=== PATIENT | male | born 1935 | race Caucasian/White ===

== ENCOUNTER 2019-09-24 08:30 | Outpatient (RCR) | payer MEDICARE, SELFPAY | END 2020-03-29 23:59 | disposition home or self-care (01) | LOC: ANHHMGTCPR 08:30 | PROVIDERS: PCP Internal Medicine; Visit Provider Internal Medicine Pulmonary Disease | DX: J44.9 Chronic obstructive pulmonary disease, unspecified (principal) | CPT/HCPCS: 97150; G0424 ==

== ENCOUNTER 2019-10-29 08:30 | Outpatient (RCR) | payer MEDICARE, SELFPAY | END 2019-10-29 12:00 | disposition home or self-care (01) | LOC: ANHCPREHAB 08:30 | PROVIDERS: PCP Internal Medicine; Visit Provider Internal Medicine Pulmonary Disease | DX: J44.9 Chronic obstructive pulmonary disease, unspecified (principal) | CPT/HCPCS: 36415; 82728; 83540; 83550; 85025; 97150; G0424 ==

== ENCOUNTER 2019-12-01 10:49 | Outpatient (RCR) | payer MEDICARE, SELFPAY ==
[2019-10-28 11:18] LABS: Basophils Absolute Auto 0.1 K/mm3 (0.0-0.1); Basophils Percent Auto 0.8 % (0.2-1.2); Eosinophils Absolute Auto 0.3 K/mm3 (0-0.3); Eosinophils Percent Auto 2.8 % (0-4.4); Hematocrit 32.3 % (42.0-52.0); Hemoglobin 10.1 g/dL (14.0-18.0); Immature Granulocyte Absolute 0.04 K/mm3 (0.00-0.031); Immature Granulocyte Percent A 0.4 % (0-0.5); Lymphocytes Absolute Auto 1.22 K/mm3 (0.9-3.2); Lymphocytes Percent Auto 13.5 % (18.3-44.2); Mean Corpuscular HGB Conc 31.3 g/dl (32-36); Mean Corpuscular Hemoglobin 26.4 pg (26-34); Mean Corpuscular Volume 84.6 fl (80-100); Mean Platelet Volume 10.1 fl (7.4-10.4); Monocytes Absolute Auto 0.8 K/mm3 (0.1-0.6); Monocytes Percent Auto 9.2 % (2.6-8.5); Neutrophils Absolute Auto 6.7 K/mm3 (1.3-6.7); Neutrophils Percent Auto 73.3 % (45.5-73.1); Platelet Count Result 229 k/mm3 (150-375); Red Blood Count 3.82 M/mm3 (4.6-6.20); Red Cell Distribution Width 14.6 % (11.5-14.5); White Blood Count 9.1 K/mm3 (4.5-10.0)
[2019-10-28 12:04] LABS: Iron 66 ug/dL (49-181)
[2019-10-28 12:13] LABS: Percent Iron Saturation 19 % (20-50)
[2019-12-01 11:06] LABS: Basophils Absolute Auto 0.1 K/mm3 (0.0-0.1); Basophils Percent Auto 1.2 % (0.2-1.2); Eosinophils Absolute Auto 0.3 K/mm3 (0-0.3); Eosinophils Percent Auto 3.3 % (0-4.4); Hematocrit 31.9 % (42.0-52.0); Hemoglobin 10.2 g/dL (14.0-18.0); Immature Granulocyte Absolute 0.03 K/mm3 (0.00-0.031); Immature Granulocyte Percent A 0.3 % (0-0.5); Lymphocytes Absolute Auto 1.18 K/mm3 (0.9-3.2); Lymphocytes Percent Auto 13.2 % (18.3-44.2); Mean Corpuscular Hemoglobin 26.8 pg (26-34); Mean Corpuscular Volume 83.9 fl (80-100); Mean Platelet Volume 10.4 fl (7.4-10.4); Monocytes Absolute Auto 0.8 K/mm3 (0.1-0.6); Monocytes Percent Auto 8.9 % (2.6-8.5); Neutrophils Absolute Auto 6.5 K/mm3 (1.3-6.7); Neutrophils Percent Auto 73.1 % (45.5-73.1); Platelet Count Result 221 k/mm3 (150-375); Red Cell Distribution Width 13.6 % (11.5-14.5); White Blood Count 8.9 K/mm3 (4.5-10.0)
[2019-12-01 11:30] LABS: Iron 68 ug/dL (49-181)
[2019-12-01 11:39] LABS: Percent Iron Saturation 19 % (20-50)
== END 2020-01-26 23:59 | disposition home or self-care (01) ==
LOC: ANHLAB 10:49
PROVIDERS: PCP Internal Medicine; Visit Provider Internal Medicine Medical Oncology
DX: D50.9 Iron deficiency anemia, unspecified (principal)
CPT/HCPCS: 36415; 82728; 83540; 83550; 85025

== ENCOUNTER → 2020-01-15 12:37 | Outpatient (CLI) | payer MEDICARE, SELFPAY ==
--- NOTE | ~2020-01-15 | CT_ITS ---
EXAMINATION: CT abdomen pelvis w con DATE: 01/15/2020 13:17 INDICATION: Iron deficiency anemia TECHNIQUE: Computed tomography (CT) of the abdomen and pelvis was performed with 100 cc Omnipaque 350 intravenous contrast. Patient had minor allergic reaction with hives in the upper abdomen. Patient e xamined by Dr. Munoz and monitored for 30 minutes and then released. The dose-length product was 833.5 7 mGy-cm. Automated exposure control and iterative reconstruction technique were employed. COMPARISON: CT dated 07/23/2019 FINDINGS: There is chronic scarring/atelectasis involving the lower lungs bilaterally without signifi cant change. Areas of tree-in-bud nodular configuration are seen in the lower lungs, most likely infe ctious/inflammatory. No significant pleural or pericardial effusion. Moderate cardiomegaly. There is diffuse atherosclerosis of the aorta without aneurysm. No lymphadenopathy. The liver, adrenal glands and right kidney are unremarkable. Small subcentimeter hypodensity left kid kianna, most likely benign cysts. Calcified granulomas in the spleen. There are pancreatic calcification s, compatible with chronic pancreatitis. There is stable mesenteric stranding, nonspecific. Nonobstru ctive bowel gas pattern. Moderate colonic fecal loading. No significant small bowel dilation. No abno rmal free air or free fluid in the pelvis. There is a right hip arthroplasty. Generalized osteopenia. There are are shotty nonenlarged retroperitoneal lymph nodes, likely reactive. There is mild-moderat e lumbar spondylosis. No acute osseous abnormality. IMPRESSION: 1. Chronic bibasilar scarring/atelectasis with rounded atelectasis right lower lobe. Tree-in-bud nodu lar configuration scattered in the lower lungs, most likely infectious/inflammatory. No significant c hange. 2: Cardiomegaly. 3: Chronic pancreatitis. Reviewed, dictated and finalized at location A. [employer] IMPRESSION: 1. Chronic bibasilar scarring/atelectasis with rounded atelectasis right lower lobe. Tree-in-bud nodular configuration scattered in the lower lungs, most like ly infectious/inflammatory. No significant change. 2: Cardiomegaly. 3: Chronic pancreatitis.
[2020-01-15 12:55] LABS: Blood Urea Nitrogen 9 mg/dL (8-26); Estimated Glomerular Filt Rate > 60
== END ==
PROVIDERS: PCP Internal Medicine; Visit Provider Internal Medicine Medical Oncology
DX: J98.11 Atelectasis (principal); I51.7 Cardiomegaly; K86.1 Other chronic pancreatitis
CPT/HCPCS: 74177; Q9967

== ENCOUNTER 2020-02-01 14:19 | Outpatient (CLI) | payer MEDICARE, SELFPAY ==
[2020-02-01 15:22] LABS: Basophils Absolute Auto 0.1 K/mm3 (0.0-0.1); Basophils Percent Auto 0.8 % (0.2-1.2); Eosinophils Absolute Auto 0.3 K/mm3 (0-0.3); Eosinophils Percent Auto 3.2 % (0-4.4); Hematocrit 30.3 % (42.0-52.0); Hemoglobin 9.4 g/dL (14.0-18.0); Immature Granulocyte Absolute 0.04 K/mm3 (0.00-0.031); Immature Granulocyte Percent A 0.4 % (0-0.5); Immature Reticulocyte Fraction 9.3 % (3.0-15.9); Lymphocytes Absolute Auto 1.09 K/mm3 (0.9-3.2); Mean Corpuscular Hemoglobin 25.7 pg (26-34); Mean Corpuscular Volume 82.8 fl (80-100); Mean Platelet Volume 10.5 fl (7.4-10.4); Monocytes Absolute Auto 0.8 K/mm3 (0.1-0.6); Monocytes Percent Auto 8.4 % (2.6-8.5); Neutrophils Absolute Auto 6.9 K/mm3 (1.3-6.7); Neutrophils Percent Auto 75.2 % (45.5-73.1); Platelet Count Result 245 k/mm3 (150-375); Red Blood Count 3.66 M/mm3 (4.6-6.20); Red Cell Distribution Width 13.6 % (11.5-14.5); Reticulocyte Hemoglobin Conten 28.8 pg (28.2-35.7); Reticulocyte Percent 1.85 % (0.7-4.3); Reticulocytes Absolute 0.07 B/L (32.2-175.7); White Blood Count 9.1 K/mm3 (4.5-10.0)
[2020-02-01 15:36] LABS: Lactate Dehydrogenase 324 U/L (313-618)
[2020-02-01 15:51] LABS: Erythrocyte Sedimentation Rate 73 mm/hr (0-20)
[2020-02-01 16:58] LABS: Folic Acid > 20.0 ng/mL (2.76->20)
[2020-02-04 11:30] LABS: ANA Titer 1:40 (Negative); Anti Nuclear Antibody Pattern Nuclear, Nucleolar
[2020-02-04 23:15] LABS: Albumin 4.1 g/dL (3.8-4.8); Alpha 1 Globulin 0.3 g/dL (0.2-0.3); Beta 1 Globulin 0.5 g/dL (0.4-0.6); Gamma Globulin 1.1 g/dL (0.8-1.7); Protein, Total 7.4 g/dL (6.1-8.1)
[2020-02-05 22:52] LABS: Haptoglobin 245 mg/dL (43-212)
== END 2020-02-01 14:20 | disposition home or self-care (01) ==
PROVIDERS: PCP Internal Medicine; Visit Provider Internal Medicine Medical Oncology
DX: D64.9 Anemia, unspecified (principal)
CPT/HCPCS: 36415; 82607; 82746; 83010; 83615; 84155; 84165; 85025; 85046; 85652; 86038; 86039

== ENCOUNTER 2020-04-19 12:50 | Outpatient (CLI) | payer MEDICARE, SELFPAY ==
[2020-04-19 13:23] LABS: Basophils Absolute Auto 0.1 K/mm3 (0.0-0.1); Basophils Percent Auto 0.6 % (0.2-1.2); Eosinophils Absolute Auto 0.3 K/mm3 (0-0.3); Eosinophils Percent Auto 3.1 % (0-4.4); Immature Granulocyte Absolute 0.04 K/mm3 (0.00-0.031); Immature Granulocyte Percent A 0.4 % (0-0.5); Immature Reticulocyte Fraction 23.7 % (3.0-15.9); Lymphocytes Absolute Auto 1.43 K/mm3 (0.9-3.2); Lymphocytes Percent Auto 15.1 % (18.3-44.2); Mean Corpuscular HGB Conc 31.4 g/dl (32-36); Mean Corpuscular Volume 79.5 fl (80-100); Mean Platelet Volume 9.8 fl (7.4-10.4); Monocytes Absolute Auto 0.9 K/mm3 (0.1-0.6); Monocytes Percent Auto 9.7 % (2.6-8.5); Neutrophils Absolute Auto 6.8 K/mm3 (1.3-6.7); Neutrophils Percent Auto 71.1 % (45.5-73.1); Platelet Count Result 235 k/mm3 (150-375); Red Blood Count 2.64 M/mm3 (4.6-6.20); Red Cell Distribution Width 14.2 % (11.5-14.5); Reticulocyte Hemoglobin Conten 27.7 pg (28.2-35.7); Reticulocyte Percent 3.28 % (0.7-4.3); Reticulocytes Absolute 0.09 B/L (32.2-175.7); White Blood Count 9.5 K/mm3 (4.5-10.0)
[2020-04-19 13:35] LABS: Hemoglobin 6.6 g/dL (14.0-18.0)
[2020-04-21 15:10] LABS: Alanine Aminotransferase 12 U/L (4-50); Albumin Level 4.1 g/dL (3.5-5.1); Alkaline Phosphatase 109 U/L (38-126); Aspartate Amino Transferase 18 U/L (17-59); Bilirubin,Total 0.2 mg/dL (0.2-1.3); Blood Urea Nitrogen 12 mg/dL (9-20); Calcium 9.4 mg/dL (8.4-10.2); Carbon Dioxide 22 mmol/L (22-30); Chloride 105 mmol/L (98-107); Estimated Glomerular Filt Rate > 60; Glucose 88 mg/dL (75-110); Potassium 4.5 mmol/L (3.4-5.0); Sodium 137 mmol/L (137-145)
== END 2020-04-19 12:51 | disposition home or self-care (01) ==
PROVIDERS: PCP Internal Medicine; Visit Provider Internal Medicine Medical Oncology
DX: D50.9 Iron deficiency anemia, unspecified (principal)
CPT/HCPCS: 36415; 80053; 82728; 85025; 85046

== ENCOUNTER 2020-04-20 10:56 | Outpatient (RCR) | payer MEDICARE, SELFPAY ==
[2020-04-20] VITALS (9 sets, daily range): BP systolic 133–155; BP diastolic 41–85; PULSE 45–100; RESP 14–20; TEMP 36.3–36.9; O2SAT 97–100
== END 2020-07-19 23:59 | disposition home or self-care (01) ==
LOC: ANHCPCTRAN 10:56
PROVIDERS: PCP Internal Medicine; Visit Provider Internal Medicine Medical Oncology
DX: D50.9 Iron deficiency anemia, unspecified (principal)
CPT/HCPCS: 36415; 36430; 86850; 86900; 86901; 86920; P9016

== ENCOUNTER 2020-05-06 10:03 | Outpatient (CLI) | payer MEDICARE, SELFPAY ==
[2020-05-06 10:30] LABS: Basophils Absolute Auto 0.1 K/mm3 (0.0-0.1); Basophils Percent Auto 0.9 % (0.2-1.2); Eosinophils Absolute Auto 0.2 K/mm3 (0-0.3); Eosinophils Percent Auto 2.8 % (0-4.4); Hematocrit 27.5 % (42.0-52.0); Hemoglobin 8.8 g/dL (14.0-18.0); Immature Granulocyte Absolute 0.03 K/mm3 (0.00-0.031); Immature Granulocyte Percent A 0.3 % (0-0.5); Lymphocytes Absolute Auto 1.25 K/mm3 (0.9-3.2); Lymphocytes Percent Auto 14.5 % (18.3-44.2); Mean Corpuscular Hemoglobin 25.8 pg (26-34); Mean Corpuscular Volume 80.6 fl (80-100); Monocytes Absolute Auto 0.8 K/mm3 (0.1-0.6); Monocytes Percent Auto 9.4 % (2.6-8.5); Neutrophils Absolute Auto 6.2 K/mm3 (1.3-6.7); Neutrophils Percent Auto 72.1 % (45.5-73.1); Platelet Count Result 222 k/mm3 (150-375); Red Blood Count 3.41 M/mm3 (4.6-6.20); Red Cell Distribution Width 14.7 % (11.5-14.5); Reticulocyte Hemoglobin Conten 29.4 pg (28.2-35.7); Reticulocyte Percent 1.47 % (0.7-4.3); Reticulocytes Absolute 0.05 B/L (32.2-175.7); White Blood Count 8.6 K/mm3 (4.5-10.0)
[2020-05-06 10:59] LABS: Iron 86 ug/dL (49-181)
[2020-05-06 11:08] LABS: Percent Iron Saturation 21 % (20-50)
== END 2020-05-06 10:04 | disposition home or self-care (01) ==
PROVIDERS: PCP Internal Medicine; Visit Provider Internal Medicine Medical Oncology
DX: D64.9 Anemia, unspecified (principal)
CPT/HCPCS: 36415; 82728; 83540; 83550; 85025; 85046

== ENCOUNTER 2020-05-13 07:27 | Outpatient (CLI) | payer MEDICARE, SELFPAY ==
--- NOTE | ~2020-05-13 | CT_ITS ---
EXAMINATION: CT brain wo con DATE: 05/13/2020 07:57 INDICATION: Headache. TECHNIQUE: Computed tomography (CT) of the head was performed without intravenous contrast. The mA wa s adjusted according to patient size. Iterative reconstruction technique was employed. The dose-lengt h product was 605.33 mGy-cm. COMPARISON: Head CT 07/17/2015 FINDINGS: There are scattered areas of low attenuation in the cerebral white matter, which is within normal limits for the patient's age. There is a prominent perivascular space in the left basal gangli a. There is no intracranial hemorrhage, acute infarction, or abnormal intracranial mass lesion. The v entricles are normal in size. There is mild mucosal thickening in the paranasal sinuses. There are li elise changes of ocular lens replacement surgeries. The mastoid air cells are normal. IMPRESSION: 1. Normal aging brain. Reviewed, dictated and finalized at location A. IMPRESSION: 1. Normal aging brain.
--- NOTE | ~2020-05-13 | XR_ITS ---
EXAMINATION: XR UGI w small bowel DATE: 05/13/2020 10:08 INDICATION: Iron deficiency anemia. TECHNIQUE: The patient drank thin barium. Fluoroscopy of the esophagus, stomach, and small bowel was performed. Fluoroscopy exposure time was 0.9 minutes. Radiographs of the abdomen were obtained. The t ota number of images was 279. COMPARISON: CT abdomen and pelvis 01/15/2020 FINDINGS: UPPER GASTROINTESTINAL SERIES: There is no mass or stricture of the esophagus. There is decreased primary and secondary esophageal p eristalsis. There was no gastroesophageal reflux with provocative maneuvers. The stomach and duodenum demonstrate a normal folding pattern. Median sternotomy wires are noted. SMALL BOWEL SERIES: The small bowel shows a normal folding pattern. Specifically, the terminal ileum is normal. Transit t mason to the colon was 1 hour. There is gaseous distention of the colon. There is a total right hip art hroplasty. IMPRESSION: 1. Moderate esophageal dysmotility. 2. Normal small bowel. 3. Gaseous distention of the colon, consistent with adynamic ileus. Reviewed, dictated and finalized at location A.
== END 2020-05-13 07:28 | disposition home or self-care (01) ==
LOC: ANHIMG 07:31
PROVIDERS: PCP Internal Medicine; Visit Provider Internal Medicine Medical Oncology
DX: K59.00 Constipation, unspecified (principal); D64.9 Anemia, unspecified; K22.8 Other specified diseases of esophagus; K63.89 Other specified diseases of intestine; R51 Headache
CPT/HCPCS: 70450; 74240; 74248

== ENCOUNTER 2020-05-19 16:54 | Inpatient (IN) | payer MEDICARE, SELFPAY ==
[2020-05-19] VITALS (19 sets, daily range): BP systolic 138–164; BP diastolic 49–64; PULSE 60–74; RESP 18–27; TEMP 36.6–36.9; O2SAT 96–100
--- NOTE | ~2020-05-19 | XR_ITS ---
EXAMINATION: XR chest 1V portable INDICATION: Cough TECHNIQUE: Portable AP chest at 1823 hours COMPARISON: 09/05/2019 FINDINGS: There is a chronic small right pleural effusion. Cardiomegaly is noted. There are minimal a irspace opacities of the mid and lower lung zones. No pneumothorax is identified. Median sternotomy w ires and mediastinal surgical clips are seen, likely from prior coronary artery bypass grafting. IMPRESSION: 1. Minimal airspace opacities of the mid and lower lung zones, consistent with atelectasis versus pne umonia. 2. Stable cardiomegaly. 3. Small right pleural effusion, chronic. Reviewed, dictated and finalized at location A. IMPRESSION: 1. Minimal airspace opacities of the mid and lower lung zones, consistent with atelectasis versus pneumonia. 2. Stable cardiomegaly. 3. Small right pleural effusion, chronic.
[2020-05-19 18:34] LABS: Basophils Absolute Auto 0.1 K/mm3 (0.0-0.1); Basophils Percent Auto 0.7 % (0.2-1.2); Eosinophils Absolute Auto 0.3 K/mm3 (0-0.3); Eosinophils Percent Auto 2.9 % (0-4.4); Immature Granulocyte Absolute 0.04 K/mm3 (0.00-0.031); Immature Granulocyte Percent A 0.4 % (0-0.5); Lymphocytes Absolute Auto 1.34 K/mm3 (0.9-3.2); Lymphocytes Percent Auto 13.9 % (18.3-44.2); Mean Corpuscular HGB Conc 31.6 g/dl (32-36); Mean Corpuscular Hemoglobin 26.1 pg (26-34); Mean Corpuscular Volume 82.4 fl (80-100); Mean Platelet Volume 10.3 fl (7.4-10.4); Monocytes Percent Auto 10.4 % (2.6-8.5); Neutrophils Absolute Auto 6.9 K/mm3 (1.3-6.7); Neutrophils Percent Auto 71.7 % (45.5-73.1); Platelet Count Result 288 k/mm3 (150-375); Red Blood Count 2.38 M/mm3 (4.6-6.20); Red Cell Distribution Width 15.9 % (11.5-14.5); White Blood Count 9.7 K/mm3 (4.5-10.0)
[2020-05-19 18:36] LABS: Hemoglobin 6.2 g/dL (14.0-18.0)
[2020-05-19 18:37] LABS: Hematocrit 19.6 % (42.0-52.0)
[2020-05-19 18:43] LABS: INR 1.1; Prothrombin Time 13.5 Seconds (11.1-14.7)
[2020-05-19 18:44] LABS: Partial Thromboplastin Time 36.2 SECONDS (22.3-36.8)
[2020-05-19 18:48] LABS: Alanine Aminotransferase 13 U/L (4-50); Albumin Level 4.3 g/dL (3.5-5.1); Alkaline Phosphatase 113 U/L (38-126); Aspartate Amino Transferase 20 U/L (17-59); Bilirubin,Total 0.1 mg/dL (0.2-1.3); Blood Urea Nitrogen 12 mg/dL (9-20); Carbon Dioxide 23 mmol/L (22-30); Chloride 102 mmol/L (98-107); Estimated CRCL calculation 81 ml/min; Estimated Glomerular Filt Rate > 60; Glucose 106 mg/dL (75-110); Potassium 4.1 mmol/L (3.4-5.0); Sodium 134 mmol/L (137-145)
--- NOTE | 2020-05-19 19:24 | ED.GENADULT ---
HPI - General Adult General Chief complaint: Recheck/Abnormal Lab/Rx Stated complaint: abn labs Time Seen by Provider: 05/19/20 17:47 Related Data Home Medications Medication Instructions Recorded Confirmed albuterol sulfate [Ventolin HFA] 2 puff INHALATION QID PRN 09/29/19 09/29/19 amlodipine 5 mg PO DAILY 09/29/19 09/29/19 aspirin [Aspir-81] 81 mg PO DAILY 09/29/19 09/29/19 cyanocobalamin (vitamin B-12) 1,000 mcg PO DAILY 09/29/19 09/29/19 cyclosporine [Restasis] 1 drp OPHTHALMIC (EYE) Q12H 09/29/19 09/29/19 ferrous sulfate See Rx Instructions .ROUTE .COMPLEX 09/29/19 09/29/19 [id number]-oltdclpzb-rcdwozam 1 inh INHALATION BID 09/30/19 09/30/19 [Trelegy Ellipta] hydralazine 50 mg PO TID 09/30/19 09/30/19 metformin 500 mg PO TID 09/30/19 09/30/19 olopatadine 1 drp OPHTHALMIC (EYE) DAILY 09/30/19 09/30/19 roflumilast [Daliresp] 500 mcg PO DAILY 09/30/19 09/30/19 Allergies Allergy/AdvReac Type Severity Reaction Status Date / Time amiodarone Allergy Unknown Other Unverified 05/19/20 17:46 [facility] Past Medical History Medical History (Updated 05/19/20 @ 20:00 by Maycol Nguyen PA-C) Anemia COPD (chronic obstructive pulmonary disease) Diabetes mellitus Social History Social History Gender identity (if verbalized by the patient): Male Exam Narrative: Exam Narrative: GENERAL: Well-appearing, well-nourished, and in no acute distress. HEAD: Normocephalic, atraumatic. EYES: PERRLA and EOMI. ENT: Nares clear, no rhinorrhea or epistaxis. Mucous membranes moist. CHEST: Clear to auscultation. No respiratory distress. No wheezes rales or rhonchi HEART: Regular rate and rhythm. No murmur heard. Normal peripheral pulses. ABDOMEN: Soft, nontender, nondistended EXTREMITIES: Normal range of motion. No edema. SKIN: Warm, dry, no rash. NEURO: No focal deficits. Alert and oriented x3. Cranial nerves II through XII grossly intact PSYCH: Normal mood and affect. Course Course Emergency Course: Patient in the room at this time resting comfortably denying any pain resting comfortably in the room Consultations Consultation #1: Discussed case heme-onc gastroenterology and hospitalist services who have agreed to accept the patient and consult on the patient with planned reevaluation in the morning will be transfused 1 unit Date: 05/19/20 Time: 19:59 Vital Signs Vital signs: Vital Signs Temperature 98.2 F 05/19/20 17:43 Pulse Rate 70 05/19/20 17:43 Respiratory Rate 18 05/19/20 17:43 Blood Pressure 138/53 L 05/19/20 17:43 Pulse Oximetry 99 05/19/20 17:43 Temperature 98.5 F 05/19/20 17:46 Pulse Rate 65 05/19/20 19:15 Respiratory Rate 22 H 05/19/20 19:15 Blood Pressure 146/59 H 05/19/20 18:46 Pulse Oximetry 99 05/19/20 19:15 Medical Decision Making MDM Narrative Medical decision making narrative: Patient in the room in no distress hemodynamically stable will be transfused 1 unit patient aware of discussions with oncology gastroenterology and hospitalist services patient transfused is noted resting comfortably in the room in no distress nontender abdominal exam no other complaints. Patient agreeing to plan Vital Signs Vital Signs: Vital Signs Temperature 98.2 F 05/19/20 17:43 Pulse Rate 70 05/19/20 17:43 Respiratory Rate 18 05/19/20 17:43 Blood Pressure 138/53 L 05/19/20 17:43 Pulse Oximetry 99 05/19/20 17:43 Temperature 98.5 F 05/19/20 17:46 Pulse Rate 65 05/19/20 19:15 Respiratory Rate 22 H 05/19/20 19:15 Blood Pressure 146/59 H 05/19/20 18:46 Pulse Oximetry 99 05/19/20 19:15 Lab Data Result diagrams: 05/19/20 18:22 05/19/20 18:22 Labs: Lab Results 05/19/20 05/19/20 05/19/20 Range/Units 18:22 18:22 18:22 WBC 9.7 (4.5-10.0) K/mm3 RBC 2.38 L (4.6-6.20) M/mm3 Hgb 6.2 L* (14.0-18.0) g/dL Hct 19.6 L* (42.0-52.0) % MCV 82.4 (80-100)
[2020-05-19] MEDS: SODIUM CHLORIDE 0.9% IV 250 ML 30 ML IV CONT (20:11)
[2020-05-19] MEDS: TUBING, BLOOD PLUM PUMP TUBING 1 EACH XX (20:15)
[2020-05-19] MEDS: LACTATED RINGERS 1,000 ML 75 ML IV CONT (20:45)
[2020-05-19 21:18] LABS: Add Urine Microscopic? YES; Appearance Urine Clear (Clear); Bilirubin Urine Negative (Negative); Blood Urine Negative (Negative); Color Urine Yellow (Yellow); Glucose Urine UA Negative (Negative); Ketones Urine Negative (Negative); Leukocyte Esterase Ur Negative LEU/UL (Negative); Nitrate Urine Negative (Negative); Protein Urine 1+ mg/dL (Negative); RBC Urine 0-2 /hpf (0-2); Specific Grav Ur 1.012 (1.001-1.035); Urobilinogen Urine Negative mg/dL (<2.0); WBC Urine 0-3 /hpf
--- NOTE | 2020-05-19 23:02 | ADMGEN ---
This patient, Steven Greene, was admitted to 2 Medical Room 243-01. Patient/family oriented to hospital policies and general routines including ID bracelet, bed and alarms, visiting hours, pain management, procedures, bathroom and other care routines, personal items, smoking policy, room service/diet, and visiting hours. Valuables list has been completed. Information on how to activate the Rapid Response Team has been discussed. Patient/Family are encouraged to report perceived risks to care and to ask questions if they do not understand what they are told or what they should do.
[2020-05-20] VITALS (12 sets, daily range): BP systolic 135–159; BP diastolic 42–58; PULSE 59–89; RESP 16–20; TEMP 36.4–37.2; O2SAT 97–99; BMI 24.7
[2020-05-20] MEDS: PANTOPRAZOLE SODIUM IV 40 MG VIAL IV PUSH ×3 (01:21→20:30)
[2020-05-20] MEDS: FAMOTIDINE 20 MG/2 ML VIAL IV PUSH ×3 (01:21→20:30)
[2020-05-20 03:16] LABS: Hemoglobin 6.6 g/dL (14.0-18.0)
--- NOTE | 2020-05-20 03:24 | PCRCNOTE ---
Pt declined to wear hospital CPAP during this stay.
[2020-05-20] MEDS: FERROUS SULFATE 324 MG TABLET PO ×3 (08:51→16:31)
[2020-05-20] MEDS: CYANOCOBALAMIN 1,000 MCG TABLET 1000 MCG PO (08:51)
[2020-05-20] MEDS: hydrALAZINE HCL 50 MG TABLET PO ×3 (08:51→16:32)
[2020-05-20] MEDS: METOCLOPRAMIDE HCL 5 MG TABLET PO ×3 (08:51→16:31)
[2020-05-20] MEDS: AMLODIPINE BESYLATE 5 MG TABLET PO (08:51)
[2020-05-20 09:04] LABS: Hematocrit 25.2 % (42.0-52.0); Hemoglobin 8.1 g/dL (14.0-18.0); Mean Corpuscular HGB Conc 32.1 g/dl (32-36); Mean Corpuscular Hemoglobin 26.6 pg (26-34); Mean Corpuscular Volume 82.6 fl (80-100); Mean Platelet Volume 10.3 fl (7.4-10.4); Platelet Count Result 267 k/mm3 (150-375); Red Blood Count 3.05 M/mm3 (4.6-6.20); Red Cell Distribution Width 16.1 % (11.5-14.5); White Blood Count 9.2 K/mm3 (4.5-10.0)
[2020-05-20 09:05] LABS: Hematocrit 25.1 % (42.0-52.0); Hemoglobin 8.1 g/dL (14.0-18.0)
[2020-05-20 09:11] LABS: Glucose Point of Care 108 (65-105)
[2020-05-20 09:17] LABS: Blood Urea Nitrogen 8 mg/dL (9-20); Calcium 8.7 mg/dL (8.4-10.2); Carbon Dioxide 24 mmol/L (22-30); Chloride 106 mmol/L (98-107); Estimated CRCL calculation 95 ml/min; Estimated Glomerular Filt Rate > 60; Glucose 106 mg/dL (75-110); Magnesium 1.9 mg/dL (1.6-2.3); Potassium 3.6 mmol/L (3.4-5.0); Sodium 135 mmol/L (137-145)
[2020-05-20 09:19] LABS: Hemoglobin A1C 5.8 % (<5.7)
[2020-05-20] MEDS: polyethylene glycoL 3350 17 GM POWD.PACK PO (12:30)
--- NOTE | 2020-05-20 12:59 | WPDGICN ---
Assessment and Plan Assessment and plan (1) Anemia: Code(s): D64.9 - Anemia, unspecified Status: Acute Assessment and Plan: Anemia identified. Etiology unclear. I suspect he has iron deficiency anemia given his intermittent use of iron in the past. Plan is to transfuse to a stable hemoglobin. Stool for occult blood advised. Folate B12 levels also check period as patient is on B12 supplementation. GI endoscopy is encouraged with colonoscopy an EGD to be planned. However as patient is not bleeding actively would plan to check the studies on an outpatient basis. Patient is instructed to call Dr. villar is office to arrange colonoscopy an EGD electively as an outpatient. Hopefully over the next 1-2 weeks. (2) COPD (chronic obstructive pulmonary disease): Code(s): J44.9 - Chronic obstructive pulmonary disease, unspecified Status: Acute (3) Diabetes mellitus: Code(s): E11.9 - Type 2 diabetes mellitus without complications Status: Acute GI Consult Note Consult date/time: 05/20/20 12:59 HPI: Steven Greene is a 84 year old male seen in evaluation at the request of the emergency room. Patient followed by Dr. Wilson, hematology. Patient followed by Hematology because of anemia. He is a very poor historian but apparently has had workup for anemia as an outpatient. And referred to the emergency room for transfusion. Patient denies any obvious signs of GI blood loss. He does have a history of a CT scan earlier in the year which revealed pancreatic calcifications suggesting chronic pancreatitis although he denies any significant alcohol intake. He also has a history upper GI small-bowel follow-through that was essentially unremarkable. Review of lab tests reveal he has had some fluctuation in his iron studies he gives a history of having been on iron this was discontinued and recently re-implemented. No other obvious GI workup is available for review patient denies any prior endoscopy. His family history is noncontributory. Old records reflect a history of COPD and diabetes mellitus. Review of Systems Review of Systems: All systems reviewed & are unremarkable except as noted in HPI and below PMFSH Past Medical History Medical History Anemia COPD (chronic obstructive pulmonary disease) Diabetes mellitus Family History Family History Father Cancer Social History Social History Smoking packs per day: 1 Smoking cigarettes per day: 20.0 Smoking status: Former smoker Tobacco type: cigarettes Alcohol intake: current Drinks per week: 10 Substance use: never Gender identity (if verbalized by the patient): Male Spiritual care concerns: No Meds Home Medications and Allergies Home Medications Medication Instructions Recorded Confirmed Type albuterol sulfate [Ventolin HFA] 2 puff INHALATION TID PRN 09/29/19 05/19/20 History amlodipine 5 mg PO DAILY 09/29/19 05/19/20 History aspirin [Aspir-81] 81 mg PO DAILY 09/29/19 05/19/20 History cyanocobalamin (vitamin B-12) 1,000 mcg PO DAILY 09/29/19 05/19/20 History cyclosporine [Restasis] 1 drp OPHTHALMIC (EYE) Q12H 09/29/19 05/19/20 History ferrous sulfate 324 mg PO TID 09/29/19 05/19/20 History lkmtenlejvr-awklcvxwf-fvtbtvqx 1 inh INHALATION BID 09/30/19 05/19/20 History [Trelegy Ellipta] hydralazine 50 mg PO TID 09/30/19 05/19/20 History metformin 500 mg PO TID 09/30/19 05/19/20 History olopatadine 1 drp OPHTHALMIC (EYE) DAILY 09/30/19 05/19/20 History roflumilast [Daliresp] 500 mcg PO DAILY 09/30/19 05/19/20 History metoclopramide HCl 5 mg PO TID 05/19/20 05/19/20 History Allergies Allergy/AdvReac Type Severity Reaction Status Date / Time amiodarone Allergy Unknown Other Verified 05/19/20 20:15 Vital Signs Vital Signs - 24 hr 05/19/20 17:43 0
[2020-05-20 13:27] LABS: Glucose Point of Care 97 (65-105)
--- NOTE | 2020-05-20 14:49 | PM.IMHP ---
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 The patient states for the last few days he has been having more dyspnea on exertion when walking around his house. He reports similar symptoms in the past when he has had a anemia needed blood transfusions. The patient sees Dr. Wilson (Heme) and just had labs done recently and his blood counts were normal. He was recently started back on iron supplementation 3 times a day. He states since then his stools have become darker in color and he has been having some constipation issues. Patient denies any other types of abnormal bleeding, bruising, or blood loss. The patient states over the last 6 months or so he has noticed a decrease in his appetite and about 18 lb weight loss. He states food does not look good her taste good anymore like it used to and he is only eating cereal most days. The patient denies any dysphagia contributing to his weight loss. He recently had an upper GI and small-bowel x-ray completed on 05/13/[address] Wilson which showed moderate esophageal dysmotility and gas distention of the colon, consistent with an adynamic ileus. He was recently started on metoclopramide 5 mg t.i.d. to help with this. He denies any lightheadedness, dizziness, syncope, leg swelling, calf pain, dysuria, frequent urination, chest pain, cough, fever, chills, nausea, vomiting, abdominal pain or any other symptoms at this time. Initial vitals showed, temp 98.2F, BP 138/53, HR 70, RR 18, O2 99% on RA. Initial labs showed, severe normocytic anemia Hgb 5.8, Hct 18.4, normal coag panel, hyponatremia at 134, and normal urinalysis. CXR showed Minimal airspace opacities of the mid and lower lung zones, consistent with atelectasis versus pneumonia. He was admitted into the hospital for severe anemia with a consult to his superintendent system operation and GI specialist for further evaluation and workup. CODE: Full Code POA: , Denise Greene PCP: Dr. Paris Review of Systems Review of Systems: All systems reviewed & are unremarkable except as noted in HPI and below PMFSH Past Medical History Medical History Anemia Arthritis Atrial fibrillation CAD (coronary artery disease) Hx of CABG COPD (chronic obstructive pulmonary disease) Diabetes mellitus Esophageal dysmotility On imaging 05/13/2020 on Metoclopramide Essential hypertension Vitamin B12 deficiency Surgical History Surgical History Hx of CABG Hx of total hip arthroplasty Right Family History Family History Father Lung cancer Mother TIA (transient ischemic attack) Hypertension CHF (congestive heart failure) Sibling CHF (congestive heart failure) Hypertension Social History Social History Smoking packs per day: 1 Smoking cigarettes per day: 20.0 Years smoked: 50 Smoking pack-years: 50.00 Smoking status: Former smoker Tobacco type: cigarettes Smoking end date: 11/25/03 Alcohol intake: current Drinks per week: 12 Alcohol use details: He has not been drinking much alcohol in the last few months, but prior to COVID he was drinking about 12 beers per week, a few beers per day. 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
--- NOTE | 2020-05-20 15:38 | WPDONCCN ---
Assessment and Plan Assessment and plan (1) Iron deficiency anemia: Code(s): D50.9 - Iron deficiency anemia, unspecified Status: Acute Assessment and Plan: 1. Since 2019, pt has undergone extensive testing for his chronic anemia. I have ruled out bone marrow disorders such as leukemia or lymphoma or mds with BMB 2. No evidence of hemolysis 3. 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 4. I agree with panendoscopy 5. His H/H have improved after PRBC 6. I would monitor him overnight and re-eval in AM before discharging him HPI Data of Consult Date/Time: 05/20/20 15:38 Requesting Physician: Gia Alvarenga PA-C Primary Care Provider: Delroy Paris, Consult Narrative Narrative: Steven Greene is a 84 year old male with h/o recurrent iron deficiency anemia who presents to ED last night with symptomatic anemia He contacted my office yesterday c/o progressive HERNANDEZ and weakness and fatigue. CBC was ordered and results showed Hb = 5.8. He was directed to ED at [place] for eval. He was admitted and transfused with 2 units of PRBC. Today, feeling better. He denies any melena or hematochezia or hematuria. He is c/o constipation. He did receive IV FE last month in my office. BMBX in fall of 2018 was normal Review of Systems Review of Systems: All systems reviewed & are unremarkable except as noted in HPI and below Constitutional: Constitutional: Denies anorexia, Reports fatigue, Denies fever(s), Reports malaise, Denies night sweats, Reports snoring, Reports weakness and Denies weight loss Eyes: Eyes: Denies blurry vision ENT: Denies dysphagia, Denies epistaxis, Denies mouth lesions, Denies mouth pain, Denies odynophagia, Denies disequilibrium and Denies sore throat Cardiovascular: Cardiovascular: Denies chest pain, Denies leg edema and Reports dyspnea Respiratory: Respiratory: Denies cough, Reports dyspnea, Reports dyspnea on exertion and Reports snoring Gastrointestinal: Gastrointestinal: Denies abdominal pain, Denies constipation, Denies dysphagia, Denies diarrhea, Denies nausea, Denies odynophagia and Denies vomiting Genitourinary: Genitourinary: Denies hematuria and Denies dysuria Musculoskeletal: Musculoskeletal: Denies myalgias, Denies arthralgias and Reports muscle weakness Integumentary/Breasts: Skin/Breast: Denies rash and Reports unusual bruising Neurologic: Denies confusion, Denies disequilibrium and Reports weakness Psychiatric: Psychiatric: Denies anxiety, Denies confusion and Denies depression Endocrine: Endocrine: Reports fatigue Hematologic/Lymphatic: Hematologic/Lymphatic: Denies easy bleeding, Reports easy bruising and Denies lymphadenopathy PMFSH Past Medical History Medical History Anemia Arthritis Atrial fibrillation CAD (coronary artery disease) Hx of CABG COPD (chronic obstructive pulmonary disease) Diabetes mellitus Esophageal dysmotility On imaging 05/13/2020 on Metoclopramide Essential hypertension Vitamin B12 deficiency Surgical History Surgical History Hx of CABG Hx of total hip arthroplasty Right Family History Family History Father Lung cancer Mother TIA (transient ischemic attack) Hypertension CHF (congestive heart failure) Sibling CHF (congestive heart failure) Hypertension Social History Social History Smoking packs per day: 1 Smoking cigarettes per day: 20.0 Years smoked: 50 Smoking pack-years: 50.00 Smoking status: Former smoker Tobacco type: cigarettes Smoking end date: 11/25/03 Alcohol intake: current Drinks per week: 12 Alcohol use details: He has not been drinking much alcohol in the last few months, but prior to COVID he was drinking about 12 be
[2020-05-20 16:39] LABS: Hematocrit 27.4 % (42.0-52.0); Hemoglobin 8.9 g/dL (14.0-18.0)
[2020-05-20 16:43] LABS: Glucose Point of Care 110 (65-105)
--- NOTE | 2020-05-20 17:52 | PCRCNOTE ---
The patient wears CPAP at home. I spoke with him about it. He said that he wears it most of the time, but he does not plan on wearing it while he is here. -Pooja Buchanan, ELEMENTARY TUTOR
[2020-05-20] MEDS: DOCUSATE SODIUM 100 MG CAPSULE PO (20:31)
[2020-05-20 21:10] LABS: Hematocrit 24.2 % (42.0-52.0); Hemoglobin 7.9 g/dL (14.0-18.0)
[2020-05-20 21:16] LABS: Glucose Point of Care 197 (65-105)
[2020-05-21 02:43] VITALS: BP 141/56; PULSE 56; RESP 16; TEMP 36.4; O2SAT 96
[2020-05-21 03:33] LABS: Hematocrit 25.2 % (42.0-52.0); Hemoglobin 8.2 g/dL (14.0-18.0); Mean Corpuscular HGB Conc 32.5 g/dl (32-36); Mean Corpuscular Hemoglobin 26.6 pg (26-34); Mean Corpuscular Volume 81.8 fl (80-100); Mean Platelet Volume 9.7 fl (7.4-10.4); Platelet Count Result 273 k/mm3 (150-375); Red Blood Count 3.08 M/mm3 (4.6-6.20); Red Cell Distribution Width 15.7 % (11.5-14.5); White Blood Count 9.4 K/mm3 (4.5-10.0)
[2020-05-21 03:34] LABS: Immature Reticulocyte Fraction 26.9 % (3.0-15.9); Reticulocytes Absolute 0.12 B/L (32.2-175.7)
[2020-05-21 03:46] LABS: Blood Urea Nitrogen 9 mg/dL (9-20); Calcium 8.5 mg/dL (8.4-10.2); Carbon Dioxide 23 mmol/L (22-30); Chloride 104 mmol/L (98-107); Estimated CRCL calculation 81 ml/min; Estimated Glomerular Filt Rate > 60; Glucose 102 mg/dL (75-110); Potassium 3.7 mmol/L (3.4-5.0); Sodium 133 mmol/L (137-145)
[2020-05-21 04:14] LABS: Erythrocyte Sedimentation Rate 74 mm/hr (0-20)
[2020-05-21 06:00] VITALS: BP 148/62; PULSE 74; RESP 16; TEMP 36.4; O2SAT 96
[2020-05-21] MEDS: METOCLOPRAMIDE HCL 5 MG TABLET PO ×2 (06:02→11:20)
--- NOTE | 2020-05-21 08:41 | WPDGIPROGNO ---
Progress Note: A&P Additional Plan Patient more comfortable this morning. After transfusion yesterday. He feels less short of breath. Initial dyspnea on exertion has improved. Patient receive transfusion yesterday. Physical exam reveals patient to be alert. Vital signs stable. Lungs are clear. Heart without murmur. Abdomen is soft and nontender. Labs reveal hemoglobin 8.2 , Hct 25.2 MCV 81.8 after transfusion. Impression iron deficiency anemia. Etiology remains somewhat unclear. Upper GI small-bowel follow-through recently was unremarkable. Plan is for colonoscopy an EGD to be performed as an outpatient subsequent small bowel capsule endoscopy if necessary. Continue iron replacement for now. Hopefully discharge today. Subjective Date/time seen: 05/21/20 08:41 Objective Data Vital Signs Vital Signs: Vital Signs - 24 hr 05/20/20 10:00 05/20/20 14:00 05/20/20 18:00 Temperature 37.1 C 36.7 C 36.4 C Pulse Rate 64 63 74 Respiratory Rate 16 18 18 Blood Pressure 149/50 H 153/52 H 149/48 H Pulse Oximetry 97 97 99 05/20/20 20:00 05/21/20 02:43 05/21/20 06:00 Temperature 36.6 C 36.4 C 36.4 C Pulse Rate 89 56 L 74 Respiratory Rate 20 16 16 Blood Pressure 135/42 L 141/56 H 148/62 H Pulse Oximetry 98 96 96 Intake/Output Intake/Output: Intake & Output 05/18/20 05/19/20 05/20/20 05/21/20 23:59 23:59 23:59 23:59 Intake Total 350 1540 200 Output Total 3375 250 Balance 350 -1835 -50 Meds/Results Medications: Active Medications Generic Name Dose Route Start Last Admin Trade Name Freq PRN Reason Stop Dose Admin Albuterol 2 puff 05/20/20 07:21 Proventil Hfa INHALATION TID PRN Shortness Of Breath Or Wheezing Amlodipine Besylate 5 mg 05/20/20 09:00 05/20/20 08:51 Norvasc PO 5 mg DAILY CLARE Administration Cyanocobalamin 1,000 mcg 05/20/20 09:00 05/20/20 08:51 Vitamin B-12 Tab PO 1,000 mcg DAILY CLARE Administration Cyclosporine 1 drop 05/20/20 09:00 05/20/20 20:30 Restasis EACH EYE 1 drop Q12HR CLARE Administration Dextrose 12.5 gm 05/20/20 07:23 Dextrose 50% Syringe IV PUSH PRN PRN Hypoglycemia Protocol Docusate Sodium 100 mg 05/20/20 11:20 05/20/20 20:31 Colace Capsule PO 100 mg Q12H PRN Administration Constipation Famotidine 20 mg 05/19/20 21:00 05/20/20 20:30 Pepcid Iv IV PUSH 20 mg Q12HR CLARE Administration Ferrous Sulfate 324 mg 05/20/20 08:00 05/20/20 16:31 Ferrous Sulfate PO 324 mg TIDWM CLARE Administration Glucagon 1 mg 05/20/20 07:23 Glucagon For Inj IM PRN PRN Hypoglycemia Protocol Glucose 15 gm 05/20/20 07:23 Glutose 15 PO PRN PRN Hypoglycemia Protocol Hydralazine HCl 50 mg 05/20/20 09:00 05/20/20 16:32 Apresoline Tablet PO 50 mg TID CLARE Administration Dextrose 1,000 mls @ 100 mls/hr 05/20/20 07:23 Dextrose 5% 1,000 Ml IVPB PRN PRN Hypoglycemia Protocol Insulin Aspart 2 - 5 units 05/20/20 08:00 05/20/20 16:39 Novolog SUB-Q Not Given TIDWM [facility] Protocol Metoclopramide HCl 5 mg 05/20/20 07:45 05/21/20 06:02 Reglan PO 5 mg TIDAC CLARE Administration Ondansetron HCl 4 mg 05/19/20 20:03 Zofran Inj IV PUSH Q4H PRN Nausea Pantoprazole Sodium 40 mg 05/19/20 21:00 05/20/20 20:30 Protonix Iv IV PUSH 40 mg Q12HR CLARE Administration Polyethylene Glycol 17 gm 05/20/20 09:00 05/20/20 12:30 Miralax PO 17 gm QAM CLARE Administration Radiology Results: ITS Impressions Chest X-Ray 05/19/20 18:38 IMPRESSION: 1. Minimal airspace opacities of the mid and lower lung zones, consistent with atelectasis versus pneumonia. 2. Stable cardiomegaly. 3. Small right pleural effusion, chronic. Labs Labs: Laboratory Results - last 24 hr 05/20/20 05/20/20 05/20/20 08:05 08:05 08:05 WBC 9.2 RBC 3.05 L Hgb 8.1 L Hct 25.2 L MCV
[2020-05-21 09:19] LABS: Hematocrit 27.9 % (42.0-52.0)
[2020-05-21] MEDS: AMLODIPINE BESYLATE 5 MG TABLET PO (09:30)
[2020-05-21] MEDS: FAMOTIDINE 20 MG/2 ML VIAL IV PUSH (09:30)
[2020-05-21] MEDS: hydrALAZINE HCL 50 MG TABLET PO ×2 (09:30→12:17)
[2020-05-21] MEDS: FERROUS SULFATE 324 MG TABLET PO ×2 (09:30→12:17)
[2020-05-21] MEDS: PANTOPRAZOLE SODIUM IV 40 MG VIAL IV PUSH (09:30)
[2020-05-21] MEDS: polyethylene glycoL 3350 17 GM POWD.PACK PO (09:31)
[2020-05-21] MEDS: CYANOCOBALAMIN 1,000 MCG TABLET 1000 MCG PO (09:31)
[2020-05-21 09:51] LABS: Glucose Point of Care 116 (65-105)
[2020-05-21 10:00] LABS: Folic Acid > 20.0 ng/mL (2.76->20)
--- NOTE | 2020-05-21 12:01 | PM.DS ---
DS: Admitting Diagnosis Admitting Diagnosis Admitting Diagnosis: Anemia, unspecified DS: Discharge Diagnosis Discharge Diagnosis (1) Anemia: Code(s): D64.9 - Anemia, unspecified Status: Acute Assessment and Plan: Acute on chronic anemia. He follows up with a [employer] mainframe systems programmer, Dr. Wilson He recently had labs drawn on 05/06/2020 and his hemoglobin was 8.0 and hematocrit was 27.5%. Patient states at this time Dr. Wilson restarted him back on iron supplementation which he has been taking 3 times a day and since then he has noticed darkened color to his stools. H&H on arrival was 5.8/18.4%. He was given 2 units of PRBCs transfused H&H improved to 9.0/27.9% today. I Called Dr. Wilson who feels comfortable the patient being discharged at this time and would like for him to have a CBC completed later this week. He states his office staff will call him with the order to be completed. Dr. Jiménez evaluated the patient and would like to have him follow-up as an outpatient for potential EGD/colonoscopy in the future. Patient's vitamin B12 and folic acid were both normal. Patient will discharge home and check CBC on . (2) COPD (chronic obstructive pulmonary disease): Code(s): J44.9 - Chronic obstructive pulmonary disease, unspecified Status: Acute Assessment and Plan: Will continue his albuterol inhaler as needed. (3) Diabetes mellitus: Code(s): E11.9 - Type 2 diabetes mellitus without complications Status: Acute Assessment and Plan: Glucose has been well controlled here in the hospital. Will start him back on his home medications. Will have him check his glucose regularly to ensure is not have any hypoglycemia. (4) Atrial fibrillation: Code(s): I48.91 - Unspecified atrial fibrillation Status: Acute Assessment and Plan: Patient is in atrial fibrillation at this time but is rate controlled. He is not on any anticoagulation secondary to anemia. (5) CAD (coronary artery disease): Code(s): I25.10 - Atherosclerotic heart disease of [place] coronary artery without angina pectoris Status: Acute Assessment and Plan: Continue baby aspirin during admission. Patient having any signs of chest pain. (6) Essential hypertension: Code(s): I10 - Essential (primary) hypertension Status: Acute Assessment and Plan: Patient's blood pressure has been stable during admission. This morning it was 148/62. Continue monitoring continue his home medications. DS: Summary Hospital Course Reason for hospitalization: Steven Greene is a 84 year old male with a history of anemia requiring multiple blood transfusions and follows up with [employer] mainframe systems programmer, diabetes, COPD, atrial fibrillation not on anticoagulation secondary to anemia, who presented to the emergency department after being found to have abnormal labs showing severe anemia. Initial vitals showed, temp 98.2F, BP 138/53, HR 70, RR 18, O2 99% on RA. Initial labs showed, severe normocytic anemia Hgb 5.8, Hct 18.4, normal coag panel, hyponatremia at 134, and normal urinalysis. CXR showed Minimal airspace opacities of the mid and lower lung zones, consistent with atelectasis versus pneumonia. He was admitted into the hospital for severe anemia with a consult to his ib[employer] mainframe systems programmer and GI specialist for further evaluation and workup. Please see above under each diagnosis as to what transpired during his admission. Status at Discharge Cognitive/behavioral status at discharge: Stable, improved. Time Spent with Patient Time attestation: Total time spent providing and/or
[2020-05-21 12:10] LABS: IFOB Positive Control Positive; Immunochemical Fecal Occult Bl Negative (N)
[2020-05-21 12:25] LABS: Glucose Point of Care 135 (65-105)
== END 2020-05-21 14:10 | disposition home or self-care (01) | DRG 812 ==
LOC: ANHED 20:14 → ANH2MED 20:48
PROVIDERS: Emergency Medicine Emergency Medical Services; Internal Medicine Medical Oncology; Physician Assistant; Admitting Provider Internal Medicine; Emergency Provider Emergency Medicine; PCP Internal Medicine; Visit Provider Internal Medicine
DX: D50.9 Iron deficiency anemia, unspecified (principal); J44.9 Chronic obstructive pulmonary disease, unspecified; E11.9 Type 2 diabetes mellitus without complications; I48.91 Unspecified atrial fibrillation; M19.90 Unspecified osteoarthritis, unspecified site; I25.10 Atherosclerotic heart disease of native coronary artery without angina pectoris; I10 Essential (primary) hypertension; E53.8 Deficiency of other specified B group vitamins; Z96.641 Presence of right artificial hip joint; Z95.1 Presence of aortocoronary bypass graft; Z87.891 Personal history of nicotine dependence; Z79.82 Long term (current) use of aspirin
CPT/HCPCS: 36415; 36430; 71045; 80048; 80053; 81001; 82274; 82607; 82728; 82746; 83036; 83735; 85014; 85018; 85025; 85027; 85046; 85610; 85652; 85730; 86850; 86900; 86901; 86923; 96360; 96361; 99285; A9270; C9113; J7050; J7120; P9016

== ENCOUNTER 2020-05-30 00:56 | Outpatient (CLI) | payer MEDICARE, SELFPAY ==
[2020-05-30 20:03] LABS: SARS-CoV-2 RNA PCR Negative
== END 2020-05-30 00:57 | disposition home or self-care (01) ==
LOC: ANHCOVIDDT 00:58
PROVIDERS: PCP Internal Medicine; Visit Provider Internal Medicine Gastroenterology
DX: Z01.818 Encounter for other preprocedural examination (principal); Z11.59 Encounter for screening for other viral diseases
CPT/HCPCS: 87635; C9803; U0003

== ENCOUNTER 2020-06-01 02:20 | Day surgery (SDC) | payer MEDICARE, SELFPAY ==
[2020-05-23 13:48] VITALS: BMI 24.7
[2020-06-01 08:15] VITALS: BP 150/54; PULSE 73; RESP 18; TEMP 36.9; O2SAT 98; BMI 24.8
--- NOTE | 2020-06-01 08:30 | WPDGICN ---
Assessment and Plan Assessment and plan (1) Iron deficiency anemia: Code(s): D50.9 - Iron deficiency anemia, unspecified Status: Acute Assessment and Plan: Plan is for colonoscopy an EGD because rather profound anemia. Recurrent iron deficiency. If this is not fruitful then small bowel capsule endoscopy may be required. Patient is to continue follow-up with hematology. He is being treated with B12 supplementation raising the question of possible other etiologies for his anemia. (2) Atrial fibrillation: Code(s): I48.91 - Unspecified atrial fibrillation Status: Acute (3) Diabetes mellitus: Code(s): E11.9 - Type 2 diabetes mellitus without complications Status: Acute (4) COPD (chronic obstructive pulmonary disease): Code(s): J44.9 - Chronic obstructive pulmonary disease, unspecified Status: Acute (5) CAD (coronary artery disease): Code(s): I25.10 - Atherosclerotic heart disease of [place] coronary artery without angina pectoris Status: Acute (6) Essential hypertension: Code(s): I10 - Essential (primary) hypertension Status: Acute GI Consult Note Consult date/time: 06/01/20 08:30 HPI: Steven Greene is a 84 year old male seen at the request of Dr Paris, followed by Dr white. Patient recently hospitalized with iron deficiency anemia. Patient presents today for GI endoscopy to search for possible etiology of his anemia. There is some concern over chronic GI blood loss. Patient has been followed by Hematology for some time. No obvious GI bleeding has been described. Patient denies any abdominal pain. His weight appetite bowel movements are described as normal. Previous GI endoscopy was unremarkable as recently as 2019. Past medical history is significant for COPD and diabetes. Review of Systems Review of Systems: All systems reviewed & are unremarkable except as noted in HPI and below PMFSH Past Medical History Medical History Anemia Arthritis Atrial fibrillation CAD (coronary artery disease) Hx of CABG COPD (chronic obstructive pulmonary disease) Diabetes mellitus Esophageal dysmotility On imaging 05/13/2020 on Metoclopramide Essential hypertension Vitamin B12 deficiency Surgical History Surgical History Hx of CABG Hx of total hip arthroplasty Right Family History Family History Father Lung cancer Mother TIA (transient ischemic attack) Hypertension CHF (congestive heart failure) Sibling CHF (congestive heart failure) Hypertension Social History Social History Smoking packs per day: 1 Smoking cigarettes per day: 20.0 Years smoked: 50 Smoking pack-years: 50.00 Smoking status: Former smoker Tobacco type: cigarettes Smoking end date: 11/25/03 Alcohol intake: current Drinks per week: 12 Substance use: never Additional living arrangements comments: He lives with his in [place], [place] 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 Gender identity (if verbalized by the patient): Male Spiritual care concerns: No Meds Home Medications and Allergies Home Medications Medication Instructions Recorded Confirmed Type Restasis 1 drp OPHTHALMIC (EYE) Q12H 09/29/19 05/23/20 History albuterol sulfate [Ventolin HFA] 2 puff INHALATION TID PRN 09/29/19 05/23/20 History amlodipine 5 mg PO DAILY 09/29/19 05/23/20 History aspirin [Aspir-81] 81 mg PO DAILY 09/29/19 05/23/20 History cyanocobalamin (vitamin B-12) 1,000 mcg PO DAILY 09/29/19 05/23/20 History ferrous sulfate 324 mg PO TID 09/29/19 05/23/20 History Daliresp 500 mcg PO DAILY 09/30/19 05/23/20 History Trelegy Ellipta 1 inh INHALATION DAILY 09/30/19 05/23/20 History hydralazine 50 mg PO TID 09/30/19
[2020-06-01] MEDS: LACTATED RINGERS 1,000 ML 150 ML IV CONT (08:44)
[2020-06-01 08:50] LABS: Glucose Point of Care 137 (65-105)
--- NOTE | 2020-06-01 08:54 | WPDANESEPPF ---
Anes - Initial Pre Proc Eval Procedure: Operation Date: 06/01/20 09:30 Proposed Procedures p Esophagogastroduodenoscopy & Colonoscopy - Rodriguez Jiménez MD Date/Time: 06/01/20 08:54 Surgeon: Rodriguez Jiménez MD Pre Op Diagnosis: Iron Deficiency Anemia Patient Data Age: 84 Gender: M Height: 5 ft 9 in Weight: 76.4 kg Last Vital Signs Temp 98.4 F 06/01/20 08:15 Pulse 73 06/01/20 08:15 Resp 18 06/01/20 08:15 BP 150/54 H 06/01/20 08:15 Pulse Ox 98 06/01/20 08:15 Allergies Allergy/AdvReac Type Severity Reaction Status Date / Time amiodarone Allergy Unknown Other Verified 06/01/20 08:14 Home Medications Medication Instructions Recorded Confirmed Type Restasis 1 drp OPHTHALMIC (EYE) Q12H 09/29/19 06/01/20 History albuterol sulfate [Ventolin HFA] 2 puff INHALATION TID PRN 09/29/19 06/01/20 History amlodipine 5 mg PO DAILY 09/29/19 06/01/20 History aspirin [Aspir-81] 81 mg PO DAILY 09/29/19 06/01/20 History cyanocobalamin (vitamin B-12) 1,000 mcg PO DAILY 09/29/19 06/01/20 History ferrous sulfate 324 mg PO TID 09/29/19 05/23/20 History Daliresp 500 mcg PO DAILY 09/30/19 06/01/20 History Trelegy Ellipta 1 inh INHALATION DAILY 09/30/19 06/01/20 History hydralazine 50 mg PO TID 09/30/19 06/01/20 History metformin 500 mg PO TID 09/30/19 06/01/20 History olopatadine 1 drp OPHTHALMIC (EYE) DAILY 09/30/19 06/01/20 History metoclopramide HCl 5 mg PO TID 05/19/20 06/01/20 History pantoprazole 40 mg PO QAM 30 Days #30 tablet 05/21/20 06/01/20 Rx Laboratory Tests 06/01/20 08:47 POC Capillary Glucose 137 mg/dl H mg/dl (65-105) Patient hx anesthesia problems: none Family hx anesthesia problems: none PMFSH Past Medical History Medical History Anemia Arthritis Atrial fibrillation CAD (coronary artery disease) Hx of CABG COPD (chronic obstructive pulmonary disease) Diabetes mellitus Esophageal dysmotility On imaging 05/13/2020 on Metoclopramide Essential hypertension Vitamin B12 deficiency Surgical History Surgical History Hx of CABG Hx of total hip arthroplasty Right Family History Family History Father Lung cancer Mother TIA (transient ischemic attack) Hypertension CHF (congestive heart failure) Sibling CHF (congestive heart failure) Hypertension Social History Social History Smoking packs per day: 1 Smoking cigarettes per day: 20.0 Years smoked: 50 Smoking pack-years: 50.00 Smoking status: Former smoker Tobacco type: cigarettes Smoking end date: 11/25/03 Alcohol intake: current Drinks per week: 12 Substance use: never Additional living arrangements comments: He lives with his in [place], [place] 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 Questions were solicited and answers provided to the satisfaction of the patient/family/POA.
[2020-06-01] MEDS: BENZOCAINE (*SP) 60 ML SPRAY CAN (HURRICAINE) 1 SPRAY MUCOUS MEM (09:32)
[2020-06-01 09:47] VITALS: BP 118/53; PULSE 68; RESP 28; O2SAT 97
[2020-06-01 09:51] VITALS: BP 124/52; PULSE 64; RESP 28; O2SAT 98
[2020-06-01 10:02] VITALS: BP 128/52; PULSE 62; RESP 28; O2SAT 99
== END 2020-06-01 10:25 | disposition home or self-care (01) ==
PROVIDERS: PCP Internal Medicine; Visit Provider Internal Medicine Gastroenterology
PROC: 0DJ08ZZ Inspection of Upper Intestinal Tract, Via Natural or Artificial Opening Endoscopic (ICD-10-PCS; CPT 43235; principal; 2020-06-01 09:30)
DX: D50.9 Iron deficiency anemia, unspecified (principal); I48.91 Unspecified atrial fibrillation; E11.9 Type 2 diabetes mellitus without complications; J44.9 Chronic obstructive pulmonary disease, unspecified; I25.10 Atherosclerotic heart disease of native coronary artery without angina pectoris; I10 Essential (primary) hypertension; Z87.891 Personal history of nicotine dependence; Z79.82 Long term (current) use of aspirin; Z95.1 Presence of aortocoronary bypass graft
CPT/HCPCS: 43235; 45378; J2704; J7120

== ENCOUNTER 2020-06-02 11:48 | Outpatient (CLI) | payer MEDICARE, SELFPAY ==
[2020-06-02 12:20] LABS: Mean Corpuscular HGB Conc 30.6 g/dl (32-36); Mean Corpuscular Hemoglobin 25.5 pg (26-34); Mean Corpuscular Volume 83.4 fl (80-100); Mean Platelet Volume 10.1 fl (7.4-10.4); Platelet Count Result 260 k/mm3 (150-375); Red Blood Count 2.35 M/mm3 (4.6-6.20); Red Cell Distribution Width 15.5 % (11.5-14.5); White Blood Count 8.7 K/mm3 (4.5-10.0)
[2020-06-02 13:03] LABS: Hematocrit 19.6 % (42.0-52.0)
== END 2020-06-02 11:49 | disposition home or self-care (01) ==
LOC: ANHLAB 11:56
PROVIDERS: Visit Provider Physician Assistant
DX: D64.9 Anemia, unspecified (principal); D50.9 Iron deficiency anemia, unspecified
CPT/HCPCS: 36415; 85027

== ENCOUNTER 2020-06-03 07:28 | Outpatient (RCR) | payer MEDICARE, SELFPAY ==
[2020-06-03] VITALS (8 sets, daily range): BP systolic 131–147; BP diastolic 37–58; PULSE 56–86; RESP 16–18; TEMP 36.7–36.9; O2SAT 100
[2020-06-03 07:56] LABS: Hematocrit 18.5 % (42.0-52.0); Hemoglobin 5.7 g/dL (14.0-18.0)
[2020-06-03] MEDS: SODIUM CHLORIDE 0.9% IV 250 ML 30 ML (10:35)
== END 2020-09-01 23:59 | disposition home or self-care (01) ==
LOC: ANHCPCTRAN 07:28
PROVIDERS: Visit Provider Internal Medicine Gastroenterology
DX: D50.9 Iron deficiency anemia, unspecified (principal)
CPT/HCPCS: 36415; 36430; 85014; 85018; 86850; 86900; 86901; 86923; J7050; P9016

== ENCOUNTER 2020-06-08 01:26 | Outpatient (CLI) | payer MEDICARE, SELFPAY ==
[2020-06-08 22:08] LABS: SARS-CoV-2 RNA PCR Negative
== END 2020-06-08 01:27 | disposition home or self-care (01) ==
LOC: ANHCOVIDDT 01:26
PROVIDERS: PCP Internal Medicine; Visit Provider Internal Medicine Gastroenterology
DX: Z01.818 Encounter for other preprocedural examination (principal); Z11.59 Encounter for screening for other viral diseases
CPT/HCPCS: 87635; C9803; U0003

== ENCOUNTER → 2020-06-10 03:09 | Day surgery (SDC) | payer MEDICARE, SELFPAY ==
[2020-06-02 14:30] VITALS: BMI 24.8
== END | disposition home or self-care (01) ==
PROVIDERS: PCP Internal Medicine; Visit Provider Internal Medicine Gastroenterology
DX: K59.00 Constipation, unspecified (principal); Z53.9 Procedure and treatment not carried out, unspecified reason
CPT/HCPCS: J7120

== ENCOUNTER 2020-06-20 11:22 | Outpatient (RCR) | payer MEDICARE, SELFPAY ==
[2020-05-19 16:04] LABS: Basophils Absolute Auto 0.1 K/mm3 (0.0-0.1); Basophils Percent Auto 0.6 % (0.2-1.2); Eosinophils Absolute Auto 0.3 K/mm3 (0-0.3); Eosinophils Percent Auto 2.9 % (0-4.4); Immature Granulocyte Absolute 0.03 K/mm3 (0.00-0.031); Immature Granulocyte Percent A 0.3 % (0-0.5); Immature Reticulocyte Fraction 27.4 % (3.0-15.9); Lymphocytes Absolute Auto 1.23 K/mm3 (0.9-3.2); Mean Corpuscular HGB Conc 31.5 g/dl (32-36); Mean Corpuscular Hemoglobin 25.7 pg (26-34); Mean Corpuscular Volume 81.4 fl (80-100); Monocytes Absolute Auto 0.9 K/mm3 (0.1-0.6); Monocytes Percent Auto 9.7 % (2.6-8.5); Neutrophils Absolute Auto 6.9 K/mm3 (1.3-6.7); Neutrophils Percent Auto 73.5 % (45.5-73.1); Platelet Count Result 254 k/mm3 (150-375); Red Blood Count 2.26 M/mm3 (4.6-6.20); Red Cell Distribution Width 15.8 % (11.5-14.5); Reticulocyte Hemoglobin Conten 23.8 pg (28.2-35.7); Reticulocyte Percent 5.18 % (0.7-4.3); Reticulocytes Absolute 0.12 B/L (32.2-175.7); White Blood Count 9.4 K/mm3 (4.5-10.0)
[2020-05-19 16:17] LABS: Hemoglobin 5.8 g/dL (14.0-18.0)
[2020-05-19 16:18] LABS: Hematocrit 18.4 % (42.0-52.0)
[2020-06-20 12:00] LABS: Basophils Absolute Auto 0.1 K/mm3 (0.0-0.1); Basophils Percent Auto 0.6 % (0.2-1.2); Eosinophils Absolute Auto 0.2 K/mm3 (0-0.3); Eosinophils Percent Auto 1.9 % (0-4.4); Immature Granulocyte Absolute 0.04 K/mm3 (0.00-0.031); Immature Granulocyte Percent A 0.5 % (0-0.5); Immature Reticulocyte Fraction 28.5 % (3.0-15.9); Lymphocytes Absolute Auto 1.07 K/mm3 (0.9-3.2); Lymphocytes Percent Auto 13.8 % (18.3-44.2); Mean Corpuscular HGB Conc 30.3 g/dl (32-36); Mean Corpuscular Hemoglobin 24.2 pg (26-34); Mean Corpuscular Volume 79.7 fl (80-100); Mean Platelet Volume 9.9 fl (7.4-10.4); Monocytes Percent Auto 12.9 % (2.6-8.5); Neutrophils Absolute Auto 5.5 K/mm3 (1.3-6.7); Neutrophils Percent Auto 70.3 % (45.5-73.1); Platelet Count Result 257 k/mm3 (150-375); Red Blood Count 2.07 M/mm3 (4.6-6.20); Red Cell Distribution Width 16.3 % (11.5-14.5); Reticulocyte Hemoglobin Conten 21.2 pg (28.2-35.7); Reticulocyte Percent 3.78 % (0.7-4.3); Reticulocytes Absolute 0.08 B/L (32.2-175.7); White Blood Count 7.8 K/mm3 (4.5-10.0)
[2020-06-20 12:09] LABS: Hematocrit 16.5 % (42.0-52.0)
[2020-06-20 13:14] LABS: Ferritin 8.48 ng/mL (11.1-264)
== END 2020-08-17 23:59 | disposition home or self-care (01) ==
LOC: ANHLAB 11:22
PROVIDERS: PCP Internal Medicine; Visit Provider Internal Medicine Medical Oncology
DX: D64.9 Anemia, unspecified (principal)
CPT/HCPCS: 36415; 82728; 85025; 85046

== ENCOUNTER 2020-06-20 12:31 | Observation (INO) | payer MEDICARE, SELFPAY ==
[2020-06-20] VITALS (18 sets, daily range): BP systolic 131–162; BP diastolic 42–98; PULSE 59–83; RESP 12–24; TEMP 36.3–37; O2SAT 94–100; BMI 24.3
--- NOTE | ~2020-06-20 | CT_ITS ---
EXAMINATION: CT abdomen pelvis w con EXAM DATE: 06/20/2020 14:08 INDICATION: Anemia, has had multiple blood transfusions. TECHNIQUE: Spiral CT of the abdomen and pelvis was performed following intravenous injection of 100 m L Omnipaque 350. Axial, coronal and sagittal images were reviewed. The dose-length product (DLP) fo r this examination was 588.86 mGy-cm. The exposure was tailored according to patient size (auto mA e xposure control), and iterative reconstruction (ASIR) was used as additional dose reduction technique . Comparison is made to prior examination from 01/15/2020. FINDINGS: The liver, spleen, adrenal glands and pancreas are unremarkable. The gallbladder is contra cted but otherwise unremarkable. Portal and splenic veins are patent. Kidneys enhance symmetrically . There is no hydronephrosis. The prostate is unremarkable. The bladder is unremarkable. There i s no retroperitoneal or pelvic lymphadenopathy. There is moderate scattered arteriosclerotic diseas e. There is large amount of gas within the sigmoid colon which extends all the way up to the diaphragm, with sigmoid colonic redundancy. No twisting of the mesentery to suggest volvulus, and this position is unchanged compared to previous examination although the amount of distention has increased. There is moderate amount of stool proximal to the sigmoid colon. The appendix is normal. The stomach and small bowel are unremarkable. No free intraperitoneal gas . There is cardiomegaly. There is some right lower lobe round atelectasis, and left lower lobe sub segmental atelectasis both unchanged compared to prior study. Again there are numerous small right ba silar reticulonodular opacities, appearance most consistent with endobronchial spread of chronic infe ctious process or chronic inflammatory process. There are no osteoblastic or osteolytic lesions iden tified. Right hip arthroplasty hardware. IMPRESSION: 1. Distended air-filled redundant sigmoid extending to diaphragm, without mesenteric twisting. Moder ate amount of colonic stool and gas proximal to this. 2. Persistent lung base findings including right basilar round atelectasis and tree-in-bud distribut ion reticular nodular opacities suggesting chronic infectious or inflammatory process. 3. Cardiomegaly. Reviewed, dictated and finalized at location A. IMPRESSION: 1. Distended air-filled redundant sigmoid extending to diaphragm, without mese nteric twisting. Moderate amount of colonic stool and gas proximal to this. 2. Persistent lung base findings including right basilar round atelectasis and tree-in-bud distribution reticular nodular opacities suggesting chronic infect ious or inflammatory process. 3. Cardiomegaly.
--- NOTE | ~2020-06-20 | XR_ITS ---
EXAMINATION: XR chest 1V portable INDICATION: Shortness of breath TECHNIQUE: Portable AP chest at 1304 hours COMPARISON: 05/19/2020 FINDINGS: There is a chronic and unchanged small right pleural effusion. Stable cardiomegaly is noted . No acute airspace opacities are identified. There is no pneumothorax. Median sternotomy wires and m ediastinal surgical clips are seen, likely from prior coronary artery bypass grafting. IMPRESSION: 1. No acute cardiopulmonary abnormality. 2. Stable cardiomegaly. 3. Chronic small right pleural effusion. Reviewed, dictated and finalized at location B.
--- NOTE | 2020-06-20 12:36 | ECG_ITS ---
Measurements Intervals [place] Rate: 79 P: SC: 0 QRS: -43 QRSD: 106 T: 116 QT: 391 QTc: 449 Interpretive Statements ATRIAL FIBRILLATION LEFT AXIS DEVIATION DELAYED PRECORDIAL R/S TRANSITION ST-T WAVE ABNORMALITY IN HIGH LATERAL LEADS- CONSIDER ISCHEMIA BASELINE ARTIFACT- I, III, AVR, AVL, AVF ABNORMAL ECG Electronically Signed On 06-20-2020 13:32:10 CDT by Curt Avila D.O.
--- NOTE | 2020-06-20 12:53 | ED.RECABL ---
HPI - Recheck/Abnormal Lab/Rx General Chief Complaint: Recheck/Abnormal Lab/Rx <MARCY Milian Last Filed: 06/20/20 14:37> Stated Complaint: low hgb <MARCY Milian Last Filed: 06/20/20 14:37> Time Seen by Provider: 06/20/20 12:40 <MARCY Milian Last Filed: 06/20/20 14:37> Source: patient <MARCY Milian Last Filed: 06/20/20 14:37> Mode of arrival: ambulatory <MARCY Milian Last Filed: 06/20/20 14:37> Limitations: no limitations <MARCY Milian Last Filed: 06/20/20 14:37> Related Data Home Medications: Home Medications Medication Instructions Recorded Confirmed Restasis 1 drp OPHTHALMIC (EYE) Q12H 09/29/19 06/02/20 albuterol sulfate [Ventolin HFA] 2 puff INHALATION TID PRN 09/29/19 06/02/20 amlodipine 5 mg PO DAILY 09/29/19 06/02/20 aspirin [Aspir-81] 81 mg PO DAILY 09/29/19 06/02/20 cyanocobalamin (vitamin B-12) 1,000 mcg PO DAILY 09/29/19 06/02/20 ferrous sulfate 324 mg PO TID 09/29/19 06/02/20 Daliresp 500 mcg PO DAILY 09/30/19 06/02/20 Trelegy Ellipta 1 inh INHALATION DAILY 09/30/19 06/02/20 hydralazine 50 mg PO TID 09/30/19 06/02/20 metformin 500 mg PO TID 09/30/19 06/02/20 olopatadine 1 drp OPHTHALMIC (EYE) DAILY 09/30/19 06/02/20 metoclopramide HCl 5 mg PO TID 05/19/20 06/02/20 simvastatin 20 mg PO DAILY 06/02/20 06/02/20 <MARCY Milian Last Filed: 06/20/20 14:37> Allergies/Adverse Reactions: Allergies Allergy/AdvReac Type Severity Reaction Status Date / Time amiodarone Allergy Unknown Other Verified 06/20/20 12:35 <Maycol Nguyen PA-C - Last Filed: 06/20/20 14:37> [facility] Social History Social History: Social History Smoking packs per day: 1 Smoking cigarettes per day: 20.0 Years smoked: 50 Smoking pack-years: 50.00 Smoking status: Former smoker Tobacco type: cigarettes Smoking end date: 11/25/03 Alcohol intake: current Drinks per week: 12 Substance use: never Additional living arrangements comments: He lives with his in [place], [place] 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 [id number] with the patient and his for 15 minutes. He has no chest pain or shortness of breath with his anemia. His said is both poor production of blood and possible loss. He has been unable to get his colonoscopy because the prep was not efficient. He will be admitted for blood transfusion. <Vivian Early MD - Last Filed: 06/20/20 14:45> Consultations Consultation #1: Discussions were made with hospitalist GI hematology was contacted but does not return call patient will be placed in hospital is been accepted to be transfused <Maycol Nguyen PA-C - Last Filed: 06/20/20 14:37> Call Dr. Gold and he would like a consult and try to do the colonoscopy again tomorrow. <Vivian Early MD - Last Filed: 06/20/20 14:45> Date: 06/20/20 <Maycol Nguyen PA-C - Last Filed: 06/20/20 14:37> 06/20/20 <Vivian Early MD - Last Filed: 06/20/20 14:45> Time: 14:36 <Maycol Nguyen PA-C - Last Filed: 06/20/20 14:37> 13:16 <Vivian Early MD - Last Filed: 06/20/20 14:45> Vital Signs Vital signs: Vital Signs Temperature 97.6 F 06/20/20 12:32 Pulse Rate 69 06/20/20 12:32 Respiratory Rate 17 06/20/20 12:32 Blood Pressure 139/45 L 06/20/20 12:32 Pulse Oximetry 100 07
[2020-06-20 12:59] LABS: Basophils Absolute Auto 0.1 K/mm3 (0.0-0.1); Basophils Percent Auto 0.9 % (0.2-1.2); Eosinophils Absolute Auto 0.2 K/mm3 (0-0.3); Eosinophils Percent Auto 2.5 % (0-4.4); Immature Granulocyte Absolute 0.04 K/mm3 (0.00-0.031); Immature Granulocyte Percent A 0.5 % (0-0.5); Lymphocytes Absolute Auto 1.25 K/mm3 (0.9-3.2); Lymphocytes Percent Auto 14.1 % (18.3-44.2); Mean Corpuscular HGB Conc 30.6 g/dl (32-36); Mean Corpuscular Hemoglobin 24.6 pg (26-34); Mean Corpuscular Volume 80.3 fl (80-100); Mean Platelet Volume 9.9 fl (7.4-10.4); Monocytes Absolute Auto 1.1 K/mm3 (0.1-0.6); Neutrophils Absolute Auto 6.2 K/mm3 (1.3-6.7); Platelet Count Result 273 k/mm3 (150-375); Red Blood Count 2.28 M/mm3 (4.6-6.20); Red Cell Distribution Width 16.5 % (11.5-14.5); White Blood Count 8.9 K/mm3 (4.5-10.0)
[2020-06-20 13:10] LABS: Alanine Aminotransferase 14 U/L (4-50); Albumin Level 4.2 g/dL (3.5-5.1); Alkaline Phosphatase 91 U/L (38-126); Anion Gap 14.2 mmol/L (7-16); Aspartate Amino Transferase 19 U/L (17-59); Bilirubin,Total 0.2 mg/dL (0.2-1.3); Blood Urea Nitrogen 16 mg/dL (9-20); Calcium 9.2 mg/dL (8.4-10.2); Carbon Dioxide 23 mmol/L (22-30); Chloride 103 mmol/L (98-107); Estimated CRCL calculation 70 ml/min; Estimated Glomerular Filt Rate > 60; Glucose 98 mg/dL (75-110); Hematocrit 18.3 % (42.0-52.0); Hemoglobin 5.6 g/dL (14.0-18.0); Potassium 4.2 mmol/L (3.4-5.0); Sodium 136 mmol/L (137-145)
[2020-06-20 13:15] LABS: INR 1.2; Prothrombin Time 14.5 Seconds (11.1-14.7)
[2020-06-20] MEDS: SODIUM CHLORIDE 0.9% IV 250 ML 30 ML IV CONT (14:59)
--- NOTE | 2020-06-20 16:25 | WPDGICN ---
Assessment and Plan Assessment and plan (1) Iron deficiency anemia: Code(s): D50.9 - Iron deficiency anemia, unspecified Status: Acute Assessment and Plan: Patient has a history of profound microcytic iron deficiency anemia. No obvious signs of GI blood loss has been encountered. Recent EGD was unremarkable. Plan is for patient be transfused to a stable hemoglobin. Iron iron studies will be repeated. But previously if shown iron deficiency. Stool Hemoccult will be Prieb repeated previously was Hemoccult negative. Plan is for a colonoscopy ultimately after his hemoglobin is stable. He has previously had difficulty with constipation in several days to prepare the patient is likely. This can be performed as an outpatient if no active bleeding identified. And patient remained stable. We will re-evaluate patient in the morning. Patient has been followed by Hematology service who feels there is no underlying history of leukemia, etc. (2) Atrial fibrillation: Qualifiers: Atrial fibrillation type: unspecified Qualified Code(s): I48.91 - Unspecified atrial fibrillation Code(s): I48.91 - Unspecified atrial fibrillation Status: Acute Assessment and Plan: Anticoagulation on hold because of concern over possible GI blood loss. (3) Diabetes mellitus: Code(s): E11.9 - Type 2 diabetes mellitus without complications Status: Acute (4) Constipation: Code(s): K59.00 - Constipation, unspecified Status: Acute Assessment and Plan: Severe constipation is limited colonoscopy evaluation in this patient. Plan is to continue laxatives and ultimately proceed with colonoscopy after correction of his bowel habits. GI Consult Note Consult date/time: 06/20/20 16:25 HPI: Steven Greene is a 84 year old male Seen in evaluation at the request of the emergency room. Patient states he is feel weak and short of breath for several days. This prompted him to call as junior designer Dr. Hayes.. Who prompted him to go to the emergency room. In the emergency room patient was found to have rather low hemoglobin of approximately 5.6. Patient has a history of chronic microcytic anemia. Found to be iron deficient. Previous GI workup has been noncontributory recent stool Hemoccult was negative. A recent EGD was unremarkable. Repeat colonoscopy was attempted but unable to be accomplished because of poor preparation. Small-bowel follow-through recently was also found to be normal. Plan has been to repeat his GI endoscopy including colonoscopy with ultimately repeat small bowel capsule study. Patient currently feels very weak and fatigued in wishes to defer investigation until is hemoglobin is improved. He denies abdominal pain. He states he has had no recent change in his bowel habits. His current weight appetite bowel movements are normal. Bowel color has been normal to his appearance. He denies any bruising, he denies any nose bleeds. He denies any blood in his urine or elsewhere. Family history is reported be noncontributory. 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
[2020-06-20 17:34] LABS: Iron 39 ug/dL (49-181)
[2020-06-20 17:43] LABS: Percent Iron Saturation 9 % (20-50)
[2020-06-20 18:10] LABS: Ferritin 9.46 ng/mL (11.1-264)
--- NOTE | 2020-06-20 18:44 | ADMGEN ---
This patient, Steven Greene, was admitted to Medical Room 343-01. Patient/family oriented to hospital policies and general routines including ID bracelet, bed and alarms, visiting hours, pain management, procedures, bathroom and other care routines, personal items, smoking policy, room service/diet, and visiting hours. Valuables list has been completed. Information on how to activate the Rapid Response Team has been discussed. Patient/Family are encouraged to report perceived risks to care and to ask questions if they do not understand what they are told or what they should do.
[2020-06-20 19:03] LABS: Glucose Point of Care 123 (65-105)
--- NOTE | 2020-06-20 21:29 | PM.IMHP ---
H&P: HPI History of Present Illness Chief complaint: recurrent anemia Narrative: Date and time of patient contact: 06/20/2020 at 9:30 p.m. Steven Greene is a 84 year old male with a past medical history of coronary artery disease, atrial fibrillation, COPD and chronic iron deficiency anemia who presented to the ER with recurrent anemia. he has had recurrent anemia since 2019 requiring multiple blood transfusions. He reports a distant history iron infusions. He follows with Dr. Wilson as outpatient and has had prior bone marrow biopsies to rule out myelodysplastic process. He called the Oncology office this morning due to having shortness of breath. He reports he usually become short of breath around time he needs a blood transfusion. He had outpatient labs performed which demonstrated hemoglobin of 5 any was directed to come to the ER. He does have a history of intermittent dark stools. He has not had any dark stools recently and in fact has not had a bowel movement in a couple of days. He denies any abdominal pain. He had a normal EGD at the beginning May. He has had 2 recent bowel preps ( a 1 day prep and a 2 day prep) that were in adequate for colonoscopy. he denies any hematuria. He has not had any easy bruising or bleeding. He denies any lightheadedness, palpitations, orthopnea or paroxysmal nocturnal dyspnea. patient's abdomen is slightly distended but he denies any abdominal pain. He has not had any nausea or vomiting. The patient had been evaluated by Dr. Jiménez. The patient would prefer to have colonoscopy as outpatient if his hemoglobin remained stable. Review of Systems Review of Systems: Narrative: 12 systems were reviewed with pertinent positives and negatives per HPI. Except as documented in the HPI, all other systems were reviewed and are negative. [facility] Past Medical History Medical History (Updated 06/20/20 @ 21:36 by Clementine Hughes, DO) Anemia bone marrow disorder has been ruled out. Managed by Dr. Wilson - normal EGD 06/01/2020 - normal colonoscopy July 2019 -attempted a colonoscopy 06/01/2020 with poor prep Arthritis Atrial fibrillation CAD (coronary artery disease) Hx of CABG COPD (chronic obstructive pulmonary disease) Diabetes mellitus Esophageal dysmotility On imaging 05/13/2020 on Metoclopramide Essential hypertension Vitamin B12 deficiency with recent levels within normal limits in April Surgical History Surgical History (Updated 06/20/20 @ 21:36 by Clementine Hughes DO) History of maze procedure bilateral thoracenteses with Maze procedure History of right hip replacement History of shoulder surgery bilateral Hx of CABG 4 vessel CABG 2008 Status post cataract extraction of both eyes with insertion of intraocular lens Family History Family History Father Lung cancer Mother TIA (transient ischemic attack) Hypertension CHF (congestive heart failure) Sibling CHF (congestive heart failure) Hypertension Social History Social History (Updated 06/20/20 @ 22:47 by Clementine Hughes DO) Social History: Primary care physician: Dr. Delroy Paris Code status: Full code Smoking packs per day: 1 Smoking cigarettes per day: 20.0 Years smoked: 50 Smoking pack-years: 50.00 Smoking status: Former smoker Tobacco type: cigarettes Smoking end date: 11/25/03 Alcohol intake: current Alcohol use details: He drinks about a 12 pack of beer a week. Substance use: never Additional living arrangements comments: He lives with his , of 57 years, in [place], [place]. They have 3 children her reportedly healthy. He is independent in activities of daily living. 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 Gender identity (if verbalized by the patient): Male Spiritual care concerns: Yes (Michael
[2020-06-20] MEDS: LACTATED RINGERS 1,000 ML 60 ML IV CONT (22:11)
[2020-06-20] MEDS: FAMOTIDINE 20 MG/2 ML VIAL IV PUSH (22:15)
[2020-06-20 23:01] LABS: Hematocrit 21.9 % (42.0-52.0); Hemoglobin 7.2 g/dL (14.0-18.0)
[2020-06-21] VITALS (12 sets, daily range): BP systolic 143–162; BP diastolic 41–51; PULSE 64–77; RESP 16–18; TEMP 36.4–36.8; O2SAT 97–100; BMI 24.3
[2020-06-21] MEDS: cycloSPORINE 0.4 ML OPHTH SOLUTION 1 DROP EACH EYE ×3 (00:44→20:48)
[2020-06-21] MEDS: hydrALAZINE HCL 50 MG TABLET PO ×4 (00:45→16:31)
[2020-06-21 06:18] LABS: Basophils Absolute Auto 0.1 K/mm3 (0.0-0.1); Basophils Percent Auto 0.9 % (0.2-1.2); Eosinophils Absolute Auto 0.3 K/mm3 (0-0.3); Eosinophils Percent Auto 3.7 % (0-4.4); Hematocrit 23.4 % (42.0-52.0); Hemoglobin 7.6 g/dL (14.0-18.0); Immature Granulocyte Absolute 0.03 K/mm3 (0.00-0.031); Immature Granulocyte Percent A 0.4 % (0-0.5); Lymphocytes Absolute Auto 1.02 K/mm3 (0.9-3.2); Lymphocytes Percent Auto 12.5 % (18.3-44.2); Mean Corpuscular HGB Conc 32.5 g/dl (32-36); Mean Corpuscular Hemoglobin 26.6 pg (26-34); Mean Corpuscular Volume 81.8 fl (80-100); Mean Platelet Volume 10.3 fl (7.4-10.4); Monocytes Absolute Auto 0.8 K/mm3 (0.1-0.6); Monocytes Percent Auto 10.3 % (2.6-8.5); Neutrophils Absolute Auto 5.9 K/mm3 (1.3-6.7); Neutrophils Percent Auto 72.2 % (45.5-73.1); Platelet Count Result 274 k/mm3 (150-375); Red Blood Count 2.86 M/mm3 (4.6-6.20); Red Cell Distribution Width 15.9 % (11.5-14.5); White Blood Count 8.1 K/mm3 (4.5-10.0)
[2020-06-21 06:48] LABS: Alanine Aminotransferase 13 U/L (4-50); Albumin Level 3.8 g/dL (3.5-5.1); Alkaline Phosphatase 82 U/L (38-126); Aspartate Amino Transferase 27 U/L (17-59); Bilirubin,Total 0.6 mg/dL (0.2-1.3); Blood Urea Nitrogen 11 mg/dL (9-20); Calcium 8.6 mg/dL (8.4-10.2); Carbon Dioxide 22 mmol/L (22-30); Chloride 103 mmol/L (98-107); Estimated CRCL calculation 95 ml/min; Estimated Glomerular Filt Rate > 60; Glucose 106 mg/dL (75-110); Sodium 134 mmol/L (137-145)
[2020-06-21 07:53] LABS: Glucose Point of Care 121 (65-105)
[2020-06-21 09:07] LABS: IFOB Positive Control Positive; Immunochemical Fecal Occult Bl Negative (N)
[2020-06-21] MEDS: ASPIRIN 81 MG ENTERIC TABLET PO (09:30)
[2020-06-21] MEDS: amLODIPine BESYLATE 5 MG TABLET PO (09:30)
[2020-06-21] MEDS: CYANOCOBALAMIN 1,000 MCG TABLET 1000 MCG PO (09:30)
[2020-06-21] MEDS: METOCLOPRAMIDE HCL 5 MG TABLET PO ×3 (09:31→16:31)
[2020-06-21] MEDS: PANTOPRAZOLE 40 MG TABLET PO (09:31)
[2020-06-21] MEDS: ROFLUMILAST 500 MCG TABLET PO (09:31)
[2020-06-21] MEDS: FERROUS SULFATE 324 MG TABLET PO ×3 (09:31→16:31)
[2020-06-21] MEDS: FAMOTIDINE 20 MG/2 ML VIAL IV PUSH ×2 (09:31→20:48)
[2020-06-21] MEDS: polyethylene glycoL 3350 17 GM POWD.PACK PO (09:31)
[2020-06-21] MEDS: metFORMIN HCL 500 MG TABLET PO ×2 (09:31→12:34)
[2020-06-21 11:40] LABS: Glucose Point of Care 105 (65-105)
[2020-06-21] MEDS: PEG (High)/E-LYTE SOLN 4,000 ML BTL 4000 ML PO (11:51)
--- NOTE | 2020-06-21 12:17 | WPDGIPROGNO ---
Progress Note: A&P Additional Plan Patient more comfortable this morning was transfuse 2units of blood yesterday. He denies any obvious signs of additional bleeding. Physical exam reveals him to be alert vital signs are stable. Comfortable at rest. Abdomen is soft and nontender. Stool Hemoccult negative. Labs reveal hemoglobin 7.6, hematocrit 23.4, MCV 81, iron indices are low. Impression 1. Iron deficiency anemia. recent EGD unremarkable. Plan is to proceed with colonoscopy tomorrow with preparation today. Subsequent small bowel capsule endoscopy if needed. Patient remains Hemoccult negative. Recent hematologic workup has also been negative. Plan is to continue iron replacement. Currently receiving oral iron. Subjective Date/time seen: 06/21/20 12:17 Objective Data Vital Signs Vital Signs: Vital Signs - 24 hr 06/20/20 12:32 06/20/20 13:38 06/20/20 15:08 Temperature 97.6 F 97.4 F L Pulse Rate 69 59 L 73 Respiratory Rate 17 19 24 H Blood Pressure 139/45 L 131/51 L 147/51 H Pulse Oximetry 100 98 96 06/20/20 15:24 06/20/20 15:34 06/20/20 15:55 Temperature 97.8 F 97.6 F Pulse Rate 69 70 66 Respiratory Rate 18 20 19 Blood Pressure 148/55 H 141/57 H 141/57 H Pulse Oximetry 96 96 95 06/20/20 15:56 06/20/20 16:14 06/20/20 16:24 Temperature 97.4 F L 97.7 F 97.7 F Pulse Rate 65 77 64 Respiratory Rate 19 19 22 H Blood Pressure 141/57 H 148/53 H 137/42 L Pulse Oximetry 95 95 94 06/20/20 17:24 06/20/20 18:12 06/20/20 18:37 Temperature 97.7 F 98.5 F 98.6 F Pulse Rate 73 64 67 Respiratory Rate 20 16 16 Blood Pressure 146/54 H 147/48 H 162/55 H Pulse Oximetry 94 96 100 06/20/20 18:57 06/20/20 19:15 06/20/20 20:00 Temperature 98.6 F 98.5 F Pulse Rate 83 64 67 Respiratory Rate 16 16 Blood Pressure 140/98 H 147/48 H Pulse Oximetry 98 96 06/20/20 20:15 06/20/20 21:15 06/20/20 22:00 Temperature 98.2 F 98.4 F 98.3 F Pulse Rate 83 78 62 Respiratory Rate 18 12 14 Blood Pressure 158/56 H 146/65 H 138/48 L Pulse Oximetry 99 97 99 06/21/20 00:00 06/21/20 04:00 06/21/20 04:05 Temperature 98.3 F Pulse Rate 71 72 73 Respiratory Rate 16 Blood Pressure 146/44 H Pulse Oximetry 98 Intake/Output Intake/Output: Intake & Output 06/18/20 06/19/20 06/20/20 06/21/20 23:59 23:59 23:59 23:59 Intake Total 700 610 Output Total 400 Balance 700 210 Meds/Results Medications: Active Medications Generic Name Dose Route Start Last Admin Trade Name Freq PRN Reason Stop Dose Admin Albuterol 2 puff 06/20/20 22:40 Proventil Hfa INHALATION TID PRN SOB/WHEEZING Amlodipine Besylate 5 mg 06/21/20 09:00 06/21/20 09:30 Norvasc PO 5 mg DAILY CLARE Administration Aspirin 81 mg 06/21/20 09:00 06/21/20 09:30 Aspirin Ec PO 81 mg DAILY CLARE Administration Cyanocobalamin 1,000 mcg 06/21/20 09:00 06/21/20 09:30 Vitamin B-12 Tab PO 1,000 mcg DAILY CLARE Administration Cyclosporine 1 drop 06/20/20 22:40 06/21/20 09:31 Restasis EACH EYE 1 drop Q12HR CLARE Administration Famotidine 20 mg 06/20/20 21:00 06/21/20 09:31 Pepcid Iv IV PUSH 20 mg Q12HR CLARE Administration Ferrous Sulfate 324 mg 06/21/20 09:00 06/21/20 09:31 Ferrous Sulfate PO 324 mg TID CLARE Administration Hydralazine HCl 50 mg 06/20/20 22:50 06/21/20 09:31 Apresoline Tablet PO 50 mg TID CLARE Administration Acetaminophen 1,000 mg in 100 mls @ 400 mls/hr 06/20/20 14:31 Ofirmev 1,000 Mg Ivpb IVPB 06/21/20 14:32 Q6H PRN Mild Pain (1-3) or Fever Lactated Ringer's 1,000 mls @ 60 mls/hr 06/20/20 14:35 06/20/20 22:11 Lr - Lactated Ringers Iv IV CONT 60 mls/hr .[id number] CLARE Administration Sodium Chloride 250 mls @ 30 mls/hr 06/21/20 08:28 Normal Saline Iv IV CONT 06/21/20 16:47 .Q8H20M STA Metformin HCl 500 mg 06/21/20 09:00 06/21/20 09:31 Glucophage PO 500 mg TID CLARE Administration Metoclop
--- NOTE | 2020-06-21 15:58 | PM.IMPN ---
Progress Note: A&P Assessment and Plan (1) Iron deficiency anemia: Code(s): D50.9 - Iron deficiency anemia, unspecified Status: Acute Assessment and Plan: ----- acute on chronic. Suspect occult blood loss but Ifob was negative. Patient is being prepped for colonoscopy tomorrow. He has had a normal EGD in the past. He would benefit from a capsule endoscopy outpatient. He has seen Hematology in the past and I believe he had a bone marrow biopsy. He is already on oral iron but may consider IV supplementation at discharge. (2) Essential hypertension: Code(s): I10 - Essential (primary) hypertension Status: Acute Assessment and Plan: -----Last bp 162/51. Continue amlodipine and hydralazine. Monitor and adjust if necessary. (3) CAD (coronary artery disease): Code(s): I25.10 - Atherosclerotic heart disease of [place] coronary artery without angina pectoris Status: Acute Assessment and Plan: -----No current CP. Since he has hx of heart disease, hgb should be closer to 8. 1 additional unit ordered today. (4) Diabetes mellitus: Code(s): E11.9 - Type 2 diabetes mellitus without complications Status: Acute Assessment and Plan: -----Last glucose 105. Metformin held and sliding scale insulin initiated (5) Atrial fibrillation: Qualifiers: Atrial fibrillation type: unspecified Qualified Code(s): I48.91 - Unspecified atrial fibrillation Code(s): I48.91 - Unspecified atrial fibrillation Status: Acute Assessment and Plan: ----- chronic and rate controlled. No current issues. No anticoagulation due to history of severe anemia. Time Spent With Patient Time with patient: 25 - 35 minutes Subjective Date/time seen: 06/21/20 15:58 Interval history: Pt is a 84-year-old male here for acute on chronic anemia. Patient was seen today and states he is feeling much better after the blood. He is no longer having shortness of breath which is usually his symptom when he is low on blood. He denies chest pain, palpitations, dizziness, lightheadedness, nausea, vomiting, fevers or chills. He is currently drinking his colonoscopy prep. Review of Systems Review of Systems: All systems reviewed & are unremarkable except as noted in HPI and below Exam Narrative: Exam Narrative: General: Well developed well nourished patient resting comfortably in bed in NAD HEENT: normocephalic Neck: supple Neuro: Alert and oriented x4 CV: irregularity noted. Telemetry shows occasional bigeminy and PACs. Abd: Soft, non distended. No pain to palpation. Positive bowel sounds Extremities: No swelling, erythema, or pain to palpation. Objective Data Vital Signs Vital Signs: Vital Signs - 24 hr 06/20/20 16:14 06/20/20 16:24 06/20/20 17:24 Temperature 97.7 F 97.7 F 97.7 F Pulse Rate 77 64 73 Respiratory Rate 19 22 H 20 Blood Pressure 148/53 H 137/42 L 146/54 H Pulse Oximetry 95 94 94 06/20/20 18:12 06/20/20 18:37 06/20/20 18:57 Temperature 98.5 F 98.6 F 98.6 F Pulse Rate 64 67 83 Respiratory Rate 16 16 16 Blood Pressure 147/48 H 162/55 H 140/98 H Pulse Oximetry 96 100 98 06/20/20 19:15 06/20/20 20:00 06/20/20 20:15 Temperature 98.5 F 98.2 F Pulse Rate 64 67 83 Respiratory Rate 16 18 Blood Pressure 147/48 H 158/56 H Pulse Oximetry 96 99 06/20/20 21:15 06/20/20 22:00 06/21/20 00:00 Temperature 98.4 F 98.3 F Pulse Rate 78 62 71 Respiratory Rate 12 14 Blood Pressure 146/65 H 138/48 L Pulse Oximetry 97 99 06/21/20 04:00 06/21/20 04:05 06/21/20 12:00 Temperature 98.3 F Pulse Rate 72 73 64 Respiratory Rate 16 Blood Pressure 146/44 H Pulse Oximetry 98 06/21/20 14:24 Temperature 97.6 F Pulse Rate 71 Respiratory Rate 18 Blood Pressure 162/51 H Pulse Oximetry 100 Intake/Output Intake/Output: Intake & Output 06/18/20 06/19/20 06/20/20 06/21/20 23:59 23:59 23:59 23:59
[2020-06-21] MEDS: SODIUM CHLORIDE 0.9% IV 250 ML 30 ML IV CONT (16:30)
[2020-06-21 16:36] LABS: Glucose Point of Care 131 (65-105)
[2020-06-21] MEDS: SIMVASTATIN 20 MG TABLET PO (16:36)
[2020-06-21] MEDS: LACTATED RINGERS 1,000 ML 60 ML IV CONT (16:37)
[2020-06-21] MEDS: OLOPATADINE 0.1% OPHTH SOLN 5 ML BTL 1 DROP EACH EYE (18:46)
--- NOTE | 2020-06-21 21:55 | WPDONCCN ---
Assessment and Plan Assessment and plan (1) Iron deficiency anemia: Code(s): D50.9 - Iron deficiency anemia, unspecified Status: Acute Assessment and Plan: 1. based on laboratory assessment at this admission, he has classic iron deficiency anemia with low ferritin, low serum iron and a low transferrin saturation. 2. 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 3. I do agree with Dr. Jiménez in pursuing a colonoscopy and at this is negative then pursue capsule endoscopy in the outpatient setting. 4. I will give him intravenous iron therapy starting tomorrow and until the end of his admission. 5. Again, bone marrow biopsy aspiration in the fall of 2019 did not show any signs of a bone marrow disorder or malignancy. HPI Data of Consult Date/Time: 06/21/20 21:55 Requesting Physician: Mehnaz Parrish PA-C Primary Care Provider: Delroy Paris, Consult Narrative Narrative: Steven Greene is a 84 year old male With recurrent history iron deficiency anemia, presenting with lightheadedness, dizziness and fatigue to the emergency department at [facility] yesterday. Patient contacted my office Consuelo morning with complaints of weakness, fatigue, heart palpitations upon exertion. Patient went to the local labs and had a CBC showing hemoglobin of 5.6. He was then directed to the emergency department at [facility] for evaluation and admission. Since mid 2018, patient has had recurrent anemia. Most the time his episodes are related to iron deficiency. In the past 3 months, he has been hospitalized for approximately 3 times with this problem. He did undergo an EGD last month which was unremarkable for bleeding pathology. He has received intravenous iron therapy on 2 separate occasions over the past 3 months. He denies melena or hematochezia or hematuria or hematemesis. His bowel habits have remained relatively normal and has had no weight loss or change in appetite. He denies any Pica or change in diet. He has been transfused with 2 units of packed red blood cells over the course of day. He is feeling much better in his symptoms. He did undergo extensive workup late 2019 that included multiple laboratory testing and also a bone marrow biopsy. Bone marrow biopsy and aspiration did not show any signs of leukemia, lymphoma, MDS, plasma cell dyscrasia or bone marrow disorder. It was completely normal. I have found no evidence of hemolysis or nutritional deficiencies outside of iron deficiency. Review of Systems Review of Systems: All systems reviewed & are unremarkable except as noted in HPI and below Constitutional: Constitutional: Denies anorexia, Reports fatigue, Denies fever(s), Denies malaise, Denies night sweats, Reports snoring, Reports weakness and Denies weight loss Eyes: Eyes: Denies blurry vision ENT: Denies dysphagia, Denies epistaxis, Denies mouth lesions, Denies mouth pain, Denies odynophagia, Denies disequilibrium and Denies sore throat Cardiovascular: Cardiovascular: Denies chest pain, Denies leg edema and Denies dyspnea Respiratory: Respiratory: Denies cough, Reports dyspnea on exertion and Reports snoring Gastrointestinal: Gastrointestinal: Denies abdominal pain, Denies constipation, Denies dysphagia, Denies diarrhea, Denies nausea, Denies odynophagia and Denies vomiting Genitourinary: Genitourinary: Denies hematuria and Denies dysuria Musculoskeletal: Musculoskeletal: Denies myalgias, Denies arthralgias and Denies muscle weakness Integumentary/Breasts: Skin/Breast: Denies rash and Denies unusual bruising Neurologic: Denies confusion, Denies disequilibrium and Reports weakness Psychiatric: Psychiatric: Denies anxiety, Denies confusion and Denies depression Endocrine: Endocrine: Reports fatigue Hematologic/Lymphatic: Hematologic/Lymphatic: Denies easy bleeding, Denies easy bruising and Denies lymphadenopathy PMFS
[2020-06-22] VITALS (11 sets, daily range): BP systolic 121–153; BP diastolic 45–65; PULSE 53–78; RESP 18–31; TEMP 36.4–36.8; O2SAT 96–100
[2020-06-22 05:50] LABS: Hematocrit 24.6 % (42.0-52.0); Hemoglobin 8.1 g/dL (14.0-18.0)
[2020-06-22 05:57] LABS: Anion Gap 11.2 mmol/L (7-16); Blood Urea Nitrogen 6 mg/dL (9-20); Calcium 8.3 mg/dL (8.4-10.2); Carbon Dioxide 24 mmol/L (22-30); Chloride 103 mmol/L (98-107); Estimated CRCL calculation 95 ml/min; Estimated Glomerular Filt Rate > 60; Glucose 115 mg/dL (75-110); Magnesium 1.7 mg/dL (1.6-2.3); Potassium 3.2 mmol/L (3.4-5.0); Sodium 135 mmol/L (137-145)
[2020-06-22 07:58] LABS: Glucose Point of Care 112 (65-105)
[2020-06-22] MEDS: FAMOTIDINE 20 MG/2 ML VIAL IV PUSH (08:28)
[2020-06-22] MEDS: cycloSPORINE 0.4 ML OPHTH SOLUTION 1 DROP EACH EYE (08:29)
[2020-06-22] MEDS: amLODIPine BESYLATE 5 MG TABLET PO (08:31)
[2020-06-22] MEDS: hydrALAZINE HCL 50 MG TABLET PO ×2 (08:33→13:29)
[2020-06-22] MEDS: OLOPATADINE 0.1% OPHTH SOLN 5 ML BTL 1 DROP EACH EYE (08:35)
--- NOTE | 2020-06-22 08:50 | PC.NURSE ---
To GI via stretcher. Voiding without difficulty.
[2020-06-22] MEDS: LACTATED RINGERS 1,000 ML 150 ML IV CONT (09:10)
[2020-06-22 09:16] LABS: Glucose Point of Care 108 (65-105)
--- NOTE | 2020-06-22 09:30 | WPDANESEPPF ---
Anes - Initial Pre Proc Eval Procedure: Operation Date: 06/22/20 10:00 Proposed Procedures p Colonoscopy - Rodriguez Jiménez MD Date/Time: 06/22/20 09:30 Surgeon: Mehnaz Parrish PA-C Pre Op Diagnosis: recurrent anemia Patient Data Age: 84 Gender: M Height: 5 ft 9 in Weight: 74.9 kg Last Vital Signs Temp 98.2 F 06/22/20 09:03 Pulse 66 06/22/20 09:03 Resp 21 H 06/22/20 09:03 BP 151/52 H 06/22/20 09:03 Pulse Ox 98 06/22/20 09:03 Allergies Allergy/AdvReac Type Severity Reaction Status Date / Time amiodarone Allergy Unknown Other Verified 06/22/20 09:01 Home Medications Medication Instructions Recorded Confirmed Type Restasis 1 drp OPHTHALMIC (EYE) Q12H 09/29/19 06/20/20 History albuterol sulfate [Ventolin HFA] 2 puff INHALATION TID PRN 09/29/19 06/20/20 History amlodipine 5 mg PO DAILY 09/29/19 06/20/20 History aspirin [Aspir-81] 81 mg PO DAILY 09/29/19 06/20/20 History cyanocobalamin (vitamin B-12) 1,000 mcg PO DAILY 09/29/19 06/20/20 History ferrous sulfate 324 mg PO TID 09/29/19 06/20/20 History Daliresp 500 mcg PO DAILY 09/30/19 06/20/20 History Trelegy Ellipta 1 inh INHALATION DAILY 09/30/19 06/20/20 History hydralazine 50 mg PO TID 09/30/19 06/20/20 History metformin 500 mg PO TID 09/30/19 06/20/20 History olopatadine 1 drp OPHTHALMIC (EYE) DAILY 09/30/19 06/20/20 History metoclopramide HCl 5 mg PO TID 05/19/20 06/20/20 History pantoprazole 40 mg PO QAM 30 Days #30 tablet 05/21/20 06/20/20 Rx simvastatin 20 mg PO DAILY 06/02/20 06/20/20 History Laboratory Tests 06/20/20 06/21/20 06/21/20 13:00 11:37 16:33 Hgb Hct Sodium Potassium Chloride Carbon Dioxide Anion Gap BUN Creatinine Estim Creat Clear Calc Estimated GFR Glucose POC Capillary Glucose 105 mg/dl mg/dl 131 mg/dl H mg/dl (65-105) (65-105) Calcium Magnesium Blood Type O Positive Antibody Screen Negative Crossmatch See Detail 06/22/20 06/22/20 06/22/20 05:31 05:31 07:56 Hgb 8.1 g/dL L g/dL (14.0-18.0) Hct 24.6 % L % (42.0-52.0) Sodium 135 mmol/L L mmol/L (137-145) Potassium 3.2 mmol/L L mmol/L (3.4-5.0) Chloride 103 mmol/L mmol/L (98-107) Carbon Dioxide 24 mmol/L mmol/L (22-30) Anion Gap 11.2 mmol/L mmol/L (7-16) BUN 6 mg/dL L D mg/dL (9-20) Creatinine 0.50 mg/dL L mg/dL (0.7-1.3) Estim Creat Clear Calc 95 ml/min ml/min Estimated GFR > 60 (59 - ) Glucose 115 mg/dL H mg/dL (75-110) POC Capillary Glucose 112 mg/dl H mg/dl (65-105) Calcium 8.3 mg/dL L mg/dL (8.4-10.2) Magnesium 1.7 mg/dL mg/dL (1.6-2.3) Blood Type Antibody Screen Crossmatch 06/22/20 09:14 Hgb Hct Sodium Potassium Chloride Carbon Dioxide Anion Gap BUN Creatinine Estim Creat Clear Calc Estimated GFR Glucose POC Capillary Glucose 108 mg/dl mg/dl (65-105) Calcium Magnesium Blood Type Antibody Screen Crossmatch Patient hx anesthesia problems: none Family hx anesthesia problems: none PMFSH Past Medical History Medical History (Updated 06/20/20 @ 21:36 by Clementine Hughes DO) Anemia bone marrow disorder has been ruled out. Managed by Dr. Wilson - normal EGD 06/01/2020 - normal colonoscopy July 2019 -attempted a colonoscopy 06/01/2020 with poor prep Arthritis Atrial fibrillation CAD (coronary artery disease) Hx of CABG COPD (chronic obstructive pulmonary disease) Diabetes mellitus Esophageal dysmotility On imaging 05/13/2020 on Metoclopramide Essential hypertension Vitamin B12 def
--- NOTE | 2020-06-22 11:10 | PC.NURSE ---
Returned from GI Lab via stretcher. Family at bedside.
[2020-06-22] MEDS: KCL 20 MEQ/SW 100 ML 100 ML 50 MEQ IVPB (11:22)
[2020-06-22] MEDS: PANTOPRAZOLE 40 MG TABLET PO (11:23)
[2020-06-22] MEDS: ROFLUMILAST 500 MCG TABLET PO (11:25)
[2020-06-22 11:51] LABS: Glucose Point of Care 119 (65-105)
--- NOTE | 2020-06-22 12:08 | PHAR ---
HOMEMED VERIFIED = TRELEGY ELLIPTA. NO RX LABEL SO NO OTHER INFORMATION.
[2020-06-22] MEDS: FERROUS SULFATE 324 MG TABLET PO (13:28)
[2020-06-22] MEDS: METOCLOPRAMIDE HCL 5 MG TABLET PO (13:29)
[2020-06-22] MEDS: IRON SUCROSE COMPLEX 100 MG in SODIUM CHLORIDE 0.9% IV 50 ML 220 MG IVPB (14:00)
--- NOTE | 2020-06-22 15:30 | PM.DS ---
DS: Admitting Diagnosis Admitting Diagnosis Admitting Diagnosis: Iron deficiency anemia, unspecified DS: Discharge Diagnosis Discharge Diagnosis (1) Iron deficiency anemia: Code(s): D50.9 - Iron deficiency anemia, unspecified Status: Acute Assessment and Plan: ----- acute on chronic iron deficiency. Suspect occult blood loss but Ifob was negative. Colonoscopy does not reveal an etiology for the pts symptoms. I do believe GI is planning for a capsule endoscopy outpt. I spoke with hematology and plan to do iron infusion x1 while here and she is going to f/u outpt for additional treatments. She is to have an H and H outpt as well. Pt can feels the symptoms when he becomes anemic and was instructed to come back to the ER if these present again. He has had a prior bone marrow bx. follow up with hematology outpt. (2) Essential hypertension: Code(s): I10 - Essential (primary) hypertension Status: Acute Assessment and Plan: -----Last bp 147/50. Continue amlodipine and hydralazine. (3) CAD (coronary artery disease): Code(s): I25.10 - Atherosclerotic heart disease of [place] coronary artery without angina pectoris Status: Acute Assessment and Plan: -----No current CP. (4) Diabetes mellitus: Code(s): E11.9 - Type 2 diabetes mellitus without complications Status: Acute Assessment and Plan: -----Last glucose 119. Continue Metformin (5) Atrial fibrillation: Qualifiers: Atrial fibrillation type: unspecified Qualified Code(s): I48.91 - Unspecified atrial fibrillation Code(s): I48.91 - Unspecified atrial fibrillation Status: Acute Assessment and Plan: ----- chronic and rate controlled. No current issues. No anticoagulation due to history of severe anemia. DS: Summary Hospital Course Reason for hospitalization: anemia Hospital Course: patient is an 84-year-old male who presented emergency room for shortness of breath associated with acute on chronic anemia. Vitals in the ER were temperature 97.6?, pulse 69, respiratory rate 17, blood pressure 139/45, pulse ox 100 on room air. Initial hemoglobin 5.6 and hematocrit 18.3. Abdominal pelvis CT showed distended air-fluid redundant sigmoid extending into the diaphragm without mesenteric twisting with moderate amount of colonic stool and persistent these findings. Patient was admitted to the hospitalist service and was given a total of 3 blood transfusions while he was admitted. He underwent a colonoscopy which did not find the etiology of the blood loss. Anemia labs consistent with iron deficiency. The patient follows hematology and has had a previous bone marrow biopsy. He was given 1 dose of IV iron. his hemoglobin remained stable throughout his hospitalization after his 3 units of blood. They have plans for a capsule endoscopy outpatient and he is going to follow-up with hematology. The patient felt back to baseline and was ready for discharge. He was educated about the worrisome signs and symptoms come back to the emergency room and was discharged stable condition. The patient had no abdominal pain shortness of breath the day discharge. Status at Discharge Functional status at discharge: independent ambulation Overall status at discharge: patient is back to baseline Time Spent with Patient Time attestation: Total time spent providing and/or coordinating discharge services:34 min Time spent: Greater than 30 minutes Exam Narrative: Exam Narrative: General: Well developed well nourished patient resting comfortably in bed in NAD HEENT: normocephalic Neck: supple Neuro: Alert and oriented x4 CV: irregularity noted. Telemetry shows occasional bigeminy and PACs. Abd: Soft, non distended. No pain to palpation. Positive bowel sounds Extremities: No swelling, erythema, or pain to palpation. DS: Data Data Completed and Pending Completed studies during hospi
== END 2020-06-22 15:40 | disposition home or self-care (01) ==
LOC: ANHED 13:18 → ANH3MED 17:48
PROVIDERS: Emergency Medicine Emergency Medical Services; Internal Medicine; Internal Medicine Gastroenterology; Physician Assistant; Admitting Provider Internal Medicine; Emergency Provider Emergency Medicine; PCP Internal Medicine; Visit Provider Internal Medicine
PROC: 0DJD8ZZ Inspection of Lower Intestinal Tract, Via Natural or Artificial Opening Endoscopic (ICD-10-PCS; CPT 45378; principal; 2020-06-22 10:00)
DX: D50.9 Iron deficiency anemia, unspecified (principal); R06.02 Shortness of breath; I48.91 Unspecified atrial fibrillation; D12.5 Benign neoplasm of sigmoid colon; K59.39 Other megacolon; E11.9 Type 2 diabetes mellitus without complications; J44.9 Chronic obstructive pulmonary disease, unspecified; I10 Essential (primary) hypertension; K59.00 Constipation, unspecified; Z87.891 Personal history of nicotine dependence; Z79.84 Long term (current) use of oral hypoglycemic drugs; Z79.82 Long term (current) use of aspirin; I25.10 Atherosclerotic heart disease of native coronary artery without angina pectoris; Z95.1 Presence of aortocoronary bypass graft
CPT/HCPCS: 45385; 36415; 36430; 71045; 74177; 80048; 80053; 82274; 82728; 83540; 83550; 83735; 85014; 85018; 85025; 85046; 85610; 85730; 86850; 86900; 86901; 86923; 88305; 93005; 96361; 96365; 96366; 96375; 96376; 99285; A9270; G0378; J1756; J2704; J3480; J7050; J7120; P9016; Q9967

== ENCOUNTER 2020-06-29 10:33 | Outpatient (CLI) | payer MEDICARE, SELFPAY ==
[2020-06-29 10:55] LABS: Hematocrit 22.4 % (42.0-52.0); Hemoglobin 7.1 g/dL (14.0-18.0)
== END 2020-06-29 10:34 | disposition home or self-care (01) ==
PROVIDERS: PCP Internal Medicine; Visit Provider Physician Assistant
DX: D50.9 Iron deficiency anemia, unspecified (principal)
CPT/HCPCS: 36415; 85014; 85018

== ENCOUNTER 2020-07-01 07:27 | Outpatient (RCR) | payer MEDICARE, SELFPAY ==
[2020-06-30 11:21] LABS: Hematocrit 22.9 % (42.0-52.0); Hemoglobin 7.2 g/dL (14.0-18.0)
[2020-07-01] VITALS (11 sets, daily range): BP systolic 135–158; BP diastolic 41–59; PULSE 48–64; RESP 18; TEMP 36.4–36.9; O2SAT 100
[2020-07-01] MEDS: ACETAMINOPHEN 325 MG TABLET 650 MG PO (07:54)
[2020-07-01] MEDS: diphenhydrAMINE HCl CAP 25 MG CAPSULE PO (07:54)
[2020-07-01] MEDS: SODIUM CHLORIDE 0.9% IV 250 ML 30 ML IV CONT (08:25)
== END 2020-09-28 23:59 | disposition home or self-care (01) ==
LOC: ANHCPCTRAN 07:27
PROVIDERS: PCP Internal Medicine; Visit Provider Internal Medicine Medical Oncology
DX: D50.0 Iron deficiency anemia secondary to blood loss (chronic) (principal)
CPT/HCPCS: 36415; 36430; 85014; 85018; 86850; 86900; 86901; 86923; A9270; J7050; P9016

== ENCOUNTER → 2020-07-06 02:15 | Day surgery (SDC) | payer MEDICARE, SELFPAY ==
--- NOTE | 2020-07-06 14:48 | SUR.OPER ---
Patient returned to the GI Lab at 1500 for recorder box removal. Patient voiced no complaints. States they have understanding of instructions. Patient left ambulatory. JOSE SINGLETON
== END | disposition home or self-care (01) ==
PROVIDERS: PCP Internal Medicine; Visit Provider Internal Medicine Gastroenterology
PROC: 0DJ07ZZ Inspection of Upper Intestinal Tract, Via Natural or Artificial Opening (ICD-10-PCS; CPT 91110; principal; 2020-07-06 07:00)
DX: D50.9 Iron deficiency anemia, unspecified (principal)
CPT/HCPCS: 91110

== ENCOUNTER 2020-07-08 08:08 | Outpatient (CLI) | payer MEDICARE, SELFPAY ==
--- NOTE | ~2020-07-08 | XR_ITS ---
XR abdomen/kub 1V DATE: 07/08/2020 08:27 INDICATION: Givens capsule study; capsule taken 07/06/2020 TECHNIQUE: AP projection, 2 views COMPARISON: 06/20/2020 CT abdomen pelvis FINDINGS: The orally ingested capsule device overlies the lateral aspect of the left mid abdomen, pre sumably in the descending colon. There is a prominent amount of gas and fecal material in the colon. There is no evidence of bowel obstruction. There is calcification of the abdominal aorta and iliac arteries. Degenerative changes of the thoracic and lumbar spine. Right total hip replacement IMPRESSION: Orally ingested capsule otherwise overlies mid descending colon Reviewed, dictated and finalized at [facility]. Reviewed, dictated and finalized at [facility].
== END 2020-07-08 08:09 | disposition home or self-care (01) ==
PROVIDERS: PCP Internal Medicine; Referring Provider Internal Medicine Medical Oncology; Visit Provider Internal Medicine Gastroenterology
DX: D64.9 Anemia, unspecified (principal)
CPT/HCPCS: 36415; 74018; 85025

== ENCOUNTER 2020-07-15 11:36 | Outpatient (RCR) | payer MEDICARE, SELFPAY ==
[2020-07-08 15:18] LABS: Basophils Absolute Auto 0.1 K/mm3 (0.0-0.1); Eosinophils Absolute Auto 0.4 K/mm3 (0-0.3); Eosinophils Percent Auto 4.8 % (0-4.4); Hematocrit 29.2 % (42.0-52.0); Hemoglobin 9.3 g/dL (14.0-18.0); Immature Granulocyte Absolute 0.02 K/mm3 (0.00-0.031); Immature Granulocyte Percent A 0.3 % (0-0.5); Mean Corpuscular HGB Conc 31.8 g/dl (32-36); Mean Corpuscular Hemoglobin 26.3 pg (26-34); Mean Corpuscular Volume 82.7 fl (80-100); Mean Platelet Volume 10.6 fl (7.4-10.4); Monocytes Absolute Auto 0.9 K/mm3 (0.1-0.6); Monocytes Percent Auto 11.6 % (2.6-8.5); Neutrophils Percent Auto 64.3 % (45.5-73.1); Platelet Count Result 247 k/mm3 (150-375); Red Blood Count 3.53 M/mm3 (4.6-6.20); Red Cell Distribution Width 16.4 % (11.5-14.5); White Blood Count 7.8 K/mm3 (4.5-10.0)
[2020-07-15 12:14] LABS: Basophils Absolute Auto 0.1 K/mm3 (0.0-0.1); Basophils Percent Auto 0.8 % (0.2-1.2); Eosinophils Absolute Auto 0.3 K/mm3 (0-0.3); Eosinophils Percent Auto 2.9 % (0-4.4); Hematocrit 29.2 % (42.0-52.0); Hemoglobin 9.4 g/dL (14.0-18.0); Immature Granulocyte Absolute 0.03 K/mm3 (0.00-0.031); Immature Granulocyte Percent A 0.3 % (0-0.5); Lymphocytes Absolute Auto 1.35 K/mm3 (0.9-3.2); Lymphocytes Percent Auto 15.5 % (18.3-44.2); Mean Corpuscular HGB Conc 32.2 g/dl (32-36); Mean Corpuscular Volume 80.7 fl (80-100); Mean Platelet Volume 10.4 fl (7.4-10.4); Monocytes Absolute Auto 0.9 K/mm3 (0.1-0.6); Monocytes Percent Auto 10.8 % (2.6-8.5); Neutrophils Absolute Auto 6.1 K/mm3 (1.3-6.7); Neutrophils Percent Auto 69.7 % (45.5-73.1); Platelet Count Result 235 k/mm3 (150-375); Red Blood Count 3.62 M/mm3 (4.6-6.20); Red Cell Distribution Width 16.2 % (11.5-14.5); White Blood Count 8.7 K/mm3 (4.5-10.0)
== END 2020-10-06 23:59 | disposition home or self-care (01) ==
LOC: ANHLAB 11:36
PROVIDERS: PCP Internal Medicine; Visit Provider Internal Medicine Medical Oncology
DX: D64.9 Anemia, unspecified (principal)
CPT/HCPCS: 36415; 85025

== ENCOUNTER 2020-07-22 11:10 | IRF | payer MEDICARE, SELFPAY ==
--- NOTE | ~2020-07-22 | XR_ITS ---
EXAMINATION: XR barium swallow modified DATE: 07/28/2020 14:24 INDICATION: Cough after speech therapy TECHNIQUE: Modified barium esophagram was performed by myself to administered fluoroscopy, in conjun ction with speech pathologist who administered barium in varying consistencies as per speech patholog ist documentation. This was recorded on tape. A single fluoroscopic spot image was recorded. The DAP for this procedure was 1.6 Gycm2. Fluoroscopy exposure time was 2.5 minutes. FINDINGS: Oral stage: Adequate function. Pharyngeal phase: Adequate function. Laryngeal penetration: Present with thin liquids. Aspiration: None. Laryngeal sensitivity: Present. IMPRESSION: Laryngeal penetration with thin liquids. Please refer to speech pathologist findings and specific feeding recommendations. Reviewed, dictated and finalized at location [facility]. IMPRESSION: Laryngeal penetration with thin liquids. Please refer to speech pat hologist findings and specific feeding recommendations.
--- NOTE | 2020-07-22 11:21 | ADMGEN ---
This patient, Steven Greene, was admitted to [facility] Room 220-01. Patient/family oriented to hospital policies and general routines including ID bracelet, bed and alarms, visiting hours, pain management, procedures, bathroom and other care routines, personal items, smoking policy, room service/diet, and visiting hours. Valuables list has been completed. Information on how to activate the Rapid Response Team has been discussed. Patient/Family are encouraged to report perceived risks to care and to ask questions if they do not understand what they are told or what they should do. arrived to [facility] at 1110, transported via [facility], no family is here at this time. He was reported to be alert and oriented x4 but thought he was at [facility]. V/S reported stable during transport. Settled in room, educated on use of call rodriguez. will continue with, admission process.
[2020-07-22 11:36] VITALS: BMI 23.8
[2020-07-22 11:38] VITALS: BP 144/47; PULSE 56; RESP 20; TEMP 36.5; O2SAT 100
[2020-07-22 11:58] LABS: Glucose Point of Care 183 (65-105)
[2020-07-22 12:24] LABS: Basophils Absolute Auto 0.1 K/mm3 (0.0-0.1); Basophils Percent Auto 0.6 % (0.2-1.2); Eosinophils Absolute Auto 0.2 K/mm3 (0-0.3); Eosinophils Percent Auto 3.1 % (0-4.4); Hematocrit 30.7 % (42.0-52.0); Hemoglobin 9.9 g/dL (14.0-18.0); Immature Granulocyte Absolute 0.03 K/mm3 (0.00-0.031); Immature Granulocyte Percent A 0.4 % (0-0.5); Lymphocytes Absolute Auto 1.14 K/mm3 (0.9-3.2); Lymphocytes Percent Auto 14.5 % (18.3-44.2); Mean Corpuscular HGB Conc 32.2 g/dl (32-36); Mean Corpuscular Hemoglobin 25.4 pg (26-34); Mean Corpuscular Volume 78.9 fl (80-100); Mean Platelet Volume 10.3 fl (7.4-10.4); Monocytes Absolute Auto 0.8 K/mm3 (0.1-0.6); Monocytes Percent Auto 10.3 % (2.6-8.5); Neutrophils Absolute Auto 5.6 K/mm3 (1.3-6.7); Neutrophils Percent Auto 71.1 % (45.5-73.1); Platelet Count Result 247 k/mm3 (150-375); Red Blood Count 3.89 M/mm3 (4.6-6.20); Red Cell Distribution Width 15.9 % (11.5-14.5); White Blood Count 7.8 K/mm3 (4.5-10.0)
[2020-07-22 12:36] LABS: Anion Gap 8 mmol/L (8-16); Blood Urea Nitrogen 13 mg/dL (9-20); Calcium 8.6 mg/dL (8.4-10.2); Carbon Dioxide 23 mmol/L (22-30); Chloride 102 mmol/L (98-107); Estimated CRCL calculation 78 ml/min; Estimated Glomerular Filt Rate > 60; Glucose 177 mg/dL (75-110); Potassium 4.4 mmol/L (3.4-5.0); Sodium 133 mmol/L (137-145)
[2020-07-22 13:17] VITALS: BMI 23.8
[2020-07-22] MEDS: ACETAMINOPHEN 500 MG TABLET 1000 MG PO (13:49)
[2020-07-22 14:00] VITALS: BP 144/47; PULSE 56; RESP 20; TEMP 36.3; O2SAT 100
[2020-07-22] MEDS: CLINDAMYCIN HCL 150 MG CAP 600 MG PO ×2 (18:23→20:56)
[2020-07-22] MEDS: hydrALAZINE HCL 50 MG TABLET PO ×2 (18:23→18:28)
[2020-07-22] MEDS: metFORMIN HCL XR 500 MG TAB.SR.24H PO (18:24)
[2020-07-22] MEDS: APIXABAN 5 MG TABLET PO (18:24)
[2020-07-22 20:38] VITALS: BP 134/59; PULSE 98; RESP 18; TEMP 36.4; O2SAT 97
[2020-07-22] MEDS: SIMVASTATIN 10 MG TABLET 30 MG PO (20:56)
[2020-07-22 21:23] LABS: Glucose Point of Care 107 (65-105)
[2020-07-23 05:32] LABS: Cholesterol 121 mg/dL (0-200); HDL Direct 41 mg/dL; Triglycerides 106 mg/dL (<150)
[2020-07-23 05:43] LABS: LDL Cholesterol Direct 51 mg/dL
[2020-07-23] MEDS: CLINDAMYCIN HCL 150 MG CAP 600 MG PO ×3 (05:43→20:32)
[2020-07-23 06:00] VITALS: BP 158/52; PULSE 57; RESP 12; TEMP 37.1; O2SAT 100
[2020-07-23 06:47] LABS: Hemoglobin A1C 5.3 % (<5.7)
[2020-07-23 06:52] LABS: Glucose Point of Care 127 (65-105)
[2020-07-23] MEDS: amLODIPine BESYLATE 5 MG TABLET 10 MG PO (10:02)
[2020-07-23] MEDS: APIXABAN 5 MG TABLET PO ×2 (10:03→17:31)
[2020-07-23] MEDS: hydrALAZINE HCL 50 MG TABLET PO ×3 (10:03→17:31)
[2020-07-23] MEDS: FERROUS SULFATE 324 MG TABLET PO (10:03)
[2020-07-23] MEDS: PANTOPRAZOLE 40 MG TABLET PO (10:03)
--- NOTE | 2020-07-23 10:18 | WPDREHABHP ---
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 [] The patient is a 84 years old right-handed male with past medical history of atrial fibrillation, hypertension, hyperlipidemia, and diabetes mellitus type 2 presented to [facility] on July 18, 2020 via EMS after waking up with severe dysarthria and right-sided upper and lower extremities weakness. On arrival, and IHS S was 5. CT of the head was negative for a bleed. CTA was negative for large vessel occlusion. Neurology was consulted. MRI of the brain showed an acute ischemic infarction in the left frontal lobe. TTE showed no intracardiac thrombus or PFO. The patient was continued on his home medications including antihypertensive, simvastatin, warm COPD medications and apixaban. Patient underwent a modified barium swallow on July 18, 2020 and was placed on a pureed diet with nectar thickened liquids. Chest x-ray on July 19, 2020 noted barium in the left lower bronchial tree, indicating of aspiration and patient was placed on IV clindamycin Q 8 hours and has been switched to oral for rehab. speech revaluated the patient and felt that the patient did well with swallowing and pureed and nectar thick as long as he is alert when eating. Of note, the patient is being followed by Dr. Kg Snider, hematology, on an outpatient basis for severe anemia requiring 9 blood transfusion over the last few months. Current hemoglobin level is stable at 9.9. Physical examination continues to reveal right-sided weakness, decreased gross motor control, dysarthria, and impaired balance. 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 He was discharged to rehab apixaban[] the patient has not traveled outside the [place] or had contact with someone who is ill that his travel outside the [place] in the past 21 days. The patient has not traveled to an area of the [place] there is experiencing known transmission of the Coronavirus and has not had close personal contact with anyone that as. The patient does not have a fever. The patient experienced poor possible aspiration pneumonia during his modified barium swallow, he completed antibiotics for this and was tested for COVID-19 on July 19, 2020 and the results were negative. Therapy was initiated at the acute care facility and the patient transferred to us from [facility] on July 22, 2020 FALLS OR SURGERIES: The patient has had [no] major surgeries in the 100 days prior to admission. patient had [no] falls in the past year. patient had [no] falls with injury in the past year. PAST MEDICAL HISTORY: hypertension, hyperlipidemia, diabetes mellitus type 2, atrial fibrillation, and blood disorder requiring transfusions PAST SURGICAL HISTORY: none listed SOCIAL HISTORY: the patient lives with his in 1 level home with the basement. There are 2 steps to enter. The patient was independent prior and use the reader to rule to put on socks. The patient's is available to assist him following rehab if necessary. Former smoker quit about 20 years ago, occasional alcohol use. No illicit drug use. FAMILY HISTORY: None on file PRIOR LEVEL OF FUNCTION: Eating was [INDEPENDENT] Oral Care was [INDEPENDENT] Toileting Hygiene was [INDEPENDENT] Shower/Bathing was [INDEPENDENT] Upper Body Dressing was [INDEPENDENT] Lower Body Dressing was [INDEPENDENT] Donning/[place] Footwear was [INDEPENDENT] Rolling Left and Right was [INDEPENDENT] Sit to Lying was [INDEPENDENT] Lying to Sitting was [INDEPENDENT] Sit to Stand was [INDEPENDENT] Bed to Chair Transfers
--- NOTE | 2020-07-23 13:02 | PCSTNOTE ---
Bedside Swallow Evaluation This pt was seen for a bedside swallow evaluation following a CVA. At a previous facility, a Modified Barium Swallow resulted in a pureed diet with mildly thick liquids. The pt was given trials of thin and mildly thick liquid, puree, pudding (extremely thick liquid), and solid food. The pt coughed and vocal quality was wet/gurgly following trials of thin liquid. All other trials were within normal limits. The pt reports no difficulty chewing any type of food, and has permanent dentures. It is recommended for the pt to continue receiving an oral diet. Food consistency should be regular with nildly thick liquids. The pt should eat independently. Position during intake should be upright. Speech therapy should focus on the following: laryngeal elevation exercises laryngeal adduction exercises tongue base retraction exercises
[2020-07-23 14:00] VITALS: BP 135/51; PULSE 50; RESP 16; TEMP 36.1; O2SAT 99
[2020-07-23 16:54] LABS: Glucose Point of Care 129 (65-105)
[2020-07-23] MEDS: metFORMIN HCL XR 500 MG TAB.SR.24H PO (17:32)
[2020-07-23] MEDS: SIMVASTATIN 10 MG TABLET 30 MG PO (20:29)
[2020-07-23 21:49] VITALS: BP 151/53; PULSE 53; RESP 16; TEMP 36.6; O2SAT 99
[2020-07-24] MEDS: CLINDAMYCIN HCL 150 MG CAP 600 MG PO (05:51)
[2020-07-24 06:00] VITALS: BP 151/53; PULSE 54; RESP 16; TEMP 36.4; O2SAT 100
[2020-07-24 06:47] LABS: Glucose Point of Care 118 (65-105)
[2020-07-24] MEDS: amLODIPine BESYLATE 5 MG TABLET 10 MG PO (09:40)
[2020-07-24] MEDS: APIXABAN 5 MG TABLET PO ×2 (09:40→17:37)
[2020-07-24] MEDS: FERROUS SULFATE 324 MG TABLET PO (09:40)
[2020-07-24] MEDS: hydrALAZINE HCL 50 MG TABLET PO ×3 (09:40→17:37)
[2020-07-24] MEDS: PANTOPRAZOLE 40 MG TABLET PO (09:41)
--- NOTE | 2020-07-24 12:25 | WPDNEURORHBP ---
Subjective Date/time seen: 07/24/20 12:25 admitted to the rehab floor with the diagnosis of his stroke involving the left frontal lobe in addition to the comorbid conditions of hypertension, diabetes mellitus type 2, atrial fibrillation, hyperlipidemia, and blood disorders requiring transfusions. Review of Systems Review of Systems: All systems reviewed & are unremarkable except as noted in HPI and below Functional Status Ambulation Ability Ability to Ambulate 10 Feet: Contact Guard Ability to Ambulate 50 Feet With 2 Turns: Contact Guard Ability to Ambulate 150 Feet: Contact Guard Ambulation Assistive Devices: None Transfers Ability Ability to Transfer In/Out of Chair: Independent Exam Narrative: Exam Narrative: examination reveals him to be awake alert in no obvious acute distress with normal and full speech no cervical bruit ear nose throat examination normal lungs clear to auscultation abdomen soft nontender normal bowel sounds neurological examination revealed no changes as compared to yesterday he does have a mild decrease in the strength with drift against gravity but reflexes symmetrical and plantars are downgoing is skin is normal so as the mental status Objective Data Vital Signs Vital Signs: Vital Signs - 24 hr 07/23/20 14:00 07/23/20 21:49 07/24/20 06:00 Temperature 36.1 C L 36.6 C 36.4 C L Pulse Rate 50 L 53 L 54 L Respiratory Rate 16 16 16 Blood Pressure 135/51 L 151/53 H 151/53 H Pulse Oximetry 99 99 100 Intake/Output Intake/Output: Intake & Output 07/21/20 07/22/20 07/23/20 07/24/20 23:59 23:59 23:59 23:59 Intake Total 480 720 120 Balance 480 720 120 Meds/Results Medications: Active Medications Generic Name Dose Route Start Last Admin Trade Name Freq PRN Reason Stop Dose Admin Acetaminophen 1,000 mg 07/22/20 13:32 07/22/20 13:49 Tylenol Tablet PO 1,000 mg Q4H PRN Administration Mild Pain (1-3) or Fever Albuterol 2 puff 07/22/20 11:51 Proventil Hfa INHALATION QID PRN Shortness Of Breath Amlodipine Besylate 10 mg 07/23/20 09:00 07/24/20 09:40 Norvasc PO 10 mg DAILY CLARE Administration Apixaban 5 mg 07/22/20 17:00 07/24/20 09:40 Eliquis PO 5 mg BID CLARE Administration Dextrose 12.5 gm 07/22/20 11:55 Dextrose 50% Syringe IV PUSH PRN PRN Hypoglycemia Protocol Ferrous Sulfate 324 mg 07/23/20 09:00 07/24/20 09:40 Ferrous Sulfate PO 324 mg DAILY CLARE Administration Glucagon 1 mg 07/22/20 11:55 Glucagon For Inj IM PRN PRN Hypoglycemia Protocol Glucose 15 gm 07/22/20 11:55 Glutose 15 PO PRN PRN Hypoglycemia Protocol Hydralazine HCl 50 mg 07/22/20 13:00 07/24/20 09:40 Apresoline Tablet PO 50 mg TID CLARE Administration Dextrose 1,000 mls @ 100 mls/hr 07/22/20 11:55 Dextrose 5% 1,000 Ml IVPB PRN PRN Hypoglycemia Protocol Metformin HCl 500 mg 07/22/20 17:00 07/23/20 17:32 Glucophage Xr PO 500 mg 1700 CLARE Administration Metoclopramide HCl 10 mg 07/22/20 11:51 Reglan PO Q6H PRN Nausea And Vomiting Non-Formulary Medication 1 inhalation 07/23/20 09:00 [id number] [Trelegy Ellipta] INHALATION 08/22/20 09:01 DAILY CLARE Non-Formulary Medication 500 mcg 07/23/20 09:00 Roflumilast PO 08/22/20 09:01 DAILY CLARE Pantoprazole Sodium 40 mg 07/23/20 09:00 07/24/20 09:41 Protonix PO 40 mg QAM CLARE Administration Polyethylene Glycol 17 gm 07/22/20 11:51 Miralax PO DAILY PRN Constipation Simvastatin 30 mg 07/22/20 21:00 07/23/20 20:29 Zocor PO 30 mg HS CLARE Administration Labs Labs: Laboratory Results - last 24 hr 07/23/20 07/24/20 16:46 06:29 POC Capillary Glucose 129 H 118 H Progress Note: A&P Assessment and Plan (1) Constipation: Code(s): K59.00 - Constipation, unspecified Status: Acute (2) Iron de
[2020-07-24 14:00] VITALS: BP 143/44; PULSE 63; RESP 18; TEMP 36.9; O2SAT 100
[2020-07-24 17:06] LABS: Glucose Point of Care 136 (65-105)
[2020-07-24] MEDS: metFORMIN HCL XR 500 MG TAB.SR.24H PO (17:37)
[2020-07-24] MEDS: SIMVASTATIN 10 MG TABLET 30 MG PO (20:56)
[2020-07-24 21:50] VITALS: PULSE 58; RESP 16; O2SAT 95
[2020-07-24 22:00] VITALS: BP 134/50; PULSE 62; RESP 18; TEMP 36.8; O2SAT 99
--- NOTE | 2020-07-25 04:43 | PHAR ---
PT'S HOME MED [facility] MDI VERIFIED BY PHARMACY
[2020-07-25 05:28] LABS: Glucose Point of Care 109 (65-105)
[2020-07-25 06:00] VITALS: BP 150/52; PULSE 69; RESP 18; TEMP 36.4; O2SAT 97
[2020-07-25] MEDS: hydrALAZINE HCL 50 MG TABLET PO ×3 (09:33→18:15)
[2020-07-25] MEDS: APIXABAN 5 MG TABLET PO ×2 (09:34→18:15)
[2020-07-25] MEDS: amLODIPine BESYLATE 5 MG TABLET 10 MG PO (09:34)
[2020-07-25] MEDS: ROFLUMILAST 500 MCG TABLET PO (09:35)
[2020-07-25] MEDS: PANTOPRAZOLE 40 MG TABLET PO (09:35)
[2020-07-25] MEDS: FERROUS SULFATE 324 MG TABLET PO (09:35)
[2020-07-25 09:40] VITALS: PULSE 74; RESP 20; O2SAT 100
--- NOTE | 2020-07-25 13:14 | RPD ---
INDIVIDUALIZED PLAN OF CARE FOR Steven Greene Brief Synthesis of Pre-Admission Screen, Post-Admission Evaluation and Therapy Evaluations: The patient presents to rehab with Acute ischemic infarction left frontal lobe. Comorbidities include Right-sided weakness, dysarthria, dysphagia, hypertension, hyperlipidemia, diabetes mellitus type 2, atrial fibrillation, bleeding disorder, severe anemia, chronic obstructive pulmonary disease, shortness of breath, sleep apnea, gastroesophageal reflux disease, nausea and vomiting, aspiration, and HTN. The patient?s needs will be best met in an intensive program vs. at a lower level of care. The patient requires physician services for neurology services, medical oversight, and coordination of care. Emotional needs will be monitored as depression is a common sequelae of stroke. The patient needs physician monitoring and treatment of chronic severe anemia, hypertension, aspiration pneumonia, monitoring for adverse reactions to new medications, monitoring for infection, and pain control. The patient requires nursing services for frequent neuro checks, anticoagulation therapy, medication management and education, pressure relief and skin care management, monitoring of labs, bowel and bladder training, diabetes management and education, and fall/safety precautions. Deficits include: ADLs, Balance, Endurance, Family Training/Education, Mobility, Pain Management, ROM, Safety, Speech, Strength, Swallowing, and Transfers. Operation Shift Supervisor/Case Management for: Discharge Planning and Patient/Family Counseling Physical Therapy: 5 days per week for 60 minutes. Treatments may include: Therapeutic Exercise, Gait Training, Neuromuscular Re-education, Transfer Training, Community Reintegration, Bed Mobility, Patient/Family Education, Wheelchair Mobility Group Therapy/Concurrent Therapy Rationales: -Improve attention span during functional activities in a distracted environment. -Enhance problem solving and/or adequate judgment skills during functional activities in a distracted environment. -Promote increased safety awareness in a distracted environment to reduce fall risk with functional tasks, transfers, and ambulation to allow a more safe, self-sufficient return to the home environment. -Improve dynamic balance skills to promote safety and independence with functional activities in a distracted environment for maximum gain. Occupational Therapy: 5 days per week for 60 minutes. Treatments may include: Therapeutic Exercise, Therapeutic Activity, Cognitive Training, Self-Care Transfer Training, Community Reintegration, Home Management, Patient/Family Education, Wheelchair Mobility Training, Energy Conservation Training Group Therapy/Concurrent Therapy Rationales: -Allow therapist to observe and teach generalization and carry-over of skills learned in individual therapy. -Enhance problem solving and sequencing skills during therapeutic activities in a distracted environment. -Promote increased safety awareness in a realistic setting to reduce fall risk with functional tasks due to visual and verbal distractions. -Increase functional level with ADLs, ADL transfers and use of adaptive equipment through therapeutic activities with others while promoting safety to allow a more safe, self-sufficient return home. Speech Therapy: 5 days per week for 60 minutes. Treatments may include: Dysphasia Therapy, Speech/Language/Communication Therapy, Cognitive Training, Patient/Family Education Group Therapy/Concurrent Therapy - Rationale: -Allow therapist to observe and teach generalization and carry-over of skills learned in individual therapy. -Improve comprehension skills with complex or abstract ideas through discussion in a realistic setting. -Enhance problem solving skills with complex issues during activities in a distracted environment. -Promote increased memory skills and concentration in a distracted environment for a safe transition home. -Improv
[2020-07-25 14:00] VITALS: BP 130/45; PULSE 74; RESP 20; TEMP 36.3; O2SAT 100
[2020-07-25 17:33] LABS: Glucose Point of Care 96 (65-105)
[2020-07-25] MEDS: metFORMIN HCL XR 500 MG TAB.SR.24H PO (18:15)
[2020-07-25] MEDS: SIMVASTATIN 10 MG TABLET 30 MG PO (21:04)
[2020-07-25 22:00] VITALS: BP 157/58; PULSE 82; RESP 18; TEMP 36.9; O2SAT 96
[2020-07-26 06:00] VITALS: BP 137/46; PULSE 62; RESP 18; TEMP 36.8; O2SAT 97
[2020-07-26 06:26] LABS: Glucose Point of Care 116 (65-105)
[2020-07-26] MEDS: ROFLUMILAST 500 MCG TABLET PO (10:02)
[2020-07-26] MEDS: PANTOPRAZOLE 40 MG TABLET PO (10:02)
[2020-07-26] MEDS: FERROUS SULFATE 324 MG TABLET PO (10:02)
[2020-07-26] MEDS: amLODIPine BESYLATE 5 MG TABLET 10 MG PO (10:02)
[2020-07-26] MEDS: SENNA/DOCUSATE SODIUM TABLET 1 TAB PO ×2 (10:02→16:31)
[2020-07-26] MEDS: hydrALAZINE HCL 50 MG TABLET PO ×3 (10:02→17:00)
[2020-07-26] MEDS: APIXABAN 5 MG TABLET PO ×2 (10:02→16:31)
[2020-07-26 10:30] VITALS: O2SAT 96
[2020-07-26 14:00] VITALS: BP 123/47; PULSE 54; RESP 18; TEMP 36.1; O2SAT 100
--- NOTE | 2020-07-26 14:08 | WPDNEURORHBP ---
Subjective Date/time seen: 07/26/20 14:08 Interval history: this pleasant 84-year-old gentleman is here after having had the left frontal lobe infarction which has affected his right side in the speech and language function however he clearly making progress and doing well he denies any headache nausea vomiting chest pain shortness of breath fever chills sore throat he does have a history of atrial fibrillation and has had the full workup performed at [facility] from where he was transferred to us a few days ago for further management and rehab Denies any headache nausea vomiting chest pain shortness of breath fever chills sore throat Review of Systems Review of Systems: All systems reviewed & are unremarkable except as noted in HPI and below Functional Status Ambulation Ability Ability to Ambulate 10 Feet: Standby Assistance Ability to Ambulate 50 Feet With 2 Turns: Standby Assistance Ability to Ambulate 150 Feet: Standby Assistance Ambulation Assistive Devices: None Transfers Ability Ability to Transfer In/Out of Chair: Standby Assistance Exam Const: General: comfortable and no acute distress HENMT: General nose exam: Normal nares present Mouth: Yes moist mucous membranes Eyes: General: appearance normal, both eyes and all related structures Neck: Neck: supple and no JVD Resp: Effort & Inspection: normal respiratory effort Auscultation: clear to auscultation bilaterally Cardio: Rate: regular rate Rhythm: regular rhythm GI: GI Palp: Yes Soft to palpation Auscultation: normal bowel sounds Skin: General skin exam: normal color and no rashes or lesions noted Neuro: Other: patient does have expressive aphasia and right-sided weakness which is getting better overall he is needing assistance in the activities of daily living but per occupational therapist speech therapist and also the physical therapist his making progress he is able to walk 150 feet and making excellent progress Extrem: General: normal to inspection Psych: Mental Status: mental status grossly normal Objective Data Vital Signs Vital Signs: Vital Signs - 24 hr 07/25/20 22:00 07/26/20 06:00 07/26/20 10:30 Temperature 36.9 C 36.8 C Pulse Rate 82 62 Respiratory Rate 18 18 Blood Pressure 157/58 H 137/46 L Pulse Oximetry 96 97 96 Intake/Output Intake/Output: Intake & Output 07/23/20 07/24/20 07/25/20 07/26/20 23:59 23:59 23:59 23:59 Intake Total 720 600 720 240 Balance 720 600 720 240 Meds/Results Medications: Active Medications Generic Name Dose Route Start Last Admin Trade Name Freq PRN Reason Stop Dose Admin Acetaminophen 1,000 mg 07/22/20 13:32 07/22/20 13:49 Tylenol Tablet PO 1,000 mg Q4H PRN Administration Mild Pain (1-3) or Fever Albuterol 2 puff 07/22/20 11:51 Proventil Hfa INHALATION QID PRN Shortness Of Breath Amlodipine Besylate 10 mg 07/23/20 09:00 07/26/20 10:02 Norvasc PO 10 mg DAILY CLARE Administration Apixaban 5 mg 07/22/20 17:00 07/26/20 10:02 Eliquis PO 5 mg BID CLARE Administration Dextrose 12.5 gm 07/22/20 11:55 Dextrose 50% Syringe IV PUSH PRN PRN Hypoglycemia Protocol Ferrous Sulfate 324 mg 07/23/20 09:00 07/26/20 10:02 Ferrous Sulfate PO 324 mg DAILY CLARE Administration Glucagon 1 mg 07/22/20 11:55 Glucagon For Inj IM PRN PRN Hypoglycemia Protocol Glucose 15 gm 07/22/20 11:55 Glutose 15 PO PRN PRN Hypoglycemia Protocol Hydralazine HCl 50 mg 07/22/20 13:00 07/26/20 10:02 Apresoline Tablet PO 50 mg TID CLARE Administration Dextrose 1,000 mls @ 100 mls/hr 07/22/20 11:55 Dextrose 5% 1,000 Ml IVPB PRN PRN Hypoglycemia Protocol Metformin HCl 500 mg 07/22/20 17:00 07/25/20 18:15 Glucophage Xr PO 500 mg 1700 CLARE Administration Metoclopramide HCl 10 mg 07/22/20 11:51 Reglan PO Q6H PRN Nausea An
[2020-07-26] MEDS: metFORMIN HCL XR 500 MG TAB.SR.24H PO (16:31)
[2020-07-26 19:17] LABS: Glucose Point of Care 99 (65-105)
[2020-07-26 20:16] LABS: Glucose Point of Care 122 (65-105)
[2020-07-26] MEDS: SIMVASTATIN 10 MG TABLET 30 MG PO (21:03)
[2020-07-26 22:00] VITALS: BP 129/71; PULSE 105; RESP 18; TEMP 36.5; O2SAT 95
[2020-07-27 06:00] VITALS: BP 137/56; PULSE 60; RESP 20; TEMP 36.9; O2SAT 100
[2020-07-27 06:29] LABS: Glucose Point of Care 111 (65-105)
[2020-07-27 07:52] VITALS: O2SAT 96
[2020-07-27] MEDS: amLODIPine BESYLATE 5 MG TABLET 10 MG PO (08:43)
[2020-07-27] MEDS: APIXABAN 5 MG TABLET PO ×2 (08:44→17:00)
[2020-07-27] MEDS: PANTOPRAZOLE 40 MG TABLET PO (08:44)
[2020-07-27] MEDS: FERROUS SULFATE 324 MG TABLET PO (08:44)
[2020-07-27] MEDS: SENNA/DOCUSATE SODIUM TABLET 1 TAB PO ×2 (08:44→17:00)
[2020-07-27] MEDS: hydrALAZINE HCL 50 MG TABLET PO ×3 (08:44→17:00)
[2020-07-27] MEDS: ROFLUMILAST 500 MCG TABLET PO (08:44)
--- NOTE | 2020-07-27 13:12 | PCNFU ---
Nutrition Follow-Up Complete: Involuntary weight loss related to decreased appetite as evidenced by 8 pound weight loss x 2 months. Goal: Patient to consume 75% of meals/supplements or greater. Patient is meeting goal with 100% meal consumption. Patient reports good appetite and no diet related concerns. Will continue with current goal. Pt current nutrition is DBCC/Minced and Moist Level 5/Thickened Liquids Level 2. Nutrition recommendation: Agree with current recommendations. Last recorded weight is 71.3 kg. Recommend obtaining new weight Bowel Motility: last bowel movement reported on 07/27/20 Labs Reviewed: No new labs documented. Recommend obtaining new labs Meds Noted: Norvasc, Eliquis, Ferrous sulfate, Protonix, Miralax PRN, Senokot, Zocar, Reglan, Glucophage, Albuterol Additional Notes: Skin is WNL. Patient's spouse present during follow up. Spouse reports patient was eating poorly at home but has improved eating patterns since admission and eating better than before. MNT Stroke Education provided, see note. Follow up in 7 days.
[2020-07-27 14:00] VITALS: BP 132/41; PULSE 62; RESP 20; TEMP 36.6; O2SAT 20
--- NOTE | 2020-07-27 14:15 | PCNSR ---
On 07/27/20, the student, Fredis Jackson, provided care and completed [facility] documentation on this patient. I have reviewed the student's documentation and agree with the findings.
--- NOTE | 2020-07-27 14:18 | WPDNEURORHBP ---
Subjective Date/time seen: 07/27/20 14:18 Interval history: this 84-year-old was examined early this morning with his present his aphasia is improving and the right-sided hemiparesis is really negligible however the main deficit is the visual field defect A got further history from the that the patient has had issue with the blood loss for which a definitive cause has not been able to be found and he received the blood transfusion and follows the massage operator the patient denies any headache nausea vomiting chest pain or shortness of breath and overall improvement is clearly noted Review of Systems Review of Systems: All systems reviewed & are unremarkable except as noted in HPI and below Functional Status Ambulation Ability Ability to Ambulate 10 Feet: Standby Assistance Ability to Ambulate 50 Feet With 2 Turns: Standby Assistance Ability to Ambulate 150 Feet: Standby Assistance Ambulation Assistive Devices: None Transfers Ability Ability to Transfer In/Out of Chair: Standby Assistance Exam Const: General: comfortable and no acute distress HENMT: General nose exam: Normal nares present Mouth: Yes moist mucous membranes Eyes: General: appearance normal, both eyes and all related structures Neck: Neck: supple and no JVD Resp: Effort & Inspection: normal respiratory effort Auscultation: clear to auscultation bilaterally Cardio: Rate: regular rate Rhythm: regular rhythm GI: GI Palp: Yes Soft to palpation Auscultation: normal bowel sounds Skin: General skin exam: normal color and no rashes or lesions noted Neuro: Other: patient's speech defect is improving is follows all commands the right-sided weakness is also improving and he is making progress Extrem: General: normal to inspection Psych: Other: because of aphasia/ speech defect is difficult to assess his neuro psychological evaluation however he is not sad is not anxious and does seem to have a normal affect Objective Data Vital Signs Vital Signs: Vital Signs - 24 hr 07/26/20 22:00 07/27/20 06:00 07/27/20 07:52 Temperature 36.5 C 36.9 C Pulse Rate 105 H 60 Respiratory Rate 18 20 Blood Pressure 129/71 137/56 L Pulse Oximetry 95 100 96 Intake/Output Intake/Output: Intake & Output 07/24/20 07/25/20 07/26/20 07/27/20 23:59 23:59 23:59 23:59 Intake Total 600 720 720 480 Balance 600 720 720 480 Meds/Results Medications: Active Medications Generic Name Dose Route Start Last Admin Trade Name Freq PRN Reason Stop Dose Admin Acetaminophen 1,000 mg 07/22/20 13:32 07/22/20 13:49 Tylenol Tablet PO 1,000 mg Q4H PRN Administration Mild Pain (1-3) or Fever Albuterol 2 puff 07/22/20 11:51 Proventil Hfa INHALATION QID PRN Shortness Of Breath Amlodipine Besylate 10 mg 07/23/20 09:00 07/27/20 08:43 Norvasc PO 10 mg DAILY CLARE Administration Apixaban 5 mg 07/22/20 17:00 07/27/20 08:44 Eliquis PO 5 mg BID CLARE Administration Dextrose 12.5 gm 07/22/20 11:55 Dextrose 50% Syringe IV PUSH PRN PRN Hypoglycemia Protocol Ferrous Sulfate 324 mg 07/23/20 09:00 07/27/20 08:44 Ferrous Sulfate PO 324 mg DAILY CLARE Administration Glucagon 1 mg 07/22/20 11:55 Glucagon For Inj IM PRN PRN Hypoglycemia Protocol Glucose 15 gm 07/22/20 11:55 Glutose 15 PO PRN PRN Hypoglycemia Protocol Hydralazine HCl 50 mg 07/22/20 13:00 07/27/20 13:06 Apresoline Tablet PO 50 mg TID CLARE Administration Dextrose 1,000 mls @ 100 mls/hr 07/22/20 11:55 Dextrose 5% 1,000 Ml IVPB PRN PRN Hypoglycemia Protocol Metformin HCl 500 mg 07/22/20 17:00 07/26/20 16:31 Glucophage Xr PO 500 mg 1700 CLARE Administration Metoclopramide HCl 10 mg 07/22/20 11:51 Reglan PO Q6H PRN Nausea And Vomiting Pantoprazole Sodium 40 mg 07/23/20 09:00 07/27/20 08:44 Protonix PO 40 mg QAM CLARE Administr
[2020-07-27] MEDS: metFORMIN HCL XR 500 MG TAB.SR.24H PO (17:00)
[2020-07-27 17:50] LABS: Glucose Point of Care 104 (65-105)
[2020-07-27] MEDS: SIMVASTATIN 10 MG TABLET 30 MG PO (20:14)
[2020-07-27 22:00] VITALS: BP 141/50; PULSE 91; RESP 18; TEMP 37.1; O2SAT 93
[2020-07-28 05:42] LABS: Hematocrit 27.2 % (42.0-52.0); Hemoglobin 8.8 g/dL (14.0-18.0); Mean Corpuscular HGB Conc 32.4 g/dl (32-36); Mean Corpuscular Hemoglobin 25.4 pg (26-34); Mean Corpuscular Volume 78.4 fl (80-100); Mean Platelet Volume 10.5 fl (7.4-10.4); Platelet Count Result 254 k/mm3 (150-375); Red Blood Count 3.47 M/mm3 (4.6-6.20); Red Cell Distribution Width 16.2 % (11.5-14.5); White Blood Count 7.4 K/mm3 (4.5-10.0)
[2020-07-28 06:00] VITALS: BP 132/51; PULSE 73; RESP 18; TEMP 37.2; O2SAT 99
[2020-07-28 06:46] LABS: Glucose Point of Care 108 (65-105)
[2020-07-28] MEDS: amLODIPine BESYLATE 5 MG TABLET 10 MG PO (09:19)
[2020-07-28] MEDS: FERROUS SULFATE 324 MG TABLET PO (09:20)
[2020-07-28] MEDS: APIXABAN 5 MG TABLET PO ×2 (09:20→17:27)
[2020-07-28] MEDS: hydrALAZINE HCL 50 MG TABLET PO ×3 (09:20→17:27)
[2020-07-28] MEDS: PANTOPRAZOLE 40 MG TABLET PO (09:20)
[2020-07-28] MEDS: ROFLUMILAST 500 MCG TABLET PO (09:20)
[2020-07-28] MEDS: SENNA/DOCUSATE SODIUM TABLET 1 TAB PO ×2 (09:20→17:27)
[2020-07-28 14:00] VITALS: BP 132/48; PULSE 67; RESP 18; TEMP 36.4; O2SAT 97
[2020-07-28 17:08] LABS: Glucose Point of Care 96 (65-105)
[2020-07-28] MEDS: metFORMIN HCL XR 500 MG TAB.SR.24H PO (17:28)
[2020-07-28 20:01] VITALS: BP 133/45; PULSE 86; RESP 18; TEMP 36.9; O2SAT 100
[2020-07-28] MEDS: SIMVASTATIN 10 MG TABLET 30 MG PO (20:08)
[2020-07-28 21:15] VITALS: O2SAT 99
[2020-07-29 05:04] VITALS: BP 138/58; PULSE 60; RESP 18; TEMP 36.6; O2SAT 98
[2020-07-29 05:06] LABS: Basophils Absolute Auto 0.1 K/mm3 (0.0-0.1); Basophils Percent Auto 0.9 % (0.2-1.2); Eosinophils Absolute Auto 0.3 K/mm3 (0-0.3); Eosinophils Percent Auto 4.4 % (0-4.4); Hematocrit 28.4 % (42.0-52.0); Hemoglobin 9.2 g/dL (14.0-18.0); Immature Granulocyte Absolute 0.03 K/mm3 (0.00-0.031); Immature Granulocyte Percent A 0.4 % (0-0.5); Lymphocytes Absolute Auto 1.12 K/mm3 (0.9-3.2); Mean Corpuscular HGB Conc 32.4 g/dl (32-36); Mean Corpuscular Hemoglobin 25.7 pg (26-34); Mean Corpuscular Volume 79.3 fl (80-100); Mean Platelet Volume 10.4 fl (7.4-10.4); Monocytes Absolute Auto 0.8 K/mm3 (0.1-0.6); Monocytes Percent Auto 11.2 % (2.6-8.5); Neutrophils Absolute Auto 5.1 K/mm3 (1.3-6.7); Neutrophils Percent Auto 68.1 % (45.5-73.1); Platelet Count Result 232 k/mm3 (150-375); Red Blood Count 3.58 M/mm3 (4.6-6.20); Red Cell Distribution Width 16.2 % (11.5-14.5); White Blood Count 7.5 K/mm3 (4.5-10.0)
[2020-07-29 05:15] LABS: Anion Gap 6 mmol/L (8-16); Blood Urea Nitrogen 11 mg/dL (9-20); Calcium 8.5 mg/dL (8.4-10.2); Carbon Dioxide 24 mmol/L (22-30); Chloride 104 mmol/L (98-107); Estimated CRCL calculation 78 ml/min; Estimated Glomerular Filt Rate > 60; Glucose 103 mg/dL (75-110); Potassium 3.4 mmol/L (3.4-5.0); Sodium 134 mmol/L (137-145)
[2020-07-29 06:15] LABS: Glucose Point of Care 105 (65-105)
[2020-07-29] MEDS: amLODIPine BESYLATE 5 MG TABLET 10 MG PO (09:19)
[2020-07-29] MEDS: PANTOPRAZOLE 40 MG TABLET PO (09:20)
[2020-07-29] MEDS: APIXABAN 5 MG TABLET PO ×2 (09:20→17:47)
[2020-07-29] MEDS: FERROUS SULFATE 324 MG TABLET PO (09:20)
[2020-07-29] MEDS: SENNA/DOCUSATE SODIUM TABLET 1 TAB PO ×2 (09:20→17:47)
[2020-07-29] MEDS: ROFLUMILAST 500 MCG TABLET PO (09:20)
[2020-07-29] MEDS: hydrALAZINE HCL 50 MG TABLET PO ×3 (09:20→17:47)
[2020-07-29 14:00] VITALS: BP 143/49; PULSE 107; RESP 20; TEMP 36.4; O2SAT 99
--- NOTE | 2020-07-29 14:03 | WPDNEURORHBP ---
Subjective Date/time seen: 07/29/20 14:03 Interval history: this 84-year-old gentleman is here status post stroke with right-sided hemiparesis has done remarkably well still have some difficulty with the word-finding and mild speech defect however his right hemiparesis has improved quite a bit and he is ambulatory with the assistance of course he will be leaving this tomorrow with recommendation to follow up with the initial treating physicians as before The patient denies any headache nausea vomiting chest pain shortness of breath fever chills sore throat Review of Systems Review of Systems: All systems reviewed & are unremarkable except as noted in HPI and below Functional Status Ambulation Ability Ability to Ambulate 10 Feet: Independent Ability to Ambulate 50 Feet With 2 Turns: Independent Ability to Ambulate 150 Feet: Independent Ambulation Assistive Devices: None Transfers Ability Ability to Transfer In/Out of Chair: Independent Exam Const: General: comfortable and no acute distress HENMT: General nose exam: Normal nares present Mouth: Yes moist mucous membranes Eyes: General: appearance normal, both eyes and all related structures Neck: Neck: supple and no JVD Resp: Effort & Inspection: normal respiratory effort Auscultation: clear to auscultation bilaterally Cardio: Rate: regular rate Rhythm: regular rhythm GI: GI Palp: Yes Soft to palpation Auscultation: normal bowel sounds Skin: General skin exam: normal color and no rashes or lesions noted Neuro: Other: patient is awake alert her oriented follows all commands little trouble with word finding otherwise mental status examination is fairly decent right-sided him hemiparesis has significantly improved Extrem: General: normal to inspection Psych: Mental Status: mental status grossly normal Objective Data Vital Signs Vital Signs: Vital Signs - 24 hr 07/28/20 20:01 07/28/20 21:15 07/29/20 05:04 Temperature 36.9 C 36.6 C Pulse Rate 86 60 Respiratory Rate 18 18 Blood Pressure 133/45 L 138/58 L Pulse Oximetry 100 99 98 Intake/Output Intake/Output: Intake & Output 07/26/20 07/27/20 07/28/20 07/29/20 23:59 23:59 23:59 23:59 Intake Total 720 720 720 480 Balance 720 720 720 480 Meds/Results Medications: Active Medications Generic Name Dose Route Start Last Admin Trade Name Freq PRN Reason Stop Dose Admin Acetaminophen 1,000 mg 07/22/20 13:32 07/22/20 13:49 Tylenol Tablet PO 1,000 mg Q4H PRN Administration Mild Pain (1-3) or Fever Albuterol 2 puff 07/22/20 11:51 Proventil Hfa INHALATION QID PRN Shortness Of Breath Amlodipine Besylate 10 mg 07/23/20 09:00 07/29/20 09:19 Norvasc PO 10 mg DAILY CLARE Administration Apixaban 5 mg 07/22/20 17:00 07/29/20 09:20 Eliquis PO 5 mg BID CLARE Administration Dextrose 12.5 gm 07/22/20 11:55 Dextrose 50% Syringe IV PUSH PRN PRN Hypoglycemia Protocol Ferrous Sulfate 324 mg 07/23/20 09:00 07/29/20 09:20 Ferrous Sulfate PO 324 mg DAILY CLARE Administration Glucagon 1 mg 07/22/20 11:55 Glucagon For Inj IM PRN PRN Hypoglycemia Protocol Glucose 15 gm 07/22/20 11:55 Glutose 15 PO PRN PRN Hypoglycemia Protocol Hydralazine HCl 50 mg 07/22/20 13:00 07/29/20 12:48 Apresoline Tablet PO 50 mg TID CLARE Administration Dextrose 1,000 mls @ 100 mls/hr 07/22/20 11:55 Dextrose 5% 1,000 Ml IVPB PRN PRN Hypoglycemia Protocol Metformin HCl 500 mg 07/22/20 17:00 07/28/20 17:28 Glucophage Xr PO 500 mg 1700 CLARE Administration Metoclopramide HCl 10 mg 07/22/20 11:51 Reglan PO Q6H PRN Nausea And Vomiting Pantoprazole Sodium 40 mg 07/23/20 09:00 07/29/20 09:20 Protonix PO 40 mg QAM CLARE Administration Polyethylene Glycol 17 gm 07/22/20 11:51 Miralax PO DAILY PRN Constipation Roflumilast 500 mcg 08
[2020-07-29 17:25] LABS: Glucose Point of Care 98 (65-105)
[2020-07-29] MEDS: metFORMIN HCL XR 500 MG TAB.SR.24H PO (17:47)
[2020-07-29 20:00] VITALS: PULSE 107; RESP 20; O2SAT 99
[2020-07-29] MEDS: SIMVASTATIN 10 MG TABLET 30 MG PO (21:11)
[2020-07-29 22:00] VITALS: BP 153/40; PULSE 84; RESP 18; TEMP 36.7; O2SAT 98
[2020-07-30 06:00] VITALS: BP 141/41; PULSE 78; RESP 18; TEMP 36.7; O2SAT 97
[2020-07-30 06:13] LABS: Glucose Point of Care 108 (65-105)
[2020-07-30 08:47] VITALS: O2SAT 98
[2020-07-30] MEDS: PANTOPRAZOLE 40 MG TABLET PO (09:19)
[2020-07-30] MEDS: ROFLUMILAST 500 MCG TABLET PO (09:19)
[2020-07-30] MEDS: hydrALAZINE HCL 50 MG TABLET PO (09:19)
[2020-07-30] MEDS: amLODIPine BESYLATE 5 MG TABLET 10 MG PO (09:19)
[2020-07-30] MEDS: APIXABAN 5 MG TABLET PO (09:20)
[2020-07-30] MEDS: FERROUS SULFATE 324 MG TABLET PO (09:20)
[2020-07-30] MEDS: SENNA/DOCUSATE SODIUM TABLET 1 TAB PO (09:20)
--- NOTE | 2020-08-03 15:05 | PM.DS ---
DS: Admitting Diagnosis Admitting Diagnosis Admitting Diagnosis: CVA DS: Discharge Diagnosis Discharge Diagnosis (1) Ischemic stroke of frontal lobe: Code(s): I63.9 - Cerebral infarction, unspecified Status: Acute (2) Stroke: Code(s): I63.9 - Cerebral infarction, unspecified Status: Acute (3) Constipation: Code(s): K59.00 - Constipation, unspecified Status: Acute (4) Iron deficiency anemia: Code(s): D50.9 - Iron deficiency anemia, unspecified Status: Acute (5) Essential hypertension: Code(s): I10 - Essential (primary) hypertension Status: Acute (6) CAD (coronary artery disease): Code(s): I25.10 - Atherosclerotic heart disease of [place] coronary artery without angina pectoris Status: Acute (7) Atrial fibrillation: Qualifiers: Atrial fibrillation type: unspecified Qualified Code(s): I48.91 - Unspecified atrial fibrillation Code(s): I48.91 - Unspecified atrial fibrillation Status: Acute (8) Diabetes mellitus: Code(s): E11.9 - Type 2 diabetes mellitus without complications Status: Acute (9) COPD (chronic obstructive pulmonary disease): Code(s): J44.9 - Chronic obstructive pulmonary disease, unspecified Status: Acute (10) Anemia: Qualifiers: Anemia type: unspecified type Qualified Code(s): D64.9 - Anemia, unspecified Code(s): D64.9 - Anemia, unspecified Status: Acute DS: Summary Hospital Course Reason for hospitalization: this pleasant 84-year-old gentleman was admitted because of having had a stroke with the neurological deficit deficit mentioned in my history and physical examination his see the PT OT and speech and did a remarkable improvement overall Hospital Course: patient was able to achieved following independent measures Eating independent, oral hygiene independent, toileting independent, bathing independent, upper body dressing independent, lower body dressing supervision, footwear independent, rolling in bed independent, sitting to lying independent, lying to sitting independent, sit to stand independent, chair transfer independent, toilet transfers independent, car transfer independent, walking 10 feet independent, walking 50 feet feet 2 turns independent, walking 150 feet independent, walking 10 feet uneven surfaces independent, car better step independent, 4 steps independent, 12 steps independent, became object independent, wheelchair not applicable the patient was sent home with home health to follow Time Spent with Patient Time attestation: Total time spent providing and/or coordinating discharge services: Exam Const: General: comfortable and no acute distress HENMT: General nose exam: Normal nares present Mouth: Yes dry mucous membranes Eyes: General: appearance normal, both eyes and all related structures Neck: Neck: supple and no JVD Resp: Effort & Inspection: normal respiratory effort Auscultation: clear to auscultation bilaterally Cardio: Rate: regular rate Rhythm: regular rhythm GI: GI Palp: Yes Soft to palpation Auscultation: normal bowel sounds Skin: General skin exam: normal color and no rashes or lesions noted Neuro: Other: patient is awake and alert well oriented and improved neurological deficit he had prior to coming to us Extrem: General: normal to inspection Psych: Mental Status: mental status grossly normal Discharge Plan Discharge Attending physician on discharge: Justino Aviles Discharging Clinician: Justino Aviles Anticipated Discharge Date/Time: 07/30/20 14:06 Patient Disposition: Home Health Service Activity: may shower and no driving Diet: diabetic Discharge Instructions: Per Care Coordination: Home Health services have been arranged through [facility]. [facility] can be contacted at [phone]. Patient Instructions: Antibiotic Form, Heart Failure (GEN), A-fib (Atrial Fib
== END 2020-07-30 12:00 | disposition home health service (06) | DRG 57 ==
PROVIDERS: Admitting Provider Psychiatry & Neurology Neurology; PCP Internal Medicine; Visit Provider Psychiatry & Neurology Neurology
DX: I69.351 Hemiplegia and hemiparesis following cerebral infarction affecting right dominant side (principal); I69.320 Aphasia following cerebral infarction; I69.322 Dysarthria following cerebral infarction; I10 Essential (primary) hypertension; D50.9 Iron deficiency anemia, unspecified; E78.5 Hyperlipidemia, unspecified; E11.9 Type 2 diabetes mellitus without complications; G47.30 Sleep apnea, unspecified; I25.10 Atherosclerotic heart disease of native coronary artery without angina pectoris; I48.91 Unspecified atrial fibrillation; J44.9 Chronic obstructive pulmonary disease, unspecified; K21.9 Gastro-esophageal reflux disease without esophagitis; K59.00 Constipation, unspecified; M20.092 Other deformity of left finger(s); R91.8 Other nonspecific abnormal finding of lung field; Z95.1 Presence of aortocoronary bypass graft; Z87.891 Personal history of nicotine dependence; Z79.84 Long term (current) use of oral hypoglycemic drugs; Z96.641 Presence of right artificial hip joint; Z23 Encounter for immunization
CPT/HCPCS: 36415; 80048; 80061; 83036; 85025; 85027; 90471; 90686; 92507; 92523; 92526; 92610; 92611; 94640; 97110; 97116; 97161; 97165; 97530; 97535; A9270; G0008

== ENCOUNTER 2020-08-11 14:50 | Outpatient (NON) | payer MEDICARE, SELFPAY ==
[2020-08-11 15:44] LABS: Basophils Absolute Auto 0.1 K/mm3 (0.0-0.1); Basophils Percent Auto 0.7 % (0.2-1.2); Eosinophils Absolute Auto 0.3 K/mm3 (0-0.3); Eosinophils Percent Auto 4.4 % (0-4.4); Hematocrit 31.3 % (42.0-52.0); Hemoglobin 9.9 g/dL (14.0-18.0); Immature Granulocyte Absolute 0.02 K/mm3 (0.00-0.031); Immature Granulocyte Percent A 0.3 % (0-0.5); Immature Reticulocyte Fraction 4.6 % (3.0-15.9); Lymphocytes Absolute Auto 1.39 K/mm3 (0.9-3.2); Lymphocytes Percent Auto 19.3 % (18.3-44.2); Mean Corpuscular HGB Conc 31.6 g/dl (32-36); Mean Corpuscular Hemoglobin 24.9 pg (26-34); Mean Corpuscular Volume 78.8 fl (80-100); Monocytes Absolute Auto 0.8 K/mm3 (0.1-0.6); Monocytes Percent Auto 10.7 % (2.6-8.5); Neutrophils Absolute Auto 4.7 K/mm3 (1.3-6.7); Neutrophils Percent Auto 64.6 % (45.5-73.1); Platelet Count Result 251 k/mm3 (150-375); Red Blood Count 3.97 M/mm3 (4.6-6.20); Reticulocyte Hemoglobin Conten 30.9 pg (28.2-35.7); Reticulocyte Percent 0.81 % (0.7-4.3); Reticulocytes Absolute 0.03 B/L (32.2-175.7); White Blood Count 7.2 K/mm3 (4.5-10.0)
== END 2020-08-11 14:51 ==
PROVIDERS: Visit Provider Internal Medicine Medical Oncology
DX: D64.9 Anemia, unspecified (principal)
CPT/HCPCS: 82728; 85025; 85046

== ENCOUNTER 2020-08-17 11:12 | Outpatient (RCR) | payer MEDICARE, SELFPAY ==
[2020-08-17 11:26] LABS: Basophils Absolute Auto 0.1 K/mm3 (0.0-0.1); Basophils Percent Auto 1.2 % (0.2-1.2); Eosinophils Absolute Auto 0.3 K/mm3 (0-0.3); Eosinophils Percent Auto 4.7 % (0-4.4); Hematocrit 30.4 % (42.0-52.0); Hemoglobin 9.7 g/dL (14.0-18.0); Immature Granulocyte Absolute 0.02 K/mm3 (0.00-0.031); Immature Granulocyte Percent A 0.3 % (0-0.5); Lymphocytes Absolute Auto 1.06 K/mm3 (0.9-3.2); Lymphocytes Percent Auto 17.9 % (18.3-44.2); Mean Corpuscular HGB Conc 31.9 g/dl (32-36); Mean Corpuscular Hemoglobin 25.3 pg (26-34); Mean Corpuscular Volume 79.4 fl (80-100); Mean Platelet Volume 11.4 fl (7.4-10.4); Monocytes Absolute Auto 0.6 K/mm3 (0.1-0.6); Monocytes Percent Auto 10.6 % (2.6-8.5); Neutrophils Absolute Auto 3.9 K/mm3 (1.3-6.7); Neutrophils Percent Auto 65.3 % (45.5-73.1); Platelet Count Result 226 k/mm3 (150-375); Red Blood Count 3.83 M/mm3 (4.6-6.20); Red Cell Distribution Width 15.9 % (11.5-14.5); White Blood Count 5.9 K/mm3 (4.5-10.0)
== END 2020-11-15 23:59 | disposition home or self-care (01) ==
LOC: HOME HLTH 11:12
PROVIDERS: Visit Provider Internal Medicine Medical Oncology
DX: D50.0 Iron deficiency anemia secondary to blood loss (chronic) (principal)
CPT/HCPCS: 85025

== ENCOUNTER 2020-08-23 19:17 | Emergency (ER) | payer MEDICARE, SELFPAY ==
--- NOTE | ~2020-08-23 | XR_ITS ---
EXAMINATION: XR barium swallow DATE: 08/23/2020 21:30 INDICATION: Dysphagia. Feels like throat is obstructed. TECHNIQUE: The patient drank thick barium, gas-producing crystals, and thin barium. Fluoroscopic spot radiographs of the hypopharynx and esophagus were obtained. A total of 671 images were obtained. Flu oroscopy exposure time was 1.9 minutes. COMPARISON: None. FINDINGS: The pharynx is symmetric and without evidence of mass lesion or mucosal irregularity. The e sophagus is normal without mass or stricture. Esophageal motility is normal. There is no hiatal herni a. There was no gastroesophageal reflux with provocative maneuvers. IMPRESSION: 1. Normal esophagram. No esophageal retained foreign bodies, masses or strictures. Reviewed, dictated and finalized at location A. IMPRESSION: 1. Normal esophagram. No esophageal retained foreign bodies, masses or strictur es.
--- NOTE | ~2020-08-23 | XR_ITS ---
EXAMINATION: XR chest 2V DATE: 08/23/2020 20:30 INDICATION: COPD and hypertension presenting with dysphagia and sensation of something stuck in his t hroat. TECHNIQUE: PA and lateral views of the chest were obtained. COMPARISON: Chest radiograph dated 06/20/[address] dated 09/29/2019 FINDINGS: Hyperexpansion of the lungs with increased lucency and architectural distortion at the upper lung zon es consistent with mild emphysema better appreciated on prior CT. Unchanged opacities in the bilatera l lower lung zones with blunting at the costophrenic angles which appears to correspond to chronic pl eural parenchymal scarring on prior CT. No pulmonary edema, pneumothorax or pleural effusion. Cardiom egaly. Median sternotomy wires and mediastinal surgical clips are seen, likely from prior coronary ar john bypass grafting. Tortuous and atherosclerotic thoracic aorta. IMPRESSION: 1. Stable appearance of emphysema with chronic pleural parenchymal scarring at the bilateral lower brigitte ng zones. 2. Cardiomegaly. Reviewed, dictated and finalized at location A. IMPRESSION: 1. Stable appearance of emphysema with chronic pleural parenchymal scarring at the bilateral lower lung zones. 2. Cardiomegaly.
[2020-08-23 19:35] VITALS: BP 130/46; PULSE 80; RESP 19; TEMP 36.6; O2SAT 98
--- NOTE | 2020-08-23 20:06 | ED.GENADULT ---
HPI - General Adult General Chief complaint: Unspecified Stated complaint: something stuck in my throat Time Seen by Provider: 08/23/20 19:47 Source: patient and family Mode of arrival: ambulatory Limitations: no limitations History of Present Illness HPI narrative: Patient is an 85-year-old male who presents to emergency department patient was eating dinner with semisolid soft diet which she has been on since having his stroke patient had a coughing choking episode that was short-lived but has since felt like he has something stuck in his esophagus patient denies any pain patient had been fine prior to onset patient presents with in no distress patient is an aspiration risk secondary to recent stroke Related Data Home Medications Medication Instructions Recorded Confirmed Trelegy Ellipta 1 inh INHALATION DAILY 07/22/20 07/22/20 ferrous sulfate 300 mg PO DAILY 07/22/20 07/22/20 irbesartan-hydrochlorothiazide tablet 08/23/20 metoclopramide HCl 08/23/20 Allergies Allergy/AdvReac Type Severity Reaction Status Date / Time amiodarone Allergy Unknown Other Verified 08/23/20 20:45 iodine Allergy Hives Verified 08/23/20 20:45 Review of Systems Review of Systems: All systems reviewed & are unremarkable except as noted in HPI and below PMFSH Past Medical History Medical History Anemia bone marrow disorder has been ruled out. Managed by Dr. Wilson - normal EGD 06/01/2020 - normal colonoscopy July 2019 -attempted a colonoscopy 06/01/2020 with poor prep Arthritis Atrial fibrillation CAD (coronary artery disease) Hx of CABG COPD (chronic obstructive pulmonary disease) Diabetes mellitus Esophageal dysmotility On imaging 05/13/2020 on Metoclopramide Essential hypertension Vitamin B12 deficiency with recent levels within normal limits in April Surgical History Surgical History History of maze procedure bilateral thoracenteses with Maze procedure History of right hip replacement History of shoulder surgery bilateral Hx of CABG 4 vessel CABG 2007 Status post cataract extraction of both eyes with insertion of intraocular lens Social History Social History Social History: Primary care physician: Dr. Delroy Paris Code status: Full code Smoking packs per day: 1 Smoking cigarettes per day: 20.0 Years smoked: 50 Smoking pack-years: 50.00 Smoking status: Former smoker Tobacco type: cigarettes Smoking end date: 11/25/03 Alcohol intake: current Drinks per week: 3 Substance use: never Additional living arrangements comments: He lives with his , of 57 years, in [place], [place]. They have 3 children her reportedly healthy. He is independent in activities of daily living. 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 Gender identity (if verbalized by the patient): Male Spiritual care concerns: No Exam Narrative: Exam Narrative: GENERAL: Well-appearing, well-nourished, and in no acute distress. HEAD: Normocephalic, atraumatic. EYES: PERRLA and EOMI. ENT: Nares clear, no rhinorrhea or epistaxis. Mucous membranes moist. Oropharynx without tonsillar hypertrophy exudate or other lesions. NECK: Supple. No adenopathy or masses. No stridor CHEST: Clear to auscultation. No respiratory distress. No wheezes rales or rhonchi HEART: Regular rate and rhythm. No murmur heard. Normal peripheral pulses. EXTREMITIES: Normal range of motion. No edema. SKIN: Warm, dry, no rash. NEURO: No focal deficits. Alert and oriented x3. Cranial nerves II through XII grossly intact PSYCH: Normal mood and affect. Course Course Emergency Course: Patient was evaluated emergency department is able to tolerate p.o. intake no high risk changes in the blood work or imaging
[2020-08-23 21:13] LABS: Basophils Absolute Auto 0.1 K/mm3 (0.0-0.1); Basophils Percent Auto 1.1 % (0.2-1.2); Eosinophils Absolute Auto 0.3 K/mm3 (0-0.3); Eosinophils Percent Auto 3.6 % (0-4.4); Hematocrit 32.6 % (42.0-52.0); Hemoglobin 10.4 g/dL (14.0-18.0); Immature Granulocyte Absolute 0.01 K/mm3 (0.00-0.031); Immature Granulocyte Percent A 0.1 % (0-0.5); Lymphocytes Absolute Auto 1.17 K/mm3 (0.9-3.2); Lymphocytes Percent Auto 15.5 % (18.3-44.2); Mean Corpuscular HGB Conc 31.9 g/dl (32-36); Mean Corpuscular Hemoglobin 25.2 pg (26-34); Mean Corpuscular Volume 78.9 fl (80-100); Mean Platelet Volume 10.5 fl (7.4-10.4); Monocytes Absolute Auto 0.8 K/mm3 (0.1-0.6); Monocytes Percent Auto 10.3 % (2.6-8.5); Neutrophils Absolute Auto 5.3 K/mm3 (1.3-6.7); Neutrophils Percent Auto 69.4 % (45.5-73.1); Platelet Count Result 262 k/mm3 (150-375); Red Blood Count 4.13 M/mm3 (4.6-6.20); Red Cell Distribution Width 15.7 % (11.5-14.5); White Blood Count 7.6 K/mm3 (4.5-10.0)
[2020-08-23 21:24] LABS: Anion Gap 11 mmol/L (8-16); Blood Urea Nitrogen 13 mg/dL (9-20); Calcium 9.3 mg/dL (8.4-10.2); Carbon Dioxide 24 mmol/L (22-30); Chloride 103 mmol/L (98-107); Estimated CRCL calculation 55 ml/min; Estimated Glomerular Filt Rate > 60; Glucose 153 mg/dL (75-110); Potassium 3.7 mmol/L (3.4-5.0); Sodium 138 mmol/L (137-145)
[2020-08-23 22:00] VITALS: BP 129/52; PULSE 84; RESP 18; TEMP 36.6; O2SAT 100
== END 2020-08-23 22:05 | disposition home or self-care (01) ==
PROVIDERS: Emergency Medicine Emergency Medical Services; Emergency Provider Emergency Medicine; PCP Internal Medicine
DX: T17.928A Food in respiratory tract, part unspecified causing other injury, initial encounter (principal); D64.9 Anemia, unspecified; M19.90 Unspecified osteoarthritis, unspecified site; I48.91 Unspecified atrial fibrillation; I25.10 Atherosclerotic heart disease of native coronary artery without angina pectoris; Z95.1 Presence of aortocoronary bypass graft; E11.9 Type 2 diabetes mellitus without complications; I10 Essential (primary) hypertension; E53.8 Deficiency of other specified B group vitamins; Z96.641 Presence of right artificial hip joint; Z98.42 Cataract extraction status, left eye; Z98.41 Cataract extraction status, right eye; Z96.1 Presence of intraocular lens; Z87.891 Personal history of nicotine dependence
CPT/HCPCS: 36415; 71046; 74220; 80048; 85025; 99283

== ENCOUNTER 2020-09-12 16:55 | Emergency (ER) | payer MEDICARE, SELFPAY ==
--- NOTE | ~2020-09-12 | XR_ITS ---
EXAMINATION: XR hip LT 2V w AP pelvis, XR sacrum coccyx min 2V EXAM DATE: 09/12/2020 17:26 (accession [id number]), 09/12/2020 17:27 (accession [id number]) INDICATION: Fall, Generalized Pain To Left Hip TECHNIQUE: Left hip frontal, 'frog leg' projections for interpretation. Frontal projection pelvis. Sacrococcygeal frontal, pelvic inlet, lateral projections. There are no prior studies for comparison. FINDINGS: There are no acute pelvic, sacral, left hip fractures or dislocations identified. There is no subcutaneous gas. There are arterial calcifications, arteriosclerosis. There is a right hip ar throplasty. There is moderate left hip primary osteoarthritis. IMPRESSION: No acute osseous findings. Reviewed, dictated and finalized at location A. IMPRESSION: No acute osseous findings. IMPRESSION: No acute osseous findings.
[2020-09-12 16:59] VITALS: BP 132/54; PULSE 85; RESP 22; TEMP 36.7; O2SAT 96
--- NOTE | 2020-09-12 17:07 | ED.FALL ---
HPI - Fall General Chief Complaint: Fall Stated Complaint: FALL, UNABLE TO BEAR WEIGHT ON LEFT LEG Time Seen by Provider: 09/12/20 17:00 Source: patient and family Mode of arrival: wheelchair Limitations: no limitations History of Present Illness HPI Narrative: Patient is a 85 yo male who presents c/o left hip and left buttocks pain. Patient reports slip and fall this pm. Patient did not hit head. Patient is on Eliquis. Patient denies other injuries. Patient's reports patient is non-weightbearing on left leg. Reports taking Tylenol x 1 prior to arrival. Denies pain without movement of leg. complaint: fall Related Data Home Medications Medication Instructions Recorded Confirmed Trelegy Ellipta 1 inh INHALATION DAILY 07/22/20 07/22/20 ferrous sulfate 300 mg PO DAILY 07/22/20 07/22/20 irbesartan-hydrochlorothiazide tablet 08/23/20 metoclopramide HCl 08/23/20 Allergies Allergy/AdvReac Type Severity Reaction Status Date / Time amiodarone Allergy Unknown Other Verified 08/23/20 20:45 iodine Allergy Hives Verified 08/23/20 20:45 Review of Systems Review of Systems: Narrative: CONSTITUTIONAL: Denies fever, chills, or sweats. EYES: Denies visual changes, redness, or discharge. ENT: Denies rhinorrhea, congestion, sore throat, or otalgia. CARDIOVASCULAR: Denies chest pain, palpitations, or edema. RESPIRATORY: Denies cough or dyspnea. GASTROINTESTINAL: Denies abdominal pain, nausea, vomiting, or diarrhea. GENITOURINARY: Denies dysuria or hematuria. SKIN: Denies rash or itching. MUSCULOSKELETAL: Reports left hip and left buttocks pain NEUROLOGIC: Denies headache, numbness, dizziness, or weakness. PSYCHIATRIC: Denies anxiety or depression. [facility] Past Medical History Medical History (Updated 09/12/20 @ 18:01 by SHAHLA Magaña) Anemia bone marrow disorder has been ruled out. Managed by Dr. Wilson - normal EGD 06/01/2020 - normal colonoscopy July 2019 -attempted a colonoscopy 06/01/2020 with poor prep Arthritis Atrial fibrillation CAD (coronary artery disease) Hx of CABG COPD (chronic obstructive pulmonary disease) Diabetes mellitus Esophageal dysmotility On imaging 05/13/2020 on Metoclopramide Essential hypertension Vitamin B12 deficiency with recent levels within normal limits in April Surgical History Surgical History History of maze procedure bilateral thoracenteses with Maze procedure History of right hip replacement History of shoulder surgery bilateral Hx of CABG 4 vessel CABG 2007 Status post cataract extraction of both eyes with insertion of intraocular lens Family History Family History Father Lung cancer Mother TIA (transient ischemic attack) Hypertension CHF (congestive heart failure) Sibling CHF (congestive heart failure) Hypertension Social History Social History Social History: Primary care physician: Dr. Delroy Paris Code status: Full code Smoking packs per day: 1 Smoking cigarettes per day: 20.0 Years smoked: 50 Smoking pack-years: 50.00 Smoking status: Former smoker Tobacco type: cigarettes Smoking end date: 11/25/03 Alcohol intake: current Drinks per week: 3 Substance use: never Additional living arrangements comments: He lives with his , of 57 years, in [place], [place]. They have 3 children her reportedly healthy. He is independent in activities of daily living. 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 Gender identity (if verbalized by the patient): Male Spiritual care concerns: No Exam Narrative: Exam Narrative: GENERAL: Well-appearing, well-nourished, and in no acute distress. HEAD: Normocephalic, atraumatic. EYES: No redness or drainage. ENT: Mucous membranes pink and moist
[2020-09-12 18:04] VITALS: BP 129/51; PULSE 60; RESP 24; O2SAT 99
== END 2020-09-12 18:09 | disposition home or self-care (01) ==
PROVIDERS: Emergency Provider Nurse Practitioner; PCP Internal Medicine
DX: M25.552 Pain in left hip (principal); I48.91 Unspecified atrial fibrillation; I25.10 Atherosclerotic heart disease of native coronary artery without angina pectoris; Z95.1 Presence of aortocoronary bypass graft; J44.9 Chronic obstructive pulmonary disease, unspecified; E11.9 Type 2 diabetes mellitus without complications; D64.9 Anemia, unspecified; I10 Essential (primary) hypertension; Z96.641 Presence of right artificial hip joint; Z98.42 Cataract extraction status, left eye; Z98.41 Cataract extraction status, right eye; Z96.1 Presence of intraocular lens; Z87.891 Personal history of nicotine dependence; Z79.01 Long term (current) use of anticoagulants; W01.0XXA Fall on same level from slipping, tripping and stumbling without subsequent striking against object, initial encounter
CPT/HCPCS: 72220; 73502; 99284

== ENCOUNTER 2020-09-16 11:56 | Outpatient (CLI) | payer MEDICARE, SELFPAY ==
[2020-09-16 12:34] LABS: Immature Reticulocyte Fraction 10.8 % (3.0-15.9); Reticulocyte Hemoglobin Conten 28.8 pg (28.2-35.7); Reticulocyte Percent 1.09 % (0.7-4.3); Reticulocytes Absolute 0.04 B/L (32.2-175.7)
== END 2020-09-16 11:57 | disposition home or self-care (01) ==
LOC: ANHLAB 10-31 11:57
PROVIDERS: PCP Internal Medicine; Visit Provider Internal Medicine Medical Oncology
DX: D64.9 Anemia, unspecified (principal)
CPT/HCPCS: 36415; 85046

== ENCOUNTER 2020-09-20 03:23 | Observation (INO) | payer MEDICARE, SELFPAY ==
[2020-09-20] VITALS (10 sets, daily range): BP systolic 124–161; BP diastolic 46–70; PULSE 64–99; RESP 16–22; TEMP 36.5–36.9; O2SAT 96–100; BMI 23.3
--- NOTE | ~2020-09-20 | CT_ITS ---
EXAMINATION: CT pelvis wo con DATE: 09/20/2020 04:04 INDICATION: Intractable bilateral hip pain and low back pain TECHNIQUE: High resolution computed tomography (CT) of the pelvis was performed without intravenous c ontrast. Additional sagittal and coronal reconstructions were performed. Automated exposure control a nd iterative reconstruction technique were employed. The dose-length product was 411.25 mGy-cm. COMPARISON: None FINDINGS: Diffuse osteopenia. Right total hip arthroplasty which appears well seated and in near anatomic align ment. No fracture. Moderate bilateral hip osteoarthritis with developing ankylosis at the right sacro iliac joint. Severe lower lumbar spondylosis. See separate lumbar spine report for further detail. Mi ld left hip osteoarthritis. Moderate asymmetric fatty atrophy of the left long head of the biceps fem clifton likely sequela of old trauma. There is otherwise symmetric appearance of mild fatty atrophy of t he musculature of the pelvis and proximal thighs. Gaseous distention of the sigmoid colon without nicky mitchell defined transition point to suggest obstruction. There is large amount stool in the more proxima l colon and small amount of stool at the rectum where there is mild wall thickening likely related to relatively decompressed state although differential would include proctitis which could represent st ercoral colitis related to either infectious, inflammatory or less likely ischemic in etiology. There is some mesenteric, retroperitoneal and body wall edema. Small bilateral hydroceles. Distended bladd er without evident wall thickening. There is calcified atherosclerosis of the aorta and many of the o ther arteries. IMPRESSION: 1. Right total hip arthroplasty and mild osteoarthritis of the left hip. No acute osseous abnormality . 2. Asymmetric moderate fatty muscular atrophy of the long head of the left biceps femoris likely sequ jonnie of old trauma. 3. Mild wall thickening at the rectum which likely related to decompressed state although differentia l would include stercoral colitis or colitis related to other infectious, inflammatory or ischemic et iology. Reviewed, dictated and finalized at location B. IMPRESSION: 1. Right total hip arthroplasty and mild osteoarthritis of the left hip. No acu te osseous abnormality. 2. Asymmetric moderate fatty muscular atrophy of the long head of the left frank ps femoris likely sequela of old trauma. 3. Mild wall thickening at the rectum which likely related to decompressed stat e although differential would include stercoral colitis or colitis related to o ther infectious, inflammatory or ischemic etiology.
--- NOTE | ~2020-09-20 | CT_ITS ---
EXAMINATION: CT lumbar spine wo con DATE: 09/20/2020 04:04 INDICATION: Low back pain. Fall. TECHNIQUE: Computed tomography (CT) of the lumbar spine was performed without intravenous contrast. A utomated exposure control and iterative reconstruction technique were employed. The dose-length produ ct was 1091.70 mGy-cm. COMPARISON: CT abdomen and pelvis 06/20/2020 FINDINGS: There are small pleural effusions, right worse than left. Bone alignment is normal. Vertebr al body heights are normal. There is moderately decreased disc height at L1-L2 with disc calcificatio ns. There is severely decreased disc height at L5-S1. The following disc levels are specifically disc ussed: L1-L2: The disc does not extend beyond the endplate margin. There is mild bilateral facet joint osteo arthritis. There is no neural foraminal stenosis. There is mild central canal stenosis. L2-L3: The disc is bulging. There is moderate bilateral facet joint osteoarthritis. There is mild rahat ateral neural foraminal stenosis. There is mild central canal stenosis. L3-L4: The disc is bulging. There is severe bilateral facet joint osteoarthritis. There is mild bilat eral neural foraminal stenosis. There is mild central canal stenosis. L4-L5: The disc is bulging. There is severe bilateral facet joint osteoarthritis. There is mild right and moderate left neural foraminal stenosis. There is mild central canal stenosis. L5-S1: The disc is bulging. There is moderate right and severe left facet joint osteoarthritis. There is moderate bilateral neural foraminal stenosis. There is mild central canal stenosis. IMPRESSION: 1. No fracture. 2. Severe lumbar spondylosis. 3. Small pleural effusions. Reviewed, dictated and finalized at location A.
--- NOTE | ~2020-09-20 | XR_ITS ---
EXAMINATION: XR abdomen/kub 1V DATE: 09/20/2020 13:10 INDICATION: Abdominal distention. TECHNIQUE: A supine view of the abdomen was obtained. COMPARISON: CT pelvis 09/20/2020 FINDINGS: There is gaseous distention of the sigmoid colon. There is a moderate volume of stool in th e colon. There are no dilated loops of small bowel. There is a total right hip arthroplasty. IMPRESSION: 1. Gaseous distention of the sigmoid colon, consistent with adynamic ileus. Reviewed, dictated and finalized at location A.
--- NOTE | 2020-09-20 03:19 | ED.LOWEXIN ---
HPI - Extremity Injury (Lower) General Chief Complaint: Extremity Injury, Lower Stated Complaint: left hip , back pain Source: patient, family and EMS Mode of arrival: EMS Limitations: no limitations History of Present Illness HPI Narrative: Patient is an 85-year-old male with a history of atrial fibrillation, anticoagulated on Eliquis, chronic iron deficiency anemia, hypertension, recent frontal ischemic CVA, recent fall 1 week prior, who presents for intractable left hip pain and left lower back pain. Patient states he was evaluated in this emergency department approximately a week ago after a ground-level fall in which he reportedly injured his left hip. Patient was able to ambulate with the use of a walker at baseline in the emergency department, and x-rays were negative. Patient states since that time he has been doing well, minimal pain and was feeling well today and able to ambulate with minimal use of a walker, however this evening, pain started to acutely worsen. He denies any new recent falls or injury. No recent heavy lifting. He denies any weakness or numbness in that left lower extremity. He reports bruising to the left back and left thigh which has been present over the past week. He reports pain with lifting his leg. Pain is aching, throbbing in nature, sharp and worse with movement. He denies any knee or ankle pain. Patient took 1 g of Tylenol approximately 1 hour prior to arrival. Related Data Home Medications Medication Instructions Recorded Confirmed Trelegy Ellipta 1 inh INHALATION DAILY 07/22/20 07/22/20 ferrous sulfate 300 mg PO DAILY 07/22/20 07/22/20 irbesartan-hydrochlorothiazide tablet 08/23/20 metoclopramide HCl 08/23/20 albuterol sulfate [Ventolin HFA] INHALATION 09/20/20 apixaban [Eliquis] mg 09/20/20 cyclosporine [Restasis] 1 drp OPHTHALMIC (EYE) Q12H 09/20/20 hydralazine 09/20/20 roflumilast [Daliresp] mcg 09/20/20 simvastatin 20 mg PO HS 09/20/20 Allergies Allergy/AdvReac Type Severity Reaction Status Date / Time amiodarone Allergy Unknown Other Verified 09/20/20 03:29 iodine Allergy Hives Verified 09/20/20 03:29 Review of Systems Review of Systems: Narrative: CONSTITUTIONAL: Denies fever CARDIOVASCULAR: Denies chest pain RESPIRATORY: Denies cough or dyspnea. GASTROINTESTINAL: Denies abdominal pain, nausea GENITOURINARY: Denies dysuria SKIN: Reports bruising to the left thigh and left lower back MUSCULOSKELETAL: Reports left-sided back pain, left hip pain NEUROLOGIC: Denies headache, numbness, or weakness. [facility] Past Medical History Medical History (Updated 09/20/20 @ 04:50 by Val Treviño MD) Anemia bone marrow disorder has been ruled out. Managed by Dr. Wilson - normal EGD 06/01/2020 - normal colonoscopy July 2019 -attempted a colonoscopy 06/01/2020 with poor prep Arthritis Atrial fibrillation CAD (coronary artery disease) Hx of CABG COPD (chronic obstructive pulmonary disease) Diabetes mellitus Esophageal dysmotility On imaging 05/13/2020 on Metoclopramide Essential hypertension Vitamin B12 deficiency with recent levels within normal limits in April Surgical History Surgical History History of maze procedure bilateral thoracenteses with Maze procedure History of right hip replacement History of shoulder surgery bilateral Hx of CABG 4 vessel CABG 2007 Status post cataract extraction of both eyes with insertion of intraocular lens Family History Family History Father Lung cancer Mother TIA (transient ischemic attack) Hypertension CHF (congestive heart failure) Sibling CHF (congestive heart failure) Hypertension Social History Social History Social History: Primary care physician: Dr. Potts [place] Code status: Full code Smoking packs per day: 1 Smok
[2020-09-20 03:50] LABS: Basophils Absolute Auto 0.1 K/mm3 (0.0-0.1); Basophils Percent Auto 0.9 % (0.2-1.2); Eosinophils Absolute Auto 0.3 K/mm3 (0-0.3); Eosinophils Percent Auto 3.2 % (0-4.4); Hemoglobin 8.7 g/dL (14.0-18.0); Immature Granulocyte Absolute 0.03 K/mm3 (0.00-0.031); Immature Granulocyte Percent A 0.3 % (0-0.5); Lymphocytes Absolute Auto 1.45 K/mm3 (0.9-3.2); Lymphocytes Percent Auto 16.8 % (18.3-44.2); Mean Corpuscular HGB Conc 32.2 g/dl (32-36); Mean Corpuscular Hemoglobin 25.7 pg (26-34); Mean Corpuscular Volume 79.6 fl (80-100); Mean Platelet Volume 10.2 fl (7.4-10.4); Monocytes Absolute Auto 0.8 K/mm3 (0.1-0.6); Monocytes Percent Auto 9.3 % (2.6-8.5); Neutrophils Percent Auto 69.5 % (45.5-73.1); Platelet Count Result 225 k/mm3 (150-375); Red Blood Count 3.39 M/mm3 (4.6-6.20); Red Cell Distribution Width 15.8 % (11.5-14.5); White Blood Count 8.6 K/mm3 (4.5-10.0)
[2020-09-20] MEDS: ONDANSETRON HCL ODT 4 MG TABLET PO (03:50)
[2020-09-20] MEDS: oxyCODONE HCL (*CRX) 2.5 MG TAB IR PO ×2 (03:50→05:23)
[2020-09-20 04:01] LABS: INR 1.2; Partial Thromboplastin Time 34.9 SECONDS (22.3-36.8); Prothrombin Time 15.1 Seconds (11.1-14.7)
[2020-09-20 04:03] LABS: Anion Gap 12 mmol/L (8-16); Blood Urea Nitrogen 14 mg/dL (9-20); Carbon Dioxide 22 mmol/L (22-30); Chloride 105 mmol/L (98-107); Estimated Glomerular Filt Rate > 60; Glucose 146 mg/dL (75-110); Potassium 3.9 mmol/L (3.4-5.0); Sodium 139 mmol/L (137-145)
[2020-09-20] MEDS: KETOROLAC 15 MG/ML VIAL (*BKC) IV PUSH (05:22)
[2020-09-20] MEDS: SENNA/DOCUSATE SODIUM TABLET 1 TAB PO ×2 (05:23→21:03)
--- NOTE | 2020-09-20 06:07 | ADMGEN ---
This patient, Steven Greene, was admitted to 3 Med Surg Room 302-01. Patient/family oriented to hospital policies and general routines including ID bracelet, bed and alarms, visiting hours, pain management, procedures, bathroom and other care routines, personal items, smoking policy, room service/diet, and visiting hours. Information on how to activate the Rapid Response Team has been discussed. Patient/Family are encouraged to report perceived risks to care and to ask questions if they do not understand what they are told or what they should do.
--- NOTE | 2020-09-20 08:32 | PM.IMHP ---
H&P: HPI History of Present Illness Date/Time: 09/20/20 08:32 Chief complaint: Left hip contusion, left hip pain, chronic anemia Narrative: Steven Greene is a 85 year old male Admitted overnight through the emergency department. The patient stated that he was sleeping and resting in bed when he was awoken with pain, severe pain to his left hip and left lateral leg. He denies any trauma or falls in the last few days, but does admit to a fall on September 12 about a week ago. He states that he has been using a walker since his fall and did not previously require a walker. He was evaluated after his fall at that time in the emergency room. When he fell about a week ago, he stated it was because he slammed into a cabinet door that he had left open and that he hit the ground hard on his left side. He has been taking Eliquis daily for his atrial fibrillation and denies missing any doses. He has not been to see an orthopedic surgeon for his osteoarthritis in this left hip. He has no previous surgery to the left side, he does have history of right hip surgery 5-8 years ago with a [facility] surgeon, and no history of knee replacements. He denies any pain to his back or left lower back at this time. He does have strength to his left leg and foot at this time, good sensation, and pulses are palpable to BLE. He does have bruising and swelling localized to his left hip and left lateral thigh, ecchymosis is purple at this time, with no further signs of injuries to that same lower leg. During my examination, it was noted that his abdomen was distended and taunt. Bowel sounds were present but hypoactive in all quadrants, quieter in RUQ. Patient states that he has daily bowel movements and that they have been normal, but he was unable to further describe the appearance or consistency of his BMs. He denies any abdominal pain with gentle or deep palpation throughout his abdomen. Patient states that his abdomen is normally this distended and denies any concerns at this time. Review of Systems Review of Systems: All systems reviewed & are unremarkable except as noted in HPI and below Constitutional: Constitutional: Reports as per HPI, Denies excessive sweating, Denies headache(s), Denies increased appetite, Denies poor appetite, Denies snoring, Reports weakness and Denies weight gain Eyes: Eyes: Reports as per HPI, Denies exophthalmos, Denies diplopia, Denies floaters and Denies loss of peripheral vision ENT: Reports as per HPI, Denies facial pain, Denies headache(s), Denies odynophagia and Denies tinnitus Cardiovascular: Cardiovascular: Reports as per HPI, Denies chest pain, Denies chest pain at rest, Denies chest pain with activity, Reports irregular heart rhythm (chronic), Denies dyspnea and Denies dyspnea on exertion Respiratory: Respiratory: Reports as per HPI, Denies chest congestion, Denies cough, Denies hemoptysis and Denies snoring Gastrointestinal: Gastrointestinal: Reports as per HPI, Denies abdominal pain, Denies melena, Denies change in stool character, Denies coffee ground emesis, Denies constipation, Denies diarrhea, Denies loose stools and Denies odynophagia Genitourinary: Genitourinary: Reports as per HPI Musculoskeletal: Musculoskeletal: Reports as per HPI, Reports abnormal gait, Reports arthralgias, Reports muscle cramps, Reports radiating pain into limb and Reports stiffness Integumentary/Breasts: Skin/Breast: Reports as per HPI Neurologic: Reports as per HPI, Reports Normal hearing present and Denies headache(s) Psychiatric: Psychiatric: Reports as per HPI and Denies anxiety Endocrine: Endocrine: Reports as per HPI and Denies excessive sweating Hematologic/Lymphatic: Hematologic/Lymphatic: Reports as per HPI Allergic/Immunologic: Allergic/Immunologic: Reports as per HPI [facility] Past Medical History Medical History (Updated 09/20/20 @ 09:57 by Jewell Smalls NP) Anemia bone marrow disorder has been ruled out. Managed by Dr. Wilson
--- NOTE | 2020-09-20 10:45 | PCRCNOTE ---
Pt states he does not wear his home CPAP at this time. He does not want to use ours. He was informed he could wear ours if he changes his mind.
--- NOTE | 2020-09-20 10:57 | PCOTNOTE ---
Awaiting ortho consult to attempt OT evaluation, will follow.
[2020-09-20] MEDS: LIDOCAINE 5% PATCH 2 PATCH TRANSDERM (11:34)
[2020-09-20 12:27] LABS: Glucose Point of Care 115 (65-105)
--- NOTE | 2020-09-20 13:11 | PM.CNOR ---
Assessment and Plan Assessment and plan (1) Contusion of hip, left: Qualifiers: Encounter type: initial encounter Qualified Code(s): S70.02XA - Contusion of left hip, initial encounter Code(s): S70.02XA - Contusion of left hip, initial encounter Status: Acute Assessment and Plan: CT scan of pelvis and lumbar spine reviewed with Dr. Grier. Results reviewed with patient as well. No evidence of fracture or acute abnormality. Lumbar spondylosis and mild left hip DJD noted. Marked tenderness over the greater trochanter of the the left hip. Ecchymosis/swelling over the lateral aspect of the hip which extends to the lateral thigh, tenderness. No groin pain with internal/external rotation of the left hip. No deformity noted. +ankle dorsiflexion/plantarflexion. Negative Kristine's sign. NV intact. Patient does report improvement in pain since last night. Recommended PT/OT Eval. WBAT with Walker. Commode. Fall Risk. May begin warm compresses to the lateral hip upon discharge. Ice lateral hip at this time. Continue Lidocain patches. Pain control. May follow up as an outpatient as needed. Thank you for allowing us to participate in the care of this patient. History of Present Illness HPI Consult date: 09/20/20 Requesting physician: Val Treviño MD Consult reason: joint pain ( left hip) Chief complaint: Left hip contusion, left hip pain, chronic anemia Narrative: 85-year-old male admitted with intractable left hip pain status post fall approximately 1 week ago on Sep 12, 2020. He reports having had to go to the bathroom abruptly and as he attempted to run to the bathroom he hit the pantry door and fell onto his left side. He was recently seen in the emergency room status post fall and evaluated and then discharged home. At that time his radiographs were negative for any sort of fracture. Patient denies new fall since last week. Patient reports that he was ambulating independently without pain or issues until late last night when he woke up with an intractable left lateral hip pain. He also noted increased bruising on the lateral aspect of the left leg. This prompted his arrival to the emergency room. In the emergency room he underwent a lumbar spine CT as well the pelvis CT. Lumbar spine CT revealed lumbar spondylosis with no acute fractures. Pelvis CT revealed mild left hip DJD and a previous right total hip arthroplasty. No evidence of fracture, dislocations or acute abnormalities. Orthopedic consult requested from the emergency room and the patient was admitted. On exam today the patient feels that he is actually improving significantly this afternoon in regards to lateral hip pain. He has not worked with therapy yet pending orthopedic evaluation. He has not been out of bed. His pain is well controlled at this time. Review of Systems Review of Systems: All systems reviewed & are unremarkable except as noted in HPI and below Constitutional: Constitutional: Reports no additional constitutional complaints, Denies chills, Denies fatigue, Denies fever(s), Denies headache(s) and Denies weakness Eyes: Eyes: Denies change in vision ENT: Reports Normal hearing present and Denies headache(s) Cardiovascular: Cardiovascular: Denies chest pain and Denies dyspnea Respiratory: Respiratory: Denies cough, Denies dyspnea and Denies wheezing Gastrointestinal: Gastrointestinal: Denies diarrhea, Denies nausea and Denies vomiting Genitourinary: Genitourinary: Denies hematuria, Denies dysuria and Denies urinary urgency Musculoskeletal: Musculoskeletal: Reports as per HPI, Denies numbness and Denies tingling Integumentary/Breasts: Skin/Breast: Reports as per HPI and Reports other ( Ecchymosis lateral hip) Neurologic: Reports as per HPI, Reports Normal hearing present, Denies headache(s), Denies numbness, Denies tingling and Denies weakness Psychiatric: Psychiatric: Reports no additional psychiatric complaints Endocrine:
[2020-09-20] MEDS: SODIUM CHLORIDE 0.9% IV 1,000 ML 100 ML IV CONT (17:53)
--- NOTE | 2020-09-20 18:46 | PC.NURSE ---
Pt had suppository ordered all day, and refused it. Pt was informed numerous times, the Dr wanted him to have a bowel movement before he leaves, due to her concern for his abdominal distension. Pt now states he will take it first thing in the morning because he does not want to have an accident in the bed.
[2020-09-20] MEDS: APIXABAN 5 MG TABLET PO (21:03)
[2020-09-20] MEDS: SIMVASTATIN 10 MG TABLET 20 MG PO (21:03)
[2020-09-20] MEDS: metFORMIN HCL XR 500 MG TAB.SR.24H PO (21:03)
[2020-09-20] MEDS: cycloSPORINE 0.4 ML OPHTH SOLUTION 1 DROP EACH EYE (21:04)
[2020-09-21] MEDS: SODIUM CHLORIDE 0.9% IV 1,000 ML 100 ML IV CONT (04:30)
[2020-09-21 05:58] VITALS: BP 139/49; PULSE 73; RESP 18; TEMP 36.9; O2SAT 98
[2020-09-21 06:00] LABS: Hemoglobin 8.4 g/dL (14.0-18.0); Mean Corpuscular HGB Conc 32.3 g/dl (32-36); Mean Corpuscular Hemoglobin 25.5 pg (26-34); Mean Platelet Volume 10.6 fl (7.4-10.4); Platelet Count Result 204 k/mm3 (150-375); Red Blood Count 3.29 M/mm3 (4.6-6.20); Red Cell Distribution Width 15.7 % (11.5-14.5); White Blood Count 8.3 K/mm3 (4.5-10.0)
[2020-09-21 06:12] LABS: Alanine Aminotransferase 14 U/L (4-50); Albumin Level 3.6 g/dL (3.5-5.1); Alkaline Phosphatase 91 U/L (38-126); Anion Gap 8 mmol/L (8-16); Aspartate Amino Transferase 24 U/L (17-59); Bilirubin,Total 0.6 mg/dL (0.2-1.3); Blood Urea Nitrogen 10 mg/dL (9-20); Calcium 8.9 mg/dL (8.4-10.2); Carbon Dioxide 27 mmol/L (22-30); Chloride 101 mmol/L (98-107); Estimated CRCL calculation 79 ml/min; Estimated Glomerular Filt Rate > 60; Glucose 141 mg/dL (75-110); Potassium 4.1 mmol/L (3.4-5.0); Sodium 136 mmol/L (137-145)
[2020-09-21] MEDS: PANTOPRAZOLE 40 MG TABLET PO (08:05)
[2020-09-21] MEDS: APIXABAN 5 MG TABLET PO ×2 (08:05→17:19)
[2020-09-21] MEDS: CYANOCOBALAMIN 1,000 MCG TABLET 1000 MCG PO (08:05)
[2020-09-21] MEDS: MULTIVITAMINS THERAPEUTIC TAB (*BKC) 1 TABLET PO (08:05)
[2020-09-21] MEDS: LIDOCAINE 5% PATCH 2 PATCH TRANSDERM (08:06)
[2020-09-21] MEDS: ROFLUMILAST 500 MCG TABLET PO (08:06)
[2020-09-21] MEDS: cycloSPORINE 0.4 ML OPHTH SOLUTION 1 DROP EACH EYE (08:06)
[2020-09-21] MEDS: amLODIPine BESYLATE 5 MG TABLET 10 MG PO (08:06)
[2020-09-21] MEDS: BISACODYL 10 MG SUPPOSITORY RECTAL (08:07)
--- NOTE | 2020-09-21 08:36 | PM.IMPN ---
Progress Note: A&P Assessment and Plan (1) Contusion of hip, left: Qualifiers: Encounter type: initial encounter Qualified Code(s): S70.02XA - Contusion of left hip, initial encounter Code(s): S70.02XA - Contusion of left hip, initial encounter Status: Acute Assessment and Plan: CVA 8 weeks ago and then a fall on or around September 12 persistent pain and weakness to left hip and left lower extremity - much improved with below pain regimen. treating with p.r.n. Tylenol and p.r.n. [place] as needed, ice packs ordered, and lidocaine patches ordered Ortho surgeron Dr. 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 with no acute osseous abnormality, some signs of old trauma, CT scan of lumbar spine completed shows no fractures, severe lumbar spondylosis, no evidence of concerning central canal stenosis needs outpatient PT and OT, needs follow-up with primary care provider in 3-7 days, [id number] pain medicine, and assistance at home with bathing/meals/hydration/meds (2) Constipation: Code(s): K59.00 - Constipation, unspecified Status: Acute Assessment and Plan: was started on oral Dulco-senna at admission nurse denies any bowel movements at this time ordered Dulcolax suppository to be given - was done this morning as patient refused to take yesterday requested nurse to call me if patient has a bowel movement this morning occult stool ordered strict I and O ordered will order PT and OT s/p orthopedic surgeon evaluation will order pelvic floor exercises and bowel training per PT (3) Colitis: Code(s): K52.9 - Noninfective gastroenteritis and colitis, unspecified Status: Acute Assessment and Plan: distended abdomen at admission - now soft throughout and palpable, no pain with deep palpation no pain at this time or complaints by patient patient and states he is having daily or every other day BMs and denies constipation does not take any anti constipation medications at home, no laxatives, no suppositories on home med list and patient denies taking any at home CT scan of pelvis completed shows mild wall thickening of the rectum related to decompress state, likely related to stercoral colitis or colitis of other causes this may be related to chronic issues that the patient has had for many years or related to CVA 8 wks ago or loss of muscle due to inactivity/immobility ordered oral and rectal suppositories and fiber for constipation relief ordered strict I and O discussed with patient's nurse and (4) Iron deficiency anemia: Code(s): D50.9 - Iron deficiency anemia, unspecified Status: Acute Assessment and Plan: chronic takes daily iron at home, 300 mg orally no sign of active bleeding at this time, no open wounds, hemoglobin was 8.7 and then 8.4 today, and hematocrit 27.0 and then 26 today, platelets 225 and 204 today. informed me that he has been receiving blood transfusions chronically prior to this admission for anemia his May and June CBCs showed similar hemoglobin levels so he appears to be at or near baseline restarted Eliquis today hemodynamically stable with heart rate 72-82 and blood pressure 139/49 will need to return to his PCP for close monitoring (5) Atrial fibrillation: Qualifiers: Atrial fibrillation type: unspecified Qualified Code(s): I48.91 - Unspecified atrial fibrillation Code(s): I48.91 - Unspecified atrial fibrillation Status: Acute Assessment and Plan: chronic irrregular rate on exam patient takes Eliquis at home and states he has not been missing any doses no sign of active bleeding at this time, n
--- NOTE | 2020-09-21 11:16 | PCOTNOTE ---
Attempted to see patient this am, however patient declined stating, I'm too cold. Adjusted temperature settings in room at this time.
[2020-09-21] MEDS: ACETAMINOPHEN 500 MG TABLET 1000 MG PO ×2 (12:22→17:19)
[2020-09-21 14:00] VITALS: BP 133/57; PULSE 73; RESP 18; TEMP 36.3; O2SAT 100
[2020-09-21 14:12] VITALS: BP 133/57; PULSE 73; RESP 18; O2SAT 100
[2020-09-21 14:40] VITALS: BP 130/53; PULSE 72; RESP 18; O2SAT 100
[2020-09-21 15:32] VITALS: BP 137/57; PULSE 70; RESP 18; O2SAT 100
--- NOTE | 2020-09-21 17:05 | PM.DS ---
DS: Admitting Diagnosis Admitting Diagnosis Admitting Diagnosis: Left hip contusion, left hip pain, chronic anemia DS: Discharge Diagnosis Discharge Diagnosis (1) Contusion of hip, left: Qualifiers: Encounter type: initial encounter Qualified Code(s): S70.02XA - Contusion of left hip, initial encounter Code(s): S70.02XA - Contusion of left hip, initial encounter Status: Acute Assessment and Plan: CVA 8 weeks ago and then a fall on or around September 12 persistent pain and weakness to left hip and left lower extremity - much improved with below pain regimen. treating with p.r.n. Tylenol and p.r.n. [place] as needed, ice packs ordered, and lidocaine patches ordered Ortho surgeron Dr. 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 with no acute osseous abnormality, some signs of old trauma, CT scan of lumbar spine completed shows no fractures, severe lumbar spondylosis, no evidence of concerning central canal stenosis needs outpatient PT and OT, needs follow-up with primary care provider in 3-7 days, [id number] pain medicine, and assistance at home with bathing/meals/hydration/meds (2) Constipation: Code(s): K59.00 - Constipation, unspecified Status: Acute Assessment and Plan: was started on oral Dulco-senna at admission nurse denies any bowel movements at this time ordered Dulcolax suppository to be given - was done this morning as patient refused to take yesterday requested nurse to call me if patient has a bowel movement this morning occult stool ordered (May occult was negative) strict I and O ordered will order PT and OT s/p orthopedic surgeon evaluation will order pelvic floor exercises and bowel training per PT (3) Colitis: Code(s): K52.9 - Noninfective gastroenteritis and colitis, unspecified Status: Acute Assessment and Plan: distended abdomen at admission - now soft throughout and palpable, no pain with deep palpation no pain at this time or complaints by patient patient and states he is having daily or every other day BMs and denies constipation does not take any anti constipation medications at home, no laxatives, no suppositories on home med list and patient denies taking any at home CT scan of pelvis completed shows mild wall thickening of the rectum related to decompress state, likely related to stercoral colitis or colitis of other causes this may be related to chronic issues that the patient has had for many years or related to CVA 8 wks ago or loss of muscle due to inactivity/immobility ordered oral and rectal suppositories and fiber for constipation relief ordered strict I and O discussed with patient's nurse and (4) Iron deficiency anemia: Code(s): D50.9 - Iron deficiency anemia, unspecified Status: Acute Assessment and Plan: chronic takes daily iron at home, 300 mg orally no sign of active bleeding at this time, no open wounds, hemoglobin was 8.7 and then 8.4 today, and hematocrit 27.0 and then 26 today, platelets 225 and 204 today. informed me that he has been receiving blood transfusions chronically prior to this admission for anemia his May and June CBCs showed similar hemoglobin levels so he appears to be at or near baseline restarted Eliquis today hemodynamically stable with heart rate 72-82 and blood pressure 139/49 will need to return to his PCP for close monitoring (5) Atrial fibrillation: Qualifiers: Atrial fibrillation type: unspecified Qualified Code(s): I48.91 - Unspecified atrial fibrillation Code(s): I48.91 - Unspecified atrial fibrillation Status: Acute Assessment and Plan:
[2020-09-21] MEDS: metFORMIN HCL XR 500 MG TAB.SR.24H PO (17:18)
--- NOTE | 2020-09-21 17:50 | PC.NURSE ---
Pt had discharge orders. Pt's IV has been removed, and discharge paperwork has been reviewed with pt's spouse per their request. She exhibited good understanding of discharge instructions. Pt assisted with dressing and getting to the front of the building to get into his 's car.
== END 2020-09-21 17:45 | disposition home or self-care (01) ==
LOC: ANHED 04:50 → ANH3MEDSUR 05:35
PROVIDERS: Admitting Provider Family Medicine; Emergency Provider Emergency Medicine; PCP Internal Medicine; Visit Provider Nurse Practitioner
DX: S70.02XA Contusion of left hip, initial encounter (principal); Z86.73 Personal history of transient ischemic attack (TIA), and cerebral infarction without residual deficits; W19.XXXA Unspecified fall, initial encounter; K59.00 Constipation, unspecified; K52.9 Noninfective gastroenteritis and colitis, unspecified; D50.9 Iron deficiency anemia, unspecified; I48.91 Unspecified atrial fibrillation
CPT/HCPCS: 36415; 72131; 72192; 74018; 80048; 80053; 85025; 85027; 85610; 85730; 96361; 96374; 97116; 97161; 97165; 97530; 97535; 99285; A9270; G0378; J1885; J7030

== ENCOUNTER 2020-09-28 16:17 | Emergency (ER) | payer MEDICARE, SELFPAY ==
--- NOTE | ~2020-09-28 | XR_ITS ---
EXAMINATION: XR chest 2V DATE: 09/28/2020 17:22 INDICATION: Left leg swelling. TECHNIQUE: Frontal and lateral views of the chest were obtained. COMPARISON: Chest 2 views 09/22/2020, chest CT 09/29/2019 FINDINGS: There are mild airspace opacities in right mid and lower lung zones. There is chronic right -sided pleural thickening at the lung base. No pleural effusion or pneumothorax. Cardiomegaly is note d. Median sternotomy wires and mediastinal surgical clips are seen, likely from prior coronary artery bypass grafting. There are old healed bilateral rib fractures. IMPRESSION: 1. Mild airspace opacities in right mid and lower lung zones, consistent with atelectasis/scarring ve rsus pneumonia. 2. Cardiomegaly. Reviewed, dictated and finalized at location A. Y FORGING MACHINE OPERATOR IMPRESSION: 1. Mild airspace opacities in right mid and lower lung zones, consistent with a telectasis/scarring versus pneumonia. 2. Cardiomegaly.
--- NOTE | ~2020-09-28 | US_ITS ---
EXAMINATION: US venous doppler [facility] DATE: 09/28/2020 16:56 INDICATION: Left lower limb swelling TECHNIQUE: Grayscale ultrasound images without and with compression and Doppler ultrasound images of the left lower extremity veins were obtained. COMPARISON: None. FINDINGS: The visualized portions of left common femoral vein, profunda (deep) femoral vein, femoral vein, popl iteal vein, peroneal veins, posterior tibial veins, gastrocnemius vein and greater saphenous vein out flow are patent. IMPRESSION: 1. No deep venous thrombosis in the left lower limb. Reviewed, dictated and finalized at location A. RITIES CLERK
[2020-09-28 16:27] VITALS: BP 143/117; PULSE 61; RESP 18; TEMP 36.5; O2SAT 99
--- NOTE | 2020-09-28 16:41 | ED.GENADULT ---
HPI - General Adult General Chief complaint: Extremity Injury, Lower Stated complaint: left leg swelling Time Seen by Provider: 09/28/20 16:35 Source: patient and family History of Present Illness HPI narrative: 85-year-old male presents to emergency department for left lower extremity swelling for the past couple of days. Daily patient states the swelling started in his ankle and has progressed proximal up to his knee. Patient denies feeling short of breath or chest pain. Family denies patient being on Lasix or any other diuretic. Related Data Home Medications Medication Instructions Recorded Confirmed Trelegy Ellipta 1 inh INHALATION DAILY 07/22/20 09/20/20 metoclopramide HCl 5 mg PO TID 08/23/20 09/20/20 Restasis 1 drp OPHTHALMIC (EYE) Q12H 09/20/20 09/20/20 albuterol sulfate [Ventolin HFA] 2 puff INHALATION TID PRN 09/20/20 09/20/20 mecobalamin (vitamin B12) 1,000 mcg PO DAILY 09/20/20 09/20/20 multivitamin 1 tablet PO DAILY 09/20/20 09/20/20 olopatadine 1 drp OPHTHALMIC (EYE) DAILY 09/20/20 09/20/20 sennosides-docusate sodium 1 tab PO DAILY PRN 09/20/20 09/20/20 [Senokot-S] simvastatin 20 mg PO HS 09/20/20 09/20/20 Allergies Allergy/AdvReac Type Severity Reaction Status Date / Time amiodarone Allergy Unknown Other Verified 09/20/20 06:46 iodine Allergy Hives Verified 09/20/20 06:46 Review of Systems Review of Systems: Narrative: CONSTITUTIONAL: Denies fever, chills, or sweats. EYES: Denies visual changes, redness, or discharge. ENT: Denies rhinorrhea, congestion, sore throat, or otalgia. CARDIOVASCULAR: Denies chest pain, palpitations. Reports left leg swelling RESPIRATORY: Denies cough or dyspnea. GASTROINTESTINAL: Denies abdominal pain, nausea, vomiting, or diarrhea. GENITOURINARY: Denies dysuria or hematuria. SKIN: Denies rash or itching. MUSCULOSKELETAL: Denies back pain, joint pain, or myalgia. NEUROLOGIC: Denies headache, numbness, dizziness, or weakness. PSYCHIATRIC: Denies anxiety or depression. All systems reviewed & are unremarkable except as noted in HPI and below (ROS) [facility] Past Medical History Medical History (Updated 09/29/20 @ 00:00 by Bj Mccabe) Anemia bone marrow disorder has been ruled out. Managed by Dr. Wilson - normal EGD 06/01/2020 - normal colonoscopy July 2019 -attempted a colonoscopy 06/01/2020 with poor prep Arthritis Atrial fibrillation CAD (coronary artery disease) Hx of CABG COPD (chronic obstructive pulmonary disease) Diabetes mellitus Esophageal dysmotility On imaging 05/13/2020 on Metoclopramide Essential hypertension Vitamin B12 deficiency with recent levels within normal limits in April Surgical History Surgical History History of maze procedure bilateral thoracenteses with Maze procedure History of right hip replacement History of shoulder surgery bilateral Hx of CABG 4 vessel CABG 2007 Status post cataract extraction of both eyes with insertion of intraocular lens Family History Family History Father Lung cancer Mother TIA (transient ischemic attack) Hypertension CHF (congestive heart failure) Sibling CHF (congestive heart failure) Hypertension Social History Social History Social History: Primary care physician: Dr. Potts Indonesian Code status: Full code Smoking packs per day: 1 Smoking cigarettes per day: 20.0 Years smoked: 44 Smoking pack-years: 44.00 Smoking status: Former smoker Tobacco type: cigarettes Smoking end date: 11/25/03 Alcohol intake: current Drinks per week: 10 Substance use: never Additional living arrangements comments: He lives with his , of 57 years, in [place], [place]. They have 3 children her reportedly healthy. He is independent in activities of daily living. Additional occupation/education comment
[2020-09-28 16:59] VITALS: BP 132/56; PULSE 70; RESP 19; O2SAT 98
--- NOTE | 2020-09-28 17:05 | ECG_ITS ---
Measurements Intervals [place] Rate: 56 P: 98 NM: 297 QRS: -60 QRSD: 117 T: 75 QT: 430 QTc: 415 Interpretive Statements ATRIAL FIBRILLATION LEFT ANTERIOR FASCICULAR BLOCK POOR R WAVE PROGRESSION, ANTERIOR LEADS BORDERLINE ST-T WAVE ABNORMALITY- HIGH LATERAL LEADS ABNORMAL ECG Electronically Signed On 09-28-2020 17:51:09 GILL TENDER by Curt Avila D.O.
[2020-09-28 17:54] LABS: Basophils Absolute Auto 0.1 K/mm3 (0.0-0.1); Basophils Percent Auto 0.7 % (0.2-1.2); Eosinophils Absolute Auto 0.2 K/mm3 (0-0.3); Eosinophils Percent Auto 2.7 % (0-4.4); Hematocrit 24.7 % (42.0-52.0); Hemoglobin 7.9 g/dL (14.0-18.0); Immature Granulocyte Absolute 0.06 K/mm3 (0.00-0.031); Immature Granulocyte Percent A 0.7 % (0-0.5); Lymphocytes Absolute Auto 0.87 K/mm3 (0.9-3.2); Lymphocytes Percent Auto 10.2 % (18.3-44.2); Mean Corpuscular Hemoglobin 25.6 pg (26-34); Mean Corpuscular Volume 80.2 fl (80-100); Monocytes Absolute Auto 0.9 K/mm3 (0.1-0.6); Monocytes Percent Auto 9.9 % (2.6-8.5); Neutrophils Absolute Auto 6.5 K/mm3 (1.3-6.7); Neutrophils Percent Auto 75.8 % (45.5-73.1); Platelet Count Result 229 k/mm3 (150-375); Red Blood Count 3.08 M/mm3 (4.6-6.20); Red Cell Distribution Width 16.5 % (11.5-14.5); White Blood Count 8.6 K/mm3 (4.5-10.0)
[2020-09-28 18:06] LABS: Alanine Aminotransferase 15 U/L (4-50); Albumin Level 4.1 g/dL (3.5-5.1); Alkaline Phosphatase 81 U/L (38-126); Anion Gap 11 mmol/L (8-16); Aspartate Amino Transferase 23 U/L (17-59); Bilirubin,Total 0.4 mg/dL (0.2-1.3); Blood Urea Nitrogen 14 mg/dL (9-20); Carbon Dioxide 24 mmol/L (22-30); Chloride 101 mmol/L (98-107); Estimated CRCL calculation 55 ml/min; Estimated Glomerular Filt Rate > 60; Glucose 126 mg/dL (75-110); Potassium 4.5 mmol/L (3.4-5.0); Sodium 136 mmol/L (137-145)
[2020-09-28 18:15] LABS: NT Pro B Type Natriuretic Pept 389 PG/ML (5-100)
[2020-09-28 20:55] VITALS: BP 145/55; PULSE 58; RESP 17; O2SAT 95
== END 2020-09-28 21:00 | disposition home or self-care (01) ==
PROVIDERS: Emergency Provider Emergency Medicine; PCP Internal Medicine
DX: M79.89 Other specified soft tissue disorders (principal); M19.90 Unspecified osteoarthritis, unspecified site; I48.91 Unspecified atrial fibrillation; I25.10 Atherosclerotic heart disease of native coronary artery without angina pectoris; Z95.1 Presence of aortocoronary bypass graft; J44.9 Chronic obstructive pulmonary disease, unspecified; I10 Essential (primary) hypertension; E53.8 Deficiency of other specified B group vitamins; D64.9 Anemia, unspecified; Z96.641 Presence of right artificial hip joint; Z98.42 Cataract extraction status, left eye; Z98.41 Cataract extraction status, right eye; Z96.1 Presence of intraocular lens; Z87.891 Personal history of nicotine dependence; I44.4 Left anterior fascicular block; R94.31 Abnormal electrocardiogram [ECG] [EKG]
CPT/HCPCS: 36415; 71046; 80053; 83880; 85025; 93005; 93971; 99284

== ENCOUNTER 2020-09-30 07:27 | Outpatient (RCR) | payer MEDICARE, SELFPAY ==
[2020-09-30 07:59] LABS: Hematocrit 23.9 % (42.0-52.0); Hemoglobin 7.7 g/dL (14.0-18.0)
[2020-09-30] MEDS: diphenhydrAMINE HCl CAP 25 MG CAPSULE PO (08:44)
[2020-09-30] MEDS: ACETAMINOPHEN 325 MG TABLET 650 MG PO (08:44)
[2020-09-30] MEDS: SODIUM CHLORIDE 0.9% IV 250 ML 30 ML IV CONT (09:09)
[2020-09-30 09:10] VITALS: BP 118/42; PULSE 56; RESP 16; TEMP 37.1; O2SAT 99
[2020-09-30 09:25] VITALS: BP 124/46; PULSE 55; RESP 16; TEMP 37.1; O2SAT 98
[2020-09-30 10:25] VITALS: BP 129/49; PULSE 53; RESP 16; TEMP 36.8; O2SAT 100
[2020-09-30 11:25] VITALS: BP 129/46; PULSE 48; RESP 16; TEMP 36.7; O2SAT 100
[2020-09-30 11:55] VITALS: BP 125/45; PULSE 52; RESP 16; TEMP 36.6; O2SAT 100
== END 2020-12-29 23:59 | disposition home or self-care (01) ==
LOC: ANHCPCTRAN 07:27
PROVIDERS: PCP Internal Medicine; Visit Provider Internal Medicine Medical Oncology
DX: D50.9 Iron deficiency anemia, unspecified (principal)
CPT/HCPCS: 36415; 36430; 85014; 85018; 86850; 86900; 86901; 86923; A9270; J7050; P9016

== ENCOUNTER 2020-10-05 11:27 | Outpatient (RCR) | payer MEDICARE, SELFPAY ==
[2020-08-31 11:43] LABS: Basophils Absolute Auto 0.1 K/mm3 (0.0-0.1); Basophils Percent Auto 0.6 % (0.2-1.2); Eosinophils Absolute Auto 0.2 K/mm3 (0-0.3); Eosinophils Percent Auto 2.6 % (0-4.4); Hematocrit 31.5 % (42.0-52.0); Hemoglobin 10.1 g/dL (14.0-18.0); Immature Granulocyte Absolute 0.03 K/mm3 (0.00-0.031); Immature Granulocyte Percent A 0.4 % (0-0.5); Immature Reticulocyte Fraction 4.1 % (3.0-15.9); Lymphocytes Absolute Auto 1.15 K/mm3 (0.9-3.2); Lymphocytes Percent Auto 14.4 % (18.3-44.2); Mean Corpuscular HGB Conc 32.1 g/dl (32-36); Mean Corpuscular Hemoglobin 25.1 pg (26-34); Mean Corpuscular Volume 78.4 fl (80-100); Mean Platelet Volume 10.9 fl (7.4-10.4); Monocytes Absolute Auto 0.9 K/mm3 (0.1-0.6); Monocytes Percent Auto 10.6 % (2.6-8.5); Neutrophils Absolute Auto 5.7 K/mm3 (1.3-6.7); Neutrophils Percent Auto 71.4 % (45.5-73.1); Platelet Count Result 216 k/mm3 (150-375); Red Blood Count 4.02 M/mm3 (4.6-6.20); Red Cell Distribution Width 15.8 % (11.5-14.5); Reticulocyte Hemoglobin Conten 29.6 pg (28.2-35.7); Reticulocyte Percent 0.77 % (0.7-4.3); Reticulocytes Absolute 0.03 B/L (32.2-175.7)
[2020-09-07 12:34] LABS: Basophils Absolute Auto 0.1 K/mm3 (0.0-0.1); Basophils Percent Auto 0.8 % (0.2-1.2); Eosinophils Absolute Auto 0.2 K/mm3 (0-0.3); Eosinophils Percent Auto 2.7 % (0-4.4); Hemoglobin 9.8 g/dL (14.0-18.0); Immature Granulocyte Absolute 0.02 K/mm3 (0.00-0.031); Immature Granulocyte Percent A 0.3 % (0-0.5); Lymphocytes Absolute Auto 1.14 K/mm3 (0.9-3.2); Lymphocytes Percent Auto 16.1 % (18.3-44.2); Mean Corpuscular HGB Conc 31.6 g/dl (32-36); Mean Corpuscular Hemoglobin 25.1 pg (26-34); Mean Corpuscular Volume 79.3 fl (80-100); Mean Platelet Volume 10.9 fl (7.4-10.4); Monocytes Absolute Auto 0.8 K/mm3 (0.1-0.6); Monocytes Percent Auto 11.3 % (2.6-8.5); Neutrophils Absolute Auto 4.9 K/mm3 (1.3-6.7); Neutrophils Percent Auto 68.8 % (45.5-73.1); Platelet Count Result 227 k/mm3 (150-375); Red Blood Count 3.91 M/mm3 (4.6-6.20); Red Cell Distribution Width 15.5 % (11.5-14.5); White Blood Count 7.1 K/mm3 (4.5-10.0)
[2020-09-16 12:33] LABS: Basophils Absolute Auto 0.1 K/mm3 (0.0-0.1); Basophils Percent Auto 0.8 % (0.2-1.2); Eosinophils Absolute Auto 0.2 K/mm3 (0-0.3); Eosinophils Percent Auto 2.1 % (0-4.4); Hematocrit 30.4 % (42.0-52.0); Hemoglobin 9.6 g/dL (14.0-18.0); Immature Granulocyte Absolute 0.02 K/mm3 (0.00-0.031); Immature Granulocyte Percent A 0.3 % (0-0.5); Lymphocytes Absolute Auto 1.05 K/mm3 (0.9-3.2); Lymphocytes Percent Auto 13.2 % (18.3-44.2); Mean Corpuscular HGB Conc 31.6 g/dl (32-36); Mean Corpuscular Hemoglobin 24.6 pg (26-34); Mean Corpuscular Volume 77.7 fl (80-100); Mean Platelet Volume 10.6 fl (7.4-10.4); Monocytes Absolute Auto 0.8 K/mm3 (0.1-0.6); Monocytes Percent Auto 10.2 % (2.6-8.5); Neutrophils Absolute Auto 5.8 K/mm3 (1.3-6.7); Neutrophils Percent Auto 73.4 % (45.5-73.1); Platelet Count Result 254 k/mm3 (150-375); Red Blood Count 3.91 M/mm3 (4.6-6.20); Red Cell Distribution Width 15.8 % (11.5-14.5); White Blood Count 7.9 K/mm3 (4.5-10.0)
[2020-10-05 12:10] LABS: Basophils Absolute Auto 0.1 K/mm3 (0.0-0.1); Basophils Percent Auto 0.6 % (0.2-1.2); Eosinophils Absolute Auto 0.3 K/mm3 (0-0.3); Hematocrit 27.8 % (42.0-52.0); Immature Granulocyte Absolute 0.03 K/mm3 (0.00-0.031); Immature Granulocyte Percent A 0.4 % (0-0.5); Immature Reticulocyte Fraction 10.4 % (3.0-15.9); Lymphocytes Absolute Auto 0.82 K/mm3 (0.9-3.2); Lymphocytes Percent Auto 10.5 % (18.3-44.2); Mean Corpuscular HGB Conc 32.4 g/dl (32-36); Mean Corpuscular Hemoglobin 26.6 pg (26-34); Mean Corpuscular Volume 82.2 fl (80-100); Mean Platelet Volume 9.7 fl (7.4-10.4); Monocytes Absolute Auto 0.7 K/mm3 (0.1-0.6); Monocytes Percent Auto 9.2 % (2.6-8.5); Neutrophils Absolute Auto 5.9 K/mm3 (1.3-6.7); Neutrophils Percent Auto 75.3 % (45.5-73.1); Platelet Count Result 233 k/mm3 (150-375); Red Blood Count 3.38 M/mm3 (4.6-6.20); Red Cell Distribution Width 17.1 % (11.5-14.5); Reticulocyte Hemoglobin Conten 30.2 pg (28.2-35.7); Reticulocytes Absolute 0.07 B/L (32.2-175.7); White Blood Count 7.8 K/mm3 (4.5-10.0)
== END 2020-11-29 23:59 | disposition home or self-care (01) ==
LOC: ANHLAB 11:27
PROVIDERS: PCP Internal Medicine; Visit Provider Internal Medicine Medical Oncology
DX: D64.9 Anemia, unspecified (principal)
CPT/HCPCS: 36415; 82728; 85025; 85046

== ENCOUNTER 2020-10-13 11:00 | Outpatient (RCR) | payer MEDICARE, SELFPAY ==
--- NOTE | 2020-08-26 14:49 | STOPEVAL ---
SPEECH THERAPY INITIAL EVALUATION: Thank you for referring Steven Greene to [facility] [place].? The patient is scheduled to be seen for therapy? 1-2 x/week for 4 weeks. Please review, sign, date and return this plan of care JUSTINO. I agree with and certify that the following plan of care is medically necessary. Referring Physician Date Attending Provider: Delroy Paris, *ST Outpatient Evaluation Start: 08/26/20 08:58 Freq: Status: Active Protocol: Document 08/26/20 09:00 BECHERERT (Rec: 08/26/20 14:03 BECHERERT [email or web address]) Therapy Assessment Status Assessment Status Assessment Status Evaluation Outpatient Past Medical History Past Medical History Source of Past Medical History Patient,Family/Significant Other Neurological History Hx Cerebrovascular Accident (CVA) Yes: 07/18/2020 Cardiovascular History Hx Atrial Fibrillation Yes Hx Cardiac Catheterization Yes Hx Congestive Heart Failure Yes Hx Coronary Artery Bypass Graft Yes: quad bypass 2007 Hx Hypercholesterolemia Yes Hx Hypertension Yes Respiratory History Hx Chest Surgery Yes: Open heart 2007 Hx Chronic Obstructive Pulmonary Disease Yes (COPD) Hx Sleep Apnea Yes: uses cpap Gastrointestinal History Hx Gastroesophageal Reflux Disease Yes Hx Other Gastrointestinal Disorders Yes: passing dark stools recently, CONSTIPATION, on iron supplements Genitourinary History Hx Genitourinary Disorders No Significant History Musculoskeletal History Hx Joint Replacement Yes: RT TOTAL HIP, 4 yrs ago Hematological History Hx Anemia Yes Hx Blood Transfusions Yes: previous transfusions in March and July Hx Other Hematological Disorders Yes: 9 blood transfusions since ;getting hormone tx's & high doses of iron Endocrine History Hx Diabetes Yes: Type 2 HEENT History Hx Cataracts Yes Integumentary History Hx Shingles Yes: >15 years ago Reproductive History Hx Reproductive Disorders No Significant History Psychosocial History Hx Psychiatric Disorders No Significant History Pain History History of Any Previous or Ongoing No Significant History Instance of Pain Anesthesia History Hx Anesthesia Reactions No Significant History Other History Hx Implanted Device Yes: RT HIP Evaluation Information Problem Diagnosis CVA Onset 07-18-20 Subjective Information Pt allows his spouse to do Query Text:As Reported By Patient/ most of talking but exhibited Family
--- NOTE | 2020-09-13 15:41 | PCSTNOTE ---
Patient called & cancelled scheduled appointment this date due to having a fall at home and feeling very sore. Spouse stated that he would be here on 09-20 for re eval.
--- NOTE | 2020-09-20 12:09 | PCSTNOTE ---
Patient called & cancelled scheduled appointment this date due to being in the ER/hospital.
--- NOTE | 2020-09-29 10:48 | OTOPEVAL ---
OCCUPATIONAL THERAPY INITIAL EVALUATION/ DISCHARGE SUMMARY: 09/29/2020 Thank you for referring Steven Greene to [facility].? As noted below, no skilled OT is indicated at this time. Plan to discharge today with patient independent in HEP materials. Please review, sign, date and return this plan of care JUSTINO. I agree with and certify that the following plan of care is medically necessary. Referring Physician Date Attending Provider: Delroy Paris, *OT Outpatient Evaluation/Discharge Summary Start: 09/29/20 09:40 Freq: Status: Active Protocol: Document 09/29/20 09:58 KJL (Rec: 09/29/20 10:48 KJL [id number]) Therapy Assessment Status Assessment Status Assessment Status Evaluation/Discharge Summary Outpatient Past Medical History Past Medical History Source of Past Medical History Patient,Family/Significant Other Neurological History Hx Cerebrovascular Accident (CVA) Yes: 07/18/2020 Cardiovascular History Hx Atrial Fibrillation Yes Hx Cardiac Catheterization Yes Hx Coronary Artery Bypass Graft Yes: quad bypass 2007 Hx Hypercholesterolemia Yes Hx Hypertension Yes Respiratory History Hx Asthma Yes Hx Chest Surgery Yes: Open heart 2007 Hx Chronic Obstructive Pulmonary Disease Yes (COPD) Hx Sleep Apnea Yes: uses cpap Genitourinary History Hx Genitourinary Disorders No Significant History Musculoskeletal History Hx Joint Replacement Yes: RT TOTAL HIP, 4 yrs ago Hematological History Hx Anemia Yes Hx Blood Transfusions Yes: previous transfusions in March and July Hx Other Hematological Disorders Yes: 9 blood transfusions since ;getting hormone tx's & high doses of iron Endocrine History Hx Diabetes Yes: Type 2 HEENT History Hx Cataracts Yes Integumentary History Hx Shingles Yes: >15 years ago Reproductive History Hx Reproductive Disorders No Significant History Psychosocial History Hx Psychiatric Disorders No Significant History Pain History History of Any Previous or Ongoing No Significant History Instance of Pain Anesthesia History Hx Anesthesia Reactions No Significant History Other History Hx Implanted Device Yes: RT HIP Evaluation Information Problem Diagnosis CVA Onset June 2020 Additional Evaluation Detail CVA in june of 2020. Pt had a fall with hospitalization with a 2 night stay for L leg pain. Pt went to
--- NOTE | 2020-09-29 12:42 | STOPEVAL ---
SPEECH THERAPY RE EVALUATION: Thank you for referring Steven Greene to [facility] [place] 2[place]? The pt has only attended 3 [address] visits since the initial evaluation as he had a fall at home then subsequent hospitalization and pain. Today, pt's spouse did not accompany pt to tx but called in to state that she feels that he has had a slight setback with verbal expression skills. Due to the high level nature of pt's impairment and having the assistance of his spouse to perform HEP, ST 1x/week 4 is recommended. Please review, sign, date and return this plan of care JUSTINO. I agree with and certify that the following plan of care is medically necessary. Referring Physician Date Admitting Provider: Attending Provider: Delroy Paris, * Outpatient RE Evaluation Start: 08/26/20 08:58 Freq: Status: Active Protocol: Document 09/29/20 11:12 [email or web address] (Rec: 09/29/20 12:03 [email or web address] [id number]) Therapy Assessment Status Assessment Status Assessment Status Re-evaluation Outpatient Past Medical History Past Medical History Source of Past Medical History Patient,Family/Significant Other Neurological History Hx Cerebrovascular Accident (CVA) Yes: 07/18/2020 Cardiovascular History Hx Atrial Fibrillation Yes Hx Cardiac Catheterization Yes Hx Coronary Artery Bypass Graft Yes: quad bypass 2007 Hx Hypercholesterolemia Yes Hx Hypertension Yes Respiratory History Hx Asthma Yes Hx Chest Surgery Yes: Open heart 2007 Hx Chronic Obstructive Pulmonary Disease Yes (COPD) Hx Sleep Apnea Yes: uses cpap Genitourinary History Hx Genitourinary Disorders No Significant History Musculoskeletal History Hx Joint Replacement Yes: RT TOTAL HIP, 4 yrs ago Hematological History Hx Anemia Yes Hx Blood Transfusions Yes: previous transfusions in March and July Hx Other Hematological Disorders Yes: 9 blood transfusions since ;getting hormone tx's & high doses of iron Endocrine History Hx Diabetes Yes: Type 2 HEENT History Hx Cataracts Yes Integumentary History Hx Shingles Yes: >15 years ago Reproductive History Hx Reproductive Disorders No Significant History Psychosocial History Hx Psychiatric Disorders No Significant History Pain History History of Any Previous or Ongoing No Significant History Instance of Pain Anesthesia History Hx Anesthesia Reactions No Significant History Other History Hx Implanted Device Yes: RT HIP Pain Assessment Timing of Pain Assessment Timing of Pain Assessment Assessment Pain Scale Pain Scale Used Numeric (1 - 10) Self Report Pain Assessment Left Leg(s) Repor
--- NOTE | 2020-10-06 15:16 | PCSTNOTE ---
Speech Therapy Note: Attending Provider: Delroy Paris, Patient:Steven Greene Date of :1935 Pt was seen for 2 visits (versus 1 per POC) during this week in order to provide further instruction on HEP. Thank you for referring this patient to [facility]. Please sign, date and return this POC adjustment JUSTINO. I have been updated about the patient's current status and I agree with discharge from the above service at this time. Referring Physician Date
--- NOTE | 2020-10-17 11:12 | PCPTNOTE ---
Patient called & cancelled scheduled appointment this date due to unable to get out of his chair and going to the hospital.
--- NOTE | 2020-10-28 14:16 | PCSTNOTE ---
SPEECH THERAPY DISCHARGE: Attending Provider: Delroy Paris, Patient:Steven Greene Date of :1935 Pt attended 3 sessions since last re evaluation. Treatments focused on improving word finding via drills and education re compensatory strategies. Pt was displaying improvement towards goal completion; however, pt reentered hospital. Upon discharge, pt was admitted to [facility] swing bed for therapy. Pt will be discharged at this time. Goals were partially met. Thank you for referring this patient to [facility]. Please review, sign, date and return this discharge summary JUSTINO. I have been updated about the patient's current status and I agree with discharge from the above service at this time. Referring Physician Date
== END 2020-10-31 08:16 | disposition home or self-care (01) ==
LOC: ANHST 11:00
PROVIDERS: PCP Internal Medicine; Visit Provider Internal Medicine
DX: I69.391 Dysphagia following cerebral infarction (principal)
CPT/HCPCS: 92507; 92523; 92610; 97165

== ENCOUNTER 2020-10-13 12:06 | Outpatient (RCR) | payer MEDICARE, SELFPAY ==
[2020-10-13 12:40] LABS: Basophils Absolute Auto 0.1 K/mm3 (0.0-0.1); Eosinophils Absolute Auto 0.3 K/mm3 (0-0.3); Eosinophils Percent Auto 3.2 % (0-4.4); Hematocrit 27.9 % (42.0-52.0); Hemoglobin 8.9 g/dL (14.0-18.0); Immature Granulocyte Absolute 0.02 K/mm3 (0.00-0.031); Immature Granulocyte Percent A 0.2 % (0-0.5); Lymphocytes Absolute Auto 1.15 K/mm3 (0.9-3.2); Lymphocytes Percent Auto 13.8 % (18.3-44.2); Mean Corpuscular HGB Conc 31.9 g/dl (32-36); Mean Corpuscular Hemoglobin 26.9 pg (26-34); Mean Corpuscular Volume 84.3 fl (80-100); Mean Platelet Volume 9.5 fl (7.4-10.4); Monocytes Absolute Auto 0.9 K/mm3 (0.1-0.6); Monocytes Percent Auto 10.7 % (2.6-8.5); Neutrophils Absolute Auto 5.9 K/mm3 (1.3-6.7); Neutrophils Percent Auto 71.1 % (45.5-73.1); Platelet Count Result 219 k/mm3 (150-375); Red Blood Count 3.31 M/mm3 (4.6-6.20); Red Cell Distribution Width 16.1 % (11.5-14.5); White Blood Count 8.4 K/mm3 (4.5-10.0)
== END 2021-01-11 23:59 | disposition home or self-care (01) ==
LOC: ANHLAB 12:06
PROVIDERS: PCP Internal Medicine; Visit Provider Internal Medicine Medical Oncology
DX: D64.9 Anemia, unspecified (principal)
CPT/HCPCS: 36415; 85025

== ENCOUNTER 2020-10-17 13:22 | Inpatient (IN) | payer MEDICARE, SELFPAY ==
--- NOTE | ~2020-10-17 | CT_ITS ---
EXAMINATION: CT hip RT wo con DATE: 10/17/2020 14:01 INDICATION: Right hip pain. Fall. TECHNIQUE: Computed tomography (CT) of the right hip was performed without intravenous contrast. Auto mated exposure control and iterative reconstruction technique were employed. The dose-length product was 482.70 mGy-cm. COMPARISON: Pelvis CT 09/20/2020 FINDINGS: There is a total right hip arthroplasty in near-anatomic alignment. No fracture. There are small areas of osteolysis in the acetabulum adjacent to the arthroplasty. There is severe lumbar spon dylosis. There is a large volume of stool in the colon with distention of the rectosigmoid. The bladd er is markedly distended. The right gluteus medius muscle is enlarged, likely an intramuscular hemato ma. Right gluteus stephen muscle is enlarged, likely an intramuscular hematoma. There is significant fat stranding superficial to right gluteus maximum muscle, consistent with inflammation. IMPRESSION: 1. Interval enlargement of the right gluteus stephen and gluteus medius muscles, likely intramuscular hematomas. 2. Total right hip arthroplasty with small areas of osteolysis in the acetabulum. Reviewed, dictated and finalized at location A. SEWER IMPRESSION: 1. Interval enlargement of the right gluteus stephen and gluteus medius muscles , likely intramuscular hematomas. 2. Total right hip arthroplasty with small areas of osteolysis in the acetabulu m.
--- NOTE | ~2020-10-17 | XR_ITS ---
XR abdomen obstructive series 10/19/2020 08:23 Indication: Follow-up ileus seen on CT. Procedure: Supine and upright views of abdomen Comparison: 09/20/2020 Findings: Persistent dilated debris-filled colon Which is unchanged, likely ileus. Bibasilar infiltra usman. Small right pleural effusion. There are vascular calcifications in the pelvis. There is a right hip arthroplasty. Mild-moderate lumbar spondylosis. Impression: 1: Colon is dilated and debris-filled, unchanged, likely ileus. 2: Bibasilar infiltrates may represent atelectasis or pneumonia. 3: Small right pleural effusion. Reviewed, dictated and finalized at location A. CIATE CURATOR Impression: 1: Colon is dilated and debris-filled, unchanged, likely ileus. 2: Bibasilar infiltrates may represent atelectasis or pneumonia. 3: Small right pleural effusion.
--- NOTE | ~2020-10-17 | CT_ITS ---
EXAMINATION: CT abdomen pelvis wo con DATE: 10/17/2020 17:07 INDICATION: Generalized abdominal pain. TECHNIQUE: Computed tomography (CT) of the abdomen and pelvis was performed without intravenous contr ast. Automated exposure control and iterative reconstruction technique were employed. The dose-length product was 630.46 mGy-cm. COMPARISON: CT abdomen and pelvis 06/20/2020 FINDINGS: The visualized portions of the lung bases demonstrate chronic pleural thickening bilaterall y. There is mild peripheral rounded atelectasis bilaterally. Calcified left lung nodules are consiste nt with old granulomatous disease. Again seen are tree-in-bud opacities in right middle lobe and righ t lower lobe, consistent with chronic infection. No pleural effusion. The heart size is normal. There are coronary artery calcifications. No pericardial effusion. There is a small sliding hiatal hernia. The liver is normal. The gallbladder is distended. Calcifications in the spleen are consistent with old granulomatous disease. The pancreas and adrenal glands are normal. There is cortical thinning of the kidneys. There is a large volume of stool in the colon. The rectosigmoid is distended, consistent with adynamic ileus. The appendix is normal. There is a dilated loop of small bowel in left abdomen, consistent with adynamic ileus. There is calcified atherosclerosis of the aorta and many of the othe r arteries. There are no pathologically enlarged lymph nodes. There is no free intraperitoneal fluid. There is a total right hip arthroplasty. There is enlargement of right gluteus medius and gluteus ma ximus muscles with areas of mixed attenuation, consistent with hematomas. There are old healed left r ib fractures. IMPRESSION: 1. Adynamic ileus. 2. Hematomas in the right gluteus medius and gluteus stephen muscles. 3. Chronic pneumonia involving right middle lobe and right lower lobe. Reviewed, dictated and finalized at location A. INATION TESTING MANAGER
[2020-10-17 13:26] VITALS: BP 135/62; PULSE 86; RESP 18; TEMP 36.2; O2SAT 100
--- NOTE | 2020-10-17 13:55 | PC.NURSE ---
Pt to CT scan via stretcher.
--- NOTE | 2020-10-17 13:55 | ED.GENADULT ---
HPI - General Adult General Chief complaint: Extremity Injury, Lower <MARCY Milian Last Filed: 10/17/20 18:20> Stated complaint: R hip pain <MARCY Milian Last Filed: 10/17/20 18:20> Time Seen by Provider: 10/17/20 13:43 <MARCY Milian Last Filed: 10/17/20 18:20> Source: patient, EMS and old records reviewed <MARCY Milian Last Filed: 10/17/20 18:20> Mode of arrival: EMS <MARCY Milian Last Filed: 10/17/20 18:20> Limitations: no limitations <MARCY Milian Last Filed: 10/17/20 18:20> History of Present Illness HPI narrative: Patient is an 85-year-old male who presents to emergency department for evaluation of right hip pain and swelling patient had an injection a week ago for pain and has since developed swelling and tenderness patient denies injury or trauma notes that he had a similar occurrence with an injection on the left patient lives at home with his was sent in by EMS patient notes moderate aching pain worse with activity or movement. . Patient otherwise resting comfortably in the room in no distress does note he is currently on Eliquis <MARCY Milian Last Filed: 10/17/20 18:20> Related Data Home medications: Home Medications Medication Instructions Recorded Confirmed Trelegy Ellipta 1 inh INHALATION DAILY 07/22/20 10/17/20 metoclopramide HCl 5 mg PO TID 08/23/20 10/17/20 Restasis 1 drp OPHTHALMIC (EYE) Q12H 09/20/20 10/17/20 albuterol sulfate [Ventolin HFA] 2 puff INHALATION TID PRN 09/20/20 10/17/20 mecobalamin (vitamin B12) 1,000 mcg PO DAILY 09/20/20 10/17/20 multivitamin 1 tablet PO DAILY 09/20/20 10/17/20 olopatadine 1 drp OPHTHALMIC (EYE) DAILY 09/20/20 10/17/20 sennosides-docusate sodium 1 tab PO DAILY PRN 09/20/20 10/17/20 [Senokot-S] simvastatin 20 mg PO HS 09/20/20 10/17/20 ferrous sulfate 1 mg PO TID 10/17/20 10/17/20 irbesartan-hydrochlorothiazide 0.5 tablet PO DAILY 10/17/20 10/17/20 tolterodine [Detrol] 1 mg PO HS 10/17/20 10/17/20 <Maycol Nguyen PA-C - Last Filed: 10/17/20 18:20> Allergies/adverse reactions: Allergies Allergy/AdvReac Type Severity Reaction Status Date / Time amiodarone Allergy Unknown Other Verified 10/17/20 21:22 iodine Allergy Unknown Hives Verified 10/17/20 21:22 <Maycol Nguyen PA-C - Last Filed: 10/17/20 18:20> Review of Systems Review of Systems: All systems reviewed & are unremarkable except as noted in HPI and below <Maycol Nguyen PA-C - Last Filed: 10/17/20 18:20> [facility] Past Medical History Medical History: Medical History Anemia bone marrow disorder has been ruled out. Managed by Dr. Wilson - normal EGD 06/01/2020 - normal colonoscopy July 2019 -attempted a colonoscopy 06/01/2020 with poor prep Arthritis Atrial fibrillation CAD (coronary artery disease) (Unknown) Hx of CABG COPD (chronic obstructive pulmonary disease) Diabetes mellitus Esophageal dysmotility On imaging 05/13/2020 on Metoclopramide Essential hypertension Vitamin B12 deficiency with recent levels within normal limits in April <Maycol Nguyen PA-C - Last Filed: 10/17/20 18:20> Surgical History Surgical History: Surgical History History of maze procedure bilateral thoracenteses with Maze procedure History of right hip replacement History of shoulder surgery bilateral Hx of CABG 4 vessel CABG 2007 Status post cataract extraction of both eyes with insertion of intraocular lens <Maycol Nguyen PA-C - Last Filed: 10/17/20 18:20> Family History Family History: Family History Father Lung cancer Mother TIA (transient ischemic attack) Hypertension CHF (congestive heart failure) Sibling CHF (congestive heart failure) Hypertension <Maycol Morris
[2020-10-17 14:22] LABS: Basophils Absolute Auto 0.1 K/mm3 (0.0-0.1); Basophils Percent Auto 0.5 % (0.2-1.2); Eosinophils Absolute Auto 0.2 K/mm3 (0-0.3); Eosinophils Percent Auto 1.3 % (0-4.4); Hematocrit 27.7 % (42.0-52.0); Immature Granulocyte Percent A 0.7 % (0-0.5); Lymphocytes Absolute Auto 1.42 K/mm3 (0.9-3.2); Lymphocytes Percent Auto 10.2 % (18.3-44.2); Mean Corpuscular HGB Conc 32.5 g/dl (32-36); Mean Corpuscular Hemoglobin 26.5 pg (26-34); Mean Corpuscular Volume 81.5 fl (80-100); Mean Platelet Volume 10.1 fl (7.4-10.4); Monocytes Absolute Auto 1.2 K/mm3 (0.1-0.6); Monocytes Percent Auto 8.7 % (2.6-8.5); Neutrophils Percent Auto 78.6 % (45.5-73.1); Platelet Count Result 259 k/mm3 (150-375); Red Cell Distribution Width 15.8 % (11.5-14.5)
[2020-10-17 14:38] LABS: Alanine Aminotransferase 18 U/L (4-50); Albumin Level 4.2 g/dL (3.5-5.1); Alkaline Phosphatase 117 U/L (38-126); Anion Gap 10 mmol/L (8-16); Aspartate Amino Transferase 22 U/L (17-59); Bilirubin,Total 0.7 mg/dL (0.2-1.3); Blood Urea Nitrogen 13 mg/dL (9-20); Carbon Dioxide 27 mmol/L (22-30); Chloride 99 mmol/L (98-107); Estimated CRCL calculation 67 ml/min; Estimated Glomerular Filt Rate > 60; Glucose 116 mg/dL (75-110); Potassium 4.1 mmol/L (3.4-5.0); Sodium 136 mmol/L (137-145)
[2020-10-17 14:39] LABS: INR 1.3; Prothrombin Time 16.3 Seconds (11.1-14.7)
[2020-10-17 14:40] LABS: Partial Thromboplastin Time 37.7 SECONDS (22.3-36.8)
[2020-10-17 15:29] LABS: CRP 2.5 mg/dL (<1.0)
[2020-10-17] MEDS: HYDROcodone/acetaminophen (*CRX) 5-325 MG TABLET 1 TAB PO (15:54)
[2020-10-17 15:56] VITALS: BP 148/61; PULSE 93; RESP 15; O2SAT 99
[2020-10-17 16:59] VITALS: BP 128/68; PULSE 84; RESP 18; O2SAT 98
[2020-10-17 17:16] LABS: Add Urine Microscopic? YES; Appearance Urine Clear (Clear); Bilirubin Urine Negative (Negative); Blood Urine Negative (Negative); Color Urine Yellow (Yellow); Glucose Urine UA Negative (Negative); Ketones Urine Negative (Negative); Leukocyte Esterase Ur Negative LEU/UL (Negative); Nitrate Urine Negative (Negative); Protein Urine 1+ mg/dL (Negative); Specific Grav Ur 1.013 (1.001-1.035); Urobilinogen Urine Negative mg/dL (<2.0)
[2020-10-17 18:51] VITALS: BP 133/64; PULSE 79; RESP 14; TEMP 36.8; O2SAT 98
[2020-10-17 20:00] VITALS: BP 142/50; PULSE 83; RESP 20; TEMP 36.5; O2SAT 100
--- NOTE | 2020-10-17 20:38 | ADMGEN ---
This patient, Steven Greene, was admitted to 2 Medical Room 242-01. Patient/family oriented to hospital policies and general routines including ID bracelet, bed and alarms, visiting hours, pain management, procedures, bathroom and other care routines, personal items, smoking policy, room service/diet, and visiting hours. Information on how to activate the Rapid Response Team has been discussed. Patient/Family are encouraged to report perceived risks to care and to ask questions if they do not understand what they are told or what they should do.
[2020-10-17] MEDS: LACTATED RINGERS 1,000 ML 75 ML IV CONT (20:48)
[2020-10-17] MEDS: FAMOTIDINE 20 MG/2 ML VIAL IV PUSH (20:48)
[2020-10-17 20:55] VITALS: BMI 22.9
--- NOTE | 2020-10-17 22:15 | PM.IMHP ---
H&P: HPI History of Present Illness Date/Time: 10/17/20 22:15 Chief complaint: hematoma right hip, ileus, urinary retention Narrative: This is a pleasant 85-year-old Diabetic male with known history of CABG x4, COPD, chronic atrial fibrillation on chronic Eliquis therapy and mildly slurred speech following a recent stroke who currently sees Hematology, Dr. Wilson for chronic anemia and does receive weekly injections for same. the patient presented to the emergency room today with a complaint of waking up around 3:00 a.m. with right hip pain. He reports last having an injection about a week ago in his right hip. He did suffer a fall about 2 weeks ago but landed on his left side at that time. Today the patient started to have excruciating pain around 10:00 a.m. and finally decided to come to the hospital as he was having ambulatory dysfunction secondary to his pain. The patient was found to have a distended abdomen in the emergency room and CT abdomen pelvis demonstrated an adynamic ileus. The patient himself cannot tell me how long he has had abdominal distension for. Tonight he denies any nausea, vomiting, dysuria, diarrhea, rectal bleeding, chest pain, cough, fevers, or chills. He does however report intermittent shortness of breath when he gets very anemic. He denies any abdominal pain and at this time his only complaint is his right hip discomfort. The patient did have a Can catheter placed in the emergency room this evening. right hip CT scan revealed interval enlargement of the right gluteus stephen and gluteus medius muscles, likely intramuscular hematomas. Review of Systems Review of Systems: All systems reviewed & are unremarkable except as noted in HPI and below PMFSH Past Medical History Medical History Anemia bone marrow disorder has been ruled out. Managed by Dr. Wilson - normal EGD 06/01/2020 - normal colonoscopy July 2019 -attempted a colonoscopy 06/01/2020 with poor prep Arthritis Atrial fibrillation CAD (coronary artery disease) (Unknown) Hx of CABG COPD (chronic obstructive pulmonary disease) Diabetes mellitus Esophageal dysmotility On imaging 05/13/2020 on Metoclopramide Essential hypertension Vitamin B12 deficiency with recent levels within normal limits in April Surgical History Surgical History History of maze procedure bilateral thoracenteses with Maze procedure History of right hip replacement History of shoulder surgery bilateral Hx of CABG 4 vessel CABG 2008 Status post cataract extraction of both eyes with insertion of intraocular lens Family History Family History Father Lung cancer Mother TIA (transient ischemic attack) Hypertension CHF (congestive heart failure) Sibling CHF (congestive heart failure) Hypertension Social History Social History Social History: Primary care physician: Dr. Potts Uzbek Code status: Full code Smoking packs per day: 1 Smoking cigarettes per day: 20.0 Years smoked: 44 Smoking pack-years: 44.00 Smoking status: Former smoker Tobacco type: cigarettes Smoking end date: 11/25/03 Alcohol intake: current Drinks per week: 10 Substance use: never Substance use type: does not use Additional living arrangements comments: He lives with his , of 57 years, in [place], [place]. They have 3 children her reportedly healthy. He is independent in activities of daily living. 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 Gender identity (if verbalized by the patient): Male Sexual Orientation (if Verbalized by the Patient): Straight or Heterosexual Spiritual care concerns: No Meds Home Medications and Allergies Home Medications
[2020-10-17 22:19] LABS: Glucose Point of Care 170 (65-105)
[2020-10-17] MEDS: cycloSPORINE 0.4 ML OPHTH SOLUTION 1 DROP EACH EYE (22:52)
[2020-10-18] VITALS: BP 142/50; PULSE 83; RESP 20; TEMP 36.5; O2SAT 100
[2020-10-18 00:25] LABS: Glucose Point of Care 166 (65-105)
[2020-10-18 04:00] VITALS: BP 147/58; PULSE 70; RESP 20; TEMP 36.4; O2SAT 98
[2020-10-18 05:29] LABS: Basophils Absolute Auto 0.1 K/mm3 (0.0-0.1); Basophils Percent Auto 0.5 % (0.2-1.2); Eosinophils Absolute Auto 0.1 K/mm3 (0-0.3); Eosinophils Percent Auto 0.7 % (0-4.4); Hematocrit 25.3 % (42.0-52.0); Hemoglobin 8.1 g/dL (14.0-18.0); Immature Granulocyte Absolute 0.09 K/mm3 (0.00-0.031); Immature Granulocyte Percent A 0.9 % (0-0.5); Lymphocytes Absolute Auto 0.75 K/mm3 (0.9-3.2); Lymphocytes Percent Auto 7.7 % (18.3-44.2); Mean Corpuscular Hemoglobin 26.3 pg (26-34); Mean Corpuscular Volume 82.1 fl (80-100); Mean Platelet Volume 9.9 fl (7.4-10.4); Monocytes Absolute Auto 0.9 K/mm3 (0.1-0.6); Monocytes Percent Auto 9.1 % (2.6-8.5); Neutrophils Absolute Auto 7.9 K/mm3 (1.3-6.7); Neutrophils Percent Auto 81.1 % (45.5-73.1); Platelet Count Result 231 k/mm3 (150-375); Red Blood Count 3.08 M/mm3 (4.6-6.20); Red Cell Distribution Width 15.8 % (11.5-14.5); White Blood Count 9.8 K/mm3 (4.5-10.0)
[2020-10-18 05:46] LABS: Anion Gap 6 mmol/L (8-16); Blood Urea Nitrogen 10 mg/dL (9-20); Calcium 8.8 mg/dL (8.4-10.2); Carbon Dioxide 29 mmol/L (22-30); Chloride 98 mmol/L (98-107); Estimated CRCL calculation 77 ml/min; Estimated Glomerular Filt Rate > 60; Glucose 160 mg/dL (75-110); Potassium 4.1 mmol/L (3.4-5.0); Sodium 133 mmol/L (137-145)
[2020-10-18 06:34] LABS: Glucose Point of Care 157 (65-105)
--- NOTE | 2020-10-18 07:11 | WPDURCON ---
Assessment and Plan Assessment and plan (1) Urinary retention due to benign prostatic hyperplasia: Code(s): N40.1 - Benign prostatic hyperplasia with lower urinary tract symptoms; R33.8 - Other retention of urine Status: Acute Assessment and Plan: Start Flomax with a voiding trial when acute problem resolved and he's more ambulatory. Urology Consult Note HPI Date Seen: 10/18/20 Requesting Physician: Ashley Krishna PA-C Primary Care Provider: Delroy Paris, MD Consult Narrative Narrative: Steven Greene is a 85 year old male without prior significant urological history who is admitted through the ER with right hip pain and CT imaging findings suggesting a hematoma the right gluteus. Although he denies a antecedent history of difficulty voiding or known BPH, apparently around the time of evaluation in the ER he was felt to be in urinary retention prompting placement of a catheter. I can't tell from the medical record the volumes obtained with catheterization. The patient does deny a history of urinary hesitancy, intermittency, stranguria or sense of incomplete emptying at home. Review of Systems Cardiovascular: Cardiovascular: Denies chest pain, Denies lightheadedness, Denies palpitations and Denies dyspnea Respiratory: Respiratory: Denies dyspnea Gastrointestinal: Gastrointestinal: Denies diarrhea, Denies nausea and Denies vomiting Genitourinary: Genitourinary: Denies hematuria and Denies dysuria Endocrine: Endocrine: Denies palpitations PMFSH Past Medical History Medical History Anemia bone marrow disorder has been ruled out. Managed by Dr. Wilson - normal EGD 06/01/2020 - normal colonoscopy July 2019 -attempted a colonoscopy 06/01/2020 with poor prep Arthritis Atrial fibrillation CAD (coronary artery disease) Hx of CABG COPD (chronic obstructive pulmonary disease) Diabetes mellitus Esophageal dysmotility On imaging 05/13/2020 on Metoclopramide Essential hypertension Vitamin B12 deficiency with recent levels within normal limits in April Surgical History Surgical History History of maze procedure bilateral thoracenteses with Maze procedure History of right hip replacement History of shoulder surgery bilateral Hx of CABG 4 vessel CABG 2007 Status post cataract extraction of both eyes with insertion of intraocular lens Family History Family History Father Lung cancer Mother TIA (transient ischemic attack) Hypertension CHF (congestive heart failure) Sibling CHF (congestive heart failure) Hypertension Social History Social History Social History: Primary care physician: Dr. Delroy Paris Code status: Full code Smoking packs per day: 1 Smoking cigarettes per day: 20.0 Years smoked: 44 Smoking pack-years: 44.00 Smoking status: Former smoker Tobacco type: cigarettes Smoking end date: 11/25/03 Alcohol intake: current Drinks per week: 10 Substance use: never Substance use type: does not use Additional living arrangements comments: He lives with his , of 57 years, in [place], [place]. They have 3 children her reportedly healthy. He is independent in activities of daily living. 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 Gender identity (if verbalized by the patient): Male Sexual Orientation (if Verbalized by the Patient): Straight or Heterosexual Spiritual care concerns: No Meds Home Medications and Allergies Home Medications Medication Instructions Recorded Confirmed Type Trelegy Ellipta 1 inh INHALATION DAILY 07/22/20 10/17/20 History Daliresp 500 mcg PO DAILY #0 tablet 07/29/20 10/17/20 Rx Eliquis 5 mg PO BID #60 tablet
[2020-10-18] MEDS: LACTATED RINGERS 1,000 ML 75 ML IV CONT ×2 (08:55→22:56)
[2020-10-18] MEDS: FAMOTIDINE 20 MG/2 ML VIAL IV PUSH ×2 (08:55→20:51)
[2020-10-18] MEDS: cycloSPORINE 0.4 ML OPHTH SOLUTION 1 DROP EACH EYE ×2 (08:56→20:53)
[2020-10-18 09:57] VITALS: BMI 22.9
[2020-10-18 10:00] VITALS: BP 142/67; PULSE 87; RESP 16; TEMP 37.1; O2SAT 100
--- NOTE | 2020-10-18 10:51 | PM.IMPN ---
Progress Note: A&P Assessment and Plan (1) Hematoma of right hip: Qualifiers: Encounter type: initial encounter Qualified Code(s): S70.01XA - Contusion of right hip, initial encounter Code(s): S70.01XA - Contusion of right hip, initial encounter Status: Acute Assessment and Plan: Patient presented with complaints right hip pain 1 week following octreotide injection in his right hip at Dr. Wilson's office. CT showed intramuscular hematomas in the right gluteus medius and gluteus stephen muscles. Reports pain is 4/10 and worse with ambulation. H&H is stable. Analgesics as needed for pain Eliquis is on hold Apply mitchel wrap. Apply ice. General surgery has been consulted in the event that hematoma evacuation is required. Input is appreciated. (2) Adynamic ileus: Code(s): K56.0 - Paralytic ileus Status: Acute Assessment and Plan: CT showed distended rectosigmoid with adynamic ileus. Precipitating etiology is unclear. No history of abdominal procedures. Not on opioids or other precipitating medications. Electrolytes stable. Consult placed to general surgery and recommendations are appreciated. Continue NPO diet IV fluids Encourage ambulation (3) Essential hypertension: Code(s): I10 - Essential (primary) hypertension Status: Chronic Assessment and Plan: blood pressure evaluated today and is stable at 142/67. Oral antihypertensives are on hold. Plan to resume when diet is advanced IV hydralazine available as needed while PO antihypertensives are held. (4) Diabetes mellitus: Qualifiers: Diabetes mellitus complication status: without complication Diabetes mellitus horticultural therapist insulin use: without horticultural therapist use Diabetes mellitus type: type 2 Qualified Code(s): E11.9 - Type 2 diabetes mellitus without complications Code(s): E11.9 - Type 2 diabetes mellitus without complications Status: Acute Assessment and Plan: Last A1c was 5.3 (June 2020). Blood sugars evaluated and are well controlled. Continue Accu-Cheks ACHS, sliding scale insulin coverage, and hypoglycemia protocol. Resume metformin when clinically appropriate. (5) Atrial fibrillation: Qualifiers: Atrial fibrillation type: unspecified Qualified Code(s): I48.91 - Unspecified atrial fibrillation Code(s): I48.91 - Unspecified atrial fibrillation Status: Chronic Assessment and Plan: S/p maze procedure. Rate is controlled. Does not appear to be on any rate or rhythm control medications. Eliquis is on hold due to hematomas as above. (6) CAD (coronary artery disease): Qualifiers: Associated angina: without angina Coronary Disease-Associated Artery/Lesion type: bypass graft [place] vs. transplanted heart: [place] heart Qualified Code(s): I25.810 - Atherosclerosis of coronary artery bypass graft(s) without angina pectoris Code(s): I25.10 - Atherosclerotic heart disease of [place] coronary artery without angina pectoris Status: Chronic Assessment and Plan: Asymptomatic. Resume home medications when clinically appropriate. (7) COPD (chronic obstructive pulmonary disease): Qualifiers: COPD type: unspecified COPD Qualified Code(s): J44.9 - Chronic obstructive pulmonary disease, unspecified Code(s): J44.9 - Chronic obstructive pulmonary disease, unspecified Status: Chronic Assessment and Plan: Not in acute exacerbation. Maintaining adequate oxygen saturations on room air. Continue Trelegy Albuterol as needed (8) Anemia: Qualifiers: Anemia type: unspecified type Qualified Code(s): D64.9 - Anemia, unspecified Code(s): D64.9 - Anemia, unspecified Status: Chronic Assessment and Plan: Likely anemia of chronic disease along with superimposed blood loss anemia as the patient does have evidence
[2020-10-18] MEDS: HYDROcodone/acetaminophen (*CRX) 5-325 MG TABLET 1 TAB PO (11:57)
[2020-10-18 12:09] LABS: Glucose Point of Care 152 (65-105)
[2020-10-18 14:00] VITALS: BP 137/63; PULSE 70; RESP 16; TEMP 36.8; O2SAT 99
[2020-10-18] MEDS: BISACODYL 10 MG SUPPOSITORY RECTAL (14:06)
--- NOTE | 2020-10-18 16:43 | PM.CNGS ---
Assessment and Plan Assessment and plan (1) Adynamic ileus: Onset Date: ~10/17/20 Code(s): K56.0 - Paralytic ileus Status: Acute Assessment and Plan: This is the main reason for our consultation. This may be related to his constipation since there was lot of stool in the colon on the CT scan. CT only showed 1 loop of dilated small bowel but ileus was proposed by the radiologist. Patient has active bowel sounds so I doubt that he has an ileus. It started ascertain from him how much narcotic he was taking at home but he was getting pain medicine shots from a pain medicine doctor apparently. Will repeat plain abdominal film in the morning and start patient on clear liquids tonight since she is complaining of no nausea and has good bowel sounds. (2) Constipation: Onset Date: ~09/2020 Code(s): K59.00 - Constipation, unspecified Status: Acute Assessment and Plan: Patient states today that he had had a bowel movement for 3 or 4 days prior to the 1 he had today after I gave him a suppository here in the hospital. He could not well remember when he had entered the hospital yesterday. (3) Hematoma of right hip: Onset Date: Unknown Qualifiers: Encounter type: initial encounter Qualified Code(s): S70.01XA - Contusion of right hip, initial encounter Code(s): S70.01XA - Contusion of right hip, initial encounter Status: Acute Assessment and Plan: See report of CT scan of the right hip region. Patient has some tenderness to range of motion with this could consider physical therapy evaluation and heat to the area. From the report on the CT scan I doubt if any operative and intervention will be needed. (4) Essential hypertension: Code(s): I10 - Essential (primary) hypertension Status: Chronic (5) CAD (coronary artery disease): Onset Date: Unknown Qualifiers: Associated angina: without angina Coronary Disease-Associated Artery/Lesion type: bypass graft [place] vs. transplanted heart: [place] heart Qualified Code(s): I25.810 - Atherosclerosis of coronary artery bypass graft(s) without angina pectoris Code(s): I25.10 - Atherosclerotic heart disease of [place] coronary artery without angina pectoris Status: Chronic Assessment and Plan: Patient has signs of a previous median sternotomy he could remember what date his CABG was. (6) Atrial fibrillation: Qualifiers: Atrial fibrillation type: unspecified Qualified Code(s): I48.91 - Unspecified atrial fibrillation Code(s): I48.91 - Unspecified atrial fibrillation Status: Chronic (7) Diabetes mellitus: Qualifiers: Diabetes mellitus complication status: without complication Diabetes mellitus alf insulin use: without long goods drier use Diabetes mellitus type: type 2 Qualified Code(s): E11.9 - Type 2 diabetes mellitus without complications Code(s): E11.9 - Type 2 diabetes mellitus without complications Status: Acute (8) Anemia: Qualifiers: Anemia type: unspecified type Qualified Code(s): D64.9 - Anemia, unspecified Code(s): D64.9 - Anemia, unspecified Status: Chronic Assessment and Plan: Agree with repeating labs in a.m.. History of Present Illness Consult details Consult date: 10/18/20 Reason for consult: other ( Ileus seen on CT scan at time of admission) Requesting physician: Hema Wiley MD Narrative: This is a pleasant 85-year-old Diabetic male with known history of CABG x4, COPD, chronic atrial fibrillation on chronic Eliquis therapy and mildly slurred speech following a recent stroke who currently sees Hematology, Dr. Wilson for chronic anemia and does receive weekly injections for same. The patient presented to the emergency room early yesterday with a complaint of waking up around 3:00 a.m. with right hip pain. He reports last having an injection abou
[2020-10-18 18:00] VITALS: BP 138/64; PULSE 73; RESP 14; TEMP 36.4; O2SAT 100
[2020-10-18] MEDS: TAMSULOSIN HCL 0.4 MG CAPSULE PO (20:51)
[2020-10-18 22:02] VITALS: BP 128/56; PULSE 74; RESP 18; TEMP 37.2; O2SAT 100
[2020-10-19] VITALS (8 sets, daily range): BP systolic 113–141; BP diastolic 46–63; PULSE 52–100; RESP 16–20; TEMP 36.1–37; O2SAT 99–100
[2020-10-19 00:30] LABS: Glucose Point of Care 137 (65-105)
[2020-10-19 01:03] LABS: Glucose Point of Care 201 (65-105)
[2020-10-19 05:37] LABS: Hematocrit 22.5 % (42.0-52.0); Hemoglobin 7.3 g/dL (14.0-18.0); Mean Corpuscular HGB Conc 32.4 g/dl (32-36); Mean Corpuscular Hemoglobin 26.4 pg (26-34); Mean Corpuscular Volume 81.5 fl (80-100); Mean Platelet Volume 10.7 fl (7.4-10.4); Platelet Count Result 257 k/mm3 (150-375); Red Blood Count 2.76 M/mm3 (4.6-6.20); Red Cell Distribution Width 15.5 % (11.5-14.5); White Blood Count 9.8 K/mm3 (4.5-10.0)
[2020-10-19 05:55] LABS: Anion Gap 8 mmol/L (8-16); Blood Urea Nitrogen 9 mg/dL (9-20); Calcium 8.4 mg/dL (8.4-10.2); Carbon Dioxide 26 mmol/L (22-30); Chloride 101 mmol/L (98-107); Estimated CRCL calculation 77 ml/min; Estimated Glomerular Filt Rate > 60; Glucose 137 mg/dL (75-110); Potassium 3.7 mmol/L (3.4-5.0); Sodium 135 mmol/L (137-145)
[2020-10-19 06:45] LABS: Glucose Point of Care 156 (65-105)
[2020-10-19 07:36] LABS: Glucose Point of Care 139 (65-105)
[2020-10-19] MEDS: FAMOTIDINE 20 MG/2 ML VIAL IV PUSH ×2 (08:45→20:20)
[2020-10-19] MEDS: cycloSPORINE 0.4 ML OPHTH SOLUTION 1 DROP EACH EYE ×2 (08:45→20:21)
--- NOTE | 2020-10-19 08:51 | WPDUROPN2 ---
Progress Note: A&P Assessment and Plan (1) Urinary retention due to benign prostatic hyperplasia: Code(s): N40.1 - Benign prostatic hyperplasia with lower urinary tract symptoms; R33.8 - Other retention of urine Status: Acute Assessment and Plan: Continue Flomax Patient should have his leon removed today for a voiding trial. Call with bladder scan results after voiding. If empting well ok to go home without leon and continue Flomax, if still in retention, will go home with leon when stable and follow up in our office. (2) Acute urinary retention: Code(s): R33.8 - Other retention of urine Status: Acute Subjective Subjective Date/Time Seen: 10/19/20 08:51 Patient is doing well today. Urine is clear and draining to gravity. Review of Systems Cardiovascular: Cardiovascular: Reports no additional cardiovascular complaints Respiratory: Respiratory: Reports no additional respiratory complaints Gastrointestinal: Gastrointestinal: Denies abdominal pain, Denies nausea and Denies vomiting Genitourinary: Genitourinary: Denies hematuria Exam Resp: Effort & Inspection: normal respiratory effort Cardio: Rate: regular rate GI: GI Palp: Yes Soft to palpation and No Tenderness to palpation present (GI) Urinary Catheter: Urinary Catheter: patent and draining and urine clear Extrem: General: no edema Objective Data Vital Signs Vital Signs: Vital Signs - 24 hr 10/18/20 10:00 10/18/20 14:00 10/18/20 18:00 Temperature 98.7 F 98.3 F 97.6 F Pulse Rate 87 70 73 Respiratory Rate 16 16 14 Blood Pressure 142/67 H 137/63 138/64 Pulse Oximetry 100 99 100 10/18/20 22:02 10/19/20 00:00 10/19/20 04:00 Temperature 99 F 98.6 F 97.7 F Pulse Rate 74 57 L 52 L Respiratory Rate 18 18 20 Blood Pressure 128/56 L 136/46 L 130/46 L Pulse Oximetry 100 99 99 Intake/Output Intake/Output: Intake & Output 10/16/20 10/17/20 10/18/20 10/19/20 23:59 23:59 23:59 23:59 Intake Total 2200 680 Output Total 200 1700 600 Balance -200 500 80 Meds/Results Medications: Active Medications Generic Name Dose Route Start Last Admin Trade Name Freq PRN Reason Stop Dose Admin Hydrocodone Bitart/Acetaminophen 1 tab 10/17/20 22:24 10/18/20 11:57 Hydrocodone/Acetaminophen (*Crx) 5-325 Mg Tablet PO 1 tab Q4H PRN Administration Moderate Pain (4-6) Albuterol 2 puff 10/17/20 22:25 Albuterol Sulfate (*Sp) Aerosol 1 Puff INHALATION TID PRN Shortness Of Breath Bisacodyl 10 mg 10/18/20 11:32 10/18/20 14:06 Bisacodyl 10 Mg Suppository RECTAL 10 mg QAM PRN Administration Constipation Cyclosporine 1 drop 10/17/20 22:25 10/19/20 08:45 Cyclosporine 0.4 Ml Ophth Solution EACH EYE 1 drop Q12HR CLARE Administration Dextrose 12.5 gm 10/17/20 22:20 Dextrose 50% 25 Gm/50 Ml Syringe IV PUSH PRN PRN Hypoglycemia Protocol Famotidine 20 mg 10/17/20 21:00 10/19/20 08:45 Famotidine 20 Mg/2 Ml Vial IV PUSH 20 mg Q12HR CLARE Administration Fluticasone/Umeclidinium/Vilanterol 1 puff 10/19/20 09:00 Fluticasone/Umeclidin/Vilanter 100-62.5-25 Mcg Ellipta INHALATION DAILYRT CLARE Glucagon 1 mg 10/17/20 22:20 Glucagon For Inj 1 Mg Vial IM PRN PRN Hypoglycemia Protocol Lactated Ringer's 1,000 mls @ 75 mls/hr 10/17/20 18:25 10/18/20 22:56 Lr - Lactated Ringers Iv IV CONT 75 mls/hr .[id number] CLARE Administration Dextrose 1,000 mls @ 100 mls/hr 10/17/20 22:20 Dextrose 5% 1,000 Ml IVPB PRN PRN Hypoglycemia Protocol Acetaminophen 1,000 mg in 100 mls @ 400 mls/hr 10/18/20 18:00 10/19/20 05:57 Ofirmev 1,000 Mg Ivpb IVPB 10/19/20 18:01 Infused Q6HR CLARE Infusion Insulin Aspart 2 - 5 units 10/18/20 00:00 10/19/20 06:31 Insulin Aspart (*Bkc) 100 Units/Ml SUB-Q Not Given Q6HR [facility] Protocol Non-Formulary Medication 1 drop 10/18/20 09:00 Olopatadine EACH EYE
--- NOTE | 2020-10-19 11:18 | PM.PNGS ---
Progress Note: A&P Assessment and Plan (1) Adynamic ileus: Onset Date: ~10/17/20 Code(s): K56.0 - Paralytic ileus Status: Acute Assessment and Plan: Abdominal films this morning still show colonic dilation and stool. Clinically the patient is asymptomatic and he has active bowel sounds. I asked the nurse to give another dulcolax suppository this morning and I will also start him on Miralax. Will advance his diet to full liquids. Encouraged the patient to increase activity as tolerated today, PT/OT ordered. (2) Constipation: Onset Date: ~09/2020 Code(s): K59.00 - Constipation, unspecified Status: Acute Assessment and Plan: Started daily Miralax. See plan above. (3) Hematoma of right hip: Onset Date: Unknown Qualifiers: Encounter type: initial encounter Qualified Code(s): S70.01XA - Contusion of right hip, initial encounter Code(s): S70.01XA - Contusion of right hip, initial encounter Status: Acute Assessment and Plan: Still having some tenderness of ROM of right hip. Continue with compression and ice. No surgical intervention needed at this time, continue to hold Eliquis and monitor. Hgb down to 7.3 today, trend labs. (4) Essential hypertension: Code(s): I10 - Essential (primary) hypertension Status: Chronic (5) CAD (coronary artery disease): Onset Date: Unknown Qualifiers: Coronary Disease-Associated Artery/Lesion type: bypass graft [place] vs. transplanted heart: [place] heart Associated angina: without angina Qualified Code(s): I25.810 - Atherosclerosis of coronary artery bypass graft(s) without angina pectoris Code(s): I25.10 - Atherosclerotic heart disease of [place] coronary artery without angina pectoris Status: Chronic (6) Atrial fibrillation: Qualifiers: Atrial fibrillation type: unspecified Qualified Code(s): I48.91 - Unspecified atrial fibrillation Code(s): I48.91 - Unspecified atrial fibrillation Status: Chronic (7) Diabetes mellitus: Qualifiers: Diabetes mellitus type: type 2 Diabetes mellitus ferry terminal agent insulin use: without ferry terminal agent use Diabetes mellitus complication status: without complication Qualified Code(s): E11.9 - Type 2 diabetes mellitus without complications Code(s): E11.9 - Type 2 diabetes mellitus without complications Status: Acute (8) Anemia: Qualifiers: Anemia type: unspecified type Qualified Code(s): D64.9 - Anemia, unspecified Code(s): D64.9 - Anemia, unspecified Status: Chronic Additional Plan Discussed the patient's case and plan of care with Dr. Oneill. Subjective Subjective Date/Time Seen: 10/19/20 10:40 Patient reports: no new complaints, feels better, tolerating liquids well, flatus and no bowel movement Interval history: Patient seen and examined this morning. He is feeling well without any significant complaints. He states that he is passing some gas today but has not yet had a BM. He had one BM yesterday after a suppository. Denies bloating, abdominal pain, nausea, or vomiting. Denies pain in his hips at this time. Has not gotten out of bed yet today. Review of Systems Review of Systems: All systems reviewed & are unremarkable except as noted in HPI and below Constitutional: Constitutional: Reports as per HPI Gastrointestinal: Gastrointestinal: Denies abdominal pain Exam Const: General: no acute distress, alert and awake Orientation/consciousness: patient oriented x3 GI: Inspection: normal to inspection and other (mildly distended) GI Palp: Yes Soft to palpation, No Tenderness to palpation present (GI), No Guarding due to palpation present (GI), No Hernia present and No Rebound tenderness present Auscultation: normal bowel sounds Skin: General skin exam: normal color Other: On the lateral side of the right hip and posterior right thigh he has some areas of br
[2020-10-19 11:34] LABS: Glucose Point of Care 189 (65-105)
--- NOTE | 2020-10-19 11:59 | P.PNIM_ITS ---
Progress Note: A&P Assessment and Plan (1) Hematoma of right hip: Onset Date: Unknown Qualifiers: Encounter type: initial encounter Qualified Code(s): S70.01XA - Contusion of right hip, initial encounter Code(s): S70.01XA - Contusion of right hip, initial encounter Status: Acute Assessment and Plan: Patient presented with complaints right hip pain 1 week following octreotide injection in his right hip at Dr. Wilson's office. CT showed intramuscular hematomas in the right gluteus medius and gluteus stephen muscles. Denies pain to me today but refused therapy today stating pain too severe. Nontender to palpation. H&H has declined. * Analgesics as needed for pain * Eliquis is on hold * Apply mitchel wrap. Apply ice. * General surgery consulted and input appreciated; no surgical intervention required at this time. * Appreciate PT/OT eval (2) Adynamic ileus: Onset Date: ~10/17/20 Code(s): K56.0 - Paralytic ileus Status: Acute Assessment and Plan: CT showed distended rectosigmoid with adynamic ileus. Precipitating etiology is unclear. No history of abdominal procedures. Not on opioids or other precipitating medications. Electrolytes stable. Patient had a a bowel movement yesterday afternoon. Abdominal X-ray today showed unchanged dilated and debris- filled colon. * Consult placed to general surgery and recommendations are appreciated. * Repeat dulcolax suppository; continue miralax per surgery recs * Continue full liquid diet * IV fluids discontinued * Encourage ambulation (3) Essential hypertension: Code(s): I10 - Essential (primary) hypertension Status: Chronic Assessment and Plan: Blood pressure evaluated today and is stable at 130/46. * Resume oral antihypertensives * IV hydralazine available as needed while PO antihypertensives are held. (4) Diabetes mellitus: Qualifiers: Diabetes mellitus type: type 2 Diabetes mellitus custodial insulin use: without termite control representative use Diabetes mellitus complication status: without complica tion Qualified Code(s): E11.9 - Type 2 diabetes mellitus without complications Code(s): E11.9 - Type 2 diabetes mellitus without complications Status: Acute Assessment and Plan: Last A1c was 5.3 (June 2020). Blood sugars evaluated and are well controlled. * Continue Accu-Cheks ACHS, sliding scale insulin coverage, and hypoglycemia protocol. * Resume metformin when clinically appropriate. (5) Atrial fibrillation: Qualifiers: Atrial fibrillation type: unspecified Qualified Code(s): I48.91 - Unspecified atrial fibrillation Code(s): I48.91 - Unspecified atrial fibrillation Status: Chronic Assessment and Plan: S/p maze procedure. Rate is controlled. Does not appear to be on any rate or rhythm control medications. * Eliquis is on hold due to hematomas as above. (6) CAD (coronary artery disease): Onset Date: Unknown Qualifiers: Coronary Disease-Associated Artery/Lesion type: bypass graft [place] vs. 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 * Resume home medications when clinically appropriate. (7) COPD (chronic obstructive pulmo
--- NOTE | 2020-10-19 11:59 | PM.IMPN ---
Progress Note: A&P Assessment and Plan (1) Hematoma of right hip: Onset Date: Unknown Qualifiers: Encounter type: initial encounter Qualified Code(s): S70.01XA - Contusion of right hip, initial encounter Code(s): S70.01XA - Contusion of right hip, initial encounter Status: Acute Assessment and Plan: Patient presented with complaints right hip pain 1 week following octreotide injection in his right hip at Dr. Wilson's office. CT showed intramuscular hematomas in the right gluteus medius and gluteus stephen muscles. Denies pain to me today but refused therapy today stating pain too severe. Nontender to palpation. H&H has declined. Analgesics as needed for pain Eliquis is on hold Apply mitchel wrap. Apply ice. General surgery consulted and input appreciated; no surgical intervention required at this time. Appreciate PT/OT eval (2) Adynamic ileus: Onset Date: ~10/17/20 Code(s): K56.0 - Paralytic ileus Status: Acute Assessment and Plan: CT showed distended rectosigmoid with adynamic ileus. Precipitating etiology is unclear. No history of abdominal procedures. Not on opioids or other precipitating medications. Electrolytes stable. Patient had a a bowel movement yesterday afternoon. Abdominal X-ray today showed unchanged dilated and debris-filled colon. Consult placed to general surgery and recommendations are appreciated. Repeat dulcolax suppository; continue miralax per surgery recs Continue full liquid diet IV fluids discontinued Encourage ambulation (3) Essential hypertension: Code(s): I10 - Essential (primary) hypertension Status: Chronic Assessment and Plan: Blood pressure evaluated today and is stable at 130/46. Resume oral antihypertensives IV hydralazine available as needed while PO antihypertensives are held. (4) Diabetes mellitus: Qualifiers: Diabetes mellitus type: type 2 Diabetes mellitus tar leveler insulin use: without snf use Diabetes mellitus complication status: without complication Qualified Code(s): E11.9 - Type 2 diabetes mellitus without complications Code(s): E11.9 - Type 2 diabetes mellitus without complications Status: Acute Assessment and Plan: Last A1c was 5.3 (June 2020). Blood sugars evaluated and are well controlled. Continue Accu-Cheks ACHS, sliding scale insulin coverage, and hypoglycemia protocol. Resume metformin when clinically appropriate. (5) Atrial fibrillation: Qualifiers: Atrial fibrillation type: unspecified Qualified Code(s): I48.91 - Unspecified atrial fibrillation Code(s): I48.91 - Unspecified atrial fibrillation Status: Chronic Assessment and Plan: S/p maze procedure. Rate is controlled. Does not appear to be on any rate or rhythm control medications. Eliquis is on hold due to hematomas as above. (6) CAD (coronary artery disease): Onset Date: Unknown Qualifiers: Coronary Disease-Associated Artery/Lesion type: bypass graft [place] vs. transplanted heart: [place] heart Associated angina: without angina Qualified Code(s): I25.810 - Atherosclerosis of coronary artery bypass graft(s) without angina pectoris Code(s): I25.10 - Atherosclerotic heart disease of [place] coronary artery without angina pectoris Status: Chronic Assessment and Plan: Asymptomatic. Resume home medications when clinically appropriate. (7) COPD (chronic obstructive pulmonary disease): Qualifiers: COPD type: unspecified COPD Qualified Code(s): J44.9 - Chronic obstructive pulmonary disease, unspecified Code(s): J44.9 - Chronic obstructive pulmonary disease, unspecified Status: Chronic Assessment and Plan: Not in acute exacerbation. Maintaining adequate oxygen saturations on room air. Continue Trelegy Albuterol as needed (8) Anemi
[2020-10-19] MEDS: polyethylene glycoL 3350 17 GM POWD.PACK PO (12:15)
[2020-10-19 12:34] LABS: Hematocrit 24.7 % (42.0-52.0); Hemoglobin 7.8 g/dL (14.0-18.0)
[2020-10-19] MEDS: BISACODYL 10 MG SUPPOSITORY RECTAL (15:42)
[2020-10-19 17:25] LABS: Glucose Point of Care 162 (65-105)
[2020-10-19] MEDS: TAMSULOSIN HCL 0.4 MG CAPSULE PO (20:20)
[2020-10-19 20:35] LABS: Glucose Point of Care 187 (65-105)
[2020-10-19 21:14] LABS: Hemoglobin 6.4 g/dL (14.0-18.0)
[2020-10-19 21:15] LABS: Hematocrit 19.5 % (42.0-52.0)
[2020-10-19 21:15] LABS: SARS-CoV-2 RNA PCR Negative
[2020-10-19] MEDS: SODIUM CHLORIDE 0.9% IV 250 ML 30 ML IV CONT (22:30)
[2020-10-20] VITALS (14 sets, daily range): BP systolic 130–150; BP diastolic 36–53; PULSE 57–91; RESP 18–20; TEMP 36.4–37.4; O2SAT 94–100
[2020-10-20] MEDS: FLUTICASONE/UMECLIDIN/VILANTER 100-62.5-25 MCG ELLIPTA 1 PUFF INHALATION (07:21)
[2020-10-20 07:48] LABS: Glucose Point of Care 158 (65-105)
[2020-10-20 08:06] LABS: Hematocrit 27.1 % (42.0-52.0); Hemoglobin 9.1 g/dL (14.0-18.0); Mean Corpuscular HGB Conc 33.6 g/dl (32-36); Mean Corpuscular Hemoglobin 27.3 pg (26-34); Mean Corpuscular Volume 81.4 fl (80-100); Mean Platelet Volume 10.1 fl (7.4-10.4); Platelet Count Result 225 k/mm3 (150-375); Red Blood Count 3.33 M/mm3 (4.6-6.20); Red Cell Distribution Width 15.2 % (11.5-14.5); White Blood Count 9.8 K/mm3 (4.5-10.0)
[2020-10-20 08:10] LABS: Potassium 3.9 mmol/L (3.4-5.0)
[2020-10-20 08:14] LABS: Anion Gap 7 mmol/L (8-16); Blood Urea Nitrogen 7 mg/dL (9-20); Calcium 8.3 mg/dL (8.4-10.2); Carbon Dioxide 26 mmol/L (22-30); Chloride 102 mmol/L (98-107); Estimated CRCL calculation 77 ml/min; Estimated Glomerular Filt Rate > 60; Glucose 159 mg/dL (75-110); Sodium 135 mmol/L (137-145)
[2020-10-20] MEDS: hydroCHLOROthiazide 6.25 MG TABLET PO (10:09)
[2020-10-20] MEDS: polyethylene glycoL 3350 17 GM POWD.PACK PO (10:09)
[2020-10-20] MEDS: cycloSPORINE 0.4 ML OPHTH SOLUTION 1 DROP EACH EYE ×2 (10:09→20:27)
[2020-10-20] MEDS: FAMOTIDINE 20 MG/2 ML VIAL IV PUSH ×2 (10:09→20:26)
[2020-10-20] MEDS: IRBESARTAN 150 MG TABLET PO (10:10)
[2020-10-20] MEDS: amLODIPine BESYLATE 5 MG TABLET 10 MG PO (10:10)
--- NOTE | 2020-10-20 10:11 | PM.PNGS ---
Progress Note: A&P Assessment and Plan (1) Adynamic ileus: Onset Date: ~10/17/20 Code(s): K56.0 - Paralytic ileus Status: Resolved Assessment and Plan: Doing well. Will sign off. Subjective Subjective Date/Time Seen: 10/20/20 10:11 Patient reports: no new complaints, feels better, pain is less, tolerating a regular diet and bowel movement Review of Systems Review of Systems: All systems reviewed & are unremarkable except as noted in HPI and below Cardiovascular: Cardiovascular: Denies chest pain and Denies dyspnea Respiratory: Respiratory: Denies cough and Denies dyspnea Gastrointestinal: Gastrointestinal: Reports as per HPI, Denies abdominal pain, Denies bloating, Denies dyspepsia, Denies nausea and Denies vomiting Neurologic: Denies confusion and Denies headache(s) Exam Const: General: comfortable and no acute distress; No confusion Orientation/consciousness: patient oriented x3 and No confusion GI: Inspection: non-distended GI Palp: Yes Soft to palpation, No Tenderness to palpation present (GI), No Guarding due to palpation present (GI) and No Rebound tenderness present Auscultation: normal bowel sounds Neuro: General: patient oriented x3, no focal motor deficits and No confusion Extrem: General: no calf tenderness and no edema Psych: Affect: normal affect Insight: Good insight present (Psych) Judgement: Good judgement present (Psych) Objective Data Vital Signs Vital Signs: Vital Signs - 24 hr 10/19/20 14:00 10/19/20 18:00 10/19/20 22:00 Temperature 36.1 C L 36.6 C 36.5 C Pulse Rate 70 100 52 L Respiratory Rate 16 18 18 Blood Pressure 137/63 120/62 113/54 L Pulse Oximetry 100 100 100 10/19/20 22:43 10/19/20 23:05 10/20/20 00:05 Temperature 36.7 C 36.4 C L 36.6 C Pulse Rate 54 L 58 L 59 L Respiratory Rate 20 18 18 Blood Pressure 137/46 L 130/49 L 146/52 H Pulse Oximetry 100 99 99 10/20/20 01:30 10/20/20 01:54 10/20/20 02:00 Temperature 36.6 C 36.6 C 36.6 C Pulse Rate 59 L 58 L 59 L Respiratory Rate 18 20 18 Blood Pressure 146/52 H 149/46 H 146/52 H Pulse Oximetry 99 100 99 10/20/20 02:10 10/20/20 04:10 10/20/20 04:30 Temperature 36.4 C 36.4 C 36.4 C Pulse Rate 91 90 90 Respiratory Rate 18 18 18 Blood Pressure 142/49 H 142/49 H 142/49 H Pulse Oximetry 100 100 100 10/20/20 05:56 10/20/20 07:22 Temperature 36.4 C Pulse Rate 91 Respiratory Rate 18 Blood Pressure 142/49 H Pulse Oximetry 100 94 Intake/Output Intake/Output: Intake & Output 10/17/20 10/18/20 10/19/20 10/20/20 23:59 23:59 23:59 23:59 Intake Total 2200 2270 1409 Output Total 200 1700 1200 1000 Balance -338 681 3295 409 Meds/Results Medications: Active Medications Generic Name Dose Route Start Last Admin Trade Name Freq PRN Reason Stop Dose Admin Acetaminophen 650 mg 10/19/20 08:58 Acetaminophen 325 Mg Tablet PO Q4H PRN Pain 1-3 Hydrocodone Bitart/Acetaminophen 1 tab 10/17/20 22:24 10/18/20 11:57 Hydrocodone/Acetaminophen (*Crx) 5-325 Mg Tablet PO 1 tab Q4H PRN Administration Moderate Pain (4-6) Albuterol 2 puff 10/17/20 22:25 Albuterol Sulfate (*Sp) Aerosol 1 Puff INHALATION TID PRN Shortness Of Breath Amlodipine Besylate 10 mg 10/20/20 09:00 10/20/20 10:10 Amlodipine Besylate 5 Mg Tablet PO 10 mg DAILY CLARE Administration Bisacodyl 10 mg 10/18/20 11:32 10/19/20 15:42 Bisacodyl 10 Mg Suppository RECTAL 10 mg QAM PRN Administration Constipation Cyclosporine 1 drop 10/17/20 22:25 10/20/20 10:09 Cyclosporine 0.4 Ml Ophth Solution EACH EYE 1 drop Q12HR CLARE Administration Dextrose 12.5 gm 10/17/20 22:20 Dextrose 50% 25 Gm/50 Ml Syringe IV PUSH PRN PRN Hypoglycemia Protocol Famotidine 20 mg 10/17/20 21:00 10/20/20 10:09 Famotidine 20 Mg/2 Ml Vial IV PUSH 20 mg Q12HR CLARE Administration Fluticasone/Umeclidinium/Vilanterol 1 puff 10/19/20 09:00
[2020-10-20 11:50] LABS: Glucose Point of Care 177 (65-105)
--- NOTE | 2020-10-20 12:37 | PM.IMPN ---
Progress Note: A&P Assessment and Plan (1) Hematoma of right hip: Onset Date: Unknown Qualifiers: Encounter type: initial encounter Qualified Code(s): S70.01XA - Contusion of right hip, initial encounter Code(s): S70.01XA - Contusion of right hip, initial encounter Status: Acute Assessment and Plan: Patient presented with complaints of right hip pain 1 week following octreotide injection in his right hip at Dr. Wilson's office. CT showed intramuscular hematomas in the right gluteus medius and gluteus stephen muscles. Endorses 1-2/10 pain today. Nontender to palpation. Analgesics as needed for pain Eliquis is on hold Apply mitchel wrap. Apply ice. Appreciate PT/OT eval (2) Anemia: Qualifiers: Anemia type: unspecified type Qualified Code(s): D64.9 - Anemia, unspecified Code(s): D64.9 - Anemia, unspecified Status: Chronic Assessment and Plan: Likely anemia of chronic disease along with superimposed blood loss anemia secondary to intramuscular hematomas. Patient is also on oral iron supplement, so likely has component of [place]. H&H declined with Hgb drop to 6.4 last night. He was transfused 2 units pRBC. H&H stabilized following transfusion. Continue to monitor H&H closely. Repeat this afternoon. Transfuse as needed with Hgb threshold <7.0. Check IFOB (3) Adynamic ileus: Onset Date: ~10/17/20 Code(s): K56.0 - Paralytic ileus Status: Resolved Assessment and Plan: CT showed distended rectosigmoid with adynamic ileus. Precipitating etiology is unclear. No history of abdominal procedures. Not on opioids or other precipitating medications. Electrolytes stable. Patient has been having regular bowel movements following suppository. Seen in consultation by General surgery. Ileus has resolved and surgery has signed off. Input appreciated. Continue miralax per surgery recs Tolerating full liquids. Advance to regular diet. IV fluids discontinued Encourage ambulation (4) Essential hypertension: Code(s): I10 - Essential (primary) hypertension Status: Chronic Assessment and Plan: Blood pressure evaluated today and is stable at 142/49. Continue amlodipine and HCTZ Monitor blood pressures daily (5) Diabetes mellitus: Qualifiers: Diabetes mellitus complication status: without complication Diabetes mellitus termite inspector insulin use: without termite inspector use Diabetes mellitus type: type 2 Qualified Code(s): E11.9 - Type 2 diabetes mellitus without complications Code(s): E11.9 - Type 2 diabetes mellitus without complications Status: Acute Assessment and Plan: Last A1c was 5.3 (June 2020). Blood sugars evaluated and are well controlled. Continue Accu-Cheks ACHS, sliding scale insulin coverage, and hypoglycemia protocol. Resume metformin (6) Atrial fibrillation: Qualifiers: Atrial fibrillation type: unspecified Qualified Code(s): I48.91 - Unspecified atrial fibrillation Code(s): I48.91 - Unspecified atrial fibrillation Status: Chronic Assessment and Plan: S/p maze procedure. Rate is controlled. Eliquis is on hold due to hematomas as above. (7) CAD (coronary artery disease): Onset Date: Unknown Qualifiers: Associated angina: without angina Coronary Disease-Associated Artery/Lesion type: bypass graft [place] vs. transplanted heart: [place] heart Qualified Code(s): I25.810 - Atherosclerosis of coronary artery bypass graft(s) without angina pectoris Code(s): I25.10 - Atherosclerotic heart disease of [place] coronary artery without angina pectoris Status: Chronic Assessment and Plan: Asymptomatic. Continue home medications (8) COPD (chronic obstructive pulmonary disease): Qualifiers: COPD type: unspecified COPD Qualified Code(s): J44.9 - Chronic obstructiv
[2020-10-20 14:17] LABS: Hematocrit 27.1 % (42.0-52.0); Hemoglobin 8.8 g/dL (14.0-18.0)
[2020-10-20] MEDS: FERROUS SULFATE 324 MG TABLET PO (16:28)
[2020-10-20] MEDS: metFORMIN HCL XR 500 MG TAB.SR.24H PO (16:28)
[2020-10-20 17:15] LABS: Glucose Point of Care 164 (65-105)
[2020-10-20] MEDS: SIMVASTATIN 20 MG TABLET PO (20:27)
[2020-10-20] MEDS: TAMSULOSIN HCL 0.4 MG CAPSULE PO (20:27)
[2020-10-20 22:02] LABS: Glucose Point of Care 213 (65-105)
[2020-10-21 02:00] VITALS: BP 126/54; PULSE 74; RESP 18; TEMP 37.1; O2SAT 98
[2020-10-21 05:58] LABS: Hematocrit 27.7 % (42.0-52.0); Hemoglobin 8.9 g/dL (14.0-18.0); Mean Corpuscular HGB Conc 32.1 g/dl (32-36); Mean Corpuscular Hemoglobin 26.6 pg (26-34); Mean Corpuscular Volume 82.9 fl (80-100); Mean Platelet Volume 10.3 fl (7.4-10.4); Platelet Count Result 225 k/mm3 (150-375); Red Blood Count 3.34 M/mm3 (4.6-6.20); Red Cell Distribution Width 15.4 % (11.5-14.5); White Blood Count 10.3 K/mm3 (4.5-10.0)
[2020-10-21 06:00] VITALS: BP 136/57; PULSE 55; RESP 18; TEMP 37.1; O2SAT 99
[2020-10-21 06:10] LABS: Anion Gap 8 mmol/L (8-16); Blood Urea Nitrogen 6 mg/dL (9-20); Calcium 8.3 mg/dL (8.4-10.2); Carbon Dioxide 28 mmol/L (22-30); Chloride 100 mmol/L (98-107); Estimated CRCL calculation 77 ml/min; Estimated Glomerular Filt Rate > 60; Glucose 136 mg/dL (75-110); Potassium 3.9 mmol/L (3.4-5.0); Sodium 136 mmol/L (137-145)
[2020-10-21 08:22] LABS: Glucose Point of Care 175 (65-105)
[2020-10-21] MEDS: amLODIPine BESYLATE 5 MG TABLET 10 MG PO (08:41)
[2020-10-21] MEDS: hydroCHLOROthiazide 6.25 MG TABLET PO (08:42)
[2020-10-21] MEDS: FAMOTIDINE 20 MG/2 ML VIAL IV PUSH (08:42)
[2020-10-21] MEDS: cycloSPORINE 0.4 ML OPHTH SOLUTION 1 DROP EACH EYE (08:42)
[2020-10-21] MEDS: FERROUS SULFATE 324 MG TABLET PO ×3 (08:42→17:03)
[2020-10-21] MEDS: polyethylene glycoL 3350 17 GM POWD.PACK PO (08:42)
[2020-10-21] MEDS: IRBESARTAN 150 MG TABLET PO (08:42)
[2020-10-21] MEDS: OLOPATADINE 0.1% OPHTH SOLN 5 ML BTL 1 DROP EACH EYE (08:42)
[2020-10-21] MEDS: BISACODYL 10 MG SUPPOSITORY RECTAL (09:11)
[2020-10-21] MEDS: HYDROcodone/acetaminophen (*CRX) 5-325 MG TABLET 1 TAB PO (09:11)
[2020-10-21 10:00] VITALS: BP 139/57; PULSE 64; RESP 19; TEMP 37.3; O2SAT 100
[2020-10-21] MEDS: FLUTICASONE/UMECLIDIN/VILANTER 100-62.5-25 MCG ELLIPTA 1 PUFF INHALATION (11:12)
[2020-10-21 11:13] VITALS: O2SAT 95
[2020-10-21 11:49] LABS: Hematocrit 27.6 % (42.0-52.0); Hemoglobin 8.9 g/dL (14.0-18.0)
[2020-10-21 11:55] LABS: Glucose Point of Care 193 (65-105)
[2020-10-21 14:00] VITALS: BP 148/42; PULSE 57; RESP 19; TEMP 37; O2SAT 100
--- NOTE | 2020-10-21 14:52 | PCDIET ---
Nutrition Follow-Up Complete: Altered GI function as related to ileus as evidenced by NPO Meet estimated nutritional needs Goal: goal met. Continue goal. Pt current nutrition is regular Nutrition recommendation: agree Last recorded weight is 68.4 kg, recommend new wt Bowel Motility: scant BM today, miralax and dulcolax provided Labs Reviewed: Glucose 175 Meds Noted: metformin, Krypton, Fe Additional Notes: Pt eating 100% of a regular diet. Will continue to monitor for adequate intake every 7 days.
[2020-10-21] MEDS: metFORMIN HCL XR 500 MG TAB.SR.24H PO (17:03)
[2020-10-21 17:19] LABS: Glucose Point of Care 172 (65-105)
--- NOTE | 2020-10-22 08:07 | PM.DS ---
DS: Admitting Diagnosis Admitting Diagnosis Admitting Diagnosis: hematoma right hip, ileus, urinary retention DS: Discharge Diagnosis Discharge Diagnosis (1) Hematoma of right hip: Onset Date: Unknown Qualifiers: Encounter type: initial encounter Qualified Code(s): S70.01XA - Contusion of right hip, initial encounter Code(s): S70.01XA - Contusion of right hip, initial encounter Status: Acute Assessment and Plan: Patient presented with complaints of right hip pain 1 week following octreotide injection in his right hip at Dr. Wilson's office. CT showed intramuscular hematomas in the right gluteus medius and gluteus stephen muscles. He had mild tenderness to palpation but was able to ambulate with assistance. Pain was well controlled with acetaminophen. His eliquis was held in light of hematoma. Karthik wrap applied to right hip. Ice applied. Seen by PT and OT and will continue with therapy at [facility]. (2) Anemia: Qualifiers: Anemia type: unspecified type Qualified Code(s): D64.9 - Anemia, unspecified Code(s): D64.9 - Anemia, unspecified Status: Chronic Assessment and Plan: Likely anemia of chronic disease along with superimposed blood loss anemia secondary to intramuscular hematomas. Patient is also on assistant terminal manager oral iron supplement, so likely has component of MANGO. IFOB negative. H&H declined with Hgb drop to 6.4 on 10/19. He was transfused 2 units pRBC. H&H stabilized following transfusion. Recommend close monitoring at facility. (3) Adynamic ileus: Onset Date: ~10/17/20 Code(s): K56.0 - Paralytic ileus Status: Resolved Assessment and Plan: CT showed distended rectosigmoid with adynamic ileus. Precipitating etiology is unclear. No history of abdominal procedures. Not on opioids or other precipitating medications. Electrolytes stable. He was seen in consultation by general surgery who monitored the patient. Surgical intervention not required. Patient had regular bowel movements following suppository. Diet was advanced and he was able to tolerate regular diet. He was rehydrated with IV fluids. He will continue miralax daily. (4) Essential hypertension: Code(s): I10 - Essential (primary) hypertension Status: Chronic Assessment and Plan: Blood pressures evaluated daily and remained stable. Continue amlodipine and HCTZ. (5) Diabetes mellitus: Qualifiers: Diabetes mellitus type: type 2 Diabetes mellitus custodial insulin use: without custodial use Diabetes mellitus complication status: without complication Qualified Code(s): E11.9 - Type 2 diabetes mellitus without complications Code(s): E11.9 - Type 2 diabetes mellitus without complications Status: Acute Assessment and Plan: Last A1c was 5.3 (June 2020). Blood sugars evaluated and remained well controlled. Continue metformin. (6) Atrial fibrillation: Qualifiers: Atrial fibrillation type: unspecified Qualified Code(s): I48.91 - Unspecified atrial fibrillation Code(s): I48.91 - Unspecified atrial fibrillation Status: Chronic Assessment and Plan: S/p maze procedure. Rate is controlled. Eliquis is on hold due to hematomas as above. (7) CAD (coronary artery disease): Onset Date: Unknown Qualifiers: Coronary Disease-Associated Artery/Lesion type: bypass graft [place] vs. transplanted heart: [place] heart Associated angina: without angina Qualified Code(s): I25.810 - Atherosclerosis of coronary artery bypass graft(s) without angina pectoris Code(s): I25.10 - Atherosclerotic heart disease of [place] coronary artery without angina pectoris Status: Chronic Assessment and Plan: Asymptomatic. Continue home medications (8) COPD (chronic obstructive pulmonary disease): Qualifiers: COPD type: unspecified COPD Qualified Code(s)
== END 2020-10-21 17:20 | disposition swing bed (61) | DRG 605 ==
LOC: ANHED 18:20 → ANH2MED 18:59
PROVIDERS: Emergency Medicine Emergency Medical Services; Family Medicine; Physician Assistant; Admitting Provider Student in an Organized Health Care Education/Training Program; Emergency Provider Emergency Medicine; PCP Internal Medicine; Visit Provider Family Medicine
DX: S70.01XA Contusion of right hip, initial encounter (principal); K56.0 Paralytic ileus; I25.810 Atherosclerosis of coronary artery bypass graft(s) without angina pectoris; D50.0 Iron deficiency anemia secondary to blood loss (chronic); Z20.828 Contact with and (suspected) exposure to other viral communicable diseases; R26.9 Unspecified abnormalities of gait and mobility; N40.1 Benign prostatic hyperplasia with lower urinary tract symptoms; R33.8 Other retention of urine; J44.9 Chronic obstructive pulmonary disease, unspecified; I48.91 Unspecified atrial fibrillation; E11.9 Type 2 diabetes mellitus without complications; I10 Essential (primary) hypertension; Z96.641 Presence of right artificial hip joint; Z79.01 Long term (current) use of anticoagulants; Z79.84 Long term (current) use of oral hypoglycemic drugs; Z87.891 Personal history of nicotine dependence; Z95.1 Presence of aortocoronary bypass graft; Z98.42 Cataract extraction status, left eye; Z96.1 Presence of intraocular lens; Z98.41 Cataract extraction status, right eye
CPT/HCPCS: 36415; 36430; 51702; 73700; 74019; 74176; 80048; 80053; 81001; 85014; 85018; 85025; 85027; 85610; 85730; 86140; 86850; 86900; 86901; 86923; 87635; 94640; 96361; 96365; 96375; 96376; 97110; 97116; 97161; 97165; 97530; 97535; 99285; A9270; C9803; G0378; J0131; J7050; J7120; P9016; U0003

== ENCOUNTER 2020-10-21 17:58 | Inpatient (IN) | payer MEDICARE, SELFPAY ==
[2020-10-21 18:16] VITALS: BMI 24.1
[2020-10-21 18:39] VITALS: BP 135/58; PULSE 48; RESP 18; TEMP 36.7; O2SAT 98
--- NOTE | 2020-10-21 18:55 | WPDREHABHP ---
H&P: HPI History of Present Illness Date/Time: 10/21/20 18:55 Chief complaint: Hematoma Right hip Narrative: Steven Greene is a 85 year old male recently admitted from [facility] for swing/ rehab for weakness. The patient was admits initially admitted to [facility] with intramuscular hematoma the right hip with adynamic ileus, and urinary retention and had a Can in place. Patient has a history of atrial fibrillation and with the intermuscular hematoma Eliquis was placed on hold. Patient also had a consult with surgery for adynamic ileus which surgery was not performed the patient's ileus resolved spontaneously. Patient with urinary retention currently Can has been removed. Patient has a history of diabetes mellitus type 2, coronary artery disease status post CABG x4 vessels, cut chronic atrial fibrillation, COPD, hypertension and B12 folate deficiency. Patient also with a recent stroke and follows with Dr. keita on today for chronic anemia. Current H&H is 8.9 and 27.6 with a white count of 10.5 and platelet count of 225. Review of Systems Review of Systems All systems reviewed & are unremarkable except as noted in HPI and below PMFSH Past Medical History Medical History Anemia bone marrow disorder has been ruled out. Managed by Dr. Wilson - normal EGD 06/01/2020 - normal colonoscopy July 2019 -attempted a colonoscopy 06/01/2020 with poor prep Arthritis Atrial fibrillation CAD (coronary artery disease) (Unknown) Hx of CABG COPD (chronic obstructive pulmonary disease) Diabetes mellitus Esophageal dysmotility On imaging 05/13/2020 on Metoclopramide Essential hypertension Vitamin B12 deficiency with recent levels within normal limits in April Surgical History Surgical History History of maze procedure bilateral thoracenteses with Maze procedure History of right hip replacement History of shoulder surgery bilateral Hx of CABG 4 vessel CABG 2007 Status post cataract extraction of both eyes with insertion of intraocular lens Family History Family History Father Lung cancer Mother TIA (transient ischemic attack) Hypertension CHF (congestive heart failure) Sibling CHF (congestive heart failure) Hypertension Social History Social History Social History: Primary care physician: Dr. Delroy Paris Code status: Full code Smoking packs per day: 1 Smoking cigarettes per day: 20.0 Years smoked: 44 Smoking pack-years: 44.00 Smoking status: Former smoker Tobacco type: cigarettes Second hand tobacco smoke exposure: Yes Smoking end date: 11/25/03 Alcohol intake: current Drinks per week: 1 Substance use: never Substance use type: does not use Additional living arrangements comments: He lives with his , of 57 years, in [place], [place]. They have 3 children her reportedly healthy. He is independent in activities of daily living. 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 Gender identity (if verbalized by the patient): Male Sexual Orientation (if Verbalized by the Patient): Straight or Heterosexual Spiritual care concerns: No Meds Home Medications and Allergies Home Medications Medication Instructions Recorded Confirmed Type Trelegy Ellipta 1 inh INHALATION DAILY 07/22/20 10/21/20 History Daliresp 500 mcg PO DAILY #0 tablet 07/29/20 10/21/20 Rx Eliquis 5 mg PO BID #60 tablet 07/29/20 10/21/20 Rx amlodipine [Norvasc] 10 mg PO DAILY #30 tablet 07/29/20 10/21/20 Rx metformin [Glucophage XR] 500 mg PO 1700 #30 tablet 07/29/20 10/21/20 Rx pantoprazole 40 mg PO QAM #3 tablet 07/29/20 10/21/20 Rx metoclopramide HCl 5 mg PO TID 08/23/20 10/21/20 History Restasis 1 d
[2020-10-21] MEDS: TAMSULOSIN HCL 0.4 MG CAPSULE PO (21:15)
[2020-10-21] MEDS: SIMVASTATIN 10 MG TABLET 20 MG PO (21:15)
--- NOTE | 2020-10-21 21:50 | ADMGEN ---
This patient, Steven Greene, was admitted to 2nd Floor Room 208-2. Patient/family oriented to hospital policies and general routines including ID bracelet, bed and alarms, visiting hours, pain management, procedures, bathroom and other care routines, personal items, smoking policy, room service/diet, and visiting hours. Pt has cpap he used at home but states he has not used it in awhile Information on how to activate the Rapid Response Team has been discussed. Patient/Family are encouraged to report perceived risks to care and to ask questions if they do not understand what they are told or what they should do.
[2020-10-21 23:50] VITALS: BP 143/52; PULSE 69; RESP 18; TEMP 37.3; O2SAT 98
[2020-10-22 03:48] LABS: Add Urine Microscopic? YES; Appearance Urine Clear (Clear); Bilirubin Urine Negative (Negative); Blood Urine 2+ (Negative); Color Urine Yellow (Yellow); Glucose Urine UA Negative (Negative); Ketones Urine Negative (Negative); Leukocyte Esterase Ur 2+ LEU/UL (Negative); Nitrate Urine Positive (Negative); Protein Urine Trace (Negative); Specific Grav Ur 1.015 (1.010-1.020)
[2020-10-22 03:54] LABS: Bacteria Urine 1+ /hpf; RBC Urine 21-50 /hpf (0-2); Squamous Epithelial Cell Urine None seen /hpf (Few)
--- NOTE | 2020-10-22 04:04 | PC.NURSE ---
2330: call to dr johns to clarify blood glucose monitoring. per dr johns, no need for accu checks as pt is swing patient and is taking oral medications. 0100 pt sleeping. 0300 pt sleeping, repositions self in bed. 0400 pt sleeping.
--- NOTE | 2020-10-22 05:23 | PC.NURSE ---
pt sleeping, easily awakens upon entering room, fresh ice water provided. no complaints or concerns at this time.
--- NOTE | 2020-10-22 05:29 | PC.NURSE ---
Addendum entered by Jhoan Agustin RN 10/22/20 05:31: ice pack with fresh ice provided. pt declined need to use at this time. on bedside table. call rodriguez in reach. Original Note: mitchel wrap adjusted to right hip, bruising continues with various colors. no complaints of pain or discomfort voiced per pt at this time.
--- NOTE | 2020-10-22 06:40 | PC.NURSE ---
pt awake, asking for breakfast and how to order. explained meal time. pt voiced understanding. no needs at this time. pt watching tv. call rodriguez in reach.
--- NOTE | 2020-10-22 06:50 | PC.NURSE ---
Report to YsabelRN
--- NOTE | 2020-10-22 07:11 | PC.NURSE ---
Report to MANI Grady. no questions or concerns at this time.
[2020-10-22 08:00] VITALS: BP 92/65; PULSE 64; RESP 20; TEMP 36.7; O2SAT 98
[2020-10-22] MEDS: CYANOCOBALAMIN 1,000 MCG TABLET 1000 MCG PO (09:45)
[2020-10-22] MEDS: PANTOPRAZOLE 40 MG TABLET PO (09:46)
[2020-10-22] MEDS: MULTIVITAMINS THERAPEUTIC TAB (*BKC) 1 TABLET PO (09:46)
[2020-10-22] MEDS: polyethylene glycoL 3350 17 GM POWD.PACK PO (09:46)
[2020-10-22] MEDS: OLOPATADINE 0.1% OPHTH SOLN 5 ML BTL 1 DROP EACH EYE (09:46)
[2020-10-22] MEDS: FLUTICASONE/UMECLIDIN/VILANTER 100-62.5-25 MCG ELLIPTA 1 PUFF INHALATION (09:47)
--- NOTE | 2020-10-22 10:11 | P.PN_ITS ---
Progress Note: A&P Assessment and Plan (1) Urinary retention due to benign prostatic hyperplasia: Code(s): N40.1 - Benign prostatic hyperplasia with lower urinary tract symptoms; R33.8 - Other retention of urine <YOHANA Pham - Last Filed: 10/22/20 10:52> Status: Acute <Naty FarrahMILI DimsaC - Last Filed: 10/22/20 10:52> Assessment and Plan: * Secondary to BPH * Urologist consulted while at [facility] * Patient started on Flomax * Patient to continue Can in follow-up with urology after discharge <MILI PhamC - Last Filed: 10/22/20 10:52> (2) Hematoma of right hip: Onset Date: Unknown <MILI PhamC - Last Filed: 10/22/20 10:52> Qualifiers: Encounter type: initial encounter Qualified Code(s): S70.01XA - Contusion of right hip, initial encounter <YOHANA Pham - Last Filed: 10/22/20 10:52> Code(s): S70.01XA - Contusion of right hip, initial encounter <SHAHLA Pham-C - Last Filed: 10/22/20 10:52> Status: Acute <MILI PhamC - Last Filed: 10/22/20 10:52> Assessment and Plan: * Continue pain medication with Karthik wrap * Periodically check hemoglobin hematocrit * Continue physical therapy/Occupational Therapy * CT indicated Hematomas in the right gluteus medius and gluteus stephen muscles. On 10/17/2020 <MILI PhamC - Last Filed: 10/22/20 10:52> (3) Adynamic ileus: Onset Date: ~10/17/20 <YOHANA Pham - Last Filed: 10/22/20 10:52> Code(s): K56.0 - Paralytic ileus <SHAHLA Pham-C - Last Filed: 10/22/20 10:52> Status: Resolved <YOHANA Pham - Last Filed: 10/22/20 10:52> Assessment and Plan: * Resolved * CT on 10/17/2020 indicated * Possibly secondary to constipation, will give daily stool softeners with laxatives and as needed suppositories * CT indicates Adynamic ileus roselia large volume of stool in the colon * Surgery consulted while at [facility] <YOHANA Pham - Last Filed: 10/22/20 10:52> (4) Anemia: Qualifiers: Anemia type: unspecified type Qualified Code(s): D64.9 - Anemia, unspecified <YOHANA Pham - Last Filed: 10/22/20 10:52> Code(s): D64.9 - Anemia, unspecified <YOHANA Pham - Last Filed: 10/22/20 10:52> Status: Chronic <YOHANA Pham - Last Filed: 10/22/20 10:52> Assessment and Plan: * Chronic, patient follows with box sealing machine feeder and gets octreotide injections * bone marrow disorder has been ruled out. Managed by Dr. Wilson * Last hemoglobin 8.9 hematocrit 27.6, no active bleeding noted * normal EGD 06/01/2020 * normal colonoscopy July 2019 * attempted a colonoscopy 06/01/2020 with poor prep * Will transfuse with hemoglobin less than 7 <YOHANA Pham - Last Filed: 10/22/20 10:52> (5) COPD (chronic obstructive pulmonary disease): Qualifiers: COPD type: unspecified COPD Qualified Code(s): J44.9 - Chronic obstructive pulmonary disease, unspecified <YOHANA Pham - Last Filed: 10/22/20 10:52> Code(s): J44.9 - Chronic obstructive pulmonary disease, unspecified <YOHANA Pham - Last Filed: 10/22/20 10:52> Status: Chronic <YOHANA Pham - Last Filed: 10/22/20 10:52> Assessment and Plan: * Stable * Continue albuterol prn, Flovent , his will bring his home medication of Daliresp <YOHANA Pham - Last Filed: 10/22/20 10:52> (6)
--- NOTE | 2020-10-22 10:11 | WPDPN ---
Progress Note: A&P Assessment and Plan (1) Urinary retention due to benign prostatic hyperplasia: Code(s): N40.1 - Benign prostatic hyperplasia with lower urinary tract symptoms; R33.8 - Other retention of urine <YOHANA Pham - Last Filed: 10/22/20 10:52> Status: Acute <Naty FarrahMILI DimasC - Last Filed: 10/22/20 10:52> Assessment and Plan: Secondary to BPH Urologist consulted while at [facility] Patient started on Flomax Patient to continue Can in follow-up with urology after discharge <YOHANA Pham - Last Filed: 10/22/20 10:52> (2) Hematoma of right hip: Onset Date: Unknown <YOHANA Pham - Last Filed: 10/22/20 10:52> Qualifiers: Encounter type: initial encounter Qualified Code(s): S70.01XA - Contusion of right hip, initial encounter <YOHANA Pham - Last Filed: 10/22/20 10:52> Code(s): S70.01XA - Contusion of right hip, initial encounter <MILI PhamC - Last Filed: 10/22/20 10:52> Status: Acute <MILI PhamC - Last Filed: 10/22/20 10:52> Assessment and Plan: Continue pain medication with Karthik wrap Periodically check hemoglobin hematocrit Continue physical therapy/Occupational Therapy CT indicated Hematomas in the right gluteus medius and gluteus stephen muscles. On 10/17/2020 <MILI PhamC - Last Filed: 10/22/20 10:52> (3) Adynamic ileus: Onset Date: ~10/17/20 <YOHANA Pham - Last Filed: 10/22/20 10:52> Code(s): K56.0 - Paralytic ileus <MILI PhamC - Last Filed: 10/22/20 10:52> Status: Resolved <YOHANA Pham - Last Filed: 10/22/20 10:52> Assessment and Plan: Resolved CT on 10/17/2020 indicated Possibly secondary to constipation, will give daily stool softeners with laxatives and as needed suppositories CT indicates Adynamic ileus roselia large volume of stool in the colon Surgery consulted while at [facility] <YOHANA Pham - Last Filed: 10/22/20 10:52> (4) Anemia: Qualifiers: Anemia type: unspecified type Qualified Code(s): D64.9 - Anemia, unspecified <YOHANA Pham - Last Filed: 10/22/20 10:52> Code(s): D64.9 - Anemia, unspecified <YOHANA Pham - Last Filed: 10/22/20 10:52> Status: Chronic <YOHANA Pham - Last Filed: 10/22/20 10:52> Assessment and Plan: Chronic, patient follows with trauma coordinator and gets octreotide injections bone marrow disorder has been ruled out. Managed by Dr. Wilson Last hemoglobin 8.9 hematocrit 27.6, no active bleeding noted normal EGD 06/01/2020 normal colonoscopy July 2019 attempted a colonoscopy 06/01/2020 with poor prep Will transfuse with hemoglobin less than 7 <YOHANA Pham - Last Filed: 10/22/20 10:52> (5) COPD (chronic obstructive pulmonary disease): Qualifiers: COPD type: unspecified COPD Qualified Code(s): J44.9 - Chronic obstructive pulmonary disease, unspecified <YOHANA Pham - Last Filed: 10/22/20 10:52> Code(s): J44.9 - Chronic obstructive pulmonary disease, unspecified <YOHANA Pham - Last Filed: 10/22/20 10:52> Status: Chronic <YOHANA Pham - Last Filed: 10/22/20 10:52> Assessment and Plan: Stable Continue albuterol prn, Flovent , his will bring his home medication of Daliresp <YOHANA Pham - Last Filed: 10/22/20 10:52> (6) Diabetes mellitus: Qualifiers: Diabetes mellitus complication status: without complication Diabetes mellitus terminal worker insulin use: without group home use Diabetes mellitus type: type 2 Qualified Code(s): E11.9 - Type 2 diabetes mellitus without complications <SHAHLA Pham-Phillip - Last Filed: 10/22/20 10:52> Code(s):
[2020-10-22] MEDS: ACETAMINOPHEN 325 MG TABLET 650 MG PO (11:36)
[2020-10-22] MEDS: FERROUS SULFATE 324 MG TABLET PO ×2 (11:36→17:21)
[2020-10-22] MEDS: METOCLOPRAMIDE HCL 10 MG TABLET 5 MG PO ×2 (11:37→17:21)
[2020-10-22 11:59] LABS: Glucose Point of Care 179 (65-105)
[2020-10-22 16:00] VITALS: BP 139/54; PULSE 55; RESP 18; TEMP 37.1; O2SAT 99
[2020-10-22 16:27] LABS: Glucose Point of Care 142 (65-105)
[2020-10-22] MEDS: metFORMIN HCL XR 500 MG TAB.SR.24H PO (17:24)
[2020-10-22 20:38] LABS: Glucose Point of Care 123 (65-105)
[2020-10-22] MEDS: TOLTERODINE TARTRATE 2 MG TABLET 1 MG PO (20:56)
[2020-10-22] MEDS: TAMSULOSIN HCL 0.4 MG CAPSULE PO (20:57)
[2020-10-22] MEDS: SIMVASTATIN 10 MG TABLET 20 MG PO (20:57)
[2020-10-23] VITALS: BP 138/55; PULSE 64; RESP 12; TEMP 37.2; O2SAT 97
[2020-10-23] MEDS: METOCLOPRAMIDE HCL 10 MG TABLET 5 MG PO ×3 (05:57→17:52)
[2020-10-23 07:38] LABS: Glucose Point of Care 157 (65-105)
[2020-10-23 08:00] VITALS: BP 154/71; PULSE 90; RESP 18; TEMP 37.3; O2SAT 96
[2020-10-23] MEDS: HYDROcodone/acetaminophen (*CRX) 5-325 MG TABLET 1 TAB PO (08:18)
[2020-10-23] MEDS: polyethylene glycoL 3350 17 GM POWD.PACK PO (09:58)
[2020-10-23] MEDS: amLODIPine BESYLATE 5 MG TABLET 10 MG PO (09:58)
[2020-10-23] MEDS: hydroCHLOROthiazide 12.5 MG CAPSULE 6.25 MG PO ×2 (09:58→13:14)
[2020-10-23] MEDS: MULTIVITAMINS THERAPEUTIC TAB (*BKC) 1 TABLET PO (09:58)
[2020-10-23] MEDS: PANTOPRAZOLE 40 MG TABLET PO (09:58)
[2020-10-23] MEDS: CYANOCOBALAMIN 1,000 MCG TABLET 1000 MCG PO (09:59)
[2020-10-23] MEDS: FERROUS SULFATE 324 MG TABLET PO ×3 (09:59→17:52)
[2020-10-23] MEDS: FLUTICASONE/UMECLIDIN/VILANTER 100-62.5-25 MCG ELLIPTA 1 PUFF INHALATION (09:59)
[2020-10-23] MEDS: OLOPATADINE 0.1% OPHTH SOLN 5 ML BTL 1 DROP EACH EYE (09:59)
[2020-10-23] MEDS: IRBESARTAN 150 MG TABLET PO (09:59)
[2020-10-23 11:40] LABS: Glucose Point of Care 199 (65-105)
--- NOTE | 2020-10-23 14:12 | PM.EVENT ---
Event Note Event Note Event Note: Patient's UA positive for UTI 1127 started on Rocephin 1129 cultures pending
[2020-10-23 16:00] VITALS: BP 139/56; PULSE 61; RESP 18; TEMP 36.8; O2SAT 98
[2020-10-23 16:33] LABS: Glucose Point of Care 178 (65-105)
[2020-10-23] MEDS: metFORMIN HCL XR 500 MG TAB.SR.24H PO (17:54)
[2020-10-23] MEDS: TOLTERODINE TARTRATE 2 MG TABLET 1 MG PO (21:14)
[2020-10-23] MEDS: SIMVASTATIN 10 MG TABLET 20 MG PO (21:15)
[2020-10-23] MEDS: TAMSULOSIN HCL 0.4 MG CAPSULE PO (21:15)
[2020-10-23 21:36] LABS: Glucose Point of Care 181 (65-105)
[2020-10-24] VITALS: BP 131/53; PULSE 54; RESP 16; TEMP 36.8; O2SAT 100
--- NOTE | 2020-10-24 01:29 | PC.NURSE ---
Patient found to be incontinent of a large amount of liquid stool. Complete bed change at this time. Karthik wrap around hips and thigh had to be cut off at this time due to soiling.
--- NOTE | 2020-10-24 01:34 | PC.NURSE ---
Patient incontinent of BM. Complete bed change necessary. Karthik wrap had to be removed and discarded. Doctor aware of removal and advised to leave open at this time
[2020-10-24 05:27] LABS: Hematocrit 29.1 % (37.0-46.0); Hemoglobin 9.4 g/dL (12.4-15.3); Mean Corpuscular HGB Conc 32.3 g/dL (32.0-36.0); Mean Corpuscular Hemoglobin 27.4 pg (27.0-31.0); Mean Corpuscular Volume 84.8 fL (78.0-102.0); Mean Platelet Volume 9.8 fl (8.7-11.0); Platelet Count Result 266 K/mm3 (150-420); Red Blood Count 3.43 M/mm3 (4.70-6.10); Red Cell Distribution Width 15.5 % (11.6-14.4); White Blood Count 9.9 K/mm3 (4.8-10.8)
[2020-10-24 05:31] LABS: Anion Gap 10 mmol/L (8-16); Blood Urea Nitrogen 15 mg/dL (7-18); Calcium 8.6 mg/dL (8.5-10.1); Carbon Dioxide 24 mmol/L (21-32); Chloride 100 mmol/L (98-108); Estimated CRCL calculation 63 ml/min; Estimated Glomerular Filt Rate > 60; Glucose 148 mg/dL (70-99); Osmolality Calculated 281 mOsm/kg (285-295); Potassium 3.7 mmol/L (3.5-5.1); Sodium 134 mmol/L (136-145)
[2020-10-24] MEDS: METOCLOPRAMIDE HCL 10 MG TABLET 5 MG PO ×3 (05:42→17:22)
[2020-10-24 07:45] VITALS: BP 122/48; PULSE 67; RESP 18; TEMP 37.1; O2SAT 98
[2020-10-24] MEDS: FERROUS SULFATE 324 MG TABLET PO ×3 (08:48→17:22)
[2020-10-24] MEDS: PANTOPRAZOLE 40 MG TABLET PO (08:48)
[2020-10-24] MEDS: CYANOCOBALAMIN 1,000 MCG TABLET 1000 MCG PO (08:48)
[2020-10-24] MEDS: MULTIVITAMINS THERAPEUTIC TAB (*BKC) 1 TABLET PO (08:49)
[2020-10-24] MEDS: FLUTICASONE/UMECLIDIN/VILANTER 100-62.5-25 MCG ELLIPTA 1 PUFF INHALATION (08:49)
[2020-10-24] MEDS: amLODIPine BESYLATE 5 MG TABLET 10 MG PO (08:49)
[2020-10-24] MEDS: OLOPATADINE 0.1% OPHTH SOLN 5 ML BTL 1 DROP EACH EYE (08:50)
[2020-10-24] MEDS: IRBESARTAN 150 MG TABLET PO (08:50)
[2020-10-24] MEDS: hydroCHLOROthiazide 12.5 MG CAPSULE 6.25 MG PO (11:05)
[2020-10-24 15:55] VITALS: BP 130/54; PULSE 67; RESP 18; TEMP 36.9; O2SAT 99
[2020-10-24] MEDS: metFORMIN HCL XR 500 MG TAB.SR.24H PO (17:27)
[2020-10-24 17:36] LABS: Glucose Point of Care 150 (65-105)
[2020-10-24 20:33] LABS: Glucose Point of Care 244 (65-105)
[2020-10-24] MEDS: TAMSULOSIN HCL 0.4 MG CAPSULE PO (20:34)
[2020-10-24] MEDS: SIMVASTATIN 10 MG TABLET 20 MG PO (20:34)
[2020-10-24] MEDS: TOLTERODINE TARTRATE 2 MG TABLET 1 MG PO (20:34)
[2020-10-24] MEDS: HYDROcodone/acetaminophen (*CRX) 5-325 MG TABLET 1 TAB PO (23:51)
[2020-10-25] VITALS: BP 137/74; PULSE 65; RESP 18; TEMP 37.3; O2SAT 98
--- NOTE | 2020-10-25 02:34 | PC.NURSE ---
pt sleeping, no distress noted at this time.
--- NOTE | 2020-10-25 04:17 | PC.NURSE ---
pt incontinent of liquid stool, pt states he can't feel when he needs to have a bowel movement
[2020-10-25] MEDS: METOCLOPRAMIDE HCL 10 MG TABLET 5 MG PO ×3 (05:52→17:15)
[2020-10-25 07:40] VITALS: BP 136/51; PULSE 69; RESP 18; TEMP 37.4; O2SAT 97
[2020-10-25 08:26] LABS: Glucose Point of Care 163 (65-105)
[2020-10-25] MEDS: HYDROcodone/acetaminophen (*CRX) 5-325 MG TABLET 1 TAB PO ×2 (09:01→17:15)
[2020-10-25] MEDS: CYANOCOBALAMIN 1,000 MCG TABLET 1000 MCG PO (09:01)
[2020-10-25] MEDS: hydroCHLOROthiazide 12.5 MG CAPSULE 6.25 MG PO (09:01)
[2020-10-25] MEDS: FERROUS SULFATE 324 MG TABLET PO ×3 (09:02→17:15)
[2020-10-25] MEDS: PANTOPRAZOLE 40 MG TABLET PO (09:02)
[2020-10-25] MEDS: FLUTICASONE/UMECLIDIN/VILANTER 100-62.5-25 MCG ELLIPTA 1 PUFF INHALATION (09:02)
[2020-10-25] MEDS: amLODIPine BESYLATE 5 MG TABLET 10 MG PO (09:02)
[2020-10-25] MEDS: IRBESARTAN 150 MG TABLET PO (09:02)
[2020-10-25] MEDS: OLOPATADINE 0.1% OPHTH SOLN 5 ML BTL 1 DROP EACH EYE (09:02)
[2020-10-25] MEDS: MULTIVITAMINS THERAPEUTIC TAB (*BKC) 1 TABLET PO (09:02)
[2020-10-25 11:47] LABS: Glucose Point of Care 222 (65-105)
[2020-10-25 13:45] LABS: Glucose Point of Care 216 (65-105)
[2020-10-25 16:20] VITALS: BP 116/55; PULSE 74; RESP 18; TEMP 36.8; O2SAT 97
[2020-10-25] MEDS: metFORMIN HCL XR 500 MG TAB.SR.24H PO (17:24)
[2020-10-25 18:00] LABS: Glucose Point of Care 155 (65-105)
[2020-10-25] MEDS: TOLTERODINE TARTRATE 2 MG TABLET 1 MG PO (20:09)
[2020-10-25] MEDS: TAMSULOSIN HCL 0.4 MG CAPSULE PO (20:10)
[2020-10-25] MEDS: SIMVASTATIN 10 MG TABLET 20 MG PO (20:10)
[2020-10-25 22:29] LABS: Glucose Point of Care 180 (65-105)
[2020-10-26] VITALS: BP 125/57; PULSE 56; RESP 18; TEMP 36.8; O2SAT 96
[2020-10-26] MEDS: METOCLOPRAMIDE HCL 10 MG TABLET 5 MG PO ×3 (05:32→16:12)
[2020-10-26 07:20] VITALS: BP 130/54; PULSE 68; RESP 20; TEMP 37.7; O2SAT 98
[2020-10-26 08:20] LABS: Glucose Point of Care 146 (65-105)
[2020-10-26] MEDS: amLODIPine BESYLATE 5 MG TABLET 10 MG PO (08:45)
[2020-10-26] MEDS: FLUTICASONE/UMECLIDIN/VILANTER 100-62.5-25 MCG ELLIPTA 1 PUFF INHALATION (08:47)
[2020-10-26] MEDS: OLOPATADINE 0.1% OPHTH SOLN 5 ML BTL 1 DROP EACH EYE (08:47)
[2020-10-26] MEDS: CYANOCOBALAMIN 1,000 MCG TABLET 1000 MCG PO (08:47)
[2020-10-26] MEDS: polyethylene glycoL 3350 17 GM POWD.PACK PO (08:49)
[2020-10-26] MEDS: IRBESARTAN 150 MG TABLET PO (08:49)
[2020-10-26] MEDS: PANTOPRAZOLE 40 MG TABLET PO (08:49)
[2020-10-26] MEDS: FERROUS SULFATE 324 MG TABLET PO ×3 (08:49→16:12)
[2020-10-26] MEDS: hydroCHLOROthiazide 12.5 MG CAPSULE 6.25 MG PO (08:49)
[2020-10-26] MEDS: MULTIVITAMINS THERAPEUTIC TAB (*BKC) 1 TABLET PO (08:49)
--- NOTE | 2020-10-26 10:18 | P.PN_ITS ---
Progress Note: A&P Assessment and Plan (1) Urinary retention due to benign prostatic hyperplasia: Code(s): N40.1 - Benign prostatic hyperplasia with lower urinary tract symptoms; R33.8 - Other retention of urine Status: Acute Assessment and Plan: * Secondary to BPH * Urologist consulted while at [facility] * Patient started on Flomax * Patient to continue Can in follow-up with urology after discharge (2) Hematoma of right hip: Onset Date: Unknown Qualifiers: Encounter type: initial encounter Qualified Code(s): S70.01XA - Contusion of right hip, initial encounter Code(s): S70.01XA - Contusion of right hip, initial encounter Status: Acute Assessment and Plan: * Continue pain medication with Karthik wrap * Periodically check hemoglobin hematocrit, will check tomorrow * Continue physical therapy/Occupational Therapy * CT indicated Hematomas in the right gluteus medius and gluteus stephen muscles. On 10/17/2020 (3) Adynamic ileus: Onset Date: ~10/17/20 Code(s): K56.0 - Paralytic ileus Status: Resolved Assessment and Plan: * Resolved * CT on 10/17/2020 indicated * Possibly secondary to constipation, will give daily stool softeners with laxatives and as needed suppositories * CT indicates Adynamic ileus roselia large volume of stool in the colon * Surgery consulted while at [facility] (4) Anemia: Qualifiers: Anemia type: unspecified type Qualified Code(s): D64.9 - Anemia, unspecified Code(s): D64.9 - Anemia, unspecified Status: Chronic Assessment and Plan: * Chronic, patient follows with shipping assistant and gets octreotide injections * bone marrow disorder has been ruled out. Managed by Dr. Wilson * Last hemoglobin 8.9 hematocrit 27.6, no active bleeding noted * normal EGD 06/01/2020 * normal colonoscopy July 2019 * attempted a colonoscopy 06/01/2020 with poor prep * Will transfuse with hemoglobin less than 7 (5) COPD (chronic obstructive pulmonary disease): Qualifiers: COPD type: unspecified COPD Qualified Code(s): J44.9 - Chronic obstructive pulmonary disease, unspecified Code(s): J44.9 - Chronic obstructive pulmonary disease, unspecified Status: Chronic Assessment and Plan: * Stable * Continue albuterol prn, Flovent , and Daliresp (6) Diabetes mellitus: Qualifiers: Diabetes mellitus type: type 2 Diabetes mellitus long line teamster insulin use: without long line teamster use Diabetes mellitus complication status: without complication Qualified Code(s): E11.9 - Type 2 diabetes mellitus without complications Code(s): E11.9 - Type 2 diabetes mellitus without complications Status: Acute Assessment and Plan: * Blood sugar stable * Continue Metformin * Started Accu-Cheks AC at bedtime, sliding scale and hypoglycemic protocol * Will adjust medication as needed * Continue diabetic diet (7) Atrial fibrillation: Qualifiers: Atrial fibrillation type: unspecified Qualified Code(s): I48.91 - Unspecified atrial fibrillation Code(s): I48.91 - Unspecified atrial fibrillation Status: Chronic Assessment and Plan: * Eliquis placed on hold * Will need to consult patient's shipping assistant Dr. Wilson * Will need to contact his shipping assistant before discharge to determine when Eliquis will need to be restarted * (8) CAD (coronary artery disease): Onset Date: Unknown Qualifiers: Coronary Disease-Associated Artery/Lesion type: bypass graft [place] vs. tra
--- NOTE | 2020-10-26 10:18 | WPDPN ---
Progress Note: A&P Assessment and Plan (1) Urinary retention due to benign prostatic hyperplasia: Code(s): N40.1 - Benign prostatic hyperplasia with lower urinary tract symptoms; R33.8 - Other retention of urine Status: Acute Assessment and Plan: Secondary to BPH Urologist consulted while at [facility] Patient started on Flomax Patient to continue Can in follow-up with urology after discharge (2) Hematoma of right hip: Onset Date: Unknown Qualifiers: Encounter type: initial encounter Qualified Code(s): S70.01XA - Contusion of right hip, initial encounter Code(s): S70.01XA - Contusion of right hip, initial encounter Status: Acute Assessment and Plan: Continue pain medication with Karthik wrap Periodically check hemoglobin hematocrit, will check tomorrow Continue physical therapy/Occupational Therapy CT indicated Hematomas in the right gluteus medius and gluteus stephen muscles. On 10/17/2020 (3) Adynamic ileus: Onset Date: ~10/17/20 Code(s): K56.0 - Paralytic ileus Status: Resolved Assessment and Plan: Resolved CT on 10/17/2020 indicated Possibly secondary to constipation, will give daily stool softeners with laxatives and as needed suppositories CT indicates Adynamic ileus roselia large volume of stool in the colon Surgery consulted while at [facility] (4) Anemia: Qualifiers: Anemia type: unspecified type Qualified Code(s): D64.9 - Anemia, unspecified Code(s): D64.9 - Anemia, unspecified Status: Chronic Assessment and Plan: Chronic, patient follows with trains service conductor and gets octreotide injections bone marrow disorder has been ruled out. Managed by Dr. Wilson Last hemoglobin 8.9 hematocrit 27.6, no active bleeding noted normal EGD 06/01/2020 normal colonoscopy July 2019 attempted a colonoscopy 06/01/2020 with poor prep Will transfuse with hemoglobin less than 7 (5) COPD (chronic obstructive pulmonary disease): Qualifiers: COPD type: unspecified COPD Qualified Code(s): J44.9 - Chronic obstructive pulmonary disease, unspecified Code(s): J44.9 - Chronic obstructive pulmonary disease, unspecified Status: Chronic Assessment and Plan: Stable Continue albuterol prn, Flovent , and Daliresp (6) Diabetes mellitus: Qualifiers: Diabetes mellitus type: type 2 Diabetes mellitus superintendent container terminal insulin use: without fpc use Diabetes mellitus complication status: without complication Qualified Code(s): E11.9 - Type 2 diabetes mellitus without complications Code(s): E11.9 - Type 2 diabetes mellitus without complications Status: Acute Assessment and Plan: Blood sugar stable Continue Metformin Started Accu-Cheks AC at bedtime, sliding scale and hypoglycemic protocol Will adjust medication as needed Continue diabetic diet (7) Atrial fibrillation: Qualifiers: Atrial fibrillation type: unspecified Qualified Code(s): I48.91 - Unspecified atrial fibrillation Code(s): I48.91 - Unspecified atrial fibrillation Status: Chronic Assessment and Plan: Eliquis placed on hold Will need to consult patient's trains service conductor Dr. Wilson Will need to contact his trains service conductor before discharge to determine when Eliquis will need to be restarted (8) CAD (coronary artery disease): Onset Date: Unknown Qualifiers: Coronary Disease-Associated Artery/Lesion type: bypass graft [place] vs. transplanted heart: [place] heart Associated angina: without angina Qualified Code(s): I25.810 - Atherosclerosis of coronary artery bypass graft(s) without angina pectoris Code(s): I25.10 - Atherosclerotic heart disease of [place] coronary artery without angina pectoris Status: Chronic Assessment and Plan: Hx of CABG (9) Essential hypertension: Code(s): I10 - Essential (primary)
[2020-10-26 11:30] LABS: Glucose Point of Care 186 (65-105)
[2020-10-26 16:00] VITALS: BP 136/57; PULSE 61; RESP 16; TEMP 37.5; O2SAT 99
[2020-10-26 16:21] LABS: Glucose Point of Care 158 (65-105)
[2020-10-26] MEDS: metFORMIN HCL XR 500 MG TAB.SR.24H PO (16:26)
[2020-10-26] MEDS: SIMVASTATIN 10 MG TABLET 20 MG PO (20:45)
[2020-10-26] MEDS: TAMSULOSIN HCL 0.4 MG CAPSULE PO (20:45)
[2020-10-26] MEDS: TOLTERODINE TARTRATE 2 MG TABLET 1 MG PO (20:47)
[2020-10-26 20:53] LABS: Glucose Point of Care 195 (65-105)
--- NOTE | 2020-10-26 23:30 | PM.EVENT ---
Event Note Event Note Event Note: I have examined the patient and reviewed the chart. Discussed the patient's care with Taniya Oneill APN and agree with her assessment and plan.
[2020-10-27 00:05] VITALS: BP 112/48; PULSE 52; RESP 20; TEMP 37.7; O2SAT 97
[2020-10-27] MEDS: METOCLOPRAMIDE HCL 10 MG TABLET 5 MG PO ×3 (05:40→17:06)
[2020-10-27 05:59] LABS: Hematocrit 26.3 % (37.0-46.0); Hemoglobin 8.1 g/dL (12.4-15.3); Mean Corpuscular HGB Conc 30.8 g/dL (32.0-36.0); Mean Corpuscular Hemoglobin 26.2 pg (27.0-31.0); Mean Corpuscular Volume 85.1 fL (78.0-102.0); Mean Platelet Volume 10.3 fl (8.7-11.0); Platelet Count Result 245 K/mm3 (150-420); Red Blood Count 3.09 M/mm3 (4.70-6.10); Red Cell Distribution Width 15.6 % (11.6-14.4)
[2020-10-27 06:20] LABS: Alanine Aminotransferase 15 U/L (16-63); Albumin Level 2.9 g/dL (3.4-5.0); Alkaline Phosphatase 100 U/L (46-116); Anion Gap 9 mmol/L (8-16); Aspartate Amino Transferase 13 U/L (15-37); Bilirubin,Total 0.5 mg/dL (0.00-1.00); Blood Urea Nitrogen 26 mg/dL (7-18); Calcium 8.6 mg/dL (8.5-10.1); Carbon Dioxide 24 mmol/L (21-32); Chloride 102 mmol/L (98-108); Estimated CRCL calculation 48 ml/min; Estimated Glomerular Filt Rate > 60; Glucose 131 mg/dL (70-99); Osmolality Calculated 286 mOsm/kg (285-295); Potassium 4.3 mmol/L (3.5-5.1); Sodium 135 mmol/L (136-145); Total Protein 5.9 g/dL (6.4-8.2)
--- NOTE | 2020-10-27 07:35 | PC.NURSE ---
Up in [place] with PT, gait steady, no evidence of pain noted, in chair after therapy, states pain is better today, personal items and call light in reach of patient
[2020-10-27 07:45] VITALS: BP 99/40; PULSE 55; RESP 18; TEMP 36.7; O2SAT 98
--- NOTE | 2020-10-27 09:30 | PC.NURSE ---
AM blood sugar 131
[2020-10-27] MEDS: FLUTICASONE/UMECLIDIN/VILANTER 100-62.5-25 MCG ELLIPTA 1 PUFF INHALATION (09:31)
[2020-10-27] MEDS: polyethylene glycoL 3350 17 GM POWD.PACK PO (09:31)
[2020-10-27] MEDS: OLOPATADINE 0.1% OPHTH SOLN 5 ML BTL 1 DROP EACH EYE (09:31)
[2020-10-27] MEDS: MULTIVITAMINS THERAPEUTIC TAB (*BKC) 1 TABLET PO (09:32)
[2020-10-27] MEDS: PANTOPRAZOLE 40 MG TABLET PO (09:32)
[2020-10-27] MEDS: CYANOCOBALAMIN 1,000 MCG TABLET 1000 MCG PO (09:32)
[2020-10-27] MEDS: FERROUS SULFATE 324 MG TABLET PO ×3 (09:33→17:06)
[2020-10-27 11:56] LABS: Glucose Point of Care 181 (65-105)
[2020-10-27] MEDS: HYDROcodone/acetaminophen (*CRX) 5-325 MG TABLET 1 TAB PO (12:01)
[2020-10-27 15:36] VITALS: BP 109/46; PULSE 69; RESP 18; TEMP 36; O2SAT 97
[2020-10-27 16:42] LABS: Glucose Point of Care 123 (65-105)
[2020-10-27] MEDS: metFORMIN HCL XR 500 MG TAB.SR.24H PO (17:08)
[2020-10-27] MEDS: TOLTERODINE TARTRATE 2 MG TABLET 1 MG PO (21:07)
[2020-10-27] MEDS: SIMVASTATIN 10 MG TABLET 20 MG PO (21:08)
[2020-10-27] MEDS: TAMSULOSIN HCL 0.4 MG CAPSULE PO (21:08)
[2020-10-27 21:21] LABS: Glucose Point of Care 219 (65-105)
[2020-10-28] VITALS: BP 124/47; PULSE 49; RESP 18; TEMP 36.8; O2SAT 96
[2020-10-28] MEDS: METOCLOPRAMIDE HCL 10 MG TABLET 5 MG PO ×3 (06:11→16:43)
[2020-10-28 07:43] LABS: Glucose Point of Care 132 (65-105)
[2020-10-28 08:00] VITALS: BP 128/64; PULSE 50; RESP 18; TEMP 36.9; O2SAT 97
[2020-10-28] MEDS: polyethylene glycoL 3350 17 GM POWD.PACK PO (09:36)
[2020-10-28] MEDS: MULTIVITAMINS THERAPEUTIC TAB (*BKC) 1 TABLET PO (09:36)
[2020-10-28] MEDS: HYDROcodone/acetaminophen (*CRX) 5-325 MG TABLET 1 TAB PO (09:36)
[2020-10-28] MEDS: hydroCHLOROthiazide 12.5 MG CAPSULE 6.25 MG PO (09:36)
[2020-10-28] MEDS: PANTOPRAZOLE 40 MG TABLET PO (09:36)
[2020-10-28] MEDS: amLODIPine BESYLATE 5 MG TABLET 10 MG PO (09:37)
[2020-10-28] MEDS: CYANOCOBALAMIN 1,000 MCG TABLET 1000 MCG PO (09:37)
[2020-10-28] MEDS: FERROUS SULFATE 324 MG TABLET PO ×3 (09:37→16:43)
[2020-10-28] MEDS: OLOPATADINE 0.1% OPHTH SOLN 5 ML BTL 1 DROP EACH EYE (09:38)
[2020-10-28] MEDS: IRBESARTAN 150 MG TABLET PO (09:38)
[2020-10-28] MEDS: FLUTICASONE/UMECLIDIN/VILANTER 100-62.5-25 MCG ELLIPTA 1 PUFF INHALATION (09:38)
[2020-10-28 11:48] LABS: Glucose Point of Care 167 (65-105)
[2020-10-28 15:50] VITALS: BP 129/45; PULSE 52; RESP 18; TEMP 36.6; O2SAT 97
[2020-10-28 16:28] LABS: Glucose Point of Care 115 (65-105)
[2020-10-28] MEDS: metFORMIN HCL XR 500 MG TAB.SR.24H PO (16:45)
[2020-10-28] MEDS: SIMVASTATIN 10 MG TABLET 20 MG PO (21:29)
[2020-10-28] MEDS: TAMSULOSIN HCL 0.4 MG CAPSULE PO (21:30)
[2020-10-28] MEDS: TOLTERODINE TARTRATE 2 MG TABLET 1 MG PO (21:31)
[2020-10-28 21:43] LABS: Glucose Point of Care 134 (65-105)
[2020-10-29 00:25] VITALS: BP 135/47; PULSE 54; RESP 18; TEMP 37.1; O2SAT 96
[2020-10-29] MEDS: METOCLOPRAMIDE HCL 10 MG TABLET 5 MG PO ×3 (06:27→17:03)
[2020-10-29 07:45] VITALS: BP 124/57; PULSE 50; RESP 18; TEMP 37.1; O2SAT 97
[2020-10-29 08:05] LABS: Glucose Point of Care 139 (65-105)
[2020-10-29] MEDS: IRBESARTAN 150 MG TABLET PO (09:16)
[2020-10-29] MEDS: hydroCHLOROthiazide 12.5 MG CAPSULE 6.25 MG PO (09:16)
[2020-10-29] MEDS: MULTIVITAMINS THERAPEUTIC TAB (*BKC) 1 TABLET PO (09:17)
[2020-10-29] MEDS: CYANOCOBALAMIN 1,000 MCG TABLET 1000 MCG PO (09:18)
[2020-10-29] MEDS: amLODIPine BESYLATE 5 MG TABLET 10 MG PO (09:18)
[2020-10-29] MEDS: PANTOPRAZOLE 40 MG TABLET PO (09:19)
[2020-10-29] MEDS: FLUTICASONE/UMECLIDIN/VILANTER 100-62.5-25 MCG ELLIPTA 1 PUFF INHALATION (09:19)
[2020-10-29] MEDS: FERROUS SULFATE 324 MG TABLET PO ×3 (09:19→17:04)
[2020-10-29] MEDS: OLOPATADINE 0.1% OPHTH SOLN 5 ML BTL 1 DROP EACH EYE (09:19)
[2020-10-29 15:20] VITALS: BP 124/43; PULSE 55; RESP 18; TEMP 36.9; O2SAT 98
[2020-10-29 16:24] LABS: Glucose Point of Care 123 (65-105)
[2020-10-29] MEDS: metFORMIN HCL XR 500 MG TAB.SR.24H PO (17:03)
[2020-10-29 17:08] LABS: Glucose Point of Care 149 (65-105)
[2020-10-29] MEDS: SIMVASTATIN 10 MG TABLET 20 MG PO (20:47)
[2020-10-29 20:48] LABS: Glucose Point of Care 130 (65-105)
[2020-10-29] MEDS: TOLTERODINE TARTRATE 2 MG TABLET 1 MG PO (20:48)
[2020-10-29] MEDS: TAMSULOSIN HCL 0.4 MG CAPSULE PO (20:48)
--- NOTE | 2020-10-29 20:52 | PC.NURSE ---
Pt.resting, no c/o at this time. Lights dimmed per pt. request, call rodriguez in reach.
[2020-10-29 23:58] VITALS: BP 113/37; PULSE 46; RESP 18; TEMP 36.9; O2SAT 93
--- NOTE | 2020-10-30 | PC.NURSE ---
Patient resting quietly. SR up x2. Call light and belongings within reach. No c/o offered.
--- NOTE | 2020-10-30 01:49 | PC.NURSE ---
Resting quietly. Side rails up x2. Call light and belongings within reach.
[2020-10-30] MEDS: METOCLOPRAMIDE HCL 10 MG TABLET 5 MG PO ×3 (05:42→17:17)
[2020-10-30 07:25] VITALS: BP 128/50; PULSE 50; RESP 18; TEMP 37; O2SAT 97
[2020-10-30 08:44] LABS: Glucose Point of Care 135 (65-105)
[2020-10-30] MEDS: PANTOPRAZOLE 40 MG TABLET PO (09:52)
[2020-10-30] MEDS: MULTIVITAMINS THERAPEUTIC TAB (*BKC) 1 TABLET PO (09:52)
[2020-10-30] MEDS: FERROUS SULFATE 324 MG TABLET PO ×3 (09:52→17:17)
[2020-10-30] MEDS: CYANOCOBALAMIN 1,000 MCG TABLET 1000 MCG PO (09:52)
[2020-10-30] MEDS: FLUTICASONE/UMECLIDIN/VILANTER 100-62.5-25 MCG ELLIPTA 1 PUFF INHALATION (09:52)
[2020-10-30] MEDS: OLOPATADINE 0.1% OPHTH SOLN 5 ML BTL 1 DROP EACH EYE (09:53)
[2020-10-30] MEDS: hydroCHLOROthiazide 12.5 MG CAPSULE 6.25 MG PO (10:13)
[2020-10-30] MEDS: amLODIPine BESYLATE 5 MG TABLET 10 MG PO (10:14)
--- NOTE | 2020-10-30 10:15 | PM.EVENT ---
Event Note Event Note Event Note: Patient irbesartan held today it appears the patient heart rate drops below 60 . will continue to monitor.
[2020-10-30 11:59] LABS: Glucose Point of Care 218 (65-105)
[2020-10-30 16:45] VITALS: BP 115/40; PULSE 45; RESP 18; TEMP 37.1; O2SAT 96
[2020-10-30] MEDS: metFORMIN HCL XR 500 MG TAB.SR.24H PO (17:19)
[2020-10-30] MEDS: TAMSULOSIN HCL 0.4 MG CAPSULE PO (21:30)
[2020-10-30] MEDS: TOLTERODINE TARTRATE 2 MG TABLET 1 MG PO (21:30)
[2020-10-30] MEDS: SIMVASTATIN 10 MG TABLET 20 MG PO (21:30)
[2020-10-30 22:33] LABS: Glucose Point of Care 198 (65-105)
[2020-10-30 23:28] VITALS: BP 134/49; PULSE 44; RESP 20; TEMP 37.1; O2SAT 96
--- NOTE | 2020-10-30 23:40 | PC.NURSE ---
Patient lying in bed watching TV. Denies c/o. SR upx2. Call light and belongings within reach.
[2020-10-31 01:14] LABS: Glucose Point of Care 133 (65-105)
--- NOTE | 2020-10-31 02:04 | PC.NURSE ---
Patient awake in bed watching TV. Answers questions appropriately. Can cath intact and draining clear jagruti urine. Denies pain, SOB. SR up x2. Call light and belongings within reach.
[2020-10-31] MEDS: METOCLOPRAMIDE HCL 10 MG TABLET 5 MG PO ×2 (06:02→12:04)
[2020-10-31 08:00] VITALS: BP 135/44; PULSE 50; RESP 16; TEMP 37.1; O2SAT 98
[2020-10-31 08:09] LABS: Glucose Point of Care 134 (65-105)
[2020-10-31] MEDS: FLUTICASONE/UMECLIDIN/VILANTER 100-62.5-25 MCG ELLIPTA 1 PUFF INHALATION (09:01)
[2020-10-31] MEDS: hydroCHLOROthiazide 12.5 MG CAPSULE 6.25 MG PO (09:02)
[2020-10-31] MEDS: CYANOCOBALAMIN 1,000 MCG TABLET 1000 MCG PO (09:02)
[2020-10-31] MEDS: PANTOPRAZOLE 40 MG TABLET PO (09:03)
[2020-10-31] MEDS: amLODIPine BESYLATE 5 MG TABLET 10 MG PO (09:03)
[2020-10-31] MEDS: OLOPATADINE 0.1% OPHTH SOLN 5 ML BTL 1 DROP EACH EYE (09:04)
[2020-10-31] MEDS: MULTIVITAMINS THERAPEUTIC TAB (*BKC) 1 TABLET PO (09:04)
[2020-10-31] MEDS: FERROUS SULFATE 324 MG TABLET PO ×2 (09:05→12:04)
[2020-10-31] MEDS: polyethylene glycoL 3350 17 GM POWD.PACK PO (09:05)
--- NOTE | 2020-10-31 11:52 | P.DS_ITS ---
DS: Admitting Diagnosis Admitting Diagnosis Admitting Diagnosis: rehab DS: Discharge Diagnosis Discharge Diagnosis (1) Urinary retention due to benign prostatic hyperplasia: Code(s): N40.1 - Benign prostatic hyperplasia with lower urinary tract symptoms; R33.8 - Other retention of urine Status: Acute Assessment and Plan: * Secondary to BPH * Urologist consulted while at [facility] * Patient started on Flomax * Patient to continue Can in follow-up with urology after discharge (2) Hematoma of right hip: Onset Date: Unknown Qualifiers: Encounter type: initial encounter Qualified Code(s): S70.01XA - Contusion of right hip, initial encounter Code(s): S70.01XA - Contusion of right hip, initial encounter Status: Acute Assessment and Plan: * Resolved * Follow-up with primary care physician * CT indicated Hematomas in the right gluteus medius and gluteus stephen muscles. On 10/17/2020 (3) Adynamic ileus: Onset Date: ~10/17/20 Code(s): K56.0 - Paralytic ileus Status: Resolved Assessment and Plan: * Resolved * CT on 10/17/2020 indicated * Possibly secondary to constipation, will give daily stool softeners with laxatives and as needed suppositories * CT indicates Adynamic ileus roselia large volume of stool in the colon * Surgery consulted while at [facility] (4) Anemia: Qualifiers: Anemia type: unspecified type Qualified Code(s): D64.9 - Anemia, unspecified Code(s): D64.9 - Anemia, unspecified Status: Chronic Assessment and Plan: * Follow-up primary care physician * bone marrow disorder has been ruled out. Managed by Dr. Wilson * Last hemoglobin 8.9 hematocrit 27.6, no active bleeding noted * normal EGD 06/01/2020 * normal colonoscopy July 2019 * attempted a colonoscopy 06/01/2020 with poor prep * Will transfuse with hemoglobin less than 7 (5) COPD (chronic obstructive pulmonary disease): Qualifiers: COPD type: unspecified COPD Qualified Code(s): J44.9 - Chronic obstructive pulmonary disease, unspecified Code(s): J44.9 - Chronic obstructive pulmonary disease, unspecified Status: Chronic Assessment and Plan: * Stable * Continue albuterol prn, Flovent , and Daliresp (6) Diabetes mellitus: Qualifiers: Diabetes mellitus type: type 2 Diabetes mellitus [facility] insulin use: without [facility] use Diabetes mellitus complication status: without complication Qualified Code(s): E11.9 - Type 2 diabetes mellitus without complications Code(s): E11.9 - Type 2 diabetes mellitus without complications Status: Acute Assessment and Plan: * Blood sugar stable * Continue Metformin (7) Atrial fibrillation: Qualifiers: Atrial fibrillation type: unspecified Qualified Code(s): I48.91 - Unspecified atrial fibrillation Code(s): I48.91 - Unspecified atrial fibrillation Status: Chronic Assessment and Plan: * Eliquis placed on hold patient will need to follow-up with his primary care physician or graphic art technician to determine when it will need to be restarted * * (8) CAD (coronary artery disease): Onset Date: Unknown Qualifiers: Coronary Disease-Associated Artery/Lesion type: bypass graft [place] vs. transplanted heart: [place] heart Associated angina: without angina Qualified Code(s): I25.810 - Atherosclerosis of coronary artery bypass graft(s) without angina pectoris Code(s): I25.10 - Atherosclerotic heart disease
--- NOTE | 2020-10-31 11:52 | PM.DS ---
DS: Admitting Diagnosis Admitting Diagnosis Admitting Diagnosis: rehab DS: Discharge Diagnosis Discharge Diagnosis (1) Urinary retention due to benign prostatic hyperplasia: Code(s): N40.1 - Benign prostatic hyperplasia with lower urinary tract symptoms; R33.8 - Other retention of urine Status: Acute Assessment and Plan: Secondary to BPH Urologist consulted while at [facility] Patient started on Flomax Patient to continue Can in follow-up with urology after discharge (2) Hematoma of right hip: Onset Date: Unknown Qualifiers: Encounter type: initial encounter Qualified Code(s): S70.01XA - Contusion of right hip, initial encounter Code(s): S70.01XA - Contusion of right hip, initial encounter Status: Acute Assessment and Plan: Resolved Follow-up with primary care physician CT indicated Hematomas in the right gluteus medius and gluteus stephen muscles. On 10/17/2020 (3) Adynamic ileus: Onset Date: ~10/17/20 Code(s): K56.0 - Paralytic ileus Status: Resolved Assessment and Plan: Resolved CT on 10/17/2020 indicated Possibly secondary to constipation, will give daily stool softeners with laxatives and as needed suppositories CT indicates Adynamic ileus roselia large volume of stool in the colon Surgery consulted while at [facility] (4) Anemia: Qualifiers: Anemia type: unspecified type Qualified Code(s): D64.9 - Anemia, unspecified Code(s): D64.9 - Anemia, unspecified Status: Chronic Assessment and Plan: Follow-up primary care physician bone marrow disorder has been ruled out. Managed by Dr. Wilson Last hemoglobin 8.9 hematocrit 27.6, no active bleeding noted normal EGD 06/01/2020 normal colonoscopy July 2019 attempted a colonoscopy 06/01/2020 with poor prep Will transfuse with hemoglobin less than 7 (5) COPD (chronic obstructive pulmonary disease): Qualifiers: COPD type: unspecified COPD Qualified Code(s): J44.9 - Chronic obstructive pulmonary disease, unspecified Code(s): J44.9 - Chronic obstructive pulmonary disease, unspecified Status: Chronic Assessment and Plan: Stable Continue albuterol prn, Flovent , and Daliresp (6) Diabetes mellitus: Qualifiers: Diabetes mellitus type: type 2 Diabetes mellitus termite inspector insulin use: without termite inspector use Diabetes mellitus complication status: without complication Qualified Code(s): E11.9 - Type 2 diabetes mellitus without complications Code(s): E11.9 - Type 2 diabetes mellitus without complications Status: Acute Assessment and Plan: Blood sugar stable Continue Metformin (7) Atrial fibrillation: Qualifiers: Atrial fibrillation type: unspecified Qualified Code(s): I48.91 - Unspecified atrial fibrillation Code(s): I48.91 - Unspecified atrial fibrillation Status: Chronic Assessment and Plan: Eliquis placed on hold patient will need to follow-up with his primary care physician or rubber stamp die inspector to determine when it will need to be restarted (8) CAD (coronary artery disease): Onset Date: Unknown Qualifiers: Coronary Disease-Associated Artery/Lesion type: bypass graft [place] vs. transplanted heart: [place] heart Associated angina: without angina Qualified Code(s): I25.810 - Atherosclerosis of coronary artery bypass graft(s) without angina pectoris Code(s): I25.10 - Atherosclerotic heart disease of [place] coronary artery without angina pectoris Status: Chronic Assessment and Plan: Hx of CABG (9) Essential hypertension: Code(s): I10 - Essential (primary) hypertension Status: Chronic Assessment and Plan: Blood pressure stable Patiently currently taking Norvasc 10 mg daily, hydrochlorothiazide 6.25 daily and Avapro 150 mg daily Follow-up with primary care physician (
[2020-10-31 12:01] LABS: Glucose Point of Care 226 (65-105)
--- NOTE | 2020-10-31 13:30 | PC.NURSE ---
22 gauge blue butterfly IV site discontinued. No inflammation or redness noted. Pressure held for 3 minutes.
--- NOTE | 2020-11-09 11:42 | PC.NURSE ---
Pt stated her received and understood his discharge instructions. Pt had no other comments.
== END 2020-10-31 14:25 | disposition home health service (06) | DRG 949 ==
PROVIDERS: Nurse Practitioner; Nurse Practitioner Family; Admitting Provider Emergency Medicine; PCP Internal Medicine; Visit Provider Emergency Medicine
DX: S70.01XD Contusion of right hip, subsequent encounter (principal); I48.20 Chronic atrial fibrillation, unspecified; N39.0 Urinary tract infection, site not specified; I25.10 Atherosclerotic heart disease of native coronary artery without angina pectoris; J44.9 Chronic obstructive pulmonary disease, unspecified; I10 Essential (primary) hypertension; E53.8 Deficiency of other specified B group vitamins; E11.9 Type 2 diabetes mellitus without complications; D50.9 Iron deficiency anemia, unspecified; N40.1 Benign prostatic hyperplasia with lower urinary tract symptoms; R53.1 Weakness; R33.8 Other retention of urine; Z96.641 Presence of right artificial hip joint; Z96.1 Presence of intraocular lens; Z86.73 Personal history of transient ischemic attack (TIA), and cerebral infarction without residual deficits; Z87.891 Personal history of nicotine dependence; Z95.1 Presence of aortocoronary bypass graft; Z98.42 Cataract extraction status, left eye; Z98.41 Cataract extraction status, right eye
CPT/HCPCS: 36415; 80048; 80053; 81001; 85027; 87077; 87086; 87088; 87186; 87324; 97110; 97161; 97165; 97530; 97535; A9270; J0696; J1815

== ENCOUNTER 2020-11-23 13:44 | Outpatient (RCR) | payer MEDICARE, SELFPAY ==
[2020-11-04 10:45] LABS: Hematocrit 25.2 % (42.0-52.0); Hemoglobin 8.1 g/dL (14.0-18.0); Mean Corpuscular HGB Conc 32.1 g/dl (32-36); Mean Corpuscular Hemoglobin 26.4 pg (26-34); Mean Corpuscular Volume 82.1 fl (80-100); Mean Platelet Volume 10.8 fl (7.4-10.4); Platelet Count Result 190 k/mm3 (150-375); Red Blood Count 3.07 M/mm3 (4.6-6.20); White Blood Count 3.8 K/mm3 (4.5-10.0)
[2020-11-10 12:23] LABS: Hematocrit 26.2 % (42.0-52.0); Hemoglobin 8.4 g/dL (14.0-18.0); Immature Reticulocyte Fraction 11.2 % (3.0-15.9); Mean Corpuscular HGB Conc 32.1 g/dl (32-36); Mean Corpuscular Hemoglobin 26.8 pg (26-34); Mean Corpuscular Volume 83.4 fl (80-100); Platelet Count Result 226 k/mm3 (150-375); Red Blood Count 3.14 M/mm3 (4.6-6.20); Red Cell Distribution Width 14.9 % (11.5-14.5); Reticulocyte Hemoglobin Conten 25.7 pg (28.2-35.7); Reticulocyte Percent 1.05 % (0.7-4.3); Reticulocytes Absolute 0.03 B/L (32.2-175.7); White Blood Count 4.7 K/mm3 (4.5-10.0)
[2020-11-10 12:24] LABS: Alanine Aminotransferase 64 U/L (4-50); Albumin Level 3.7 g/dL (3.5-5.1); Alkaline Phosphatase 113 U/L (38-126); Anion Gap 8 mmol/L (8-16); Aspartate Amino Transferase 62 U/L (17-59); Bilirubin,Total 0.8 mg/dL (0.2-1.3); Blood Urea Nitrogen 10 mg/dL (9-20); Calcium 8.9 mg/dL (8.4-10.2); Carbon Dioxide 23 mmol/L (22-30); Chloride 104 mmol/L (98-107); Estimated Glomerular Filt Rate > 60; Glucose 160 mg/dL (75-110); Iron 17 ug/dL (49-181); Potassium 4.1 mmol/L (3.4-5.0); Sodium 135 mmol/L (137-145)
[2020-11-10 12:34] LABS: Percent Iron Saturation 6 % (20-50)
[2020-11-16 14:52] LABS: Hematocrit 29.1 % (42.0-52.0); Hemoglobin 9.3 g/dL (14.0-18.0); Mean Corpuscular Hemoglobin 26.9 pg (26-34); Mean Corpuscular Volume 84.1 fl (80-100); Mean Platelet Volume 10.4 fl (7.4-10.4); Platelet Count Result 287 k/mm3 (150-375); Red Blood Count 3.46 M/mm3 (4.6-6.20); White Blood Count 8.6 K/mm3 (4.5-10.0)
[2020-11-23 14:15] LABS: Hematocrit 27.7 % (42.0-52.0); Hemoglobin 8.8 g/dL (14.0-18.0); Mean Corpuscular HGB Conc 31.8 g/dl (32-36); Platelet Count Result 206 k/mm3 (150-375); Red Blood Count 3.26 M/mm3 (4.6-6.20); Red Cell Distribution Width 15.2 % (11.5-14.5)
== END 2021-02-02 23:59 | disposition home or self-care (01) ==
LOC: HOME HLTH 13:44
PROVIDERS: PCP Internal Medicine; Visit Provider Internal Medicine Medical Oncology
DX: D64.9 Anemia, unspecified (principal)
CPT/HCPCS: 80053; 82728; 83540; 83550; 85027; 85046

== ENCOUNTER 2021-03-27 10:17 | Outpatient (CLI) | payer MEDICARE, SELFPAY ==
[2021-03-27 11:20] LABS: Basophils Absolute Auto 0.1 K/mm3 (0.0-0.1); Basophils Percent Auto 0.9 % (0.2-1.2); Eosinophils Absolute Auto 0.2 K/mm3 (0-0.3); Eosinophils Percent Auto 2.9 % (0-4.4); Hematocrit 27.8 % (42.0-52.0); Hemoglobin 8.8 g/dL (14.0-18.0); Immature Granulocyte Absolute 0.03 K/mm3 (0.00-0.031); Immature Granulocyte Percent A 0.4 % (0-0.5); Immature Reticulocyte Fraction 9.6 % (3.0-15.9); Lymphocytes Absolute Auto 1.11 K/mm3 (0.9-3.2); Lymphocytes Percent Auto 15.9 % (18.3-44.2); Mean Corpuscular HGB Conc 31.7 g/dl (32-36); Mean Corpuscular Hemoglobin 25.7 pg (26-34); Mean Corpuscular Volume 81.3 fl (80-100); Mean Platelet Volume 10.4 fl (7.4-10.4); Monocytes Absolute Auto 0.8 K/mm3 (0.1-0.6); Neutrophils Absolute Auto 4.8 K/mm3 (1.3-6.7); Neutrophils Percent Auto 68.9 % (45.5-73.1); Platelet Count Result 205 k/mm3 (150-375); Red Blood Count 3.42 M/mm3 (4.6-6.20); Red Cell Distribution Width 13.1 % (11.5-14.5); Reticulocyte Hemoglobin Conten 29.8 pg (28.2-35.7); Reticulocyte Percent 1.48 % (0.7-4.3); Reticulocytes Absolute 0.05 B/L (32.2-175.7)
[2021-03-27 12:24] LABS: Iron 46 ug/dL (49-181)
[2021-03-27 12:33] LABS: Percent Iron Saturation 13 % (20-50)
== END 2021-03-27 10:18 | disposition home or self-care (01) ==
PROVIDERS: PCP Internal Medicine; Visit Provider Internal Medicine Medical Oncology
DX: D64.9 Anemia, unspecified (principal)
CPT/HCPCS: 36415; 82728; 83540; 83550; 85025; 85046

== ENCOUNTER 2021-03-31 08:29 | Emergency (ER) | payer MEDICARE, SELFPAY ==
--- NOTE | ~2021-03-31 | CT_ITS ---
EXAMINATION: CT brain wo con, CT cervical spine wo con EXAM DATE: 03/31/2021 09:27 INDICATION: Fall, head lac on blood thinners . TECHNIQUE: Spiral CT of the head was performed without contrast. Axial, coronal and sagittal images were reviewed. Spiral CT of the cervical spine was performed without contrast. Axial images were rev iewed. Coronal and sagittal reformatted images were also reviewed. The dose-length product (DLP) fo r this examination was 1210.67 (accession [id number]), 293.53 (accession [id number]) mGy-cm. The exposure was tailored according to patient size, and iterative reconstruction (ASIR) was used as additional dose reduction technique. Comparison is made to prior examination from 05/13/2020. FINDINGS: HEAD CT: There is small old left frontal lobe infarction, but new compared to prior examination. Ther e is no acute intraparenchymal hemorrhage. No evidence of intraparenchymal brain mass lesion. No ev idence of acute infarction. There is mild periventricular and subcortical hypodensity, nonspecific bu t probably related to small vessel ischemic disease. There is moderate prominence of the sulci and ventricles related to cerebral atrophy. There is intracranial carotid arteriosclerosis. There is no mass effect or midline shift. There is no obstructive hydrocephalus suspected. There are no extra -axial collections. There are no acute calvarial fractures. Patient has had bilateral ocular lens s urgery. Soft tissue is unremarkable. Some debris in the external auditory canals. CERVICAL CT: Sternotomy wires. Cardiomegaly. There is no evidence of acute cervical fracture. The od ontoid process is intact. Pre-dens space is normal. Prevertebral soft tissue is normal. There are no soft tissue abnormalities identified. There is no disc space widening or traumatic vertebral body subluxation suspected. There is advanced cervical disc disease and facet arthropathy A detailed le steph by level evaluation of spondylosis can be added as addendum if requested. IMPRESSION: 1. No acute intracranial findings or cervical fracture. 2. 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 3. Age-related intracranial findings. 4. Advanced cervical spondylosis. Reviewed, dictated and finalized at location B. IMPRESSION: 1. No acute intracranial findings or cervical fracture. 2. 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 3. Age-related intracranial findings. 4. Advanced cervical spondylosis.
[2021-03-31 08:26] VITALS: BP 134/41; PULSE 72; RESP 20; TEMP 36.5; O2SAT 99
[2021-03-31 09:00] VITALS: BP 144/44; PULSE 65; RESP 20; O2SAT 100
[2021-03-31 10:19] VITALS: BP 136/61; PULSE 55; RESP 18; O2SAT 99
--- NOTE | 2021-03-31 11:05 | PC.NURSE ---
Report given to MANI Quijano
[2021-03-31] MEDS: TETANUS,DIPHTHERIA,AC PERTUSSIS ADULT (0.5 ML) BOOSTRIX IM (11:28)
--- NOTE | 2021-03-31 11:30 | ED.FALL ---
HPI - Fall General Chief Complaint: Fall Stated Complaint: fall Time Seen by Provider: 03/31/21 09:00 Source: patient Mode of arrival: EMS Limitations: no limitations History of Present Illness HPI Narrative: 85-year-old male Here for evaluation after a fall Patient was arriving here for a intake consultation for cardiac rehab and tripped over the curb He sustained a slight injury to his right forehead with a tiny laceration and contusion there He also has a skin tear on his right forearm He denies loss of consciousness or neck pain Strictly mechanical fall, no antecedent symptoms He is on a blood thinner Related Data Home Medications Medication Instructions Recorded Confirmed Trelegy Ellipta 1 inh INHALATION DAILY 07/22/20 10/21/20 metoclopramide HCl 5 mg PO TID 08/23/20 10/21/20 Restasis 1 drp OPHTHALMIC (EYE) Q12H 09/20/20 10/21/20 albuterol sulfate [Ventolin HFA] 2 puff INHALATION TID PRN 09/20/20 10/21/20 mecobalamin (vitamin B12) 1,000 mcg PO DAILY 09/20/20 10/21/20 multivitamin 1 tablet PO DAILY 09/20/20 10/21/20 olopatadine 1 drp OPHTHALMIC (EYE) DAILY 09/20/20 10/21/20 sennosides-docusate sodium 1 tab PO DAILY PRN 09/20/20 10/21/20 [Senokot-S] simvastatin 20 mg PO HS 09/20/20 10/21/20 ferrous sulfate 1 mg PO TID 10/17/20 10/21/20 irbesartan-hydrochlorothiazide 0.5 tablet PO DAILY 10/17/20 10/21/20 tolterodine [Detrol] 1 mg PO HS 10/17/20 10/21/20 Allergies Allergy/AdvReac Type Severity Reaction Status Date / Time amiodarone Allergy Unknown Other Verified 03/31/21 08:40 iodine Allergy Unknown Hives Verified 03/31/21 08:40 Review of Systems Review of Systems: All systems reviewed & are unremarkable except as noted in HPI and below Constitutional: Constitutional: Reports no additional constitutional complaints, Denies chills, Denies fever(s) and Denies headache(s) Eyes: Eyes: Reports no additional eye complaints and Denies change in vision ENT: Denies headache(s) and Denies sore throat Cardiovascular: Cardiovascular: Denies chest pain and Denies dyspnea Respiratory: Respiratory: Denies cough and Denies dyspnea Gastrointestinal: Gastrointestinal: Denies abdominal pain and Denies nausea Genitourinary: Genitourinary: Denies hematuria Musculoskeletal: Musculoskeletal: Denies back pain, Denies deformity and Denies numbness Integumentary/Breasts: Skin/Breast: Denies rash and Denies wounds Neurologic: Denies dizziness, Denies syncope, Denies headache(s), Denies focal weakness and Denies numbness Psychiatric: Psychiatric: Reports no additional psychiatric complaints Endocrine: Endocrine: Reports no additional endocrine complaints Hematologic/Lymphatic: Hematologic/Lymphatic: Reports no additional hematologic/lymphatic complaints Allergic/Immunologic: Allergic/Immunologic: Reports no additional allergic/immunologic complaints PMFSH Past Medical History Medical History Anemia bone marrow disorder has been ruled out. Managed by Dr. Wilson - normal EGD 06/01/2020 - normal colonoscopy July 2019 -attempted a colonoscopy 06/01/2020 with poor prep Arthritis Atrial fibrillation CAD (coronary artery disease) (Unknown) Hx of CABG COPD (chronic obstructive pulmonary disease) Diabetes mellitus Esophageal dysmotility On imaging 05/13/2020 on Metoclopramide Essential hypertension Vitamin B12 deficiency with recent levels within normal limits in April Surgical History Surgical History History of maze procedure bilateral thoracenteses with Maze procedure History of right hip replacement History of shoulder surgery bilateral Hx of CABG 4 vessel CABG 2007 Status post cataract extraction of both eyes with insertion of intraocular lens Family History Family History Father Lung cancer Mother TIA (transient ischem
== END 2021-03-31 12:05 | disposition home or self-care (01) ==
PROVIDERS: Emergency Provider Emergency Medicine; PCP Internal Medicine
DX: S01.81XA Laceration without foreign body of other part of head, initial encounter (principal); S51.811A Laceration without foreign body of right forearm, initial encounter; Z23 Encounter for immunization; I48.91 Unspecified atrial fibrillation; I25.10 Atherosclerotic heart disease of native coronary artery without angina pectoris; E11.9 Type 2 diabetes mellitus without complications; I10 Essential (primary) hypertension; D64.9 Anemia, unspecified; M19.90 Unspecified osteoarthritis, unspecified site; E53.8 Deficiency of other specified B group vitamins; Z96.641 Presence of right artificial hip joint; Z95.1 Presence of aortocoronary bypass graft; Z98.42 Cataract extraction status, left eye; Z98.41 Cataract extraction status, right eye; Z87.891 Personal history of nicotine dependence; Z79.01 Long term (current) use of anticoagulants; Z79.84 Long term (current) use of oral hypoglycemic drugs; M47.812 Spondylosis without myelopathy or radiculopathy, cervical region; W10.1XXA Fall (on)(from) sidewalk curb, initial encounter
CPT/HCPCS: 70450; 72125; 90471; 90715; 99284

== ENCOUNTER 2021-04-03 19:24 | Emergency (ER) | payer MEDICARE, SELFPAY ==
[2021-04-03 20:35] VITALS: BP 142/50; PULSE 61; RESP 18; TEMP 36.6; O2SAT 99
[2021-04-03 21:02] VITALS: BP 142/60; PULSE 60; RESP 18; TEMP 36.6; O2SAT 99
--- NOTE | 2021-04-03 21:13 | ED.WOUNDLAC ---
HPI - Wound/Laceration General Chief Complaint: Wound/Laceration Stated Complaint: wound check Time Seen by Provider: 04/03/21 21:13 Source: patient Mode of arrival: ambulatory Limitations: no limitations History of Present Illness HPI narrative: Patient is an 85-year-old male who presents for evaluation of a wound check to his right arm as well as redness of his right eye. Patient had a ground-level fall approximately 5/7 and was seen in this emergency department with Steri-Strips placed, wound care instructions. Patient tonight has had some increasing redness in his right eye without vision changes or pain. No recurrent falls. No recurrent head trauma. No pain behind the orbit or in the head. No neck pain. Patient denies arm pain. Patient's family was concerned the wound might not be well healing and wanted it to be checked. Patient denies redness, purulent discharge, fever. No pain. Patient has been applying dressings but sometimes when the dressings are removed there is some slight bleeding. No primary care physician follow-up is currently established at this point for 2 to 3 months per family. Related Data Home Medications Medication Instructions Recorded Confirmed Trelegy Ellipta 1 inh INHALATION DAILY 07/22/20 10/21/20 metoclopramide HCl 5 mg PO TID 08/23/20 10/21/20 Restasis 1 drp OPHTHALMIC (EYE) Q12H 09/20/20 10/21/20 albuterol sulfate [Ventolin HFA] 2 puff INHALATION TID PRN 09/20/20 10/21/20 mecobalamin (vitamin B12) 1,000 mcg PO DAILY 09/20/20 10/21/20 multivitamin 1 tablet PO DAILY 09/20/20 10/21/20 olopatadine 1 drp OPHTHALMIC (EYE) DAILY 09/20/20 10/21/20 sennosides-docusate sodium 1 tab PO DAILY PRN 09/20/20 10/21/20 [Senokot-S] simvastatin 20 mg PO HS 09/20/20 10/21/20 ferrous sulfate 1 mg PO TID 10/17/20 10/21/20 irbesartan-hydrochlorothiazide 0.5 tablet PO DAILY 10/17/20 10/21/20 tolterodine [Detrol] 1 mg PO HS 10/17/20 10/21/20 Allergies Allergy/AdvReac Type Severity Reaction Status Date / Time amiodarone Allergy Unknown Other Verified 03/31/21 08:40 iodine Allergy Unknown Hives Verified 03/31/21 08:40 Review of Systems Review of Systems: Narrative: CONSTITUTIONAL: Denies fever, chills, or sweats. EYES: Denies visual changes, reports redness of the right eye, denies eye discharge ENT: Denies rhinorrhea, congestion, sore throat, or otalgia. CARDIOVASCULAR: Denies chest pain, palpitations, or edema. RESPIRATORY: Denies cough or dyspnea. GASTROINTESTINAL: Denies abdominal pain, nausea, vomiting, or diarrhea. GENITOURINARY: Denies dysuria or hematuria. SKIN: Denies rash or itching. Reports skin tear to right arm. MUSCULOSKELETAL: Denies back pain, joint pain, or myalgia. NEUROLOGIC: Denies headache, numbness, or weakness. [facility] Past Medical History Medical History Anemia bone marrow disorder has been ruled out. Managed by Dr. Wilson - normal EGD 06/01/2020 - normal colonoscopy July 2019 -attempted a colonoscopy 06/01/2020 with poor prep Arthritis Atrial fibrillation CAD (coronary artery disease) (Unknown) Hx of CABG COPD (chronic obstructive pulmonary disease) Diabetes mellitus Esophageal dysmotility On imaging 05/13/2020 on Metoclopramide Essential hypertension Vitamin B12 deficiency with recent levels within normal limits in April Surgical History Surgical History History of maze procedure bilateral thoracenteses with Maze procedure History of right hip replacement History of shoulder surgery bilateral Hx of CABG 4 vessel CABG 2007 Status post cataract extraction of both eyes with insertion of intraocular lens Family History Family History Father Lung cancer Mother TIA (transient ischemic attack) Hypertension CHF (congestive heart failure) Sibling CHF (congestive heart failure) Hypertension
== END 2021-04-03 22:22 | disposition home or self-care (01) ==
PROVIDERS: Emergency Provider Emergency Medicine; PCP Internal Medicine
DX: S51.801D Unspecified open wound of right forearm, subsequent encounter (principal); H11.31 Conjunctival hemorrhage, right eye; I48.91 Unspecified atrial fibrillation; E11.9 Type 2 diabetes mellitus without complications; I25.10 Atherosclerotic heart disease of native coronary artery without angina pectoris; J44.9 Chronic obstructive pulmonary disease, unspecified; I10 Essential (primary) hypertension; M19.90 Unspecified osteoarthritis, unspecified site; E53.8 Deficiency of other specified B group vitamins; Z95.1 Presence of aortocoronary bypass graft; Z79.01 Long term (current) use of anticoagulants; Z79.84 Long term (current) use of oral hypoglycemic drugs; Z87.891 Personal history of nicotine dependence; W19.XXXD Unspecified fall, subsequent encounter
CPT/HCPCS: 99281

== ENCOUNTER 2021-08-04 09:30 | Outpatient (RCR) | payer MEDICARE, SELFPAY ==
[2021-04-06 12:18] VITALS: BP 142/50; PULSE 50; RESP 20; TEMP 36.9; O2SAT 98
[2021-04-06 12:21] VITALS: PULSE 50
== END 2021-08-04 23:59 | disposition home or self-care (01) ==
LOC: ANHCPREHAB 09:30
PROVIDERS: PCP Internal Medicine; Visit Provider Internal Medicine Pulmonary Disease
DX: J44.9 Chronic obstructive pulmonary disease, unspecified (principal)
CPT/HCPCS: 97150; G0424

== ENCOUNTER 2021-08-11 09:30 | Outpatient (RCR) | payer MEDICARE, SELFPAY | END 2021-08-11 14:14 | disposition home or self-care (01) | LOC: ANHCPREHAB 09:30 | PROVIDERS: PCP Internal Medicine; Visit Provider Internal Medicine Pulmonary Disease | DX: J44.9 Chronic obstructive pulmonary disease, unspecified (principal) | CPT/HCPCS: 97150; G0424 ==

== ENCOUNTER 2021-08-17 08:02 | Outpatient (CLI) | payer MEDICARE, SELFPAY ==
--- NOTE | 2021-08-17 12:25 | WPDSIXMINUTE ---
Six Minute Walk Procedure Procedure Performed Pulmonary Stress Test (6 min walk) Six Minute Walk This is a 6 minute walk test. The test was performed and interpreted in accordance with the 2014 ERS/ATS task force guidelines. Findings: The patient's resting room air oxygen saturation measured by pulse oximetry was 96% and her heart rate was 73 bpm. Patient ambulated for 335 meters and oxygen saturation remained 92 to 96%. Heart rate at the end of the study was 87 bpm. The patient did not qualify for supplemental oxygen at rest or with ambulation. There are no prior studies for comparison.
== END 2021-08-17 08:03 | disposition home or self-care (01) ==
LOC: ANHPFT 08:07
PROVIDERS: PCP Internal Medicine; Visit Provider Internal Medicine Pulmonary Disease
DX: J44.9 Chronic obstructive pulmonary disease, unspecified (principal)
CPT/HCPCS: 94618

== ENCOUNTER 2022-01-23 07:44 | Outpatient (CLI) | payer MEDICARE, SELFPAY ==
[2022-01-23 08:23] LABS: Alanine Aminotransferase 16 U/L (4-50); Albumin Level 4.1 g/dL (3.5-5.1); Alkaline Phosphatase 128 U/L (38-126); Aspartate Amino Transferase 23 U/L (17-59); Bilirubin,Total 0.2 mg/dL (0.2-1.3); Cholesterol 143 mg/dL (0-200); HDL Direct 46 mg/dL; Triglycerides 134 mg/dL (<150)
[2022-01-23 08:34] LABS: LDL Cholesterol Direct 56 mg/dL
== END 2022-01-23 07:45 | disposition home or self-care (01) ==
LOC: ANHLAB 07:47
PROVIDERS: PCP Internal Medicine; Referring Provider Internal Medicine Medical Oncology; Visit Provider Internal Medicine Cardiovascular Disease
DX: I48.21 Permanent atrial fibrillation (principal); I25.10 Atherosclerotic heart disease of native coronary artery without angina pectoris; I10 Essential (primary) hypertension; E78.2 Mixed hyperlipidemia
CPT/HCPCS: 36415; 80061; 80076

== ENCOUNTER 2022-02-11 09:19 | Emergency (ER) | payer MEDICARE, SELFPAY ==
[2022-02-11 09:22] VITALS: BP 131/79; PULSE 77; RESP 18; TEMP 36.6; O2SAT 99
--- NOTE | 2022-02-11 09:53 | ED.EAR ---
HPI - Ear Problem General Chief complaint: Ear Stated complaint: clogged ears Time Seen by Provider: 02/11/22 09:32 Source: patient and family Mode of arrival: ambulatory Limitations: no limitations History of Present Illness HPI Narrative: Patient is 86 years old white male presented to the ED with bilateral ear blocking-like feeling in the last few days. Patient denies any fever, chills, nausea, vomiting, headache. Related Data Home Medications Medication Instructions Recorded Confirmed Trelegy Ellipta 1 inh INHALATION DAILY 07/22/20 10/21/20 metoclopramide HCl 5 mg PO TID 08/23/20 10/21/20 Restasis 1 drp OPHTHALMIC (EYE) Q12H 09/20/20 10/21/20 albuterol sulfate [Ventolin HFA] 2 puff INHALATION TID PRN 09/20/20 10/21/20 mecobalamin (vitamin B12) 1,000 mcg PO DAILY 09/20/20 10/21/20 multivitamin 1 tablet PO DAILY 09/20/20 10/21/20 olopatadine 1 drp OPHTHALMIC (EYE) DAILY 09/20/20 10/21/20 sennosides-docusate sodium 1 tab PO DAILY PRN 09/20/20 10/21/20 [Senokot-S] simvastatin 20 mg PO HS 09/20/20 10/21/20 ferrous sulfate 1 mg PO TID 10/17/20 10/21/20 irbesartan-hydrochlorothiazide 0.5 tablet PO DAILY 10/17/20 10/21/20 tolterodine [Detrol] 1 mg PO HS 10/17/20 10/21/20 apixaban [Eliquis] 2.5 mg PO BID 04/06/21 04/06/21 Allergies Allergy/AdvReac Type Severity Reaction Status Date / Time amiodarone Allergy Unknown Other Verified 03/31/21 08:40 iodine Allergy Unknown Hives Verified 03/31/21 08:40 Review of Systems Review of Systems: CONSTITUTIONAL: Denies fever, chills, or sweats. EYES: Denies visual changes, redness, or discharge. ENT: Denies rhinorrhea, congestion, sore throat, or otalgia. CARDIOVASCULAR: Denies chest pain, palpitations, or edema. RESPIRATORY: Denies cough or dyspnea. GASTROINTESTINAL: Denies abdominal pain, nausea, vomiting, or diarrhea. GENITOURINARY: Denies dysuria or hematuria. SKIN: Denies rash or itching. MUSCULOSKELETAL: Denies back pain, joint pain, or myalgia. NEUROLOGIC: Denies headache, numbness, or weakness. PSYCHIATRIC: Denies anxiety or depression. [facility] Past Medical History Medical History Anemia bone marrow disorder has been ruled out. Managed by Dr. Wilson - normal EGD 06/01/2020 - normal colonoscopy July 2019 -attempted a colonoscopy 06/01/2020 with poor prep Arthritis Atrial fibrillation CAD (coronary artery disease) (Unknown) Hx of CABG COPD (chronic obstructive pulmonary disease) Diabetes mellitus Esophageal dysmotility On imaging 05/13/2020 on Metoclopramide Essential hypertension Vitamin B12 deficiency with recent levels within normal limits in April Surgical History Surgical History History of maze procedure bilateral thoracenteses with Maze procedure History of right hip replacement History of shoulder surgery bilateral Hx of CABG 4 vessel CABG 2007 Status post cataract extraction of both eyes with insertion of intraocular lens Family History Family History Father Lung cancer Mother CHF (congestive heart failure) TIA (transient ischemic attack) Hypertension Sibling CHF (congestive heart failure) Hypertension Diabetes mellitus Social History Social History Social History: Primary care physician: Dr. Potts [place] Code status: Full code Smoking packs per day: 1.5 Smoking cigarettes per day: 30.0 Years smoked: 44 Smoking pack-years: 66.00 Smoking status: Former smoker Tobacco type: cigarettes Second hand tobacco smoke exposure: Yes Smoking end date: 11/25/94 Alcohol intake: current Drinks per week: 1 Alcohol use details: He drinks about a 12 pack of beer a week. Substance use: never Substance use type: does not use Additional living arrangements comments: He lives with his , of 57 years, i
== END 2022-02-11 10:10 | disposition home or self-care (01) ==
PROVIDERS: Emergency Provider Emergency Medicine; PCP Internal Medicine
DX: H61.23 Impacted cerumen, bilateral (principal); I48.91 Unspecified atrial fibrillation; I25.10 Atherosclerotic heart disease of native coronary artery without angina pectoris; J44.9 Chronic obstructive pulmonary disease, unspecified; E11.9 Type 2 diabetes mellitus without complications; I10 Essential (primary) hypertension; D64.9 Anemia, unspecified; E53.8 Deficiency of other specified B group vitamins; Z95.1 Presence of aortocoronary bypass graft; Z96.641 Presence of right artificial hip joint; Z98.42 Cataract extraction status, left eye; Z98.41 Cataract extraction status, right eye; Z96.1 Presence of intraocular lens; Z79.01 Long term (current) use of anticoagulants; Z87.891 Personal history of nicotine dependence
CPT/HCPCS: 69209; 99283

== ENCOUNTER 2022-05-17 07:44 | Outpatient (CLI) | payer MEDICARE, SELFPAY ==
[2022-05-17 09:33] LABS: Basophils Absolute Auto 0.1 K/mm3 (0.0-0.1); Basophils Percent Auto 0.9 % (0.2-1.2); Eosinophils Absolute Auto 0.5 K/mm3 (0-0.3); Eosinophils Percent Auto 4.8 % (0-4.4); Hemoglobin 10.3 g/dL (14.0-18.0); Immature Granulocyte Absolute 0.07 K/mm3 (0.00-0.031); Immature Granulocyte Percent A 0.7 % (0-0.5); Lymphocytes Absolute Auto 1.08 K/mm3 (0.9-3.2); Lymphocytes Percent Auto 10.9 % (18.3-44.2); Mean Corpuscular HGB Conc 31.2 g/dl (32-36); Mean Corpuscular Hemoglobin 26.3 pg (26-34); Mean Corpuscular Volume 84.4 fl (80-100); Mean Platelet Volume 10.9 fl (7.4-10.4); Monocytes Absolute Auto 0.8 K/mm3 (0.1-0.6); Monocytes Percent Auto 8.1 % (2.6-8.5); Neutrophils Absolute Auto 7.4 K/mm3 (1.3-6.7); Neutrophils Percent Auto 74.6 % (45.5-73.1); Platelet Count Result 222 k/mm3 (150-375); Red Blood Count 3.91 M/mm3 (4.6-6.20); Red Cell Distribution Width 13.3 % (11.5-14.5); White Blood Count 9.9 K/mm3 (4.5-10.0)
[2022-05-17 09:46] LABS: Alanine Aminotransferase 12 U/L (6-50); Albumin Level 4.3 g/dL (3.5-5.1); Alkaline Phosphatase 116 U/L (38-126); Aspartate Amino Transferase 20 U/L (17-59); Bilirubin,Total 0.3 mg/dL (0.2-1.3)
== END 2022-05-17 07:45 | disposition home or self-care (01) ==
PROVIDERS: PCP Internal Medicine; Referring Provider Internal Medicine Cardiovascular Disease; Visit Provider Internal Medicine Medical Oncology
DX: D50.0 Iron deficiency anemia secondary to blood loss (chronic) (principal)
CPT/HCPCS: 36415; 80076; 85025

== ENCOUNTER → 2022-06-15 12:44 | Outpatient (CLI) | payer MEDICARE, SELFPAY ==
--- NOTE | ~2022-06-15 | US_ITS ---
EXAMINATION: US soft tissue UE RT DATE: 06/15/2022 13:39 INDICATION: Right upper limb lump. TECHNIQUE: Multiple grayscale and Doppler ultrasound images of the right upper limb were obtained. COMPARISON: None FINDINGS: The lump in right upper limb correlates with the biceps muscle with a balled-up appearance. IMPRESSION: 1. The lump in right upper limb correlates with the biceps muscle with a balled-up appearance suspici ous for biceps tendon tear. Proximal tendon tear is more common than distal tendon tear at this age. Reviewed, dictated and finalized at location A. IMPRESSION: 1. The lump in right upper limb correlates with the biceps muscle with a balled -up appearance suspicious for biceps tendon tear. Proximal tendon tear is more common than distal tendon tear at this age.
== END ==
PROVIDERS: PCP Internal Medicine; Visit Provider Internal Medicine
DX: R22.31 Localized swelling, mass and lump, right upper limb (principal)
CPT/HCPCS: 76882

== ENCOUNTER 2022-10-12 06:08 | Emergency (ER) | payer MEDICARE, SELFPAY ==
[2022-10-12] VITALS (15 sets, daily range): BP systolic 122–150; BP diastolic 47–88; PULSE 59–89; RESP 16–24; TEMP 36.9; O2SAT 94–96
--- NOTE | ~2022-10-12 | XR_ITS ---
EXAMINATION: XR chest 2V DATE: 10/12/2022 07:18 INDICATION: Shortness of breath. TECHNIQUE: Frontal and lateral views of the chest were obtained. COMPARISON: Chest 2 views 09/28/2020, CT abdomen and pelvis 10/17/2020 FINDINGS: There are airspace opacities in the mid and lower lung zones. There are small pleural effus ions versus pleural thickening. No pneumothorax. Cardiomegaly is noted. Median sternotomy wires and m ediastinal surgical clips are seen, likely from prior coronary artery bypass grafting. There are old healed bilateral rib fractures. IMPRESSION: 1. Airspace opacities in the mid and lower lung zones with worsening on the right, consistent with at electasis/scarring versus pneumonia. 2. Stable small pleural effusions versus pleural thickening. 3. Cardiomegaly. Reviewed, dictated and finalized at location A. ESS LEAD IMPRESSION: 1. Airspace opacities in the mid and lower lung zones with worsening on the rig ht, consistent with atelectasis/scarring versus pneumonia. 2. Stable small pleural effusions versus pleural thickening. 3. Cardiomegaly.
--- NOTE | 2022-10-12 06:15 | ECG_ITS ---
Measurements Intervals [place] Rate: 73 P: [place]: 0 QRS: -59 QRSD: 114 T: 110 QT: 403 QTc: 445 Interpretive Statements ATRIAL FIBRILLATION INCOMPLETE LEFT BUNDLE BRANCH BLOCK LEFT ANTERIOR FASCICULAR BLOCK ST-T WAVE ABNORMALITY IN HIGH LATERAL LEADS- CONSIDER ISCHEMIA BASELINE ARTIFACT- V5 ABNORMAL ECG COMPARED TO ECG 09/28/2020 17:14:02 ST-T WAVE ABNORMALITY IN HIGH LATERAL LEADS- CONSIDER ISCHEMIA NOW PRESENT Electronically Signed On 10-12-2022 6:35:08 TABLE KEEPER by Curt Avila D.O.
[2022-10-12 06:34] LABS: Basophils Absolute Auto 0.1 K/mm3 (0.0-0.1); Basophils Percent Auto 0.7 % (0.2-1.2); Eosinophils Absolute Auto 0.3 K/mm3 (0-0.3); Hematocrit 28.6 % (42.0-52.0); Hemoglobin 9.4 g/dL (14.0-18.0); Immature Granulocyte Absolute 0.05 K/mm3 (0.00-0.031); Immature Granulocyte Percent A 0.5 % (0-0.5); Lymphocytes Absolute Auto 1.12 K/mm3 (0.9-3.2); Lymphocytes Percent Auto 10.6 % (18.3-44.2); Mean Corpuscular HGB Conc 32.9 g/dl (32-36); Mean Corpuscular Hemoglobin 26.8 pg (26-34); Mean Corpuscular Volume 81.5 fl (80-100); Mean Platelet Volume 9.9 fl (7.4-10.4); Neutrophils Absolute Auto 8.1 K/mm3 (1.3-6.7); Neutrophils Percent Auto 76.2 % (45.5-73.1); Platelet Count Result 214 k/mm3 (150-375); Red Blood Count 3.51 M/mm3 (4.6-6.20); Red Cell Distribution Width 13.2 % (11.5-14.5); White Blood Count 10.6 K/mm3 (4.5-10.0)
[2022-10-12 06:53] LABS: Alanine Aminotransferase 18 U/L (6-50); Alkaline Phosphatase 141 U/L (38-126); Anion Gap 14 mmol/L (8-16); Aspartate Amino Transferase 24 U/L (17-59); Bilirubin,Total 0.4 mg/dL (0.2-1.3); Blood Urea Nitrogen 10 mg/dL (9-20); Calcium 8.6 mg/dL (8.4-10.2); Carbon Dioxide 21 mmol/L (22-30); Chloride 101 mmol/L (98-107); Estimated CRCL calculation 74 ml/min; Estimated Glomerular Filt Rate > 60; Glucose 145 mg/dL (65-110); Potassium 3.7 mmol/L (3.4-5.0); Sodium 136 mmol/L (137-145)
--- NOTE | 2022-10-12 07:10 | PC.NURSE ---
report from medical receptionist. pt en route to radiology.
--- NOTE | 2022-10-12 07:11 | PC.NURSE ---
Report given to Macie SINGLETON
--- NOTE | 2022-10-12 07:58 | ED.GENADULT ---
HPI - General Adult General Chief complaint: Shortness of Breath/Dyspnea Stated complaint: SOB Time Seen by Provider: 10/12/22 07:04 History of Present Illness HPI narrative: 87-year-old male presenting to the emergency department for evaluation of worsening exertional fatigue and shortness of breath. Family states over the course of the last few days he has had worsening fatigue. Patient states last night he was walking to the bathroom and had worsening shortness of breath. Patient states he had to stop rest and took approximately 5 minutes to recover. Patient denies any associated chest pain with this. Patient did have a fall on Saturday where he was lowered to the ground. Patient denies any pain or injury from that. Past medical history of COPD, atrial fibrillation, diabetes, coronary disease, hypertension. Related Data Home Medications Medication Instructions Recorded Confirmed fluticasone fur. 100 mcg-umeclid 1 inh inhalation DAILY 07/22/20 10/21/20 62.5 mcg-vilant 25 mcg inhalat.powder (Trelegy Ellipta) metoclopramide HCl 5 mg tablet 5 mg PO TID 08/23/20 10/21/20 albuterol sulfate 90 mcg/actuation 2 puff inhalation TID PRN 09/20/20 10/21/20 aerosol inhaler (Ventolin HFA) Shortness Of Breath cyclosporine 0.05 % eye drops in a 1 drp ophthalmic (eye) Q12H 09/20/20 10/21/20 dropperette (Restasis) mecobalamin (vitamin B12) 1,000 1,000 mcg PO DAILY 09/20/20 10/21/20 mcg chewable tablet multivitamin 1 tablet PO DAILY 09/20/20 10/21/20 olopatadine 0.2 % eye drops 1 drp ophthalmic (eye) DAILY 09/20/20 10/21/20 sennosides 8.6 mg-docusate sodium 1 tab PO DAILY PRN Constipation 09/20/20 10/21/20 50 mg tablet (Senokot-S) simvastatin 10 mg tablet 20 mg PO HS 09/20/20 10/21/20 ferrous sulfate 325 mg (65 mg 1 mg PO TID 10/17/20 10/21/20 iron) tablet irbesartan 300 0.5 tablet PO DAILY 10/17/20 10/21/20 mg-hydrochlorothiazide 12.5 mg tablet tolterodine 1 mg tablet (Detrol) 1 mg PO HS 10/17/20 10/21/20 apixaban 2.5 mg tablet (Eliquis) 2.5 mg PO BID 04/06/21 04/06/21 Allergies Allergy/AdvReac Type Severity Reaction Status Date / Time amiodarone Allergy Unknown Other Verified 03/31/21 08:40 iodine Allergy Unknown Hives Verified 03/31/21 08:40 Review of Systems Review of Systems: CONSTITUTIONAL: Exertional fatigue EYES: Denies visual changes, redness, or discharge. ENT: Denies rhinorrhea, congestion, sore throat, or otalgia. CARDIOVASCULAR: Denies chest pain, palpitations, or edema. RESPIRATORY: Denies cough or dyspnea. GASTROINTESTINAL: Denies abdominal pain, nausea, vomiting, or diarrhea. GENITOURINARY: Denies dysuria or hematuria. SKIN: Denies rash or itching. MUSCULOSKELETAL: Denies back pain, joint pain, or myalgia. NEUROLOGIC: Denies headache, numbness, or weakness. COUNTS INCLUDE 234 BEDS AT THE [facility] Past Medical History Medical History Anemia bone marrow disorder has been ruled out. Managed by Dr. Wilson - normal EGD 06/01/2020 - normal colonoscopy July 2019 -attempted a colonoscopy 06/01/2020 with poor prep Arthritis Atrial fibrillation CAD (coronary artery disease) (Unknown) Hx of CABG COPD (chronic obstructive pulmonary disease) Diabetes mellitus Esophageal dysmotility On imaging 05/13/2020 on Metoclopramide Essential hypertension Vitamin B12 deficiency with recent levels within normal limits in April Surgical History Surgical History History of maze procedure bilateral thoracenteses with Maze procedure History of right hip replacement History of shoulder surgery bilateral Hx of CABG 4 vessel CABG 2007 Status post cataract extraction of both eyes with insertion of intraocular lens Family History Family History Father Lung cancer Mother CHF (congestive heart failure) TIA (transient ischemic attack) Hypertension Sibling CHF (congestive hear
[2022-10-12 08:17] LABS: Influenza A QL RT-PCR Negative (Negative); Influenza B QL RT-PCR Negative (Negative); SARS-CoV-2 RNA PCR Negative
--- NOTE | 2022-10-12 08:30 | PC.NURSE ---
all results back. pt resting on stretcher. pulse ox 94 % room air. no resp distress noted. waiting further orders
[2022-10-12 08:45] LABS: NT Pro B Type Natriuretic Pept 524 pg/mL (5-100)
--- NOTE | 2022-10-12 11:50 | PC.NURSE ---
upon entering the room to discharge pt. asking if the dr is going to tell them anything.
== END 2022-10-12 12:45 | disposition home or self-care (01) ==
PROVIDERS: Emergency Medicine; Emergency Provider Emergency Medicine; PCP Internal Medicine
DX: J18.9 Pneumonia, unspecified organism (principal); R06.00 Dyspnea, unspecified; J44.9 Chronic obstructive pulmonary disease, unspecified; I48.91 Unspecified atrial fibrillation; I25.10 Atherosclerotic heart disease of native coronary artery without angina pectoris; E11.9 Type 2 diabetes mellitus without complications; I10 Essential (primary) hypertension; Z87.891 Personal history of nicotine dependence; Z20.822 Contact with and (suspected) exposure to COVID-19
CPT/HCPCS: 36415; 71046; 80053; 83880; 85025; 87636; 93005; 99283

== ENCOUNTER 2022-11-06 14:56 | Inpatient (IN) | payer MEDICARE, SELFPAY ==
[2022-11-06] VITALS (8 sets, daily range): BP systolic 112–155; BP diastolic 38–72; PULSE 70–91; RESP 16–23; TEMP 36.6–37; O2SAT 94–98; BMI 25.2
--- NOTE | ~2022-11-06 | XR_ITS ---
EXAM: XR lumbar spine min 4V DATE: 11/06/2022 16:43 HISTORY: fall with injury . COMPARISON: CT abdomen and pelvis 10/17/2020. FINDINGS: Partially visualized right hip arthroplasty. Osteopenia. 5 nonrib-bearing lumbar-type verte bral bodies. Pedicles intact. Normal vertebral body alignment. Vertebral body heights preserved. Mult ilevel disc space narrowing and marginal osteophytosis. Multilevel facet sclerosis and hypertrophy. N o pars defect detected. No fracture or dislocation. Calcified abdominal aorta without aneurysm. IMPRESSION: No acute fracture or traumatic malalignment detected in the lumbar spine. Reviewed, dictated and finalized at location K. FILLER
--- NOTE | ~2022-11-06 | XR_ITS ---
EXAMINATION: XR chest 2V Exam Date/Time: 11/06/2022 18:40 MANAGER OF PROJECT MANAGEMENT HISTORY: SOB, COPD Comparison: 10/12/2022. RESULT: Lines, tubes, and devices: Intact sternotomy wires. Lungs and pleura: Somewhat improved patchy bilateral mid and lower lung airspace disease overlying m ore diffuse reticulonodular opacities. Stable diaphragm flattening and mild bilateral costophrenic an gle blunting. Cardiomediastinal silhouette: Stable. Other: No acute osseous or upper abdominal finding. IMPRESSION: Persistent, somewhat improved bilateral mid and lower lung airspace disease may reflect resolving or recurrent infection. Chronic senescent/bronchiolitic changes. Bilateral pleural parenchymal scar vers us small effusions. Reviewed, dictated and finalized at location K. GER OF PROJECT MANAGEMENT IMPRESSION: Persistent, somewhat improved bilateral mid and lower lung airspace disease may reflect resolving or recurrent infection. Chronic senescent/bronchiolitic nolan ges. Bilateral pleural parenchymal scar versus small effusions.
--- NOTE | ~2022-11-06 | XR_ITS ---
EXAM: XR thoracic spine 3V DATE: 11/06/2022 16:43 HISTORY: fall with injury . COMPARISON: X-ray chest 10/12/2022. FINDINGS: Intact sternotomy wires. Additional vascular clips. Senescent changes in the lungs. Promine nt right medial fat pad. Vertebral body alignment intact. Vertebral body heights preserved. Multileve l degenerative disc disease including bridging anterior osteophytes. No traumatic malalignment or fra cture. IMPRESSION: No acute fracture or traumatic malalignment detected in the thoracic spine. Reviewed, dictated and finalized at location K. LE DATA WAREHOUSE DEVELOPER IMPRESSION: No acute fracture or traumatic malalignment detected in the thoraci c spine.
--- NOTE | ~2022-11-06 | XR_ITS ---
EXAMINATION: XR humerus LT DATE: 11/06/2022 16:43 INDICATION: Left upper arm injury post fall TECHNIQUE: AP and lateral views of the left humerus were obtained. COMPARISON: None. FINDINGS: Bone alignment is normal. No fracture. Mild polyarticular osteoarthritis at the left elbow, glenohume ral and acromioclavicular joints. No left elbow joint effusion. Soft tissues are unremarkable. Minima l atelectasis at the left costophrenic angle. IMPRESSION: 1. 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 No acute osseous abnormality. Reviewed, dictated and finalized at location A. UTIVE LEGAL SECRETARY IMPRESSION: 1. 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 No acute o sseous abnormality.
--- NOTE | 2022-11-06 18:02 | ED.GENADULT ---
HPI - General Adult General Chief complaint: Fall <Juan Perkins MD - Last Filed: 11/06/22 19:25> Stated complaint: fall with left arm pain and tailbone pain <Juan Perkins MD - Last Filed: 11/06/22 19:25> Time Seen by Provider: 11/06/22 17:53 <Juan Perkins MD - Last Filed: 11/06/22 19:25> History of Present Illness HPI narrative: 87-year-old presenting to the emergency department for evaluation after having a ground-level fall. Patient states he had a mechanical fall as he was attempting to get in the front door. The door he fell backwards. Patient did not strike his head did not have any loss of consciousness. Patient did injure his left arm and did have pain in his lower back. At this time patient's only complaint is left arm pain states that the patient has had increased mobility issues but does not yet use a walker. states that she does have a walker available for him. <Juan Perkins MD - Last Filed: 11/06/22 19:25> Related Data Home medications: Home Medications Medication Instructions Recorded Confirmed fluticasone fur. 100 mcg-umeclid 1 inh inhalation DAILY 07/22/20 10/21/20 62.5 mcg-vilant 25 mcg inhalat.powder (Trelegy Ellipta) metoclopramide HCl 5 mg tablet 5 mg PO TID 08/23/20 10/21/20 albuterol sulfate 90 mcg/actuation 2 puff inhalation TID PRN 09/20/20 10/21/20 aerosol inhaler (Ventolin HFA) Shortness Of Breath cyclosporine 0.05 % eye drops in a 1 drp ophthalmic (eye) Q12H 09/20/20 10/21/20 dropperette (Restasis) mecobalamin (vitamin B12) 1,000 1,000 mcg PO DAILY 09/20/20 10/21/20 mcg chewable tablet multivitamin 1 tablet PO DAILY 09/20/20 10/21/20 olopatadine 0.2 % eye drops 1 drp ophthalmic (eye) DAILY 09/20/20 10/21/20 sennosides 8.6 mg-docusate sodium 1 tab PO DAILY PRN Constipation 09/20/20 10/21/20 50 mg tablet (Senokot-S) simvastatin 10 mg tablet 20 mg PO HS 09/20/20 10/21/20 ferrous sulfate 325 mg (65 mg 1 mg PO TID 10/17/20 10/21/20 iron) tablet irbesartan 300 0.5 tablet PO DAILY 10/17/20 10/21/20 mg-hydrochlorothiazide 12.5 mg tablet tolterodine 1 mg tablet (Detrol) 1 mg PO HS 10/17/20 10/21/20 apixaban 2.5 mg tablet (Eliquis) 2.5 mg PO BID 04/06/21 04/06/21 <Juan Perkins MD - Last Filed: 11/06/22 19:25> Allergies/adverse reactions: Allergies Allergy/AdvReac Type Severity Reaction Status Date / Time amiodarone Allergy Unknown Other Verified 11/06/22 14:57 iodine Allergy Unknown Hives Verified 11/06/22 14:57 <Juan Perkins MD - Last Filed: 11/06/22 19:25> Review of Systems Review of Systems: CONSTITUTIONAL: Denies fever, chills, or sweats. EYES: Denies visual changes, redness, or discharge. ENT: Denies rhinorrhea, congestion, sore throat, or otalgia. CARDIOVASCULAR: Denies chest pain, palpitations, or edema. RESPIRATORY: Denies cough or dyspnea. GASTROINTESTINAL: Denies abdominal pain, nausea, vomiting, or diarrhea. GENITOURINARY: Denies dysuria or hematuria. SKIN: Denies rash or itching. MUSCULOSKELETAL: See HPI NEUROLOGIC: Denies headache, numbness, or weakness. PSYCHIATRIC: Denies anxiety or depression. <Juan Perkins MD - Last Filed: 11/06/22 19:25> [facility] Past Medical History Medical History: Medical History Anemia bone marrow disorder has been ruled out. Managed by Dr. Wilson - normal EGD 06/01/2020 - normal colonoscopy July 2019 -attempted a colonoscopy 06/01/2020 with poor prep Arthritis Atrial fibrillation CAD (coronary artery disease) (Unknown) Hx of CABG COPD (chronic obstructive pulmonary disease) Diabetes mellitus Esophageal dysmotility On imaging 05/13/2020 on Metoclopramide Essential hypertension Vitamin B12 deficiency with recent levels within normal limits in April <Juan Perkins MD - Last Filed: 11/06/22 19:25> Surgical History Surgical History: Surgical History (Reviewed 02/11/22 @ 09
--- NOTE | 2022-11-06 18:22 | ECG_ITS ---
Measurements Intervals [place] Rate: 84 P: NH: 0 QRS: -54 QRSD: 126 T: 111 QT: 397 QTc: 470 Interpretive Statements ATRIAL FIBRILLATION LEFT ANTERIOR FASCICULAR BLOCK [QRS AXIS <= -45, QR IN I, RS IN II] ST DEVIATION AND MODERATE T-WAVE ABNORMALITY, CONSIDER LATERAL ISCHEMIA [-0.1+ mV T WAVE IN I/aVL/V5/V6] COMPARED TO ECG 10/12/2022 06:20:39 NO SIGNIFICANT CHANGES Electronically Signed On 11-07-2022 13:17:17 DISEASE AND INSECT CONTROL BOSS by Krissy Rudd M.D.
--- NOTE | 2022-11-06 18:30 | PC.NURSE ---
pt ambulatory with walker. noted to have increased sob. had to stop 4 times during ambulation for pt to catch breath. pt shaky. states was good this morning and not sure what happened. upon returning to room pts pulse ox 89%. dr. campuzano notified and plans of care discussed with pt and .
[2022-11-06 19:22] LABS: Basophils Absolute Auto 0.1 K/mm3 (0.0-0.1); Basophils Percent Auto 0.7 % (0.2-1.2); Eosinophils Absolute Auto 0.1 K/mm3 (0-0.3); Eosinophils Percent Auto 0.7 % (0-4.4); Hematocrit 29.1 % (42.0-52.0); Hemoglobin 9.5 g/dL (14.0-18.0); Immature Granulocyte Absolute 0.08 K/mm3 (0.00-0.031); Immature Granulocyte Percent A 0.6 % (0-0.5); Lymphocytes Absolute Auto 0.73 K/mm3 (0.9-3.2); Lymphocytes Percent Auto 5.4 % (18.3-44.2); Mean Corpuscular HGB Conc 32.6 g/dl (32-36); Mean Corpuscular Hemoglobin 27.1 pg (26-34); Mean Corpuscular Volume 82.9 fl (80-100); Mean Platelet Volume 10.5 fl (7.4-10.4); Neutrophils Absolute Auto 11.7 K/mm3 (1.3-6.7); Neutrophils Percent Auto 85.6 % (45.5-73.1); Platelet Count Result 241 k/mm3 (150-375); Red Blood Count 3.51 M/mm3 (4.6-6.20); Red Cell Distribution Width 13.2 % (11.5-14.5); White Blood Count 13.6 K/mm3 (4.5-10.0)
[2022-11-06 19:34] LABS: Alanine Aminotransferase 21 U/L (6-50); Albumin Level 4.5 g/dL (3.5-5.1); Alkaline Phosphatase 173 U/L (38-126); Anion Gap 9 mmol/L (8-16); Aspartate Amino Transferase 26 U/L (17-59); Bilirubin,Total 0.6 mg/dL (0.2-1.3); Blood Urea Nitrogen 13 mg/dL (9-20); Calcium 9.1 mg/dL (8.4-10.2); Carbon Dioxide 21 mmol/L (22-30); Chloride 104 mmol/L (98-107); Estimated CRCL calculation 77 ml/min; Estimated Glomerular Filt Rate > 60; Glucose 132 mg/dL (65-110); Potassium 4.2 mmol/L (3.4-5.0); Sodium 134 mmol/L (137-145)
[2022-11-06 19:36] LABS: INR 1.2; Prothrombin Time 15.1 Seconds (11.1-14.7)
[2022-11-06 19:37] LABS: Ovalocytes 1+ (NORMAL); Partial Thromboplastin Time 38.5 SECONDS (22.3-36.8); Platelet Estimate Adequate (Adequate); Schistocytes None Seen (NORMAL)
[2022-11-06 19:56] LABS: Influenza A QL RT-PCR Negative (Negative); Influenza B QL RT-PCR Negative (Negative); RSV RNA, RT-PCR Negative (Negative); SARS-CoV-2 RNA PCR Negative
--- NOTE | 2022-11-06 20:01 | PM.IMHP ---
H&P: HPI History of Present Illness Date/Time: 11/06/22 20:01 Chief Complaint: Fall Narrative: This is an 87-year-old male with past medical history significant for coronary artery disease, chronic destructive pulmonary disease, type 2 diabetes mellitus, esophageal dysmotility, essential hypertension, arthritis. patient presents to the emergency room due to fall, no loss of consciousness, a friend help to get him back up. according to patient he had been in his usual state of health up until this moment he denied any dizziness, lightheadedness, syncope, near syncope, chest pain, palpitations, shortness of breath, nausea, vomiting, abdominal pain, no leg swelling. preliminary workup was significant for chest x-ray: IMPRESSION: Persistent, somewhat improved bilateral mid and lower lung airspace disease may reflect resolving or recurrent infection. Chronic senescent/bronchiolitic changes. Bilateral pleural parenchymal scar versus small effusions. thoracic spine x-ray: IMPRESSION: No acute fracture or traumatic malalignment detected in the thoracic spine. lumbar spine x-ray; IMPRESSION: No acute fracture or traumatic malalignment detected in the lumbar spine. humerus x-ray IMPRESSION: 1. 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 No acute osseous abnormality. EKG was reported as: ATRIAL FIBRILLATION LEFT ANTERIOR FASCICULAR BLOCK [QRS AXIS <= -45, QR IN I, RS IN II] ST DEVIATION AND MODERATE T-WAVE ABNORMALITY, CONSIDER LATERAL ISCHEMIA [-0.1+ mV T WAVE IN I/aVL/V5/V6] COMPARED TO ECG 10/12/2022 06:20:39 NO SIGNIFICANT CHANGES Review of Systems Review of Systems: fall Constitutional: Constitutional: Denies chills, Denies fatigue, Denies fever(s), Denies lethargy, Denies malaise, Denies night sweats, Denies poor appetite and Denies weakness Eyes: Eyes: Denies change in vision ENT: Denies dysphagia, Denies vertigo, Denies dizziness, Denies odynophagia and Denies disequilibrium Cardiovascular: Cardiovascular: Denies chest pain, Denies leg edema, Denies lightheadedness and Denies radiating jaw, neck or arm pain Respiratory: Respiratory: Denies chest congestion, Denies cough, Denies excessive phlegm production, Denies pain on inspiration, Denies dyspnea and Denies dyspnea on exertion Gastrointestinal: Gastrointestinal: Denies abdominal pain, Denies dyspepsia, Denies heartburn, Denies diarrhea, Denies nausea and Denies vomiting Genitourinary: Genitourinary: Reports no additional male genitourinary complaints and Reports as per HPI Musculoskeletal: Musculoskeletal: Reports back pain, Denies joint swelling, Denies muscle weakness and Reports neck pain Integumentary/Breasts: Skin/Breast: Denies rash Neurologic: Denies vertigo, Denies dizziness, Denies focal weakness and Denies Sensory deficit (Neuro) Psychiatric: Psychiatric: Reports no additional psychiatric complaints and Reports as per HPI Endocrine: Endocrine: Denies cold intolerance, Denies flushing, Denies heat intolerance, Denies polyphagia, Denies polydipsia and Denies palpitations Hematologic/Lymphatic: Hematologic/Lymphatic: Reports no additional hematologic/lymphatic complaints and Reports as per HPI Allergic/Immunologic: Allergic/Immunologic: Reports no additional allergic/immunologic complaints and Reports as per HPI PMFSH Past Medical History Medical History Anemia bone marrow disorder has been ruled out. Managed by Dr. Wilson - normal EGD 06/01/2020 - normal colonoscopy July 2019 -attempted a colonoscopy 06/01/2020 with poor prep Arthritis Atrial fibrillation CAD (coronary artery disease) (Unknown) Hx of CABG COPD (chronic obstructive pulmonary disease) Diabetes mellitus Esophageal dysmotility On imaging 05/13/2020 on Metoclopramide Essential hypertension Vitamin B12 deficiency with recent levels within normal limits in April Surgical History Surgical His
[2022-11-06 20:48] LABS: NT Pro B Type Natriuretic Pept 392 pg/mL (5-100)
[2022-11-06 20:54] LABS: Lactic Acid Reflex 1.2 mmol/L (0.7-2.0)
--- NOTE | 2022-11-06 23:03 | ADMGEN ---
This patient, Steven Greene, was admitted to 3 Med Surg Room 328-01. Patient/family oriented to hospital policies and general routines including ID bracelet, bed and alarms, visiting hours, pain management, procedures, bathroom and other care routines, personal items, smoking policy, room service/diet, and visiting hours. Information on how to activate the Rapid Response Team has been discussed. Patient/Family are encouraged to report perceived risks to care and to ask questions if they do not understand what they are told or what they should do.
[2022-11-07] VITALS (11 sets, daily range): BP systolic 138–154; BP diastolic 43–76; PULSE 62–89; RESP 17–20; TEMP 36.8–37.2; O2SAT 88–96
[2022-11-07 07:56] LABS: Glucose Point of Care 130 mg/dl (65-105)
[2022-11-07] MEDS: INSULIN ASPART (*BKC) 100 UNITS/ML SUB-Q (09:07)
[2022-11-07] MEDS: OLOPATADINE 0.1% OPHTH SOLN 5 ML BTL 1 DROP EACH EYE (09:11)
[2022-11-07] MEDS: IRBESARTAN 150 MG TABLET 300 MG PO (09:12)
[2022-11-07] MEDS: amLODIPine BESYLATE 5 MG TABLET 10 MG PO (09:12)
[2022-11-07] MEDS: hydroCHLOROthiazide 12.5 MG CAPSULE PO (09:13)
[2022-11-07] MEDS: CYANOCOBALAMIN 1,000 MCG TABLET 1000 MCG PO (09:13)
[2022-11-07] MEDS: SENNA/DOCUSATE SODIUM TABLET 1 TAB PO (09:13)
[2022-11-07] MEDS: FERROUS SULFATE 324 MG TABLET PO ×2 (09:13→17:03)
[2022-11-07] MEDS: APIXABAN 2.5 MG TABLET PO ×2 (09:13→20:20)
[2022-11-07] MEDS: MULTIVITAMINS THERAPEUTIC TAB (*BKC) 1 TABLET PO (09:13)
[2022-11-07] MEDS: METOCLOPRAMIDE HCL 5 MG TABLET PO ×2 (09:14→17:03)
[2022-11-07] MEDS: cycloSPORINE 0.4 ML OPHTH SOLUTION 1 DROP EACH EYE ×2 (09:14→20:21)
[2022-11-07] MEDS: PANTOPRAZOLE 40 MG TABLET PO (09:14)
[2022-11-07] MEDS: FLUTICASONE/UMECLIDIN/VILANTER 100-62.5-25 MCG ELLIPTA 1 PUFF INHALATION (10:15)
[2022-11-07] MEDS: ROFLUMILAST 500 MCG TABLET PO (10:19)
[2022-11-07 11:46] LABS: Glucose Point of Care 68 mg/dl (65-105)
--- NOTE | 2022-11-07 12:05 | PM.IMPN ---
Progress Note: A&P Assessment and Plan (1) Gait instability: Code(s): R26.81 - Unsteadiness on feet Status: Acute Assessment and Plan: PT OT up with assistance (2) Acute respiratory failure with hypoxia: Code(s): J96.01 - Acute respiratory failure with hypoxia Status: Acute Assessment and Plan: her continue supplemental oxygen try and keep oxygen saturation at 94% currently off oxygen. (3) Bilateral pneumonia: Qualifiers: Lung location: unspecified part of lung Pneumonia type: due to unspecified organism Qualified Code(s): J18.9 - Pneumonia, unspecified organism Code(s): J18.9 - Pneumonia, unspecified organism Status: Acute Assessment and Plan: patient started on Rocephin and doxycycline cultures in progress (4) CAD (coronary artery disease): Onset Date: Unknown Qualifiers: Coronary Disease-Associated Artery/Lesion type: bypass graft [place] vs. transplanted heart: [place] heart Associated angina: without angina Qualified Code(s): I25.810 - Atherosclerosis of coronary artery bypass graft(s) without angina pectoris Code(s): I25.10 - Atherosclerotic heart disease of [place] coronary artery without angina pectoris Status: Chronic Assessment and Plan: chest pain-free continue home med (5) Atrial fibrillation: Qualifiers: Atrial fibrillation type: unspecified Qualified Code(s): I48.91 - Unspecified atrial fibrillation Code(s): I48.91 - Unspecified atrial fibrillation Status: Chronic Assessment and Plan: rate control and anticoagulated (6) Diabetes mellitus: Qualifiers: Diabetes mellitus type: type 2 Diabetes mellitus data typist insulin use: without data typist use Diabetes mellitus complication status: without complication Qualified Code(s): E11.9 - Type 2 diabetes mellitus without complications Code(s): E11.9 - Type 2 diabetes mellitus without complications Status: Acute Assessment and Plan: holding metformin insulin sliding scale as needed (7) COPD (chronic obstructive pulmonary disease): Qualifiers: COPD type: unspecified COPD Qualified Code(s): J44.9 - Chronic obstructive pulmonary disease, unspecified Code(s): J44.9 - Chronic obstructive pulmonary disease, unspecified Status: Chronic Assessment and Plan: not actively wheezing continue home meds (8) Fall: Code(s): W19.XXXA - Unspecified fall, initial encounter Status: Acute Assessment and Plan: PT OT consult fall precautions Subjective Date/time seen: 11/07/22 12:05 Interval history: This is an 87-year-old male with past medical history significant for coronary artery disease, chronic destructive pulmonary disease, type 2 diabetes mellitus, esophageal dysmotility, essential hypertension, arthritis. patient presents to the emergency room due to fall, no loss of consciousness,? a? friend help to get him back up. according to patient he had been in his usual state of health up until this moment he denied any dizziness, lightheadedness, syncope, near syncope, chest pain, palpitations,? shortness of breath, nausea, vomiting, abdominal pain, no leg swelling. preliminary workup was significant for chest x-ray: IMPRESSION: Persistent, somewhat improved bilateral mid and lower lung airspace disease may reflect resolving or recurrent infection. Chronic senescent/bronchiolitic changes. Bilateral pleural parenchymal scar versus small effusions. ?thoracic spine x-ray: IMPRESSION: No acute fracture or traumatic malalignment detected in the thoracic spine. ?lumbar spine x-ray; IMPRESSION: No acute fracture or traumatic malalignment detected in the lumbar spine. ?humerus x-ray IMPRESSION: 1. 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 No acute osseous abnormality. ?EKG was reported as: ATRIAL FIBRILLATION LEF
[2022-11-07 12:44] LABS: Glucose Point of Care 117 mg/dl (65-105)
[2022-11-07] MEDS: DOXYCYCLINE 100 MG/NS 100 ML 100 MG/100 ML BAG IVPB ×2 (15:03→23:52)
[2022-11-07 16:59] LABS: Glucose Point of Care 130 mg/dl (65-105)
[2022-11-07] MEDS: polyethylene glycoL 3350 17 GM POWD.PACK PO (17:08)
[2022-11-07] MEDS: SIMVASTATIN 10 MG TABLET 20 MG PO (20:20)
[2022-11-07] MEDS: metFORMIN HCL 500 MG TABLET PO (20:20)
[2022-11-07] MEDS: TAMSULOSIN HCL 0.4 MG CAPSULE PO (20:20)
[2022-11-07] MEDS: TOLTERODINE TARTRATE 1 MG TABLET PO (20:20)
[2022-11-08] VITALS (11 sets, daily range): BP systolic 115–149; BP diastolic 45–54; PULSE 59–71; RESP 18–20; TEMP 36.6–36.9; O2SAT 95–99
[2022-11-08 02:39] LABS: Glucose Point of Care 109 mg/dl (65-105)
[2022-11-08] MEDS: METOCLOPRAMIDE HCL 5 MG TABLET PO ×2 (06:07→17:35)
[2022-11-08 07:42] LABS: Basophils Absolute Auto 0.1 K/mm3 (0.0-0.1); Basophils Percent Auto 0.7 % (0.2-1.2); Eosinophils Absolute Auto 0.5 K/mm3 (0-0.3); Eosinophils Percent Auto 5.2 % (0-4.4); Hematocrit 27.3 % (42.0-52.0); Hemoglobin 8.6 g/dL (14.0-18.0); Immature Granulocyte Absolute 0.07 K/mm3 (0.00-0.031); Immature Granulocyte Percent A 0.7 % (0-0.5); Lymphocytes Absolute Auto 1.08 K/mm3 (0.9-3.2); Lymphocytes Percent Auto 10.8 % (18.3-44.2); Mean Corpuscular HGB Conc 31.5 g/dl (32-36); Mean Corpuscular Hemoglobin 26.5 pg (26-34); Mean Platelet Volume 10.7 fl (7.4-10.4); Monocytes Percent Auto 9.7 % (2.6-8.5); Neutrophils Absolute Auto 7.3 K/mm3 (1.3-6.7); Neutrophils Percent Auto 72.9 % (45.5-73.1); Platelet Count Result 192 k/mm3 (150-375); Red Blood Count 3.25 M/mm3 (4.6-6.20); Red Cell Distribution Width 13.1 % (11.5-14.5)
[2022-11-08 07:44] LABS: Glucose Point of Care 113 mg/dl (65-105)
[2022-11-08 08:03] LABS: Alanine Aminotransferase 17 U/L (6-50); Albumin Level 3.6 g/dL (3.5-5.1); Alkaline Phosphatase 122 U/L (38-126); Anion Gap 6 mmol/L (8-16); Aspartate Amino Transferase 24 U/L (17-59); Bilirubin,Total 0.5 mg/dL (0.2-1.3); Blood Urea Nitrogen 13 mg/dL (9-20); Calcium 7.9 mg/dL (8.4-10.2); Carbon Dioxide 21 mmol/L (22-30); Chloride 102 mmol/L (98-107); Estimated CRCL calculation 64 ml/min; Estimated Glomerular Filt Rate > 60; Glucose 106 mg/dL (65-110); Magnesium 1.9 mg/dL (1.6-2.3); Potassium 3.3 mmol/L (3.4-5.0); Sodium 129 mmol/L (137-145)
[2022-11-08] MEDS: cycloSPORINE 0.4 ML OPHTH SOLUTION 1 DROP EACH EYE ×2 (08:38→20:59)
[2022-11-08] MEDS: IRBESARTAN 150 MG TABLET 300 MG PO (08:38)
[2022-11-08] MEDS: CHOLECALCIFEROL 1,000 UNITS TABLET 1000 UNITS PO (08:38)
[2022-11-08] MEDS: FERROUS SULFATE 324 MG TABLET PO ×3 (08:39→17:35)
[2022-11-08] MEDS: APIXABAN 2.5 MG TABLET PO ×2 (08:39→21:02)
[2022-11-08] MEDS: amLODIPine BESYLATE 5 MG TABLET 10 MG PO (08:39)
[2022-11-08] MEDS: ROFLUMILAST 500 MCG TABLET PO (08:39)
[2022-11-08] MEDS: CYANOCOBALAMIN 1,000 MCG TABLET 1000 MCG PO (08:39)
[2022-11-08] MEDS: MULTIVITAMINS THERAPEUTIC TAB (*BKC) 1 TABLET PO (08:40)
[2022-11-08] MEDS: PANTOPRAZOLE 40 MG TABLET PO (08:40)
[2022-11-08] MEDS: hydroCHLOROthiazide 12.5 MG CAPSULE PO (08:40)
[2022-11-08] MEDS: OLOPATADINE 0.1% OPHTH SOLN 5 ML BTL 1 DROP EACH EYE (08:40)
[2022-11-08] MEDS: DOXYCYCLINE 100 MG/NS 100 ML 100 MG/100 ML BAG IVPB (08:43)
[2022-11-08 11:16] LABS: Glucose Point of Care 170 mg/dl (65-105)
[2022-11-08] MEDS: POTASSIUM CHLORIDE 20 MEQ TABLET 40 MEQ PO (12:04)
[2022-11-08] MEDS: FLUTICASONE/UMECLIDIN/VILANTER 100-62.5-25 MCG ELLIPTA 1 PUFF INHALATION (15:27)
--- NOTE | 2022-11-08 15:34 | PM.IMPN ---
Progress Note: A&P Assessment and Plan (1) Gait instability: Code(s): R26.81 - Unsteadiness on feet Status: Acute Assessment and Plan: PT OT up with assistance (2) Acute respiratory failure with hypoxia: Code(s): J96.01 - Acute respiratory failure with hypoxia Status: Acute Assessment and Plan: her continue supplemental oxygen try and keep oxygen saturation at 94% currently off oxygen. [place] wean as tolearted (3) Bilateral pneumonia: Qualifiers: Lung location: unspecified part of lung Pneumonia type: due to unspecified organism Qualified Code(s): J18.9 - Pneumonia, unspecified organism Code(s): J18.9 - Pneumonia, unspecified organism Status: Acute Assessment and Plan: patient started on Rocephin and doxycycline cultures in progress (4) CAD (coronary artery disease): Onset Date: Unknown Qualifiers: Coronary Disease-Associated Artery/Lesion type: bypass graft [place] vs. transplanted heart: [place] heart Associated angina: without angina Qualified Code(s): I25.810 - Atherosclerosis of coronary artery bypass graft(s) without angina pectoris Code(s): I25.10 - Atherosclerotic heart disease of [place] coronary artery without angina pectoris Status: Chronic Assessment and Plan: chest pain-free continue home med (5) Atrial fibrillation: Qualifiers: Atrial fibrillation type: unspecified Qualified Code(s): I48.91 - Unspecified atrial fibrillation Code(s): I48.91 - Unspecified atrial fibrillation Status: Chronic Assessment and Plan: rate control and anticoagulated (6) Diabetes mellitus: Qualifiers: Diabetes mellitus type: type 2 Diabetes mellitus quality associate insulin use: without prison use Diabetes mellitus complication status: without complication Qualified Code(s): E11.9 - Type 2 diabetes mellitus without complications Code(s): E11.9 - Type 2 diabetes mellitus without complications Status: Acute Assessment and Plan: holding metformin insulin sliding scale as needed (7) COPD (chronic obstructive pulmonary disease): Qualifiers: COPD type: unspecified COPD Qualified Code(s): J44.9 - Chronic obstructive pulmonary disease, unspecified Code(s): J44.9 - Chronic obstructive pulmonary disease, unspecified Status: Chronic Assessment and Plan: not actively wheezing continue home meds (8) Fall: Code(s): W19.XXXA - Unspecified fall, initial encounter Status: Acute Assessment and Plan: PT OT consult fall precautions Subjective Date/time seen: 11/08/22 15:34 Interval history: This is an 87-year-old male with past medical history significant for coronary artery disease, chronic destructive pulmonary disease, type 2 diabetes mellitus, esophageal dysmotility, essential hypertension, arthritis. patient presents to the emergency room due to fall, no loss of consciousness,? a? friend help to get him back up. according to patient he had been in his usual state of health up until this moment he denied any dizziness, lightheadedness, syncope, near syncope, chest pain, palpitations,? shortness of breath, nausea, vomiting, abdominal pain, no leg swelling. preliminary workup was significant for chest x-ray: IMPRESSION: Persistent, somewhat improved bilateral mid and lower lung airspace disease may reflect resolving or recurrent infection. Chronic senescent/bronchiolitic changes. Bilateral pleural parenchymal scar versus small effusions. ?thoracic spine x-ray: IMPRESSION: No acute fracture or traumatic malalignment detected in the thoracic spine. ?lumbar spine x-ray; IMPRESSION: No acute fracture or traumatic malalignment detected in the lumbar spine. ?humerus x-ray IMPRESSION: 1. 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 No acute osseous abnormality. ?EKG was reported as:
[2022-11-08 16:16] LABS: Glucose Point of Care 101 mg/dl (65-105)
[2022-11-08] MEDS: metFORMIN HCL 500 MG TABLET PO (21:00)
[2022-11-08] MEDS: SIMVASTATIN 10 MG TABLET 20 MG PO (21:00)
[2022-11-08] MEDS: TOLTERODINE TARTRATE 1 MG TABLET PO (21:06)
[2022-11-08] MEDS: TAMSULOSIN HCL 0.4 MG CAPSULE PO (21:06)
[2022-11-08 22:10] LABS: Glucose Point of Care 122 mg/dl (65-105)
[2022-11-09] VITALS (11 sets, daily range): BP systolic 122–140; BP diastolic 52–59; PULSE 57–100; RESP 14–20; TEMP 36.6–37.3; O2SAT 95–100
[2022-11-09] MEDS: METOCLOPRAMIDE HCL 5 MG TABLET PO ×2 (05:37→16:22)
[2022-11-09 06:55] LABS: Basophils Absolute Auto 0.1 K/mm3 (0.0-0.1); Basophils Percent Auto 0.7 % (0.2-1.2); Eosinophils Absolute Auto 0.8 K/mm3 (0-0.3); Eosinophils Percent Auto 9.3 % (0-4.4); Hematocrit 25.2 % (42.0-52.0); Hemoglobin 8.1 g/dL (14.0-18.0); Immature Granulocyte Absolute 0.05 K/mm3 (0.00-0.031); Immature Granulocyte Percent A 0.6 % (0-0.5); Lymphocytes Percent Auto 11.5 % (18.3-44.2); Mean Corpuscular HGB Conc 32.1 g/dl (32-36); Mean Corpuscular Hemoglobin 26.6 pg (26-34); Mean Corpuscular Volume 82.6 fl (80-100); Mean Platelet Volume 10.8 fl (7.4-10.4); Monocytes Percent Auto 11.5 % (2.6-8.5); Neutrophils Absolute Auto 5.8 K/mm3 (1.3-6.7); Neutrophils Percent Auto 66.4 % (45.5-73.1); Platelet Count Result 189 k/mm3 (150-375); Red Blood Count 3.05 M/mm3 (4.6-6.20); Red Cell Distribution Width 13.1 % (11.5-14.5); White Blood Count 8.7 K/mm3 (4.5-10.0)
[2022-11-09 07:23] LABS: Alanine Aminotransferase 20 U/L (6-50); Albumin Level 3.3 g/dL (3.5-5.1); Alkaline Phosphatase 119 U/L (38-126); Anion Gap 8 mmol/L (8-16); Aspartate Amino Transferase 26 U/L (17-59); Bilirubin,Total 0.4 mg/dL (0.2-1.3); Blood Urea Nitrogen 14 mg/dL (9-20); Calcium 7.9 mg/dL (8.4-10.2); Carbon Dioxide 19 mmol/L (22-30); Chloride 105 mmol/L (98-107); Estimated CRCL calculation 64 ml/min; Estimated Glomerular Filt Rate > 60; Glucose 111 mg/dL (65-110); Potassium 3.5 mmol/L (3.4-5.0); Sodium 132 mmol/L (137-145)
[2022-11-09 08:19] LABS: Glucose Point of Care 123 mg/dl (65-105)
[2022-11-09] MEDS: ROFLUMILAST 500 MCG TABLET PO (08:41)
[2022-11-09] MEDS: hydroCHLOROthiazide 12.5 MG CAPSULE PO (08:41)
[2022-11-09] MEDS: amLODIPine BESYLATE 5 MG TABLET 10 MG PO (08:42)
[2022-11-09] MEDS: APIXABAN 2.5 MG TABLET PO ×2 (08:42→20:07)
[2022-11-09] MEDS: cycloSPORINE 0.4 ML OPHTH SOLUTION 1 DROP EACH EYE ×2 (08:42→20:08)
[2022-11-09] MEDS: FERROUS SULFATE 324 MG TABLET PO ×3 (08:42→16:21)
[2022-11-09] MEDS: PANTOPRAZOLE 40 MG TABLET PO (08:42)
[2022-11-09] MEDS: MULTIVITAMINS THERAPEUTIC TAB (*BKC) 1 TABLET PO (08:42)
[2022-11-09] MEDS: CHOLECALCIFEROL 1,000 UNITS TABLET 1000 UNITS PO (08:42)
[2022-11-09] MEDS: IRBESARTAN 150 MG TABLET 300 MG PO (08:42)
[2022-11-09] MEDS: OLOPATADINE 0.1% OPHTH SOLN 5 ML BTL 1 DROP EACH EYE (08:42)
[2022-11-09] MEDS: CYANOCOBALAMIN 1,000 MCG TABLET 1000 MCG PO (08:42)
[2022-11-09] MEDS: FLUTICASONE/UMECLIDIN/VILANTER 100-62.5-25 MCG ELLIPTA 1 PUFF INHALATION (10:15)
[2022-11-09 12:41] LABS: Glucose Point of Care 154 mg/dl (65-105)
[2022-11-09 17:31] LABS: Glucose Point of Care 145 mg/dl (65-105)
--- NOTE | 2022-11-09 18:21 | PM.IMPN ---
Progress Note: A&P Assessment and Plan (1) Gait instability: Code(s): R26.81 - Unsteadiness on feet Status: Acute Assessment and Plan: PT OT up with assistance (2) Acute respiratory failure with hypoxia: Code(s): J96.01 - Acute respiratory failure with hypoxia Status: Acute Assessment and Plan: her continue supplemental oxygen try and keep oxygen saturation at 94% currently off oxygen. [place] wean as tolearted (3) Bilateral pneumonia: Qualifiers: Lung location: unspecified part of lung Pneumonia type: due to unspecified organism Qualified Code(s): J18.9 - Pneumonia, unspecified organism Code(s): J18.9 - Pneumonia, unspecified organism Status: Acute Assessment and Plan: patient started on Rocephin and azithromycin cultures in progress (4) CAD (coronary artery disease): Onset Date: Unknown Qualifiers: Coronary Disease-Associated Artery/Lesion type: bypass graft [place] vs. transplanted heart: [place] heart Associated angina: without angina Qualified Code(s): I25.810 - Atherosclerosis of coronary artery bypass graft(s) without angina pectoris Code(s): I25.10 - Atherosclerotic heart disease of [place] coronary artery without angina pectoris Status: Chronic Assessment and Plan: chest pain-free continue home med (5) Atrial fibrillation: Qualifiers: Atrial fibrillation type: unspecified Qualified Code(s): I48.91 - Unspecified atrial fibrillation Code(s): I48.91 - Unspecified atrial fibrillation Status: Chronic Assessment and Plan: rate control and anticoagulated (6) Diabetes mellitus: Qualifiers: Diabetes mellitus type: type 2 Diabetes mellitus detention insulin use: without detention use Diabetes mellitus complication status: without complication Qualified Code(s): E11.9 - Type 2 diabetes mellitus without complications Code(s): E11.9 - Type 2 diabetes mellitus without complications Status: Acute Assessment and Plan: holding metformin insulin sliding scale as needed (7) COPD (chronic obstructive pulmonary disease): Qualifiers: COPD type: unspecified COPD Qualified Code(s): J44.9 - Chronic obstructive pulmonary disease, unspecified Code(s): J44.9 - Chronic obstructive pulmonary disease, unspecified Status: Chronic Assessment and Plan: not actively wheezing continue home meds (8) Fall: Code(s): W19.XXXA - Unspecified fall, initial encounter Status: Acute Assessment and Plan: PT OT consult home health versus outpatient therapy fall precautions Subjective Date/time seen: 11/09/22 18:21 Interval history: This is an 87-year-old male with past medical history significant for coronary artery disease, chronic destructive pulmonary disease, type 2 diabetes mellitus, esophageal dysmotility, essential hypertension, arthritis. patient presents to the emergency room due to fall, no loss of consciousness,? a? friend help to get him back up. according to patient he had been in his usual state of health up until this moment he denied any dizziness, lightheadedness, syncope, near syncope, chest pain, palpitations,? shortness of breath, nausea, vomiting, abdominal pain, no leg swelling. preliminary workup was significant for chest x-ray: IMPRESSION: Persistent, somewhat improved bilateral mid and lower lung airspace disease may reflect resolving or recurrent infection. Chronic senescent/bronchiolitic changes. Bilateral pleural parenchymal scar versus small effusions. ?thoracic spine x-ray: IMPRESSION: No acute fracture or traumatic malalignment detected in the thoracic spine. ?lumbar spine x-ray; IMPRESSION: No acute fracture or traumatic malalignment detected in the lumbar spine. ?humerus x-ray IMPRESSION: 1. 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 No acute osseou
[2022-11-09] MEDS: metFORMIN HCL 500 MG TABLET PO (20:07)
[2022-11-09] MEDS: SIMVASTATIN 10 MG TABLET 20 MG PO (20:08)
[2022-11-09] MEDS: TAMSULOSIN HCL 0.4 MG CAPSULE PO (20:08)
[2022-11-09] MEDS: TOLTERODINE TARTRATE 1 MG TABLET PO (20:08)
[2022-11-10] VITALS: PULSE 61
[2022-11-10 03:40] LABS: Glucose Point of Care 177 mg/dl (65-105)
[2022-11-10 04:00] VITALS: PULSE 63
[2022-11-10] MEDS: METOCLOPRAMIDE HCL 5 MG TABLET PO (04:52)
[2022-11-10 05:32] VITALS: BP 139/63; PULSE 60; RESP 14; TEMP 36.8; O2SAT 95
[2022-11-10 06:48] LABS: Basophils Absolute Auto 0.1 K/mm3 (0.0-0.1); Basophils Percent Auto 0.7 % (0.2-1.2); Eosinophils Absolute Auto 0.6 K/mm3 (0-0.3); Eosinophils Percent Auto 7.4 % (0-4.4); Hematocrit 24.5 % (42.0-52.0); Hemoglobin 8.1 g/dL (14.0-18.0); Immature Granulocyte Absolute 0.04 K/mm3 (0.00-0.031); Immature Granulocyte Percent A 0.5 % (0-0.5); Lymphocytes Absolute Auto 0.94 K/mm3 (0.9-3.2); Mean Corpuscular HGB Conc 33.1 g/dl (32-36); Mean Corpuscular Hemoglobin 26.9 pg (26-34); Mean Corpuscular Volume 81.4 fl (80-100); Mean Platelet Volume 10.4 fl (7.4-10.4); Monocytes Percent Auto 12.1 % (2.6-8.5); Neutrophils Absolute Auto 5.9 K/mm3 (1.3-6.7); Neutrophils Percent Auto 68.3 % (45.5-73.1); Platelet Count Result 191 k/mm3 (150-375); Red Blood Count 3.01 M/mm3 (4.6-6.20); Red Cell Distribution Width 12.9 % (11.5-14.5); White Blood Count 8.6 K/mm3 (4.5-10.0)
[2022-11-10 06:58] LABS: Alanine Aminotransferase 22 U/L (6-50); Albumin Level 3.4 g/dL (3.5-5.1); Alkaline Phosphatase 113 U/L (38-126); Anion Gap 6 mmol/L (8-16); Aspartate Amino Transferase 24 U/L (17-59); Bilirubin,Total 0.3 mg/dL (0.2-1.3); Blood Urea Nitrogen 14 mg/dL (9-20); Calcium 7.8 mg/dL (8.4-10.2); Carbon Dioxide 21 mmol/L (22-30); Chloride 101 mmol/L (98-107); Estimated CRCL calculation 64 ml/min; Estimated Glomerular Filt Rate > 60; Glucose 103 mg/dL (65-110); Potassium 3.5 mmol/L (3.4-5.0); Sodium 128 mmol/L (137-145)
[2022-11-10 08:00] VITALS: PULSE 64
[2022-11-10 08:29] LABS: Glucose Point of Care 120 mg/dl (65-105)
[2022-11-10] MEDS: ROFLUMILAST 500 MCG TABLET PO (08:34)
[2022-11-10] MEDS: FERROUS SULFATE 324 MG TABLET PO ×2 (08:34→12:14)
[2022-11-10] MEDS: MULTIVITAMINS THERAPEUTIC TAB (*BKC) 1 TABLET PO (08:34)
[2022-11-10] MEDS: IRBESARTAN 150 MG TABLET 300 MG PO (08:34)
[2022-11-10] MEDS: cycloSPORINE 0.4 ML OPHTH SOLUTION 1 DROP EACH EYE (08:34)
[2022-11-10] MEDS: CHOLECALCIFEROL 1,000 UNITS TABLET 1000 UNITS PO (08:34)
[2022-11-10] MEDS: CYANOCOBALAMIN 1,000 MCG TABLET 1000 MCG PO (08:34)
[2022-11-10] MEDS: APIXABAN 2.5 MG TABLET PO (08:34)
[2022-11-10] MEDS: amLODIPine BESYLATE 5 MG TABLET 10 MG PO (08:34)
[2022-11-10] MEDS: PANTOPRAZOLE 40 MG TABLET PO (08:34)
[2022-11-10] MEDS: hydroCHLOROthiazide 12.5 MG CAPSULE PO (08:34)
[2022-11-10] MEDS: OLOPATADINE 0.1% OPHTH SOLN 5 ML BTL 1 DROP EACH EYE (08:34)
--- NOTE | 2022-11-10 11:03 | PCOTNOTE ---
Attempted to see patient for OT, patient refused. Patient reports wanting to wait until I discharge home to take a shower. Patient educated over importance of participating in therapy and how it helps for us to ensure his safety at d/c, patient continued to decline any needs at this time. Patient not seen for OT. Will continue plan of care.
[2022-11-10 12:00] VITALS: PULSE 61
[2022-11-10 12:15] LABS: Glucose Point of Care 167 mg/dl (65-105)
--- NOTE | 2022-11-10 12:57 | PM.DS ---
DS: Admitting Diagnosis Discharge Date Admitting Diagnosis shortness of breath fall weakness DS: Discharge Diagnosis Discharge Diagnosis (1) Gait instability: Code(s): R26.81 - Unsteadiness on feet Status: Acute (2) Acute respiratory failure with hypoxia: Code(s): J96.01 - Acute respiratory failure with hypoxia Status: Acute (3) Bilateral pneumonia: Qualifiers: Lung location: unspecified part of lung Pneumonia type: due to unspecified organism Qualified Code(s): J18.9 - Pneumonia, unspecified organism Code(s): J18.9 - Pneumonia, unspecified organism Status: Acute (4) CAD (coronary artery disease): Onset Date: Unknown Qualifiers: Coronary Disease-Associated Artery/Lesion type: bypass graft [place] vs. transplanted heart: [place] heart Associated angina: without angina Qualified Code(s): I25.810 - Atherosclerosis of coronary artery bypass graft(s) without angina pectoris Code(s): I25.10 - Atherosclerotic heart disease of [place] coronary artery without angina pectoris Status: Chronic (5) Atrial fibrillation: Qualifiers: Atrial fibrillation type: unspecified Qualified Code(s): I48.91 - Unspecified atrial fibrillation Code(s): I48.91 - Unspecified atrial fibrillation Status: Chronic (6) Diabetes mellitus: Qualifiers: Diabetes mellitus type: type 2 Diabetes mellitus shelter insulin use: without shelter use Diabetes mellitus complication status: without complication Qualified Code(s): E11.9 - Type 2 diabetes mellitus without complications Code(s): E11.9 - Type 2 diabetes mellitus without complications Status: Acute (7) COPD (chronic obstructive pulmonary disease): Qualifiers: COPD type: unspecified COPD Qualified Code(s): J44.9 - Chronic obstructive pulmonary disease, unspecified Code(s): J44.9 - Chronic obstructive pulmonary disease, unspecified Status: Chronic (8) Fall: Code(s): W19.XXXA - Unspecified fall, initial encounter Status: Acute DS: Summary Hospital Course Hospital Course: #?Gait instability: PT OT ?up with assistance. Needs continued therapy home health versus outpatient #Acute respiratory failure with hypoxia: ?her continue supplemental oxygen try and keep oxygen saturation at 94% currently off oxygen. [place] wean as tolearted and was turned by the time of discharge. # bilateral pneumonia: ?patient started on Rocephin and azithromycin ?cultures No growth to date. Switched to oral at discharge for 7 days course # coronary artery disease: ?chest pain-free ?continue home med # atrial fibrillation: ?rate control and anticoagulated # diabetes mellitus: ?holding metformin ?insulin sliding scale as needed # COPD: ?not actively wheezing ?continue home meds # heart: ?PT OT consult home health versus outpatient therapy ?fall precautions Time Spent with Patient Time attestation: Total time spent providing and/or coordinating discharge services: 40 minutes Exam Narrative: APPEARANCE: Well appearing, no pain, no distress, well-nourished. HEAD: normocephalic, atraumatic. EYES: PERRLA/EOMI, conjunctivae clear. THROAT: Pharynx clear, no exudate. NECK: Supple. No adenopathy, no masses. RESPIRATORY: Airway patent, respirations nonlabored. diminished breath sounds bilaterally, no rales, rhonchi, wheezing. CARDIOVASCULAR: Regular rate and rhythm without murmurs rubs or gallops. ABDOMINAL: Soft, nontender, distended, normal bowel sounds MUSCULOSKELETAL: Moves all extremities.? NEURO: Alert. Cranial nerves II through XII intact.? Grossly intact SKIN: Warm, dry. Normal Color DS: Data Data Completed and Pending Labs on day of discharge: Labs from last 24 hours 11/10/22 11/10/22 11/10/22 11:58 08:25 06:24 WBC RBC Hgb Hct MCV MCH MCHC RDW Plt Count MPV Immatu
== END 2022-11-10 13:50 | disposition home or self-care (01) | DRG 189 ==
LOC: ANHED 19:25 → ANH3MEDSUR 22:26
PROVIDERS: Physician Assistant; Admitting Provider Internal Medicine; Emergency Provider Emergency Medicine; PCP Internal Medicine; Visit Provider Internal Medicine
DX: J96.01 Acute respiratory failure with hypoxia (principal); J18.9 Pneumonia, unspecified organism; J44.0 Chronic obstructive pulmonary disease with (acute) lower respiratory infection; I48.20 Chronic atrial fibrillation, unspecified; I10 Essential (primary) hypertension; I25.10 Atherosclerotic heart disease of native coronary artery without angina pectoris; D64.9 Anemia, unspecified; E11.9 Type 2 diabetes mellitus without complications; E53.8 Deficiency of other specified B group vitamins; R26.89 Other abnormalities of gait and mobility; W19.XXXA Unspecified fall, initial encounter; Z20.822 Contact with and (suspected) exposure to COVID-19; Z96.641 Presence of right artificial hip joint; Z87.891 Personal history of nicotine dependence; Z79.01 Long term (current) use of anticoagulants; Z95.1 Presence of aortocoronary bypass graft
CPT/HCPCS: 36415; 71046; 72072; 72110; 73060; 80053; 82948; 83036; 83605; 83735; 83880; 85025; 85610; 85730; 87040; 87637; 93005; 94640; 96365; 96367; 97116; 97161; 97165; 97530; 99285; A9270; G0378; J0456; J0696; J1815

== ENCOUNTER 2023-01-07 05:08 | Observation (INO) | payer MEDICARE, SELFPAY ==
[2023-01-07] VITALS (39 sets, daily range): BP systolic 127–162; BP diastolic 50–72; PULSE 57–105; RESP 15–31; TEMP 36.4–36.9; O2SAT 92–100; BMI 25.4
--- NOTE | ~2023-01-07 | XR_ITS ---
Portable chest x-ray Comparison: 11/06/2022 Clinical History: Dyspnea Findings: Small bilateral pleural effusions are present with patchy, hazy bibasilar airspace disease . Cardiomediastinal silhouette is stable. Bones and soft tissues are unremarkable. Impression: Small bilateral pleural effusions. Hazy bibasilar and perihilar airspace disease, suggestive of pulmonary edema. Correlate clinically fo r infection. Reviewed, dictated and finalized at location . [facility] Impression: Small bilateral pleural effusions. Hazy bibasilar and perihilar airspace disease, suggestive of pulmonary edema. C orrelate clinically for infection.
--- NOTE | 2023-01-07 05:22 | ECG_ITS ---
Measurements Intervals [place] Rate: 78 P: GA: 0 QRS: -53 QRSD: 113 T: 115 QT: 407 QTc: 466 Interpretive Statements ATRIAL FIBRILLATION WITH ABERRANT CONDUCTION OR VENTRICULAR PREMATURE COMPLEXES INFERIOR MYOCARDIAL INFARCTION , OF INDETERMINATE AGE [40+ ms Q WAVE AND/OR ST/T ABNORMALITY IN II/aVF] INTRAVENTRICULAR CONDUCTION DELAY ABNORMAL ECG COMPARED TO ECG 11/06/2022 19:41:20 NO SIGNIFICANT CHANGE Electronically Signed On 01-07-2023 12:09:13 [employer] SERVICE MANAGER by Jose David Bustamante M.D.
[2023-01-07] MEDS: IPRATROPIUM BR 0.02% INH SOLN 0.5 MG/2.5 ML VIAL INHALATION ×4 (05:38→21:57)
[2023-01-07] MEDS: ALBUTEROL SULFATE NEB 2.5 MG/3 ML INH INHALATION ×4 (05:38→21:57)
--- NOTE | 2023-01-07 05:49 | ED.GENADULT ---
HPI - General Adult General Chief complaint: Shortness of Breath/Dyspnea Stated complaint: SOB Time Seen by Provider: 01/07/23 05:14 History of Present Illness HPI narrative: Patient is a 87-year-old gentleman who presents the emergency department with chief complaint of shortness of breath patient reports that he has history of COPD also history of cardiac disease and atrial fibrillation patient reports that over the last several days he has been having shortness of breath worse with exertion patient reports when he sits down it is okay but when he really gets up to walk anywhere he gets very short of breath. EMS was called this evening and the patient was winded getting up and was placed on oxygen patient did not have any reported hypoxia but did report the oxygen made him feel better. Patient denies fever denies productive cough reports no chest pain denies peripheral edema. Related Data Home Medications Medication Instructions Recorded Confirmed fluticasone fur. 100 mcg-umeclid 1 inh inhalation DAILY 07/22/20 11/06/22 62.5 mcg-vilant 25 mcg inhalat.powder (Trelegy Ellipta) metoclopramide HCl 5 mg tablet 5 mg PO BID 08/23/20 11/07/22 albuterol sulfate 90 mcg/actuation 2 puff inhalation TID PRN 09/20/20 11/06/22 aerosol inhaler (Ventolin HFA) Shortness Of Breath cyclosporine 0.05 % eye drops in a 1 drp ophthalmic (eye) Q12H 09/20/20 11/06/22 dropperette (Restasis) mecobalamin (vitamin B12) 1,000 1,000 mcg PO DAILY 09/20/20 11/06/22 mcg chewable tablet multivitamin 1 tablet PO DAILY 09/20/20 11/06/22 olopatadine 0.2 % eye drops 1 drp ophthalmic (eye) DAILY 09/20/20 11/06/22 sennosides 8.6 mg-docusate sodium 1 tab PO DAILY PRN Constipation 09/20/20 11/06/22 50 mg tablet (Senokot-S) simvastatin 10 mg tablet 20 mg PO HS 09/20/20 11/06/22 ferrous sulfate 325 mg (65 mg 325 mg PO TID 10/17/20 11/07/22 iron) tablet irbesartan 300 0.5 tablet PO DAILY 10/17/20 11/06/22 mg-hydrochlorothiazide 12.5 mg tablet apixaban 2.5 mg tablet (Eliquis) 2.5 mg PO BID 04/06/21 11/06/22 cholecalciferol (vitamin D3) 25 25 mcg PO DAILY 11/07/22 11/07/22 mcg (1,000 unit) tablet metformin 500 mg tablet 500 mg PO HS 11/07/22 11/07/22 Allergies Allergy/AdvReac Type Severity Reaction Status Date / Time amiodarone Allergy Unknown Other Verified 01/07/23 05:52 iodine Allergy Unknown Hives Verified 01/07/23 05:52 Review of Systems Review of Systems: A 10 system review of systems was completed on the patient and is negative except for what is stated in the HPI. Nursing and ancillary documentation was reviewed. [facility] Past Medical History Medical History Anemia bone marrow disorder has been ruled out. Managed by Dr. Wilson - normal EGD 06/01/2020 - normal colonoscopy July 2019 -attempted a colonoscopy 06/01/2020 with poor prep Arthritis Atrial fibrillation CAD (coronary artery disease) (Unknown) Hx of CABG COPD (chronic obstructive pulmonary disease) Diabetes mellitus Esophageal dysmotility On imaging 05/13/2020 on Metoclopramide Essential hypertension Vitamin B12 deficiency with recent levels within normal limits in April Surgical History Surgical History History of maze procedure bilateral thoracenteses with Maze procedure History of right hip replacement History of shoulder surgery bilateral Hx of CABG 4 vessel CABG 2007 Status post cataract extraction of both eyes with insertion of intraocular lens Family History Family History Father Lung cancer Mother CHF (congestive heart failure) TIA (transient ischemic attack) Hypertension Sibling CHF (congestive heart failure) Hypertension Diabetes mellitus Social History Social History Social History:
[2023-01-07 05:54] LABS: Basophils Absolute Auto 0.1 K/mm3 (0.0-0.1); Basophils Percent Auto 0.7 % (0.2-1.2); Eosinophils Absolute Auto 0.3 K/mm3 (0-0.3); Eosinophils Percent Auto 3.7 % (0-4.4); Hematocrit 28.1 % (42.0-52.0); Immature Granulocyte Absolute 0.05 K/mm3 (0.00-0.031); Immature Granulocyte Percent A 0.6 % (0-0.5); Lymphocytes Absolute Auto 1.06 K/mm3 (0.9-3.2); Lymphocytes Percent Auto 11.9 % (18.3-44.2); Mean Corpuscular Hemoglobin 26.2 pg (26-34); Mean Corpuscular Volume 81.7 fl (80-100); Mean Platelet Volume 10.4 fl (7.4-10.4); Monocytes Absolute Auto 0.8 K/mm3 (0.1-0.6); Monocytes Percent Auto 8.5 % (2.6-8.5); Neutrophils Absolute Auto 6.7 K/mm3 (1.3-6.7); Neutrophils Percent Auto 74.6 % (45.5-73.1); Platelet Count Result 225 k/mm3 (150-375); Red Blood Count 3.44 M/mm3 (4.6-6.20); Red Cell Distribution Width 13.8 % (11.5-14.5); White Blood Count 8.9 K/mm3 (4.5-10.0)
[2023-01-07 06:05] LABS: Lactic Acid Reflex 0.7 mmol/L (0.7-2.0)
[2023-01-07 06:06] LABS: Alanine Aminotransferase 18 U/L (6-50); Albumin Level 3.7 g/dL (3.5-5.1); Alkaline Phosphatase 135 U/L (38-126); Anion Gap 5 mmol/L (8-16); Aspartate Amino Transferase 23 U/L (17-59); Bilirubin,Total 0.5 mg/dL (0.2-1.3); Blood Urea Nitrogen 6 mg/dL (9-20); Calcium 8.3 mg/dL (8.4-10.2); Carbon Dioxide 24 mmol/L (22-30); Chloride 107 mmol/L (98-107); Estimated CRCL calculation 90 ml/min; Estimated Glomerular Filt Rate > 60; Glucose 115 mg/dL (65-110); Magnesium 1.8 mg/dL (1.6-2.3); Potassium 3.4 mmol/L (3.4-5.0); Sodium 136 mmol/L (137-145)
[2023-01-07 06:07] LABS: INR 1.3; Partial Thromboplastin Time 34.7 SECONDS (22.3-36.8); Prothrombin Time 15.4 Seconds (11.1-14.7)
[2023-01-07 06:14] LABS: NT Pro B Type Natriuretic Pept 848 pg/mL (19.9-100)
[2023-01-07 06:18] LABS: Troponin I < 0.012 ng/mL (0.000-0.034)
[2023-01-07 06:29] LABS: Influenza A QL RT-PCR Negative (Negative); Influenza B QL RT-PCR Negative (Negative); RSV RNA, RT-PCR Negative (Negative); SARS-CoV-2 RNA PCR Negative
[2023-01-07] MEDS: FUROSEMIDE INJ 40 MG/4 ML VIAL IV PUSH ×2 (06:47→17:48)
[2023-01-07 06:50] LABS: Procalcitonin 0.1 ng/mL
[2023-01-07 06:56] LABS: Appearance Urine Clear (Clear); Bilirubin Urine Negative (Negative); Blood Urine Trace-intact (Negative); Color Urine Yellow (Yellow); Glucose Urine UA Negative (Negative); Ketones Urine Negative (Negative); Leukocyte Esterase Ur Negative LEU/UL (Negative); Nitrate Urine Negative (Negative); Protein Urine 2+ mg/dL (Negative); Specific Grav Ur 1.015 (1.001-1.035); Urobilinogen Urine 0.2 mg/dL (<2.0); pH Urine 5.5 (5.0-9.0)
[2023-01-07 07:01] LABS: WBC Urine 0-3 /hpf
[2023-01-07 07:11] LABS: Add Urine Microscopic? YES
--- NOTE | 2023-01-07 08:10 | PC.NURSE ---
pt resting comfortably on stretcher. waiting bed assignment. contacted dietary for food tray.
[2023-01-07 09:22] LABS: Troponin I < 0.012 ng/mL (0.000-0.034)
--- NOTE | 2023-01-07 11:01 | ADMGEN ---
This patient, Steven Greene, was admitted to 3 Med Surg Room 321-01. Patient/family oriented to hospital policies and general routines including ID bracelet, bed and alarms, visiting hours, pain management, procedures, bathroom and other care routines, personal items, smoking policy, room service/diet, and visiting hours. Information on how to activate the Rapid Response Team has been discussed. Patient/Family are encouraged to report perceived risks to care and to ask questions if they do not understand what they are told or what they should do. Report from Macie
[2023-01-07 13:17] LABS: Glucose Point of Care 174 mg/dl (65-105)
[2023-01-07] MEDS: PANTOPRAZOLE 40 MG TABLET PO (13:28)
[2023-01-07] MEDS: CHOLECALCIFEROL 1,000 UNITS TABLET 1000 UNITS PO (13:28)
[2023-01-07] MEDS: amLODIPine BESYLATE 5 MG TABLET 10 MG PO (13:28)
[2023-01-07] MEDS: CYANOCOBALAMIN 1,000 MCG TABLET 1000 MCG PO (13:29)
[2023-01-07] MEDS: POTASSIUM CHLORIDE 20 MEQ TABLET 40 MEQ PO (13:29)
[2023-01-07] MEDS: IRBESARTAN 150 MG TABLET PO (13:29)
[2023-01-07] MEDS: hydroCHLOROthiazide 6.25 MG TABLET PO (13:29)
[2023-01-07] MEDS: FERROUS SULFATE 324 MG TABLET PO ×2 (13:29→17:04)
[2023-01-07] MEDS: MULTIVITAMINS THERAPEUTIC TAB (*BKC) 1 TABLET PO (13:29)
[2023-01-07] MEDS: ROFLUMILAST 500 MCG TABLET PO (13:50)
[2023-01-07] MEDS: cycloSPORINE 0.4 ML OPHTH SOLUTION 1 DROP EACH EYE ×2 (13:50→21:16)
[2023-01-07] MEDS: OLOPATADINE 0.1% OPHTH SOLN 5 ML BTL 1 DROP EACH EYE (13:50)
--- NOTE | 2023-01-07 14:04 | PM.IMHP ---
H&P: HPI History of Present Illness Date/Time: 01/07/23 14:04 Chief Complaint: shortness of breath Narrative: ED-HPI narrative: Patient is a 87-year-old gentleman who presents the emergency department with chief complaint of shortness of breath patient reports that he has history of COPD also history of cardiac disease and atrial fibrillation patient reports that over the last several days he has been having shortness of breath worse with exertion patient reports when he sits down it is okay but when he really gets up to walk anywhere he gets very short of breath.? EMS was called this evening and the patient was winded getting up and was placed on oxygen patient did not have any reported hypoxia but did report the oxygen made him feel better.? Patient denies fever denies productive cough reports no chest pain denies peripheral edema. 87 y/o male with history of COPD exsmoker stopped 20yrs ago, history of CAD and A. Fib presented with c/o shortness of breath and chest x-ray suspicious for pulmonary edema, and BNP is elevated 848 patient was given Lasix 40mg IV in ER and patient stats since then he is feeling better and not as short of breath, will continue diuresed the patient with lasix 40mg BID IV, will monitor patient Is and Os, will do cardiac echo to further evaluate, patient, 2 sets of cardiac enzymes are negative and there are no acute changes on EKG, will have PT/OT evaluate the patient and further recommendation to follow. patient is admitted as observation status Review of Systems Review of Systems: A 10 system review of systems was completed on the patient and is negative except for what is stated in the HPI. Nursing and ancillary documentation was reviewed. [facility] Past Medical History Medical History Anemia bone marrow disorder has been ruled out. Managed by Dr. Wilson - normal EGD 06/01/2020 - normal colonoscopy July 2019 -attempted a colonoscopy 06/01/2020 with poor prep Arthritis Atrial fibrillation CAD (coronary artery disease) (Unknown) Hx of CABG COPD (chronic obstructive pulmonary disease) Diabetes mellitus Esophageal dysmotility On imaging 05/13/2020 on Metoclopramide Essential hypertension Vitamin B12 deficiency with recent levels within normal limits in April Surgical History Surgical History History of maze procedure bilateral thoracenteses with Maze procedure History of right hip replacement History of shoulder surgery bilateral Hx of CABG 4 vessel CABG 2007 Status post cataract extraction of both eyes with insertion of intraocular lens Family History Family History Father Lung cancer Mother CHF (congestive heart failure) TIA (transient ischemic attack) Hypertension Sibling CHF (congestive heart failure) Hypertension Diabetes mellitus Social History Social History Social History: Primary care physician: Dr. Delroy Paris Code status: Full code Smoking packs per day: 1 Smoking cigarettes per day: 20.0 Years smoked: 50 Smoking pack-years: 50.00 Smoking status: Former smoker Tobacco type: cigarettes Second hand tobacco smoke exposure: Yes Smoking end date: 11/25/99 Alcohol intake: former Drinks per week: 2 Alcohol use details: He drinks about a 12 pack of beer a week. Substance use: never Substance use type: does not use Lack of Transportation: No Lack of Food: Never True Current Housing: I Have Housing Concerned About Future Housing: No Difficulty Paying Gas/Electric Bills: No Difficulty Paying for Meds: No Currently Unemployed: No Education: Don't Know Difficulty w/ Childcare or Family Care: No Living arrangements: with family Additional living arrangements comments:
[2023-01-07 16:31] LABS: Glucose Point of Care 127 mg/dl (65-105)
[2023-01-07] MEDS: METOCLOPRAMIDE HCL 5 MG TABLET PO (17:01)
[2023-01-07] MEDS: APIXABAN 2.5 MG TABLET PO (17:03)
[2023-01-07 21:06] LABS: Glucose Point of Care 145 mg/dl (65-105)
[2023-01-07] MEDS: metFORMIN HCL 500 MG TABLET PO (21:16)
[2023-01-07] MEDS: TAMSULOSIN HCL 0.4 MG CAPSULE PO (21:17)
[2023-01-07] MEDS: SIMVASTATIN 20 MG TABLET PO (21:17)
[2023-01-08] VITALS (18 sets, daily range): BP systolic 122–138; BP diastolic 45–54; PULSE 56–88; RESP 16–22; TEMP 35.9–36.6; O2SAT 93–98
[2023-01-08] MEDS: IPRATROPIUM BR 0.02% INH SOLN 0.5 MG/2.5 ML VIAL INHALATION ×4 (03:17→21:47)
[2023-01-08] MEDS: ALBUTEROL SULFATE NEB 2.5 MG/3 ML INH INHALATION ×4 (03:17→21:47)
[2023-01-08] MEDS: METOCLOPRAMIDE HCL 5 MG TABLET PO ×2 (05:56→17:19)
[2023-01-08] MEDS: FUROSEMIDE INJ 40 MG/4 ML VIAL IV PUSH ×2 (05:57→18:11)
--- NOTE | 2023-01-08 06:00 | ECHO_ITS ---
Patient Info Name: Steven Greene Age: 87 years : 1935 Gender: Male Ht: 68 in Wt: 167 lbs BSA: 1.92 m2 HR: 81 bpm BP: 153 / 50 mmHg Technical Quality: Good Exam Date: 01/08/2023 9:28 AM Exam Location: [facility] Patient Status: Inpatient Admit Date: 01/07/2023 Staff Ordering Physician: Caleb Gutierres MD Land Checker: Van Moreland RDCS, RT Attending Provider: Anuj Gracia MD Referring Physician: Nenita DE JESUS; Exam Type: CA echo doppler color flow Study Info Indications - Elevated BNP - Pulmonary edema R06.00 - Dyspnea, unspecified Complete two-dimensional, color flow and Doppler transthoracic echocardiogram is performed. Strain analysis performed. Summary 1. Complete two-dimensional, color flow and Doppler transthoracic echocardiogram is performed. 2. Left ventricular chamber dimension is mildly enlarged. 3. Left ventricular systolic function is normal, estimated at 55-60%. 4. There is mildly increased left ventricular wall thickness. 5. Left ventricular septal wall motion is abnormal with septal motion related to bundle branch block. 6. The left ventricular diastolic function is abnormal. 7. E/e' 19 is elevated. 8. Global longitudinal strain is abnormal at -14.2%. 9. Left atrial chamber dimension is moderately enlarged. 10. Right atrial chamber dimension is moderately enlarged. 11. There is mild aortic valve sclerosis. 12. The mitral valve has mildly thickened leaflets and moderately calcified annulus. 13. There is moderate mitral valve regurgitation. 14. There is mild tricuspid valve regurgitation. 15. Mild pulmonary hypertension, estimated pulmonary arterial systolic pressure is 48 mmHg. 16. There is trace pulmonic regurgitation. Left Ventricle E/e' 19 is elevated. Global longitudinal strain is abnormal at -14.2%. Left ventricular chamber dimension is mildly enlarged. Left ventricular systolic function is normal, estimated at 55-60%. There is mildly increased left ventricular wall thickness. Left ventricular septal wall motion is abnormal with septal motion related to bundle branch block. The left ventricular diastolic function is abnormal. Right Ventricle Right ventricular systolic function is normal and with normal TAPSE 1.7 cm. Right ventricular chamber dimension is normal. Left Atria Left atrial chamber dimension is moderately enlarged. Right Atria Right atrial chamber dimension is moderately enlarged. Aortic Valve The aortic valve is trileaflet. There is mild aortic valve sclerosis. There is no aortic valve stenosis. There is no aortic valve regurgitation. Pulmonic Valve There is trace pulmonic regurgitation. Mitral Valve The mitral valve has mildly thickened leaflets and moderately calcified annulus. There is no mitral valve stenosis. There is moderate mitral valve regurgitation. Tricuspid Valve There is mild tricuspid valve regurgitation. Mild pulmonary hypertension, estimated pulmonary arterial systolic pressure is 48 mmHg. Pericardium/Pleural There is no pericardial effusion. Inferior Vena Cava Inferior vena cava is not well visualized. Aorta The aortic root size at the sinus of Valsalva is normal. Left Ventricular Outflow Tract Name Value Normal LVOT 2D ---
[2023-01-08 08:19] LABS: Glucose Point of Care 126 mg/dl (65-105)
[2023-01-08 08:22] LABS: Hematocrit 28.7 % (42.0-52.0); Hemoglobin 9.1 g/dL (14.0-18.0); Mean Corpuscular HGB Conc 31.7 g/dl (32-36); Mean Corpuscular Hemoglobin 25.9 pg (26-34); Mean Corpuscular Volume 81.5 fl (80-100); Mean Platelet Volume 10.3 fl (7.4-10.4); Platelet Count Result 233 k/mm3 (150-375); Red Blood Count 3.52 M/mm3 (4.6-6.20); Red Cell Distribution Width 13.9 % (11.5-14.5); White Blood Count 8.4 K/mm3 (4.5-10.0)
[2023-01-08 08:31] LABS: Anion Gap 8 mmol/L (8-16); Blood Urea Nitrogen 9 mg/dL (9-20); Calcium 8.4 mg/dL (8.4-10.2); Carbon Dioxide 25 mmol/L (22-30); Chloride 104 mmol/L (98-107); Estimated CRCL calculation 64 ml/min; Estimated Glomerular Filt Rate > 60; Glucose 117 mg/dL (65-110); Magnesium 1.8 mg/dL (1.6-2.3); Potassium 3.6 mmol/L (3.4-5.0); Sodium 137 mmol/L (137-145)
[2023-01-08] MEDS: FERROUS SULFATE 324 MG TABLET PO ×3 (09:03→17:19)
[2023-01-08] MEDS: APIXABAN 2.5 MG TABLET PO ×2 (09:04→17:20)
[2023-01-08] MEDS: CHOLECALCIFEROL 1,000 UNITS TABLET 1000 UNITS PO (09:04)
[2023-01-08] MEDS: amLODIPine BESYLATE 5 MG TABLET 10 MG PO (09:04)
[2023-01-08] MEDS: hydroCHLOROthiazide 6.25 MG TABLET PO (09:05)
[2023-01-08] MEDS: cycloSPORINE 0.4 ML OPHTH SOLUTION 1 DROP EACH EYE ×2 (09:05→22:43)
[2023-01-08] MEDS: CYANOCOBALAMIN 1,000 MCG TABLET 1000 MCG PO (09:05)
[2023-01-08] MEDS: PANTOPRAZOLE 40 MG TABLET PO (09:06)
[2023-01-08] MEDS: OLOPATADINE 0.1% OPHTH SOLN 5 ML BTL 1 DROP EACH EYE (09:06)
[2023-01-08] MEDS: MULTIVITAMINS THERAPEUTIC TAB (*BKC) 1 TABLET PO (09:06)
[2023-01-08] MEDS: IRBESARTAN 150 MG TABLET PO (09:06)
[2023-01-08] MEDS: ROFLUMILAST 500 MCG TABLET PO (09:06)
[2023-01-08] MEDS: FLUTICASONE/UMECLIDIN/VILANTER 100-62.5-25 MCG ELLIPTA 1 PUFF INHALATION (09:19)
[2023-01-08 12:04] LABS: Glucose Point of Care 143 mg/dl (65-105)
--- NOTE | 2023-01-08 12:24 | PM.IMPN ---
Progress Note: A&P Assessment and Plan (1) Acute dyspnea: Code(s): R06.00 - Dyspnea, unspecified Status: Acute Assessment and Plan: ED-[facility] narrative: Patient is a 87-year-old gentleman who presents the emergency department with chief complaint of shortness of breath patient reports that he has history of COPD also history of cardiac disease and atrial fibrillation patient reports that over the last several days he has been having shortness of breath worse with exertion patient reports when he sits down it is okay but when he really gets up to walk anywhere he gets very short of breath.? EMS was called this evening and the patient was winded getting up and was placed on oxygen patient did not have any reported hypoxia but did report the oxygen made him feel better.? Patient denies fever denies productive cough reports no chest pain denies peripheral edema. 01/08/2023 interval history: 87 y/o male with history of COPD exsmoker stopped 20yrs ago, history of CAD and A. Fib presented with c/o shortness of breath and chest x-ray suspicious for pulmonary edema, and BNP is elevated 848 patient was given Lasix 40mg IV in ER and patient stats since then he is feeling better and not as short of breath, continued diuresed the patient with lasix 40mg BID IV, will monitor patient Is and Os, will do cardiac echo to further evaluate which is pending, patient, 2 sets of cardiac enzymes are negative and there are no acute changes on EKG, will monitor patient one more day, and follow up on cardiac echo, will have PT/OT evaluate the patient and further recommendation to follow. possibly discharge patient tomorrow. (2) COPD (chronic obstructive pulmonary disease): Code(s): J44.9 - Chronic obstructive pulmonary disease, unspecified Status: Acute Assessment and Plan: patient with long history of smoking, lung exam is no wheezing will continue to monitor (3) Atrial fibrillation: Code(s): I48.91 - Unspecified atrial fibrillation Status: Acute Assessment and Plan: patient with history of atrial fibrillation rate is controlled anticoagulated with Eliquis (4) CHF (congestive heart failure): Code(s): I50.9 - Heart failure, unspecified Status: Acute Assessment and Plan: patient presented with shortness of breath suspicious for congestive heart failure patient is being diuresed, etiology uncertain will do cardiac echo and further recommendation to follow Subjective Date/time seen: 01/08/23 12:24 ED-HPI narrative: Patient is a 87-year-old gentleman who presents the emergency department with chief complaint of shortness of breath patient reports that he has history of COPD also history of cardiac disease and atrial fibrillation patient reports that over the last several days he has been having shortness of breath worse with exertion patient reports when he sits down it is okay but when he really gets up to walk anywhere he gets very short of breath.? EMS was called this evening and the patient was winded getting up and was placed on oxygen patient did not have any reported hypoxia but did report the oxygen made him feel better.? Patient denies fever denies productive cough reports no chest pain denies peripheral edema. 01/08/2023 interval history: 87 y/o male with history of COPD exsmoker stopped 20yrs ago, history of CAD and A. Fib presented with c/o shortness of breath and chest x-ray suspicious for pulmonary edema, and BNP is elevated 848 patient was given Lasix 40mg IV in ER and patient stats since then he is feeling better and not as short of breath, continued diuresed the patient with lasix 40mg BID IV, will monitor patient Is and Os, will do cardiac echo to further evaluate which is pending, patient, 2 sets of cardiac enzymes are negative and there are no acute changes on EKG, will monitor patient one more day, and follow up on cardiac echo, will have PT/OT evaluate the patient and further recommendat
[2023-01-08 17:33] LABS: Glucose Point of Care 132 mg/dl (65-105)
[2023-01-08] MEDS: TAMSULOSIN HCL 0.4 MG CAPSULE PO (21:09)
[2023-01-08] MEDS: metFORMIN HCL 500 MG TABLET PO (21:09)
[2023-01-08] MEDS: SIMVASTATIN 20 MG TABLET PO (21:09)
[2023-01-08 21:45] LABS: Glucose Point of Care 133 mg/dl (65-105)
[2023-01-09] VITALS (13 sets, daily range): BP systolic 115–128; BP diastolic 51–88; PULSE 51–81; RESP 14–23; TEMP 36.3–36.8; O2SAT 93–98
[2023-01-09] MEDS: IPRATROPIUM BR 0.02% INH SOLN 0.5 MG/2.5 ML VIAL INHALATION ×3 (02:09→13:49)
[2023-01-09] MEDS: ALBUTEROL SULFATE NEB 2.5 MG/3 ML INH INHALATION ×3 (02:09→13:49)
[2023-01-09] MEDS: METOCLOPRAMIDE HCL 5 MG TABLET PO (06:55)
[2023-01-09] MEDS: FUROSEMIDE INJ 40 MG/4 ML VIAL IV PUSH (06:55)
[2023-01-09] MEDS: OLOPATADINE 0.1% OPHTH SOLN 5 ML BTL 1 DROP EACH EYE (08:00)
[2023-01-09] MEDS: ROFLUMILAST 500 MCG TABLET PO (08:00)
[2023-01-09] MEDS: hydroCHLOROthiazide 6.25 MG TABLET PO (08:01)
[2023-01-09] MEDS: FERROUS SULFATE 324 MG TABLET PO ×2 (08:01→11:50)
[2023-01-09] MEDS: CHOLECALCIFEROL 1,000 UNITS TABLET 1000 UNITS PO (08:05)
[2023-01-09] MEDS: amLODIPine BESYLATE 5 MG TABLET 10 MG PO (08:05)
[2023-01-09] MEDS: MULTIVITAMINS THERAPEUTIC TAB (*BKC) 1 TABLET PO (08:05)
[2023-01-09] MEDS: APIXABAN 2.5 MG TABLET PO (08:06)
[2023-01-09] MEDS: IRBESARTAN 150 MG TABLET PO (08:08)
[2023-01-09] MEDS: cycloSPORINE 0.4 ML OPHTH SOLUTION 1 DROP EACH EYE (08:15)
[2023-01-09] MEDS: FLUTICASONE/UMECLIDIN/VILANTER 100-62.5-25 MCG ELLIPTA 1 PUFF INHALATION (08:40)
[2023-01-09] MEDS: PANTOPRAZOLE 40 MG TABLET PO (09:04)
[2023-01-09] MEDS: CYANOCOBALAMIN 1,000 MCG TABLET 1000 MCG PO (09:05)
[2023-01-09 09:11] LABS: Glucose Point of Care 150 mg/dl (65-105)
[2023-01-09 10:32] LABS: Hematocrit 27.6 % (42.0-52.0); Hemoglobin 8.8 g/dL (14.0-18.0); Mean Corpuscular HGB Conc 31.9 g/dl (32-36); Mean Corpuscular Hemoglobin 26.1 pg (26-34); Mean Corpuscular Volume 81.9 fl (80-100); Mean Platelet Volume 9.9 fl (7.4-10.4); Platelet Count Result 236 k/mm3 (150-375); Red Blood Count 3.37 M/mm3 (4.6-6.20); Red Cell Distribution Width 13.9 % (11.5-14.5); White Blood Count 8.2 K/mm3 (4.5-10.0)
[2023-01-09 10:48] LABS: Anion Gap 8 mmol/L (8-16); Blood Urea Nitrogen 13 mg/dL (9-20); Calcium 8.1 mg/dL (8.4-10.2); Carbon Dioxide 27 mmol/L (22-30); Chloride 100 mmol/L (98-107); Estimated CRCL calculation 57 ml/min; Estimated Glomerular Filt Rate > 60; Glucose 178 mg/dL (65-110); Magnesium 1.6 mg/dL (1.6-2.3); Potassium 3.2 mmol/L (3.4-5.0); Sodium 135 mmol/L (137-145)
[2023-01-09 11:41] LABS: Glucose Point of Care 165 mg/dl (65-105)
--- NOTE | 2023-01-09 14:06 | PM.IMPN ---
Progress Note: A&P Assessment and Plan (1) Acute dyspnea: Code(s): R06.00 - Dyspnea, unspecified Status: Acute Assessment and Plan: ED-[facility] narrative: Patient is a 87-year-old gentleman who presents the emergency department with chief complaint of shortness of breath patient reports that he has history of COPD also history of cardiac disease and atrial fibrillation patient reports that over the last several days he has been having shortness of breath worse with exertion patient reports when he sits down it is okay but when he really gets up to walk anywhere he gets very short of breath.? EMS was called this evening and the patient was winded getting up and was placed on oxygen patient did not have any reported hypoxia but did report the oxygen made him feel better.? Patient denies fever denies productive cough reports no chest pain denies peripheral edema. 01/09/2023 interval history: 87 y/o male with history of COPD exsmoker stopped 20yrs ago, history of CAD and A. 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 possibly discharge patient tomorrow. (2) COPD (chronic obstructive pulmonary disease): Code(s): J44.9 - Chronic obstructive pulmonary disease, unspecified Status: Acute Assessment and Plan: patient with long history of smoking, lung exam is no wheezing will continue to monitor (3) Atrial fibrillation: Code(s): I48.91 - Unspecified atrial fibrillation Status: Acute Assessment and Plan: patient with history of atrial fibrillation rate is controlled anticoagulated with Eliquis (4) CHF (congestive heart failure): Code(s): I50.9 - Heart failure, unspecified Status: Acute Assessment and Plan: patient presented with shortness of breath suspicious for congestive heart failure patient is being diuresed, etiology uncertain will do cardiac echo and further recommendation to follow Subjective Date/time seen: 01/09/23 14:06 ED-HPI narrative: Patient is a 87-year-old gentleman who presents the emergency department with chief complaint of shortness of breath patient reports that he has history of COPD also history of cardiac disease and atrial fibrillation patient reports that over the last several days he has been having shortness of breath worse with exertion patient reports when he sits down it is okay but when he really gets up to walk anywhere he gets very short of breath.? EMS was called this evening and the patient was winded getting up and was placed on oxygen patient did not have any reported hypoxia but did report the oxygen made him feel better.? Patient denies fever denies productive cough reports no chest pain denies peripheral edema. 01/09/2023 interval history: 87 y/o male with history of COPD exsmoker stopped 20yrs ago, history of CAD and A. Fib presented with c/o shortness of breath and chest x-ray suspicious for pulmonary edema, and BNP is elevated 848 patient was given Lasix 40mg IV in ER and patient stats since then he is feeling better and not as short of breath, continued diuresed the patient with lasix 40mg BID IV, will monitor patient Is and Os, cardiac echo showed mild reduced systolic function with EF 55-60% and left ventricular diastolic function is abnormal, patient is having combined mild systolic and d
--- NOTE | 2023-01-09 15:37 | PM.DS ---
DS: Admitting Diagnosis Discharge Date 01/09/2023 Admitting Diagnosis shortness of breath DS: Discharge Diagnosis Discharge Diagnosis (1) Acute dyspnea: Code(s): R06.00 - Dyspnea, unspecified Status: Acute Assessment and Plan: ED-[facility] narrative: Patient is a 87-year-old gentleman who presents the emergency department with chief complaint of shortness of breath patient reports that he has history of COPD also history of cardiac disease and atrial fibrillation patient reports that over the last several days he has been having shortness of breath worse with exertion patient reports when he sits down it is okay but when he really gets up to walk anywhere he gets very short of breath.? EMS was called this evening and the patient was winded getting up and was placed on oxygen patient did not have any reported hypoxia but did report the oxygen made him feel better.? Patient denies fever denies productive cough reports no chest pain denies peripheral edema. 01/09/2023 interval history: 87 y/o male with history of COPD exsmoker stopped 20yrs ago, history of CAD and A. 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 possibly discharge patient tomorrow. (2) COPD (chronic obstructive pulmonary disease): Code(s): J44.9 - Chronic obstructive pulmonary disease, unspecified Status: Acute Assessment and Plan: patient with long history of smoking, lung exam is no wheezing will continue to monitor (3) Atrial fibrillation: Code(s): I48.91 - Unspecified atrial fibrillation Status: Acute Assessment and Plan: patient with history of atrial fibrillation rate is controlled anticoagulated with Eliquis (4) CHF (congestive heart failure): Code(s): I50.9 - Heart failure, unspecified Status: Acute Assessment and Plan: patient presented with shortness of breath suspicious for congestive heart failure patient is being diuresed, etiology uncertain will do cardiac echo and further recommendation to follow DS: Summary Hospital Course Reason for hospitalization: ED-HPI narrative: Patient is a 87-year-old gentleman who presents the emergency department with chief complaint of shortness of breath patient reports that he has history of COPD also history of cardiac disease and atrial fibrillation patient reports that over the last several days he has been having shortness of breath worse with exertion patient reports when he sits down it is okay but when he really gets up to walk anywhere he gets very short of breath.? EMS was called this evening and the patient was winded getting up and was placed on oxygen patient did not have any reported hypoxia but did report the oxygen made him feel better.? Patient denies fever denies productive cough reports no chest pain denies peripheral edema. 87 y/o male with history of COPD exsmoker stopped 20yrs ago, history of CAD and A. Fib presented with c/o shortness of breath and chest x-ray suspicious for pulmonary edema, and BNP is elevated 848 patient was given Lasix 40mg IV in ER and patient stats since then he is feeling better and not as short of breath, will continue diuresed the patient with lasix 40mg BID IV, will monitor patient Is and Os, will do cardiac echo to further evaluate, patient, 2 sets of cardiac enzymes ar
[2023-01-09] MEDS: POTASSIUM CHLORIDE 20 MEQ TABLET 40 MEQ PO (15:53)
[2023-01-09 16:37] LABS: Glucose Point of Care 193 mg/dl (65-105)
== END 2023-01-09 16:40 | disposition home or self-care (01) ==
LOC: ANHED 06:44 → ANH3MEDSUR 11:23
PROVIDERS: Internal Medicine; Admitting Provider Family Medicine; Emergency Provider Emergency Medicine; PCP Internal Medicine; Visit Provider Family Medicine
DX: R06.00 Dyspnea, unspecified (principal); J44.9 Chronic obstructive pulmonary disease, unspecified; D64.9 Anemia, unspecified; I48.91 Unspecified atrial fibrillation; I11.0 Hypertensive heart disease with heart failure; I50.9 Heart failure, unspecified; I08.3 Combined rheumatic disorders of mitral, aortic and tricuspid valves; I27.20 Pulmonary hypertension, unspecified; M19.90 Unspecified osteoarthritis, unspecified site; E11.9 Type 2 diabetes mellitus without complications; K22.4 Dyskinesia of esophagus; Z20.822 Contact with and (suspected) exposure to COVID-19; E53.8 Deficiency of other specified B group vitamins; R94.31 Abnormal electrocardiogram [ECG] [EKG]; I25.10 Atherosclerotic heart disease of native coronary artery without angina pectoris; J90 Pleural effusion, not elsewhere classified; F10.90 Alcohol use, unspecified, uncomplicated; Z95.1 Presence of aortocoronary bypass graft; Z87.891 Personal history of nicotine dependence; Z79.51 Long term (current) use of inhaled steroids; Z79.01 Long term (current) use of anticoagulants; Z79.84 Long term (current) use of oral hypoglycemic drugs; Z79.899 Other long term (current) drug therapy; Z83.3 Family history of diabetes mellitus; Z82.49 Family history of ischemic heart disease and other diseases of the circulatory system
CPT/HCPCS: 36415; 71045; 80048; 80053; 81001; 82948; 83605; 83735; 83880; 84145; 84484; 85025; 85027; 85610; 85730; 87040; 87637; 93005; 93306; 94640; 96374; 96376; 97161; 97165; 99285; A9270; G0378; J1940

== ENCOUNTER 2023-12-22 04:44 | Observation (INO) | payer MEDICARE, SELFPAY ==
[2023-12-22] VITALS (62 sets, daily range): BP systolic 131–191; BP diastolic 45–69; PULSE 74–100; RESP 14–29; TEMP 36.7–37.6; O2SAT 95–100; BMI 25.2
--- NOTE | ~2023-12-22 | XR_ITS ---
XR chest 1V portable 12/22/2023 05:09 Indication: Shortness of breath. COPD. Procedure: AP portable chest Comparison: 01/07/2023 Findings: Status post median sternotomy for CABG. Cardiomegaly. Unchanged diffuse bilateral airspace disease. Small pleural effusions unchanged. No pneumothorax. There is fluid in the fissure on the rig ht. There are dilated bowel loops in the upper abdomen, nonspecific. Impression: 1: Unchanged diffuse bilateral airspace disease which may represent edema or pneumonia. 2: Small pleural effusions. Reviewed, dictated and finalized at location A. [employer] Impression: 1: Unchanged diffuse bilateral airspace disease which may represent edema or pn eum[place]. 2: Small pleural effusions.
--- NOTE | 2023-12-22 05:00 | ECG_ITS ---
Measurements Intervals [place] Rate: 87 P: VA: 0 QRS: -60 QRSD: 112 T: 120 QT: 376 QTc: 452 Interpretive Statements ATRIAL FIBRILLATION LEFT AXIS DEVIATION INCOMPLETE LEFT BUNDLE BRANCH BLOCK BORDERLINE R WAVE PROGRESSION, ANTERIOR LEADS INFERIOR INFARCT, AGE INDETERMINATE ST-T WAVE ABNORMALITY IN HIGH LATERAL LEADS- CONSIDER ISCHEMIA BASELINE ARTIFACT- I, III, AVR, AVL, V1-V6 ABNORMAL ECG COMPARED TO ECG 01/07/2023 05:10:34 NO SIGNIFICANT CHANGES Electronically Signed On 12-22-2023 8:14:10 [employer] by Crut Avila D.O.
[2023-12-22 05:11] LABS: Basophils Absolute Auto 0.1 K/mm3 (0.0-0.1); Basophils Percent Auto 0.8 % (0.2-1.2); Eosinophils Absolute Auto 0.5 K/mm3 (0-0.3); Eosinophils Percent Auto 4.5 % (0-4.4); Hematocrit 27.7 % (42.0-52.0); Hemoglobin 8.7 g/dL (14.0-18.0); Immature Granulocyte Absolute 0.05 K/mm3 (0.00-0.031); Immature Granulocyte Percent A 0.5 % (0-0.5); Lymphocytes Absolute Auto 2.38 K/mm3 (0.9-3.2); Lymphocytes Percent Auto 21.5 % (18.3-44.2); Mean Corpuscular HGB Conc 31.4 g/dl (32-36); Mean Corpuscular Hemoglobin 26.3 pg (26-34); Mean Corpuscular Volume 83.7 fl (80-100); Mean Platelet Volume 10.5 fl (7.4-10.4); Monocytes Absolute Auto 0.9 K/mm3 (0.1-0.6); Monocytes Percent Auto 8.5 % (2.6-8.5); Neutrophils Absolute Auto 7.1 K/mm3 (1.3-6.7); Neutrophils Percent Auto 64.2 % (45.5-73.1); Platelet Count Result 238 k/mm3 (150-375); Red Blood Count 3.31 M/mm3 (4.6-6.20); Red Cell Distribution Width 14.2 % (11.5-14.5); White Blood Count 11.1 K/mm3 (4.5-10.0)
[2023-12-22 05:27] LABS: Alanine Aminotransferase 17 U/L (6-50); Albumin Level 3.2 g/dL (3.5-5.1); Alkaline Phosphatase 140 U/L (38-126); Anion Gap 9 mmol/L (8-16); Aspartate Amino Transferase 24 U/L (17-59); Bilirubin,Total 0.5 mg/dL (0.2-1.3); Blood Urea Nitrogen 12 mg/dL (9-20); Calcium 8.6 mg/dL (8.4-10.2); Carbon Dioxide 20 mmol/L (22-30); Chloride 108 mmol/L (98-107); Estimated CRCL calculation 70 ml/min; Estimated Glomerular Filt Rate > 60; Glucose 125 mg/dL (65-110); Potassium 3.9 mmol/L (3.4-5.0); Sodium 137 mmol/L (137-145)
[2023-12-22] MEDS: IPRATROPIUM 0.5 MG/ALBUTEROL SULFATE 2.5 MG AMPUL.NEB 3 ML INHALATION ×4 (05:47→19:26)
[2023-12-22 05:54] LABS: Lactic Acid Reflex 1.2 mmol/L (0.7-2.0)
--- NOTE | 2023-12-22 06:10 | ED.GENADULT ---
HPI - General Adult General Chief complaint: Shortness of Breath/Dyspnea Stated complaint: sob Time Seen by Provider: 12/22/23 04:59 History of Present Illness HPI narrative: patient 68-year-old gentleman who presents emergency department chief complaint of shortness of breath patient has history of COPD AFib congestive heart failure and hypertension. The patient reports this evening got up to go the bathroom got short of breath called EMS and was given Solu-Medrol and a nebulizer treatment EN route to the emergency department. Patient states he is feeling much better at this time Related Data Home Medications Medication Instructions Recorded Confirmed fluticasone fur. 100 mcg-umeclid 1 inh inhalation DAILY 07/22/20 01/07/23 62.5 mcg-vilant 25 mcg inhalat.powder (Trelegy Ellipta) metoclopramide HCl 5 mg tablet 5 mg PO BID 08/23/20 01/07/23 albuterol sulfate 90 mcg/actuation 2 puff inhalation TID PRN 09/20/20 01/07/23 aerosol inhaler (Ventolin HFA) Shortness Of Breath cyclosporine 0.05 % eye drops in a 1 drp ophthalmic (eye) Q12H 09/20/20 01/07/23 dropperette (Restasis) mecobalamin (vitamin B12) 1,000 1,000 mcg PO DAILY 09/20/20 01/07/23 mcg chewable tablet multivitamin 1 tablet PO DAILY 09/20/20 01/07/23 olopatadine 0.2 % eye drops 1 drp ophthalmic (eye) DAILY 09/20/20 01/07/23 simvastatin 10 mg tablet 20 mg PO HS 09/20/20 01/07/23 ferrous sulfate 325 mg (65 mg 325 mg PO TID 10/17/20 01/07/23 iron) tablet irbesartan 300 0.5 tablet PO DAILY 10/17/20 01/07/23 mg-hydrochlorothiazide 12.5 mg tablet apixaban 2.5 mg tablet (Eliquis) 2.5 mg PO BID 04/06/21 01/07/23 cholecalciferol (vitamin D3) 25 25 mcg PO DAILY 11/07/22 01/07/23 mcg (1,000 unit) tablet metformin 500 mg tablet 500 mg PO HS 11/07/22 01/07/23 roflumilast 500 mcg tablet 500 mcg PO DAILY 01/07/23 01/07/23 Allergies Allergy/AdvReac Type Severity Reaction Status Date / Time amiodarone Allergy Unknown Other Verified 12/22/23 04:59 iodine Allergy Unknown Hives Verified 12/22/23 04:59 Review of Systems Review of Systems: A 10 system review of systems was completed on the patient and is negative except for what is stated in the HPI. Nursing and ancillary documentation was reviewed. [facility] Past Medical History Medical History Anemia bone marrow disorder has been ruled out. Managed by Dr. Wilson - normal EGD 06/01/2020 - normal colonoscopy July 2019 -attempted a colonoscopy 06/01/2020 with poor prep Arthritis Atrial fibrillation CAD (coronary artery disease) (Unknown) Hx of CABG COPD (chronic obstructive pulmonary disease) Diabetes mellitus Esophageal dysmotility On imaging 05/13/2020 on Metoclopramide Essential hypertension Vitamin B12 deficiency with recent levels within normal limits in April Surgical History Surgical History History of maze procedure bilateral thoracenteses with Maze procedure History of right hip replacement History of shoulder surgery bilateral Hx of CABG 4 vessel CABG 2007 Status post cataract extraction of both eyes with insertion of intraocular lens Family History Family History Father Lung cancer Mother CHF (congestive heart failure) TIA (transient ischemic attack) Hypertension Sibling CHF (congestive heart failure) Hypertension Diabetes mellitus Social History Social History Social History: Primary care physician: Dr. Potts Polish Code status: Full code Smoking packs per day: 1 Smoking cigarettes per day: 20.0 Years smoked: 50 Smoking pack-years: 50.00 Smoking status: Former smoker Tobacco type: cigarettes Second hand tobacco smoke exposure: Yes Smoking end date: 11/25/99 Alcohol intake: former D
--- NOTE | 2023-12-22 06:43 | PM.IMHP ---
H&P: HPI History of Present Illness Date/Time: 12/22/23 06:43 Chief Complaint: Shortness of breath Narrative: Patient has history of COPD and CHF, and he presented with progressively worsening shortness of bread which has not gotten better despite using home albuterol inhalation, he also reported of cough, no congestion or sore throat, no vomiting no diarrhea. EMS reported low oxygen saturation insert patient on nasal oxygen, give Solu-Medrol and breathing treatment. Patient was evaluated in the ER and found to have leukocytosis of 11.2, hemoglobin of 8.7, normal troponin and BNP of 407, chest x-ray showed diffuse opacities, improved significantly with breathing treatment and steroid and oxygen saturation is within normal address however suddenly desaturates with mild exertion. Based on these, a request is made for admission of this patient for further management. Patient's H he feels little bit better. Review of Systems Review of Systems: All systems reviewed & are unremarkable except as noted in HPI and below PMFSH Past Medical History Medical History Anemia bone marrow disorder has been ruled out. Managed by Dr. Wilson - normal EGD 06/01/2020 - normal colonoscopy July 2019 -attempted a colonoscopy 06/01/2020 with poor prep Arthritis Atrial fibrillation CAD (coronary artery disease) (Unknown) Hx of CABG COPD (chronic obstructive pulmonary disease) Diabetes mellitus Esophageal dysmotility On imaging 05/13/2020 on Metoclopramide Essential hypertension Vitamin B12 deficiency with recent levels within normal limits in April Surgical History Surgical History History of maze procedure bilateral thoracenteses with Maze procedure History of right hip replacement History of shoulder surgery bilateral Hx of CABG 4 vessel CABG 2007 Status post cataract extraction of both eyes with insertion of intraocular lens Family History Family History Father Lung cancer Mother CHF (congestive heart failure) TIA (transient ischemic attack) Hypertension Sibling CHF (congestive heart failure) Hypertension Diabetes mellitus Social History Social History Social History: Primary care physician: Dr. Delroy Paris Code status: Full code Smoking packs per day: 1 Smoking cigarettes per day: 20.0 Years smoked: 50 Smoking pack-years: 50.00 Smoking status: Former smoker Tobacco type: cigarettes Second hand tobacco smoke exposure: Yes Smoking end date: 11/25/99 Alcohol intake: former Drinks per week: 2 Alcohol use details: He drinks about a 12 pack of beer a week. Substance use: never Substance use type: does not use Lack of Transportation: No Lack of Food: Never True Current Housing: I Have Housing Concerned About Future Housing: No Difficulty Paying Gas/Electric Bills: No Difficulty Paying for Meds: No Currently Unemployed: No Education: Don't Know Difficulty w/ Childcare or Family Care: No Living arrangements: with family Additional living arrangements comments: He lives with his , of 57 years, in [place], [place]. They have 3 children her reportedly healthy. He is independent in activities of daily living. 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 Gender identity (if verbalized by the patient): Male Sexual Orientation (if Verbalized by the Patient): Straight or Heterosexual Spiritual care concerns: No Meds Home Medications and Allergies Home Medications Medication Instructions Recorded Confirmed Type fluticasone fur. 100 mcg-umeclid 1 inh inhalation DAILY 07/22/20 01/07/23 History 62.5 mcg-vilant 25 mcg inha
[2023-12-22 07:00] LABS: NT Pro B Type Natriuretic Pept 407 pg/mL (19.9-100); Troponin I < 0.012 ng/mL (0.000-0.034)
[2023-12-22] MEDS: FUROSEMIDE INJ 40 MG/4 ML VIAL 20 MG IV PUSH ×2 (08:59→21:32)
--- NOTE | 2023-12-22 11:55 | PC.NURSE ---
This patient, Steven Greene, was admitted to 3 Med Surg Room 314-01. Patient/family oriented to hospital policies and general routines including ID bracelet, bed and alarms, visiting hours, pain management, procedures, bathroom and other care routines, personal items, smoking policy, room service/diet, and visiting hours. Information on how to activate the Rapid Response Team has been discussed. Patient/Family are encouraged to report perceived risks to care and to ask questions if they do not understand what they are told or what they should do.
[2023-12-22] MEDS: methylPREDNISolone SOD SUCC 125 MG VIAL 60 MG IV PUSH ×2 (12:26→21:37)
--- NOTE | 2023-12-22 18:06 | PM.IMPN ---
Progress Note: A&P Assessment and Plan (1) Exercise hypoxemia: Code(s): R09.02 - Hypoxemia Status: Acute (2) Acute exacerbation of chronic obstructive pulmonary disease: Code(s): J44.1 - Chronic obstructive pulmonary disease with (acute) exacerbation Status: Acute (3) Acute dyspnea: Code(s): R06.00 - Dyspnea, unspecified Status: Acute (4) COPD (chronic obstructive pulmonary disease): Code(s): J44.9 - Chronic obstructive pulmonary disease, unspecified Status: Acute (5) Atrial fibrillation: Code(s): I48.91 - Unspecified atrial fibrillation Status: Acute (6) CHF (congestive heart failure): Code(s): I50.9 - Heart failure, unspecified Status: Acute (7) Essential hypertension: Code(s): I10 - Essential (primary) hypertension Status: Chronic (8) CAD (coronary artery disease): Onset Date: Unknown Qualifiers: Coronary Disease-Associated Artery/Lesion type: bypass graft [place] vs. transplanted heart: [place] heart Associated angina: without angina Qualified Code(s): I25.810 - Atherosclerosis of coronary artery bypass graft(s) without angina pectoris Code(s): I25.10 - Atherosclerotic heart disease of [place] coronary artery without angina pectoris Status: Chronic (9) Anemia: Qualifiers: Anemia type: unspecified type Qualified Code(s): D64.9 - Anemia, unspecified Code(s): D64.9 - Anemia, unspecified Status: Chronic (10) Cognitive deficit, post-stroke: Code(s): I69.319 - Unspecified symptoms and signs involving cognitive functions following cerebral infarction Status: Acute Plan Admit patient to medical unit under full inpatient status Patient has hypoxia secondary to COPD exacerbation and fluid overload Continue gentle diuresis with Lasix 20 IV b.i.d. Strict I&Os Continue with the DuoNeb breathing treatments as needed Patient received Solu-Medrol ordered 125 mg IV x1 dose in the ER Continue with IV Solu-Medrol 60 mg IV q.8 hours on the floor; taper as per clinical response Hold metformin, patient started on Accu-Cheks with Insulin coverage as per protocol PT/OT evaluation ordered Encourage ambulation with assistance DC planning once patient is clinically stable and approaching his baseline ? Patient seen and examined at bedside during my morning rounds ? Collaborated with patient's nurse at the bedside in detail and addressed all concerns ? Labs, electrolytes, radiology, investigations and test results reviewed ? Consult/Nursing/Ancilliary notes on the chart reviewed and appreciated ? Spoke with patient/family at the bedside and answered all the questions that they had Repeat labs in a.m. Electrolyte replacement as per protocol. Patient will be monitored very closely on the floor. Further recommendations as per the hospital course. Time Spent With Patient Time with patient: 25 - 35 minutes Subjective Date/time seen: 12/22/23 18:06 Interval history: Patient admitted breath and fluid overload. Still little better today after treatment in the ER. Just moved up to the room and lunch during my rounds. Feels tired and fatigued Review of Systems Review of Systems: 14 systems were reviewed with pertinent positives and negatives per HPI. Except as documented in the HPI/progress notes, all other systems were reviewed and are negative. All systems reviewed & are unremarkable except as noted in HPI and below Exam Narrative: PHYSICAL EXAMINATION: Vital signs: Please see the chart General physical exam: Patient lying in bed, pleasant cooperative with exam, appears weak tired and fatigue Head/eyes: Atraumatic, EOMI, PERRLA ENT: Moist mucous membranes, nasal passages clear Neck: Supple, full range of motion, trachea midline CVS: S1 + S2, regular rate and rhythm, no murmurs Respiratory: Bilaterally decreased air entry in both lung turner, mild B/L crackles, symm
[2023-12-22 21:16] LABS: Glucose Point of Care 252 mg/dl (65-105)
[2023-12-22] MEDS: CYANOCOBALAMIN 1,000 MCG TABLET 1000 MCG PO (21:30)
[2023-12-22] MEDS: METOCLOPRAMIDE HCL 5 MG TABLET PO (21:30)
[2023-12-22] MEDS: cycloSPORINE 0.4 ML OPHTH SOLUTION 1 DROP EACH EYE (21:32)
[2023-12-22] MEDS: APIXABAN 2.5 MG TABLET PO (21:32)
[2023-12-22] MEDS: TAMSULOSIN HCL 0.4 MG CAPSULE PO (21:32)
[2023-12-22] MEDS: SIMVASTATIN 10 MG TABLET 20 MG PO (21:32)
[2023-12-23] VITALS (8 sets, daily range): BP systolic 129–130; BP diastolic 59–64; PULSE 56–88; RESP 16–18; TEMP 36.9–37.2; O2SAT 90–98
[2023-12-23] MEDS: IPRATROPIUM 0.5 MG/ALBUTEROL SULFATE 2.5 MG AMPUL.NEB 3 ML INHALATION ×3 (01:15→13:22)
[2023-12-23 06:40] LABS: Basophils Percent Auto 0.2 % (0.2-1.2); Hematocrit 24.3 % (42.0-52.0); Hemoglobin 7.6 g/dL (14.0-18.0); Immature Granulocyte Absolute 0.05 K/mm3 (0.00-0.031); Immature Granulocyte Percent A 0.4 % (0-0.5); Lymphocytes Absolute Auto 0.49 K/mm3 (0.9-3.2); Lymphocytes Percent Auto 4.4 % (18.3-44.2); Mean Corpuscular HGB Conc 31.3 g/dl (32-36); Mean Corpuscular Volume 83.2 fl (80-100); Mean Platelet Volume 10.1 fl (7.4-10.4); Monocytes Absolute Auto 0.2 K/mm3 (0.1-0.6); Monocytes Percent Auto 1.9 % (2.6-8.5); Neutrophils Absolute Auto 10.4 K/mm3 (1.3-6.7); Neutrophils Percent Auto 93.1 % (45.5-73.1); Platelet Count Result 200 k/mm3 (150-375); Red Blood Count 2.92 M/mm3 (4.6-6.20); Red Cell Distribution Width 14.4 % (11.5-14.5); White Blood Count 11.1 K/mm3 (4.5-10.0)
[2023-12-23] MEDS: methylPREDNISolone SOD SUCC 125 MG VIAL 60 MG IV PUSH ×2 (06:41→14:07)
[2023-12-23 07:02] LABS: Anion Gap 7 mmol/L (8-16); Blood Urea Nitrogen 21 mg/dL (9-20); Calcium 8.4 mg/dL (8.4-10.2); Carbon Dioxide 20 mmol/L (22-30); Chloride 107 mmol/L (98-107); Estimated CRCL calculation 50 ml/min; Estimated Glomerular Filt Rate > 60; Glucose 196 mg/dL (65-110); Magnesium 1.6 mg/dL (1.6-2.3); Phosphorus 4.5 mg/dL (2.5-4.5); Sodium 134 mmol/L (137-145)
[2023-12-23 07:25] LABS: Glucose Point of Care 196 mg/dl (65-105)
[2023-12-23] MEDS: FLUTICASONE/UMECLIDIN/VILANTER 100-62.5-25 MCG ELLIPTA 1 PUFF INHALATION (08:05)
[2023-12-23] MEDS: cycloSPORINE 0.4 ML OPHTH SOLUTION 1 DROP EACH EYE (09:50)
[2023-12-23] MEDS: APIXABAN 2.5 MG TABLET PO (09:51)
[2023-12-23] MEDS: CYANOCOBALAMIN 1,000 MCG TABLET 1000 MCG PO ×2 (09:51→12:58)
[2023-12-23] MEDS: CHOLECALCIFEROL 1,000 UNITS TABLET 1000 UNITS PO (09:51)
[2023-12-23] MEDS: METOCLOPRAMIDE HCL 5 MG TABLET PO (09:52)
[2023-12-23] MEDS: FERROUS SULFATE 325 MG TABLET DR PO ×2 (09:52→12:58)
[2023-12-23] MEDS: amLODIPine BESYLATE 5 MG TABLET 10 MG PO (09:52)
[2023-12-23] MEDS: ROFLUMILAST 500 MCG TABLET PO (09:52)
[2023-12-23] MEDS: FUROSEMIDE INJ 40 MG/4 ML VIAL 20 MG IV PUSH (09:53)
[2023-12-23] MEDS: THERAPEUTIC MULTIVITAMINS/MINERALS TAB (*BKC) 1 TABLET PO (09:53)
[2023-12-23] MEDS: IRBESARTAN 150 MG TABLET PO (09:53)
[2023-12-23] MEDS: PANTOPRAZOLE 40 MG TABLET PO (09:53)
[2023-12-23] MEDS: hydroCHLOROthiazide 6.25 MG TABLET PO (09:54)
[2023-12-23 11:45] LABS: Glucose Point of Care 313 mg/dl (65-105)
[2023-12-23] MEDS: INSULIN ASPART (*BKC) 100 UNITS/ML SUB-Q (12:56)
--- NOTE | 2023-12-23 15:18 | PM.DS ---
DS: Admitting Diagnosis Discharge Date 12/23/2023: Admitting Diagnosis Acute exacerbation of COPD Exercise hypoxemia DS: Discharge Diagnosis Discharge Diagnosis (1) Cognitive deficit, post-stroke: Code(s): I69.319 - Unspecified symptoms and signs involving cognitive functions following cerebral infarction Status: Acute (2) Exercise hypoxemia: Code(s): R09.02 - Hypoxemia Status: Acute (3) Acute exacerbation of chronic obstructive pulmonary disease: Code(s): J44.1 - Chronic obstructive pulmonary disease with (acute) exacerbation Status: Acute (4) Acute dyspnea: Code(s): R06.00 - Dyspnea, unspecified Status: Acute (5) Atrial fibrillation: Code(s): I48.91 - Unspecified atrial fibrillation Status: Acute (6) CHF (congestive heart failure): Code(s): I50.9 - Heart failure, unspecified Status: Acute (7) Acute respiratory failure with hypoxia: Code(s): J96.01 - Acute respiratory failure with hypoxia Status: Acute (8) Iron deficiency anemia: Code(s): D50.9 - Iron deficiency anemia, unspecified Status: Acute (9) Essential hypertension: Code(s): I10 - Essential (primary) hypertension Status: Chronic (10) CAD (coronary artery disease): Onset Date: Unknown Qualifiers: Coronary Disease-Associated Artery/Lesion type: bypass graft [place] vs. transplanted heart: three affiliated heart Associated angina: without angina Qualified Code(s): I25.810 - Atherosclerosis of coronary artery bypass graft(s) without angina pectoris Code(s): I25.10 - Atherosclerotic heart disease of three affiliated coronary artery without angina pectoris Status: Chronic (11) Diabetes mellitus: Qualifiers: Diabetes mellitus type: type 2 Diabetes mellitus usp insulin use: without usp use Diabetes mellitus complication status: without complication Qualified Code(s): E11.9 - Type 2 diabetes mellitus without complications Code(s): E11.9 - Type 2 diabetes mellitus without complications Status: Acute (12) COPD (chronic obstructive pulmonary disease): Qualifiers: COPD type: unspecified COPD Qualified Code(s): J44.9 - Chronic obstructive pulmonary disease, unspecified Code(s): J44.9 - Chronic obstructive pulmonary disease, unspecified Status: Chronic DS: Summary Hospital Course Reason for hospitalization: Patient admitted with worsening shortness of breath Hospital Course: H&P: HPI History of Present Illness Date/Time: 12/22/23? 06:43 Chief Complaint: Shortness of breath Narrative: Patient has history of COPD and CHF, and he presented with progressively worsening shortness of bread which has not gotten better despite using home albuterol inhalation, he also reported of cough, no congestion or sore throat, no vomiting no diarrhea.? EMS reported low oxygen saturation insert patient on nasal oxygen, give Solu-Medrol and breathing treatment.? Patient was evaluated in the ER and found to have leukocytosis of 11.2, hemoglobin of 8.7, normal troponin and BNP of 407, chest x-ray showed diffuse opacities, improved significantly with breathing treatment and steroid and oxygen saturation is within normal address however suddenly desaturates with mild exertion.? Based on these, a request is made for admission of this patient for further management.? Patient's H he feels little bit better. 12/22/2023: Admit patient to medical unit under full inpatient status Patient has hypoxia secondary to COPD exacerbation and fluid overload Continue gentle diuresis with Lasix 20 IV b.i.d. Strict I&Os Continue with the DuoNeb breathing treatments as needed Patient received Solu-Medrol ordered 125 mg IV x1 dose in the ER Continue with IV Solu-Medrol 60 mg IV q.8 hours on the floor; taper as per clinical response Hold metformin, patient started on Accu-Cheks with Insulin coverage as per protocol PT/OT owen
== END 2023-12-23 16:00 | disposition home or self-care (01) ==
LOC: ANHED 06:50 → ANH3MEDSUR 11:34
PROVIDERS: Admitting Provider Student in an Organized Health Care Education/Training Program; Emergency Provider Emergency Medicine; PCP Family Medicine; Visit Provider Family Medicine
DX: J44.1 Chronic obstructive pulmonary disease with (acute) exacerbation (principal); J96.01 Acute respiratory failure with hypoxia; I48.91 Unspecified atrial fibrillation; I11.0 Hypertensive heart disease with heart failure; I50.9 Heart failure, unspecified; I69.319 Unspecified symptoms and signs involving cognitive functions following cerebral infarction; I25.810 Atherosclerosis of coronary artery bypass graft(s) without angina pectoris; I25.10 Atherosclerotic heart disease of native coronary artery without angina pectoris; Z95.1 Presence of aortocoronary bypass graft; D50.9 Iron deficiency anemia, unspecified; E53.8 Deficiency of other specified B group vitamins; D72.829 Elevated white blood cell count, unspecified; R94.31 Abnormal electrocardiogram [ECG] [EKG]; E11.9 Type 2 diabetes mellitus without complications; Z87.891 Personal history of nicotine dependence; Z79.51 Long term (current) use of inhaled steroids; Z79.01 Long term (current) use of anticoagulants; Z79.84 Long term (current) use of oral hypoglycemic drugs; Z82.49 Family history of ischemic heart disease and other diseases of the circulatory system; Z83.3 Family history of diabetes mellitus
CPT/HCPCS: 36415; 71045; 80048; 80053; 82948; 83605; 83735; 83880; 84100; 84484; 85025; 93005; 94640; 99285; A9270; G0378; J1815; J1940; J2930

== ENCOUNTER 2024-03-04 17:05 | Emergency (ER) | payer MEDICARE, SELFPAY ==
[2024-03-04 17:08] VITALS: BP 128/68; PULSE 85; RESP 16; TEMP 36.4; O2SAT 98
--- NOTE | 2024-03-04 18:02 | ED.DENTAL ---
HPI - Dental/Oral General Chief complaint: Dental/Oral Stated complaint: swollen gums Time Seen by Provider: 03/04/24 17:44 Source: patient and family Mode of arrival: ambulatory Limitations: no limitations History of Present Illness HPI Narrative: 88 YEARS OLD WHITE MALE COMPLAINING OF LEFT LOWER DENTAL PAIN FOR OVER 1 WEEK, WAS SEEN BY HIS DENTIST TODAY AND WAS DISCHARGED ON PENICILLIN 500 Q.I.D. FOR 7 DAYS. HISTORY OF DIABETES, HYPERTENSION, HYPERLIPIDEMIA, COPD, CABG. BECAUSE OF THE MULTIPLE MEDICAL ISSUES HIS DENTIST RECOMMENDED TO COME TO THE EMERGENCY ROOM FOR 1 DOSE OF ANTIBIOTIC IV. PATIENT DENIES ANY FEVER, CHILLS, NAUSEA, VOMITING, TROUBLE SWALLOWING OR BREATHING, AND NECK PAIN OR MASS OR SWELLING. Related Data Home Medications Medication Instructions Recorded Confirmed fluticasone fur. 100 mcg-umeclid 1 inh inhalation DAILY 07/22/20 12/22/23 62.5 mcg-vilant 25 mcg inhalat.powder (Trelegy Ellipta) metoclopramide HCl 5 mg tablet 5 mg PO BID 08/23/20 12/22/23 albuterol sulfate 90 mcg/actuation 2 puff inhalation TID PRN 09/20/20 12/22/23 aerosol inhaler (Ventolin HFA) Shortness Of Breath cyclosporine 0.05 % eye drops in a 1 drp ophthalmic (eye) Q12H 09/20/20 12/22/23 dropperette (Restasis) mecobalamin (vitamin B12) 1,000 1,000 mcg PO TID 09/20/20 12/22/23 mcg chewable tablet olopatadine 0.2 % eye drops 1 drp ophthalmic (eye) DAILY 09/20/20 12/22/23 simvastatin 10 mg tablet 20 mg PO HS 09/20/20 12/22/23 ferrous sulfate 325 mg (65 mg 325 mg PO TID 10/17/20 12/22/23 iron) tablet irbesartan 300 0.5 tablet PO DAILY 10/17/20 12/22/23 mg-hydrochlorothiazide 12.5 mg tablet apixaban 2.5 mg tablet (Eliquis) 2.5 mg PO BID 04/06/21 12/22/23 cholecalciferol (vitamin D3) 25 25 mcg PO DAILY 11/07/22 12/22/23 mcg (1,000 unit) tablet metformin 500 mg tablet 500 mg PO HS 11/07/22 12/22/23 roflumilast 500 mcg tablet 500 mcg PO DAILY 01/07/23 12/22/23 multivitamin with minerals 1 tablet PO DAILY 12/22/23 12/22/23 Allergies Allergy/AdvReac Type Severity Reaction Status Date / Time amiodarone Allergy Unknown Other Verified 12/22/23 13:17 iodine Allergy Unknown Hives Verified 12/22/23 13:17 Review of Systems Review of Systems: All systems reviewed & are unremarkable except as noted in HPI and below PMFSH Past Medical History Medical History Anemia bone marrow disorder has been ruled out. Managed by Dr. Wilson - normal EGD 06/01/2020 - normal colonoscopy July 2019 -attempted a colonoscopy 06/01/2020 with poor prep Arthritis Atrial fibrillation CAD (coronary artery disease) (Unknown) Hx of CABG Cognitive deficit, post-stroke COPD (chronic obstructive pulmonary disease) Diabetes mellitus Esophageal dysmotility On imaging 05/13/2020 on Metoclopramide Essential hypertension Vitamin B12 deficiency with recent levels within normal limits in April Surgical History Surgical History History of maze procedure bilateral thoracenteses with Maze procedure History of right hip replacement History of shoulder surgery bilateral Hx of CABG 4 vessel CABG 2007 Status post cataract extraction of both eyes with insertion of intraocular lens Family History Family History Father Lung cancer Mother CHF (congestive heart failure) TIA (transient ischemic attack) Hypertension Sibling CHF (congestive heart failure) Hypertension Diabetes mellitus Social History Social History Social History: Primary care physician: Dr. Potts [place] Code status: Full code Smoking packs per day: 1 Smoking cigarettes per day: 20.0 Years smoked: 40 Smoking pack-years: 40.00 Smoking status: Former smoker Tobacco type: cigarettes Second hand tobacco smoke exposure: Yes Smoking end date: 0
[2024-03-04] MEDS: AMPICILLIN SULB 3 GM/NS 100 ML 3 GM/100 ML VIAL IVPB (18:15)
[2024-03-04 19:19] VITALS: BP 121/76; PULSE 91; RESP 16; O2SAT 93
== END 2024-03-04 19:21 | disposition home or self-care (01) ==
LOC: ANHED 18:33
PROVIDERS: Emergency Provider Emergency Medicine; PCP Family Medicine
DX: K08.89 Other specified disorders of teeth and supporting structures (principal); E11.9 Type 2 diabetes mellitus without complications; I10 Essential (primary) hypertension; E78.5 Hyperlipidemia, unspecified; J44.9 Chronic obstructive pulmonary disease, unspecified; Z95.1 Presence of aortocoronary bypass graft; I48.91 Unspecified atrial fibrillation; Z79.01 Long term (current) use of anticoagulants; Z87.891 Personal history of nicotine dependence
CPT/HCPCS: 96365; 99284; J0295